=== PATIENT | male | born 1930 | race African-American/Black ===

== ENCOUNTER 2016-11-08 13:05 | Observation (INO) | payer MEDICARE, MEDICAID ==
[~2016-11-08] VITALS: Ht 180.3 cm; Wt 100.0 kg
[2016-11-08 05:15] VITALS: PULSE 69
[~2016-11-08 13:05] MED LIST: ATOR40TA49 PO; AZOR5TAB4 PO; BENI40TA30 PO; ECOT81TA2 PO; HYDR12.56 PO; LORTA5 PO; METF500 PO; NITR0.4S SL; OMEP40CA2 PO; SUCR1TAB PO
[2016-11-08 13:08] VITALS: BP 194/93; PULSE 100; RESP 24; TEMP 97.4; O2SAT 99
[2016-11-08] MEDS ORDERED: SODIUM CHLORIDE 0.9% FLUSH 5 ML FLUSH IVF PRN ×2 (13:15→16:15)
[2016-11-08] MEDS ORDERED: ASPIRIN 81 MG CHEW TAB CHEW ONE (13:15)
[2016-11-08 13:22] VITALS: BP_SYST 148; BP_SYST 194; BP_DIAS 70; BP_DIAS 93
[2016-11-08 13:37] LABS: AUTOMATED NEUTROPHIL # 4.2 TH/MM3 (1.8-7.7); BASOPHIL % 0.2 % (0.0-2.0); EOSINOPHIL # 0.1 TH/MM3 (0-0.4); EOSINOPHIL % 1.5 % (0.0-4.0); HEMATOCRIT 36.2 % (39.0-51.0); LYMPH % 26.8 % (9.0-44.0); LYMPHOCYTE # 1.8 TH/MM3 (1.0-4.8); MEAN CELL VOLUME 88.2 FL (80.0-100.0); MEAN CORPUSCULAR HEMOGLOBIN 29.2 PG (27.0-34.0); MEAN CORPUSCULAR HGB CONC 33.1 % (32.0-36.0); MONO % 8.4 % (0.0-8.0); NEUT % 63.1 % (16.0-70.0); PLATELET COUNT 99 TH/MM3 (150-450); RED BLOOD COUNT 4.11 MIL/MM3 (4.50-5.90); RED CELL DISTRIBUTION WIDTH 16.6 % (11.6-17.2); WHITE BLOOD COUNT 6.6 TH/MM3 (4.0-11.0)
[2016-11-08 13:40] LABS: HEMO FLAGS AUTO DIFF
[2016-11-08 13:49] LABS: APTT (PATIENT) 23.7 SEC (24.3-30.1); PROTHROMBIN TIME - PATIENT 11.6 SEC (9.8-11.6)
--- NOTE | 2016-11-08 13:51 | RADRPT ---
EXAM DATE/TIME: 11/08/2016 13:33 [facility] COMPARISON: CHEST SINGLE AP, June 17, 2016, 13:05. INDICATIONS : Chest Pain MEDICAL HISTORY : Cardiovascular disease. Cerebrovascular disease. Diabetes SURGICAL HISTORY : CABG. ENCOUNTER: Initial ACUITY: 1 day PAIN SCORE: 5/10 LOCATION: Bilateral chest FINDINGS: A single view of the chest demonstrates the lungs to be symmetrically aerated without evidence of mas s, infiltrate or effusion. The cardiomediastinal contours are unremarkable. There is evidence of pr evious cardiothoracic surgery. Osseous structures are intact. CONCLUSION: No acute disease. No significant change has occurred. Zachary Ramos MD on November 08, 2016 at 13:49 Board Certified Radiologist. This report was verified electronically.
[2016-11-08 13:54] LABS: ANION GAP 8 MEQ/L (5-15); BLOOD UREA NITROGEN 26 MG/DL (7-18); CHLORIDE 109 MEQ/L (98-107); GLOMERULAR FILTRATION RATE 31 ML/MIN (>89); POTASSIUM 4.3 MEQ/L (3.5-5.1); SODIUM (NA) 142 MEQ/L (136-145)
[2016-11-08 13:57] LABS: CREATINE KINASE 299 U/L (39-308)
[2016-11-08 14:09] LABS: CKMB 1.2 NG/ML (0.5-3.6)
[2016-11-08 14:10] LABS: ACANTHOCYTES OCC (NORMAL); PLATELET ESTIMATE SMEAR LOW (NORMAL); PLATELET MORPHOLOGY NORMAL (NORMAL); SCAN/DIFF AUTO DIFF CONFIRMED
--- NOTE | 2016-11-08 14:25 | PD ---
HPI Chief Complaint: Cardiac Complaint Time Seen by Provider: 13:10 Travel History International Travel<30 days: No Contact w/Intl Traveler<30days: No Traveled to known affect area: No History of Present Illness HPI 86-year-old male came to the emergency room with history of chest pain and neck pain that started this morning. Patient is an extremely poor historian and there is no family member with him to certify this history. From what it seems like patient has had this pain for a while and he says it has been on and off for a few months. However this time it started this morning. Vital signs are stable. Because of him being a poor historian and looked into his past medical history and seems like patient has history of significant coronary artery disease. He had CABG and stents put in in 2005. He has been in the emergency room and admitted multiple times for chest pain related complaint. He points is pain over to the anterior part of his chest bilaterally. Shows that it started radiating to his neck. He is unable to rate his pain or describe the quality. It was noticed that patient's right eyelid was drooping and upon asking he said he has had it for years. ON LICENSE OF [facility] Past Medical History Narrative Medical List of his past medical history as reviewed from the nursing note. Hx Anticoagulant Therapy: Yes Arthritis: Yes Asthma: No Blood Disorders: No Heart Rhythm Problems: No Cancer: No Cardiac Catheterization: Yes Cardiovascular Problems: Yes High Cholesterol: Yes Chest Pain: No Congestive Heart Failure: Yes COPD: No Cerebrovascular Accident: Yes Coronary Artery Disease: Yes Diabetes: Yes Patient Takes Glucophage: Yes (metformin this am) Diminished Hearing: No Endocrine: Yes Gastrointestinal Disorders: Yes (GERD) Genitourinary: Yes (UNKNOWN LEFT KIDNEY PROBLEM) Headaches: Yes Hypertension: Yes Immune Disorder: No Implanted Vascular Access Dvce: Yes (EYE) Musculoskeletal: No Neurologic: Yes Psychiatric: No Respiratory: No Sleep Apnea: No Thyroid Disease: No Past Surgical History Cardiac Surgery: Yes (CABG- 2005; CARDIAC CATH. WITH STENT- 2004) Coronary Artery Bypass Graft: Yes (3 VESSEL ) Coronary Stent: Yes Eye Surgery: Yes (LEFT CATARACT EXTRACTION WITH IOL) Neurologic Surgery: No Other Surgery: Yes (COLONOSCOPY) Social History Alcohol Use: No Tobacco Use: No Substance Use: No Allergies-Medications (Allergen,Severity, Reaction): Coded Allergies: No Known Allergies (Verified , 07/21/16) Comments No known drug allergies. Reported Meds & Prescriptions Reported Meds & Active Scripts Active Narrative Medication List of his home medications reviewed from the nursing note. Review of Systems Except as stated in HPI: all other systems reviewed are Neg Physical Exam Narrative GENERAL: Awake, alert, elderly, no obvious distress SKIN: Warm and dry. HEAD: Atraumatic. Normocephalic. EYES: Pupils equal and round. No scleral icterus. No injection or drainage. Right eyelid ptosis ENT: No nasal bleeding or discharge. Mucous membranes pink and moist. NECK: Trachea midline. No JVD. CARDIOVASCULAR: Regular rate and rhythm. No murmur appreciated. RESPIRATORY: No accessory muscle use. Clear to auscultation. Breath sounds equal bilaterally. GASTROINTESTINAL: Abdomen soft, non-tender, nondistended. Hepatic and splenic margins not palpable. MUSCULOSKELETAL: No obvious deformities. No clubbing. No cyanosis. No edema. NEUROLOGICAL: Awake and alert. No obvious cranial nerve deficits. Motor grossly within normal limits. Normal speech. PSYCHIATRIC: Appropriate mood and affect; insight and judgment normal. Data Data Last Documented VS Vital Signs Date Time Temp Pulse Resp B/P Pulse Ox O2 Delivery O2 Flow Rate FiO2 11/08/16 13:22 194/93 148/70 11/08/16 13:16 98 99 Room Air 11/08/16 13:08 97.4 100 Orders Electrocardiogram (11/08/16 13:15) Basic Metabolic Panel (Bmp) (11/08/16 13:15) Ckmb (Isoenzyme) Profile (11/08/16 13:15) Complete Blood Count With Diff (11/08/16 13:15) Magnesium (Mg) (11/08/16 13:15) Prothrombin Time / Inr (Pt) (11/08/16 13:15) Act Partial Throm Time (Ptt) (11/08/16 13:15) Troponin I (11/08/16 13:15) Chest, Single Ap (11/08/16 13:15) Ecg Monitoring (11/08/16 13:15) Bilateral Bp Monitoring (11/08/16 13:15) Iv Access Insert/Monitor (11/08/16 13:15) Oximetry (11/08/16 13:15) Oxygen Administration (11/08/16 13:15) Sodium Chloride 0.9% Flush (Ns Flush) (11/08/16 13:15) Aspirin Chew (Aspirin Chew) (11/08/16 13:15) CKMB (11/08/16 13:17) CKMB% (11/08/16 13:17) Ct Brain W/O Iv Contrast(Rout) (11/08/16 ) Admit Order (Ed Use Only) (11/08/16 15:31) Labs Laboratory Tests Test 11/08/16 13:17 White Blood Count 6.6 TH/MM3 Red Blood Count 4.11 MIL/MM3 Hemoglobin 12.0 GM/DL Hematocrit 36.2 % Mean Corpuscular Volume 88.2 FL Mean Corpuscular Hemoglobin 29.2 PG Mean Corpuscular Hemoglobin 33.1 % Concent Red Cell Distribution Width 16.6 % Platelet Count 99 TH/MM3 Mean Platelet Volume 9.6 FL Neutrophils (%) (Auto) 63.1 % Lymphocytes (%) (Auto) 26.8 % Monocytes (%) (Auto) 8.4 % Eosinophils (%) (Auto) 1.5 % Basophils (%) (Auto) 0.2 % Neutrophils # (Auto) 4.2 TH/MM3 Lymphocytes # (Auto) 1.8 TH/MM3 Monocytes # (Auto) 0.6 TH/MM3 Eosinophils # (Auto) 0.1 TH/MM3 Basophils # (Auto) 0.0 TH/MM3 CBC Comment AUTO DIFF Differential Comment AUTO DIFF CONFIRMED Platelet Estimate LOW Platelet Morphology Comment NORMAL Acanthocytes OCC Prothrombin Time 11.6 SEC Prothromb Time International 1.0 RATIO Ratio Activated Partial 23.7 SEC Thromboplast Time Sodium Level 142 MEQ/L Potassium Level 4.3 MEQ/L Chloride Level 109 MEQ/L Carbon Dioxide Level 25.0 MEQ/L Anion Gap 8 MEQ/L Blood Urea Nitrogen 26 MG/DL Creatinine 2.42 MG/DL Estimat Glomerular Filtration 31 ML/MIN Rate Random Glucose 144 MG/DL Calcium Level 8.7 MG/DL Magnesium Level 2.0 MG/DL Total Creatine Kinase 299 U/L Creatine Kinase MB 1.2 NG/ML Troponin I 0.02 NG/ML MDM Medical Decision Making Medical Screen Exam Complete: Yes Emergency Medical Condition: Yes Medical Record Reviewed: Yes Interpretation(s) Twelve-lead EKG was reviewed by me. Normal sinus rhythm, normal axis, PVC, nonspecific ST-T wave changes. Heart rate of 85 bpm. Differential Diagnosis ACS, non-STEMI, nonspecific chest pain, chronic chest Narrative Course 2:57 PM blood test results of back and within normal limit. Currently awaiting for a CAT scan of the patient's head. Patient has been given 2 baby aspirin's to chew on. 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 Patient has several risk factors for coronary artery disease. I would like to admit him to the chest pain center to be ruled out. Procedures EKG Prior to Arrival: No Diagnosis Primary Impression: Chest pain Qualified Code: R07.9 - Chest pain, unspecified type Admitting Information Admitting Physician Requests: Observation Teja Allen MD Nov 08, 2016 14:25 Teja Allen MD Nov 08, 2016 14:25
--- NOTE | 2016-11-08 15:29 | RADRPT ---
EXAM DATE/TIME: 11/08/2016 15:16 [facility] COMPARISON: No previous studies available for comparison. INDICATIONS : Severe dizziness today RADIATION DOSE: 45.41 CTDIvol (mGy) MEDICAL HISTORY : Cerebrovascular disease. Cardiovascular disease Hypertension.Diabetes SURGICAL HISTORY : Head injurey ENCOUNTER: Initial ACUITY: 1 day PAIN SCALE: 0/10 LOCATION: cranial TECHNIQUE: Multiple contiguous axial images were obtained of the head. Using automated exposure control and adj ustment of the mA and/or kV according to patient size, radiation dose was kept as low as reasonably a chievable to obtain optimal diagnostic quality images. FINDINGS: There is a remote small infarct in the left parietal lobe. No acute intracranial mass, hemorrhage or shift. No hydrocephalus. No abnormal extra-axial fluid collections. No acute bony abnormalities. CONCLUSION: 1. 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 No acute intracranial abnormalities. Lisandro Jacobo MD on November 08, 2016 at 15:26 Board Certified Radiologist. This report was verified electronically.
[2016-11-08 16:15] VITALS: BP 141/66; PULSE 72; RESP 16; O2SAT 97
[2016-11-08] MEDS ORDERED: NITROGLYCERIN 0.4 MG SL 25 TABS/BTL SL PRN (16:15)
[2016-11-08] MEDS ORDERED: ONDANSETRON HCL 4 MG/2 ML VIAL IV PRN (16:15)
[2016-11-08] MEDS ORDERED: ACETAMINOPHEN 500 MG CPLT PO PRN (16:15)
[2016-11-08 17:31] VITALS: BP 169/83; PULSE 77; RESP 19; TEMP 98; O2SAT 96
[2016-11-08] MEDS ORDERED: DEXTROSE 50% IN WATER 50 ML VIAL(D50) IV PUSH PRN (17:45)
[2016-11-08] MEDS ORDERED: GLUCAGON 1 MG/ML VIAL OTHER PRN (17:45)
--- NOTE | 2016-11-08 18:35 | HHI.HP ---
HPI Primary Care Physician Pravin Mcmanus III, MD Chief Complaint Chest pain History of Present Illness 86 year old male with CAD, DM, HTN, and hyperlipidemia presents with dizziness and left anterior chest pain when getting ready for episcopalian this morning. Chest discomfort described as "burning." Severity 07/06. No radiation. Duration 2 hours. No associated symptoms. Nonexertional. No precipitating or relieving factors. Movement, position, or taking deep breaths did not improve or make chest discomfort worse. Reports "chronic chest pain that comes and goes for years." Today episode lasted longer than usual, therefore he came to ER. Review of Systems General: No fatigue,weakness, fever, chills, recent illness, or change in appetite HEENT: Report sharp pain "around head" lasted 30 seconds, no BOX, no vision changes, no nasal congestion or drainage, no dysphasia. Right eyelid drooping 20 years, unchanged. CV: No chest pain as stated above. No current chest pain. No chest pressure, palpitations, intermittent leg pain RESP: No SOB, cough, or wheeze GI: No nausea or vomiting, bowel changes, diarrhea, constipation, pain, distention, melena, blood in the stool. No change in appetite, no unintentional weight gain or weight loss : No dysuria, urgency, frequency, hematuria EXT: No lower leg edema, no paraesthesias MS: No discomfort or change in ROM NEURO: Dizziness most of the morning getting ready for episcopalian. No change in memory, difficulty with balance, LOC, motor/sensory deficits. No cane or walker required PSYCH: No anxiety, depression, SKIN: No rashes, no concerning lesions Past Family Social History Allergies: Coded Allergies: No Known Allergies (Verified , 07/21/16) Past Medical History CKD, DM, HTN, CAD, Hyperlipidemia, GERD, BPH Past Surgical History CABG X3, 2006 [place], [place] Reported Medications Patient is unsure of current medications and doses. Will attempt to obtain from patients pharmacy. Active Ordered Medications Current Medications Medications (Trade) Dose Ordered Sig/Johanne Route Start Time Stop Time Status Last Admin (Tylenol) 500 mg Q4H PRN PO 11/08/16 16:15 (Zofran Inj) 4 mg Q6H PRN IV 11/08/16 16:15 (Nitrostat Sl) 0.4 mg Q5M PRN SL 11/08/16 16:15 (Aspirin) 325 mg DAILY PO 11/09/16 09:00 (D50w (Vial) Inj) 25 ml UNSCH PRN IV PUSH 11/08/16 17:45 (Glucagon Inj) 1 mg UNSCH PRN OTHER 11/08/16 17:45 Social History , however for 10 years. Lifelong nonsmoker, Denies any alcohol or illicit drug use. Physical Exam Vital Signs Vital Signs Date Time Temp Pulse Resp B/P Pulse Ox O2 Delivery O2 Flow Rate FiO2 11/08/16 17:31 98.0 77 19 169/83 96 11/08/16 16:15 72 16 141/66 97 Room Air 11/08/16 13:22 194/93 148/70 11/08/16 13:16 98 99 Room Air 11/08/16 13:08 97.4 100 24 194/93 99 Physical Exam GENERAL: Alert WN, WD, NAD, pleasant, male HEAD: NC, AT EYES: Sclera clear, conjunctiva without injection, pupils equal and round. Extraocular movements intact. Right eye lid drooping. ENT: Mucous membranes pink and moist, no nasal discharge or bleeding NECK: Supple, no masses, trachea midline CV: RRR, without murmur, rub, gallop, no JVD, S1-S2 no S3-S4. No carotid bruits RESP: Clear lungs throughout bilateral, no crackles, wheeze, rhonchi, symmetrical chest rise, nonlabored, able to speak in full sentences ABD: Soft, NT, ND, no masses, positive bowel tones EXT: Pulses +24, no dependent edema MS: Normal tone 4 extremities, nontender, no obvious deformities, full range of motion NEURO: CN II through CN XII grossly intact, motor strength 5/5 PSYCH: A+O 3, pleasant affect, appropriate speech, appropriate mood and affect , insight and judgment SKIN: Normal turgor, normal texture, no lesions, no rashes, brisk cap refill, even hair distribution Laboratory Laboratory Tests Test 11/08/16 11/08/16 13:17 16:25 White Blood Count 6.6 Red Blood Count 4.11 Hemoglobin 12.0 Hematocrit 36.2 Mean Corpuscular Volume 88.2 Mean Corpuscular Hemoglobin 29.2 Mean Corpuscular Hemoglobin 33.1 Concent Red Cell Distribution Width 16.6 Platelet Count 99 Mean Platelet Volume 9.6 Neutrophils (%) (Auto) 63.1 Lymphocytes (%) (Auto) 26.8 Monocytes (%) (Auto) 8.4 Eosinophils (%) (Auto) 1.5 Basophils (%) (Auto) 0.2 Neutrophils # (Auto) 4.2 Lymphocytes # (Auto) 1.8 Monocytes # (Auto) 0.6 Eosinophils # (Auto) 0.1 Basophils # (Auto) 0.0 CBC Comment AUTO DIFF Differential Comment AUTO DIFF CONFIRMED Platelet Estimate LOW Platelet Morphology Comment NORMAL Acanthocytes OCC Prothrombin Time 11.6 Prothromb Time International 1.0 Ratio Activated Partial 23.7 Thromboplast Time Sodium Level 142 Potassium Level 4.3 Chloride Level 109 Carbon Dioxide Level 25.0 Anion Gap 8 Blood Urea Nitrogen 26 Creatinine 2.42 Estimat Glomerular Filtration 31 Rate Random Glucose 144 Calcium Level 8.7 Magnesium Level 2.0 Total Creatine Kinase 299 83 Creatine Kinase MB 1.2 Troponin I 0.02 0.03 Result Diagram: 11/08/16 1317 11/08/16 1317 Imaging Last Impressions Chest X-Ray 11/08/16 1315 Signed Impressions: Service Date/Time: Tuesday, November 08, 2016 13:33 - CONCLUSION: No acute disease. No significant change has occurred. Zachary Ramos MD Head CT 11/08/16 0000 Signed Impressions: Service Date/Time: Tuesday, November 08, 2016 15:16 - CONCLUSION: 1. 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 No acute intracranial abnormalities. Lisandro Jacobo MD Course EKG Two EKGs NSR with PVCs, normal axis Assessment and Plan Assessment and Plan #1 Chest pain-Admitted to [facility]. Will be ruled out with 3 EKGs, cardiac enzymes, and monitored overnight. Will be evaluated by Dr. Kang Strong in the am. Further disposition to follow after evaluation from log washer. Patient agreeable to chemical stress test if required. Agreeable to plan of care. #2 Dizziness-Head CT unremarkable for any acute findings. Will continue to monitor patient overnight. #3 Diabetes-SSI coverage #4 CKD-stable. Follow with boat outfitting supervisor as previously instructed. #5 HTN- will monitor overnight. Stable at this time. Will reorder medications once obtained. Will make arrangements with nursing and/or certified pharmacy tech to obtain patient medication list from his pharmacy. Olinda Mercer Nov 08, 2016 18:35
[2016-11-08] MEDS ORDERED: cloNIDine HCL 0.1 MG TAB PO PRN (19:00)
[2016-11-08 20:00] VITALS: PULSE 76
[2016-11-08] MEDS ORDERED: ACETAMINOPHEN/HYDROcodone 325 MG/5 MG TAB PO PRN (21:00)
[2016-11-08] MEDS: INSULIN ASPART SUPPLEMENTAL SCALE SQ SCH (21:00)
[2016-11-08] MEDS ORDERED: ATORVASTATIN 40 MG TAB PO SCH (21:00)
[2016-11-08] MEDS ORDERED: ZOLPIDEM TARTRATE 5 MG TAB PO PRN (21:00)
[2016-11-08] MEDS: amLODIPine BESYLATE 5 MG TAB PO SCH (21:21)
[2016-11-08] MEDS: SODIUM CHLORIDE 0.9% FLUSH 5 ML FLUSH IVF SCH (21:21)
[2016-11-09 00:22] VITALS: PULSE 66
[2016-11-09 04:45] VITALS: BP 158/73; PULSE 89; RESP 18; O2SAT 97
[2016-11-09] MEDS: INSULIN ASPART SUPPLEMENTAL SCALE SQ SCH (06:23)
[2016-11-09 06:28] VITALS: PULSE 66
[2016-11-09 08:00] VITALS: BP 97/71; PULSE 70; RESP 18; TEMP 97.8; O2SAT 98
[2016-11-09] MEDS ORDERED: ASPIRIN 325 MG TAB PO SCH (09:00)
[2016-11-09] MEDS: amLODIPine BESYLATE 5 MG TAB PO SCH (09:00)
[2016-11-09] MEDS ORDERED: REGADENOSON INJ 0.4 MG/5 ML SYR ONE (09:05)
[2016-11-09] MEDS ORDERED: OMEP40CA2 PO (09:46)
[2016-11-09] MEDS ORDERED: TRAD5TAB PO (09:46)
[2016-11-09] MEDS ORDERED: [UNRECOGNIZED DRUG - CODE] PO (09:46)
[2016-11-09] MEDS ORDERED: TAMS0.4C4 PO (09:46)
[2016-11-09] MEDS ORDERED: REPA1TAB PO (09:46)
[2016-11-09] MEDS ORDERED: ULOR40TA PO (09:46)
[2016-11-09] MEDS ORDERED: CALC0.25 PO (09:47)
[2016-11-09] MEDS: SODIUM CHLORIDE 0.9% FLUSH 5 ML FLUSH IVF SCH (10:32)
--- NOTE | 2016-11-09 10:45 | RADRPT ---
EXAM DATE/TIME: 11/09/2016 08:38 [facility] COMPARISON: CT ABDOMEN & PELVIS W/O CONTRAST, July 21, 2016, 15:06. CT THORAX W/O CONTRAST, October 17, 2014, 14:04. MYOCARDIAL PERF PHARM SPECT, GATED W/EF, October 18, 2014, 9:11. MYOCARDIAL PERF SHOW DESIGN SUPERVISOR T, GATED W/EF, August 13, 2015, 10:48. INDICATIONS : Bilateral anterior chest pain. Angina. DOSE: 25.7 mCi Tc99m Myoview at stress. 10.9 mCi Tc99m Myoview at rest. 0.4 mg Lexiscan STRESS SYMPTOMS: None. EJECTION FRACTION: 49% MEDICAL HISTORY : Hypertension. Hypercholesterolemia. Congestive heart failure. Diabetes SURGICAL HISTORY : CABG ENCOUNTER: Initial ACUITY: 1 day PAIN SCALE: 2/10 LOCATION: Bilateral chest TECHNIQUE: The patient underwent pharmacologic stress with infusion of prescribed dose. Continuous ECG tracing was monitored during stress. Gated SPECT imaging was performed after stress and conventional SPECT i maging was performed at rest. The examination was performed on a SPECT/CT scanner, both attenuation and non-corrected datasets were reviewed. FINDINGS: DISTRIBUTION: The maximum perfused segment at stress is in the septal wall. PERFUSION STUDY: The examination demonstrates a fixed perfusion defect in the lateral wall. No definite reversible per fusion abnormality is identified. The ventricular cavity is mildly dilated. GATED STUDY: There is intact wall motion and thickening without hypokinetic or dyskinetic segments. CONCLUSION: 1. Fixed perfusion defect involving the lateral wall. No definite reversible abnormality is evident. Ventricular cavity appears mildly dilated.. RISK CATEGORY: Intermediate (1-3% Annual Mortality Rate) Tarun Triplett MD on November 09, 2016 at 10:29 Board Certified Radiologist. This report was verified electronically.
--- NOTE | 2016-11-09 10:48 | HHI.DCPOC ---
Discharge Care Plan Diagnosis: (1) Chest pain (2) CAD (coronary artery disease) (3) Hx of CABG (4) Hypertension (5) Hyperlipidemia (6) DM (diabetes mellitus) (7) Chronic kidney disease Goals to Promote Your Health * To prevent worsening of your condition and complications * To maintain your health at the optimal level Directions to Meet Your Goals Take your medications as prescribed Follow your dietary instruction Follow activity as directed Keep your appointments as scheduled Take your immunizations and boosters as scheduled If your symptoms worsen call your PCP, if no PCP go to Urgent Care Center or Emergency Room Smoking is Dangerous to Your Health. Avoid second hand smoke Call the 24-hour hour crisis hotline for domestic abuse at John López Nov 09, 2016 10:48
[2016-11-09 11:43] VITALS: BP 157/90; PULSE 61; RESP 20; TEMP 96.8; O2SAT 95
--- NOTE | 2016-11-09 15:42 | EKG ---
Date Performed: 11/08/2016 Time Performed: 13:13:49 PTAGE: 86 years EKG: Sinus rhythm WITH OCCASIONAL VENTRICULAR PREMATURE COMPLEXES POSSIBLE LEFT ATRIAL ENLARGEMENT MODERATE INTRAVENTR ICULAR CONDUCTION DELAY BORDERLINE ECG INTERPRETATION BASED ON A DEFAULT AGE OF 40 YEARS PREVIOUS TRACING : 06/18/2016 05.59 Since previous tracing, no significant change noted DOCTOR: Kang Strong Interpretating Date/Time 11/09/2016 15:41:38
--- NOTE | 2016-11-09 15:42 | EKG ---
Date Performed: 11/08/2016 Time Performed: 19:24:05 PTAGE: 86 years EKG: Sinus rhythm WITH FREQUENT VENTRICULAR PREMATURE COMPLEXES POSSIBLE LEFT ATRIAL ENLARGEMENT MODERATE INTRAVENTRIC ULAR CONDUCTION DELAY ABNORMAL RHYTHM ECG PREVIOUS TRACING : 11/08/2016 16.25 Since previous tracing, no significant change noted DOCTOR: Kang Strong Interpretating Date/Time 11/09/2016 15:41:08
--- NOTE | 2016-11-09 15:42 | EKG ---
Date Performed: 11/08/2016 Time Performed: 16:25:49 PTAGE: 86 years EKG: Sinus rhythm WITH OCCASIONAL VENTRICULAR PREMATURE COMPLEXES NONSPECIFIC T-WAVE ABNORMALITY BORDERLINE ECG Since PREVIOUS TRACING , no significant change noted DOCTOR: Kang Strong Interpretating Date/Time 11/09/2016 15:41:25
--- NOTE | 2016-11-09 15:46 | TR ---
Date Performed: 11/09/2016 Time Performed: 09:12:51 DOCTOR: Kang Strong DRUG LIST: CLINICAL HISTORY: REASON FOR TEST: Angina REASON FOR ENDING: OBSERVATION: CONCLUSION: Lexiscan stress test was performed under standard four minute protocol. Radionuclid e was injected one minute prior to ending the test. No electrocardiographic abormalities were present to suggest ischemia. Nuclear imaging and interpretation are pending. COMMENTS:
== END 2016-11-09 12:28 | disposition home or self-care (01) ==
LOC: NEPC 13:05 → NEDA 15:33 → NEPFCDU 17:05
DX: R07.89 Other chest pain (principal); I25.10 Atherosclerotic heart disease of native coronary artery without angina pectoris; I12.9 Hypertensive chronic kidney disease with stage 1 through stage 4 chronic kidney disease, or unspecified chronic kidney disease; N18.9 Chronic kidney disease, unspecified; E11.22 Type 2 diabetes mellitus with diabetic chronic kidney disease; E78.5 Hyperlipidemia, unspecified; I49.3 Ventricular premature depolarization; E78.00 Pure hypercholesterolemia, unspecified; K21.9 Gastro-esophageal reflux disease without esophagitis; N40.0 Benign prostatic hyperplasia without lower urinary tract symptoms; Z86.73 Personal history of transient ischemic attack (TIA), and cerebral infarction without residual deficits; Z95.1 Presence of aortocoronary bypass graft
CPT/HCPCS: 70450; 71010; 78452; 80048; 82550; 82552; 82948; 83735; 84484; 85025; 85610; 85730; 93005; 93017; 99285; A9502; G0378; J2785

== ENCOUNTER 2017-05-07 09:08 | Inpatient (IN) | payer MEDICARE, MEDICAID ==
[2017-05-07] VITALS (10 sets, daily range): BP systolic 140–233; BP diastolic 73–106; PULSE 68–82; RESP 14–20; TEMP 95.7–97.6; O2SAT 97–100
[~2017-05-07] VITALS: Ht 182.9 cm; Wt 88.7 kg
[~2017-05-07 09:08] MED LIST changes: -ATOR40TA49 PO; -AZOR5TAB4 PO; -BENI40TA30 PO; +CALC0.25 PO; -ECOT81TA2 PO; -HYDR12.56 PO; -LORTA5 PO; -METF500 PO; -NITR0.4S SL; +REPA1TAB PO; -SUCR1TAB PO; +TAMS0.4C4 PO; +TRAD5TAB PO; +ULOR40TA PO; +[UNRECOGNIZED DRUG - CODE] PO
--- NOTE | 2017-05-07 09:26 | PD ---
HPI Chief Complaint: Chest Pain Time Seen by Provider: 09:20 Travel History International Travel<30 days: No Contact w/Intl Traveler<30days: No Traveled to known affect area: No History of Present Illness HPI 87-year-old male patient presents to the ER today for right axillary pain starting last night on its own. He states is currently a 10 out 10. He states it worsens with movements and deep breaths. He denies any fevers, coughing, shortness of breath, or any other symptoms. He denies previous history. Modifying Factors: Worse with movement Associated Signs & Symptoms: Right axillary chest pains Risk Factors: None PFSH Past Medical History Hx Anticoagulant Therapy: Yes Arthritis: Yes Asthma: No Blood Disorders: No Heart Rhythm Problems: No Cancer: No Cardiac Catheterization: Yes Cardiovascular Problems: Yes High Cholesterol: Yes Chest Pain: No Congestive Heart Failure: Yes COPD: No Cerebrovascular Accident: Yes Coronary Artery Disease: Yes Diabetes: Yes Patient Takes Glucophage: Yes Diminished Hearing: No Endocrine: Yes Gastrointestinal Disorders: Yes (GERD) Genitourinary: Yes (UNKNOWN LEFT KIDNEY PROBLEM) Headaches: Yes Hypertension: Yes Immune Disorder: No Implanted Vascular Access Dvce: Yes (EYE) Musculoskeletal: No Neurologic: Yes Psychiatric: No Respiratory: Yes Sleep Apnea: No Thyroid Disease: No Past Surgical History Cardiac Surgery: Yes (CABG- 2005; CARDIAC CATH. WITH STENT- 2004) Coronary Artery Bypass Graft: Yes (3 VESSEL ) Coronary Stent: Yes Eye Surgery: Yes (LEFT CATARACT EXTRACTION WITH IOL) Neurologic Surgery: No Other Surgery: Yes (COLONOSCOPY) Social History Alcohol Use: No Tobacco Use: No Substance Use: No Allergies-Medications (Allergen,Severity, Reaction): Coded Allergies: No Known Allergies (Verified , 07/21/16) Reported Meds & Prescriptions Reported Meds & Active Scripts Active Reported Calcitriol 0.25 Mcg Cap 0.25 Mcg PO MOWEFR Take 1 capsule (0.25mcg) three times weekly on Wednesday,Wednesday and Wednesday Tradjenta (Linagliptin) 5 Mg Tab 5 Mg PO DAILY Uloric (Febuxostat) 40 Mg Tab 40 Mg PO DAILY Tamsulosin (Tamsulosin HCl) 0.4 Mg Cap 0.4 Mg PO HS Amlodipine-Olmesartan 5-40 Mg Tab 1 Tab PO DAILY Repaglinide 0.5 Mg Tab 0.5 Mg PO BIDAC Omeprazole 40 Mg Cap 40 Mg PO DAILY Review of Systems Except as stated in HPI: all other systems reviewed are Neg Physical Exam Narrative GENERAL: Well-developed elderly -German male patient currently in moderate distress. Awake and oriented 3. SKIN: Focused skin assessment warm/dry. HEAD: Atraumatic. Normocephalic. EYES: Pupils equal and round. No scleral icterus. No injection or drainage. ENT: No nasal bleeding or discharge. Mucous membranes pink and moist. NECK: Trachea midline. No JVD. CARDIOVASCULAR: Regular rate and rhythm. No murmur appreciated. Pulses are present and equal bilaterally. RESPIRATORY: No accessory muscle use. Clear to auscultation. Breath sounds equal bilaterally. GASTROINTESTINAL: Abdomen soft, non-tender, nondistended. Hepatic and splenic margins not palpable. BACK: No CVA tenderness. No rash. No point tenderness on palpation of the spine. MUSCULOSKELETAL: No obvious deformities. No clubbing. No cyanosis. No edema. NEUROLOGICAL: Awake and alert. No obvious cranial nerve deficits. Motor grossly within normal limits. Normal speech. PSYCHIATRIC: Appropriate mood and affect; insight and judgment normal. Data Data Last Documented VS Vital Signs Date Time Temp Pulse Resp B/P Pulse Ox O2 Delivery O2 Flow Rate FiO2 05/07/17 12:05 72 14 163/77 100 Nasal Cannula 2 05/07/17:17 97.6 Orders Electrocardiogram (05/07/17:20) Ckmb (Isoenzyme) Profile (05/07/17:20) Complete Blood Count With Diff (05/07/17:20) Comprehensive Metabolic Panel (05/07/17:20) D-Dimer (05/07/17:20) Magnesium (Mg) (05/07/17:20) Prothrombin Time / Inr (Pt) (05/07/17:20) Act Partial Throm Time (Ptt) (05/07/17:20) Troponin I (05/07/17:20) Lipase (05/07/17:20) Chest, Single Ap (05/07/17:20) Ecg Monitoring (05/07/17:20) Bilateral Bp Monitoring (05/07/17:20) Iv Access Insert/Monitor (05/07/17:20) Oximetry (05/07/17:20) Oxygen Administration (8/11/17 09:20) Morphine Inj (Morphine Inj) (05/07/17 09:30) Sodium Chloride 0.9% Flush (Ns Flush) (05/07/17 09:30) Ondansetron Inj (Zofran Inj) (05/07/17 09:30) CKMB (05/07/17 09:25) CKMB% (05/07/17 09:25) Ventilation & Perfusion Scan (05/07/17 10:28) Morphine Inj (Morphine Inj) (05/07/17 12:00) Enoxaparin Inj (Lovenox Inj) (05/07/17 14:00) Labs Laboratory Tests Test 05/07/17 09:25 White Blood Count 8.9 TH/MM3 Red Blood Count 4.11 MIL/MM3 Hemoglobin 12.3 GM/DL Hematocrit 37.4 % Mean Corpuscular Volume 91.0 FL Mean Corpuscular Hemoglobin 29.9 PG Mean Corpuscular Hemoglobin 32.9 % Concent Red Cell Distribution Width 16.2 % Platelet Count 135 TH/MM3 Mean Platelet Volume 9.2 FL Neutrophils (%) (Auto) 61.5 % Lymphocytes (%) (Auto) 26.1 % Monocytes (%) (Auto) 10.8 % Eosinophils (%) (Auto) 1.0 % Basophils (%) (Auto) 0.6 % Neutrophils # (Auto) 5.5 TH/MM3 Lymphocytes # (Auto) 2.3 TH/MM3 Monocytes # (Auto) 1.0 TH/MM3 Eosinophils # (Auto) 0.1 TH/MM3 Basophils # (Auto) 0.1 TH/MM3 CBC Comment DIFF FINAL Differential Comment Prothrombin Time 11.4 SEC Prothromb Time International 1.0 RATIO Ratio Activated Partial 22.6 SEC Thromboplast Time D-Dimer Quantitative (PE/DVT) 2.39 MG/L FEU Sodium Level 141 MEQ/L Potassium Level 4.5 MEQ/L Chloride Level 109 MEQ/L Carbon Dioxide Level 26.7 MEQ/L Anion Gap 5 MEQ/L Blood Urea Nitrogen 17 MG/DL Creatinine 2.07 MG/DL Estimat Glomerular Filtration 37 ML/MIN Rate Random Glucose 91 MG/DL Calcium Level 8.7 MG/DL Magnesium Level 2.2 MG/DL Total Bilirubin 0.5 MG/DL Aspartate Amino Transf 18 U/L (AST/SGOT) Alanine Aminotransferase 17 U/L (ALT/SGPT) Alkaline Phosphatase 74 U/L Total Creatine Kinase 159 U/L Creatine Kinase MB 0.8 NG/ML Troponin I LESS THAN 0.02 NG/ML Total Protein 7.4 GM/DL Albumin 3.4 GM/DL Lipase 289 U/L MDM Medical Decision Making Medical Screen Exam Complete: Yes Emergency Medical Condition: Yes Medical Record Reviewed: Yes Interpretation(s) Laboratory Tests Test 05/07/17 09:25 Red Blood Count 4.11 MIL/MM3 (4.50-5.90) Hemoglobin 12.3 GM/DL (13.0-17.0) Hematocrit 37.4 % (39.0-51.0) Platelet Count 135 TH/MM3 (150-450) Monocytes (%) (Auto) 10.8 % (0.0-8.0) Monocytes # (Auto) 1.0 TH/MM3 (0-0.9) Activated Partial 22.6 SEC Thromboplast Time (24.3-30.1) D-Dimer Quantitative (PE/DVT) 2.39 MG/L FEU (0.00-0.50) Chloride Level 109 MEQ/L (98-107) Creatinine 2.07 MG/DL (0.60-1.30) Estimat Glomerular Filtration 37 ML/MIN (>89) Rate Troponin I LESS THAN 0.02 NG/ML (0.02-0.05) Last 24 hours Impressions Lung Scan-VQ Nuclear Medicine 05/07/17 1028 Signed Impressions: Service Date/Time: Sunday, May 07, 2017 13:18 - CONCLUSION: High probability scan for pulmonary embolism Pravin Marcano MD Chest X-Ray 05/07/17 0920 Signed Impressions: Service Date/Time: Sunday, May 07, 2017 09:33 - CONCLUSION: No acute cardiopulmonary abnormality is identified. Pravin Jim MD Differential Diagnosis Right lateral chest painscostochondritis versus pneumonia versus atypical chest pain versus PE Narrative Course EKG did not show any signs of acute ST-T changes but says show frequent PVCs. Chest x-ray did not show signs of acute bony processes. VQ scan was done which shows high probability of PE. At this point, Lovenox was initiated in the ER. His creatinine is quite elevated as well and doses will need to be readjusted by pharmacy. At this point, my plan would be to admit the patient for further treatment. Case was discussed with Dr. Dominguez for admission. Diagnosis Primary Impression: Pulmonary embolism Admitting Information Admitting Physician Requests: it Ashli Urbina MD May 07, 2017 09:26
[2017-05-07] MEDS ORDERED: MORPHINE SULFATE 4 MG/ML INJ IV PUSH ONE ×2 (09:30→12:00)
[2017-05-07] MEDS ORDERED: SODIUM CHLORIDE 0.9% FLUSH 10 ML FLUSH IVF PRN (09:30)
[2017-05-07] MEDS ORDERED: ONDANSETRON HCL 4 MG/2 ML VIAL IV PUSH ONE (09:30)
[2017-05-07 09:47] LABS: AUTOMATED NEUTROPHIL # 5.5 TH/MM3 (1.8-7.7); BASOPHIL # 0.1 TH/MM3 (0-0.2); BASOPHIL % 0.6 % (0.0-2.0); EOSINOPHIL # 0.1 TH/MM3 (0-0.4); HEMATOCRIT 37.4 % (39.0-51.0); HEMO FLAGS DIFF FINAL; LYMPH % 26.1 % (9.0-44.0); LYMPHOCYTE # 2.3 TH/MM3 (1.0-4.8); MEAN CORPUSCULAR HEMOGLOBIN 29.9 PG (27.0-34.0); MEAN CORPUSCULAR HGB CONC 32.9 % (32.0-36.0); MONO % 10.8 % (0.0-8.0); NEUT % 61.5 % (16.0-70.0); PLATELET COUNT 135 TH/MM3 (150-450); RED BLOOD COUNT 4.11 MIL/MM3 (4.50-5.90); RED CELL DISTRIBUTION WIDTH 16.2 % (11.6-17.2); WHITE BLOOD COUNT 8.9 TH/MM3 (4.0-11.0)
--- NOTE | 2017-05-07 10:00 | RADRPT ---
EXAM DATE/TIME: 05/07/2017 09:33 [facility] COMPARISON: CHEST SINGLE AP, November 08, 2016, 13:33. INDICATIONS : Complains of chest pain. MEDICAL HISTORY : None. SURGICAL HISTORY : CABG. ENCOUNTER: Initial ACUITY: 1 day PAIN SCORE: 8/10 LOCATION: Abdomen FINDINGS: Portable AP view of the chest demonstrates a normal-sized cardiac silhouette. No effusion, consolidat ion, or pneumothorax is visualized. The bones and soft tissues demonstrate no acute abnormality. Thea ent is post median sternotomy. CONCLUSION: No acute cardiopulmonary abnormality is identified. Pravin Jim MD on May 07, 2017 at 9:58 Board Certified Radiologist. This report was verified electronically.
[2017-05-07 10:02] LABS: APTT (PATIENT) 22.6 SEC (24.3-30.1); PROTHROMBIN TIME - PATIENT 11.4 SEC (9.8-11.6)
[2017-05-07 10:14] LABS: ALT (GPT) 17 U/L (12-78); ANION GAP 5 MEQ/L (5-15); AST (GOT) 18 U/L (15-37); BICARBONATE 26.7 MEQ/L (21.0-32.0); BLOOD UREA NITROGEN 17 MG/DL (7-18); CHLORIDE 109 MEQ/L (98-107); GLOMERULAR FILTRATION RATE 37 ML/MIN (>89); MAGNESIUM 2.2 MG/DL (1.5-2.5); POTASSIUM 4.5 MEQ/L (3.5-5.1); SODIUM (NA) 141 MEQ/L (136-145)
[2017-05-07 10:18] LABS: ALKALINE PHOSPHATASE 74 U/L (45-117); CREATINE KINASE 159 U/L (39-308); TOTAL BILIRUBIN ADULT 0.5 MG/DL (0.2-1.0)
[2017-05-07 10:31] LABS: CKMB 0.8 NG/ML (0.5-3.6)
--- NOTE | 2017-05-07 13:58 | RADRPT ---
EXAM DATE/TIME: 05/07/2017 13:18 [facility] COMPARISON: CHEST SINGLE AP, May 07, 2017, 9:33. INDICATIONS : Shortness of breath. DOSE: 8.1 mCi Tc99m MAA IV 0.9 mCi Tc99m DTPA aerosol MEDICAL HISTORY : Congestive hearrt failure. Hypertension. SURGICAL HISTORY : CABG Coronary artery stent. ENCOUNTER: Initial ACUITY: 1 day PAIN SCALE: 10/10 LOCATION: chest TECHNIQUE: Following five minutes of tidal breathing of DTPA aerosol, planar images of the lungs were performed in eight projections. The patient was then injected with MAA, and eight-view perfusion scan was perf ormed. FINDINGS: There are multiple bilateral ventilation/perfusion mismatches. Chest radiograph is focally unremarkable. CONCLUSION: High probability scan for pulmonary embolism Pravin Marcano MD on May 07, 2017 at 13:52 Board Certified Radiologist. This report was verified electronically.
[2017-05-07] MEDS ORDERED: ENOXAPARIN SODIUM 80 MG/0.8 ML SYRINGE SQ ONE (14:00)
[2017-05-07] MEDS ORDERED: LACTULOSE SYRUP 20 GM/30 ML CUP PO PRN (14:30)
[2017-05-07] MEDS ORDERED: BISACODYL 10 MG SUPP RECTAL PRN (14:30)
[2017-05-07] MEDS ORDERED: SENNOSIDES 8.6 MG TAB PO PRN (14:30)
[2017-05-07] MEDS ORDERED: ACETAMINOPHEN 325 MG TAB PO PRN (14:30)
[2017-05-07] MEDS ORDERED: NALOXONE HCL 0.4 MG/ML AMP IV PRN (14:30)
[2017-05-07] MEDS ORDERED: SODIUM CHLORIDE 0.9% FLUSH 10 ML FLUSH IV FLUSH PRN (14:30)
[2017-05-07] MEDS ORDERED: MAGNESIUM HYDROXIDE SUSP 30 ML CUP PO PRN (14:30)
--- NOTE | 2017-05-07 16:38 | MH ---
cc: SAGRARIO MOYA MD DATE OF ADMISSION: 05/07/2017 CHIEF COMPLAINT: Chest pain and shortness of breath right axilla. TRAVEL IN THE LAST THIRTY DAYS: None. HISTORY OF PRESENT ILLNESS: This is a pleasant 87-year-old black male who had been in his usual state of health up until yesterday evening. He states that he was hit acutely by a pain that was up under his right axilla in the back shoulder area. He states the pain was sharp and stabbing and constant. He rated it as a 10/10 and he states that he was having trouble taking a deep breath. The pain was so intense but denies any nausea, vomiting, headaches, diarrhea or constipation. He states that he did have a sensation in his chest but the pain was mostly radiating around to the right axilla area. The patient has had no fever, no cough. He has noted in the recent months some dizziness and had started going to physical therapy this past week. PAST MEDICAL HISTORY: His medical history includes: 1. Arthritis. 2. Hyperlipidemia. 3. Cardiovascular disease. 4. Congestive heart failure. 5. Coronary artery disease with stents. 6. CVA. 7. Diabetes type 2. 8. Left kidney disease. 9. Headaches. 10. Hypertension. 11. Some type of eye disorders. 12. Respiratory disease. 13. Gastroesophageal reflux disease (GERD). PAST SURGICAL HISTORY: 1. CABG in 2005. 2. Cardiac stents in 2004. 3. Left cataract extraction with intraocular lens. 4. Colonoscopy. ALLERGIES: NO KNOWN ALLERGIES. MEDICATIONS REPORTED: 1. Calcium. 2. Tradjenta. 3. Uloric. 4. Tamsulosin. 5. Amlodipine. 6. Omeprazole. SOCIAL HISTORY: The patient is currently but does not live with his . They are still on good terms. They do have children together. He lives alone. He denies any tobacco, alcohol or illicit drug use. REVIEW OF SYSTEMS: A twelve-point review of systems was obtained and positives noted or what is mentioned in the history of present illness as symptoms, right axillary pain, a funny feeling sensation in his chest, the pain is worse with movement and rated at 10/10, mild shortness of breath, history of some recent dizziness and debility, otherwise systems negative or unremarkable. PHYSICAL EXAMINATION: VITAL SIGNS: Temperature was 97.6, pulse 82, respirations 16, blood pressure initially on admission was 233/106 and now 177/95 and 175/84 and has been as low as 163/77, 02 saturation 97% on two liters nasal cannula. GENERAL: Well-developed elderly black male tall in stature and frame, mildly obese abdomen resting in the bed. He is alert, oriented and a fairly good historian. His daughter is with him at his side. SKIN: He has pink mucous membranes. Warm and dry. No obvious wounds. HEAD, EYES, EARS, NOSE, THROAT: Normocephalic and atraumatic. Pupils equal, round and reactive to light and accommodation. No scleral icterus. The patient wears glasses. The mucous membranes are moist and pink. NECK: The neck is supple. CARDIOVASCULAR: S1 and S2. Rhythm is regular. Heart sounds are distant. No obvious murmurs, rubs or gallops. The patient has 1+ edema noted in his lower extremities. They are warm to touch. Pulses are palpable. RESPIRATORY: Lungs are essentially clear on the left side with no wheezes or rhonchi. He does have some mild diminished sounds in his right mid to lower lobe. GASTROINTESTINAL: The abdomen is round, taught, soft, nontender. Bowel sounds are active. MUSCULOSKELETAL: Edema noted in the lower extremities 1+. No obvious deformities. Moves his extremities with purpose. NEUROLOGIC: His hand color drum worker are equal. He is alert and a fairly good historian and answers questions appropriately. Speech is normal and understandable. PSYCHIATRIC: Appropriate mood and affect. LABORATORY DATA: White blood cell count 8.9, RBCs 4.11, hemoglobin 12.3, hematocrit 37.4, platelet count 135,000, monocyte count 10.8. All other differential is normal. PT and INR are 1. APTT is 22.6. PT 11.4. D dimer 2.39. Chemistry: Sodium 141, potassium 4.5, chloride 109, BUN 17, creatinine 2.07, GFR 37. Troponin is less than 0.02. IMAGING STUDIES: Chest x-ray shows no acute cardiopulmonary disease identified. VQ SCAN shows high probability of pulmonary embolism. ASSESSMENT AND PLAN: 1. The patient will be admitted. 2. In the emergency room, he had ECG monitoring, initial labs, x-rays, IVs, pain management given. 3. The patient's initial diagnosis was pulmonary emboli. 4. We have consulted hematology for their expert opinion. 5. The patient has been placed on Lovenox 60 milligrams subcutaneous every 12 hours. 6. Home medications have been identified and continued as warranted. 7. Will monitor his bowel regimen. 8. Keep him on IV fluids. 9. Cardiac monitoring. 10. 1800 calorie ADA heart-healthy diet. 11. He will have Accu-Cheks a.c. and at bedtime with sliding scale. 12. He is admitted inpatient status. 13. Vital signs are q. 4. 14. Oxygen two liters nasal cannula as needed. To my knowledge, the patient is a FULL CODE, FULL AGGRESSIVE CARE, which are his wishes. Even though he and his do not live together, he is comfortable with her being his next of kin and decision-maker and he states that his family is close and will have no problems making decisions for each other. We will continue to follow. Dictated by POPPY Hung. MD ANURAG Vaca/HEMALATHA /3:55 PM /4:17 PM seen, examined by myself, Dr Moya, today Discussed with patient Admitted with right-sided pleuritic/reproducible chest pain VQ scan showing possible evidence of pulmonary embolism Lovenox ordered Hematology consultation requested Discussed with mid level provider The exam, history, and the medical decision-making described in the above note were completed with the assistance of the mid-level provider. I reviewed the findings presented. I attest that I had a [id number] encounter with the patient on the same day, and personally performed and documented my assessment and findings in the medical record. EMIL
[2017-05-07] MEDS: SODIUM CHLOR 0.9% 1000 ML INJ 1,000 ML IV SCH (17:24)
[2017-05-07] MEDS: CALCITRIOL 0.25 MCG CAP PO SCH (17:32)
[2017-05-07] MEDS ORDERED: Custom Consult Pharmacy 1 EA OTHER SCH (17:45)
[2017-05-07] MEDS ORDERED: DEXTROSE 50% IN WATER 50 ML VIAL(D50) IV PUSH PRN (18:00)
[2017-05-07] MEDS ORDERED: GLUCAGON 1 MG/ML VIAL OTHER PRN (18:00)
[2017-05-07] MEDS: SODIUM CHLORIDE 0.9% FLUSH 10 ML FLUSH IV FLUSH SCH (20:01)
[2017-05-07] MEDS: TAMSULOSIN HCL 0.4 MG CAP PO SCH (20:01)
[2017-05-07] MEDS: ACETAMINOPHEN/HYDROcodone 325 MG/5 MG TAB PO PRN (20:01)
[2017-05-07] MEDS: DOCUSATE SODIUM 50 MG/SENNA 8.6 MG TAB PO SCH (20:01)
[2017-05-07] MEDS: INSULIN ASPART SUPPLEMENTAL SCALE SQ SCH (20:07)
[2017-05-07] MEDS ORDERED: DO NOT ADM ANY ANTICOAGULANT DRUGS OTHER PRN (20:30)
--- NOTE | 2017-05-07 20:30 | RADRPT ---
EXAM DATE/TIME: 05/07/2017 19:11 [facility] COMPARISON: No previous studies available for comparison. INDICATIONS : Bilateral leg swelling. MEDICAL HISTORY : Hypercholesterolemia. Hypertension. Gastroesophageal reflux disease. Cerebrovascular accident. Heada luke. Congestive heart failure. Coronary artery disease. Arthritis. Diabetes. SURGICAL HISTORY : Coronary artery bypass graft. Cardiac catheterization. Coronary stent. Colonoscopy. ENCOUNTER: Initial ACUITY: 1 day PAIN SCORE: 1/10 LOCATION: Bilateral legs. TECHNIQUE: Venous ultrasound of the left and right leg was performed from the inguinal ligament to the proximal calf. Real-time, color Doppler and spectral tracing, compression and augmentation techniques were us ed. FINDINGS: Examination is positive for deep venous thrombosis nonocclusive in the right popliteal vein and occlu sive in the right posterior tibial vein. Left lower extremity negative for DVT. CONCLUSION: 1. Positive for deep venous thrombosis right lower extremity as above. Lisandro Jacobo MD on May 07, 2017 at 20:28 Board Certified Radiologist. This report was verified electronically.
[2017-05-07] MEDS ORDERED: WARFARIN SOD 2.5 MG TAB PO ONE (21:00)
--- NOTE | 2017-05-07 21:56 | MB ---
cc: SAGRARIO MOYA MD, RUBY ANNE E. M.D. DATE OF CONSULTATION: 05/07/2017 DATE OF : 1930 DATE OF SERVICE 05/07/[address] Moya CHIEF COMPLAINT [address] Moya requested a consultation for Mr. Schmitt regarding newly diagnosed pulmonary embolism. HISTORY OF PRESENT ILLNESS: Mr. Schmitt is an 87-year-old man with multiple medical problems. He has a history of coronary artery disease, diabetes, hypertension, hyperlipidemia. He denies any precipitating event. He states that he was active at home and is able to get around in his home uneventfully. He has not had any recent trauma or injury. He presents with axillary pain radiating up to his scapula. He rates it as 10 out of 10 and worsens with movement and deep breath. He had no fevers, chills, night sweats, cough. He has chronic renal insufficiency. For this reason a VQ scan was performed. The VQ scan showed multiple bilateral ventilation perfusion mismatches. Chest radiograph is focally unremarkable. This was a high probability scan for pulmonary embolism. He was started on low-molecular weight heparin, Lovenox 60 mg subcu once in the ED. He is subsequently admitted. Ultrasound of the lower extremity is being performed. REVIEW OF SYSTEMS: Essentially negative. He denies any recent travel. He has no headache, no nausea, no vomiting, no vision changes. His main complaint is the shoulder and scapula right axillary pain in addition to being hungry. He denies any change in bowel habits. The rest of his review of systems is negative. PAST MEDICAL HISTORY: 1. Arthritis 2. Hyperlipidemia 3. Coronary artery disease. 4. Cerebrovascular event. 5. Diabetes. 6. Hypertension. 7. Chronic renal insufficiency. 8. Gastroesophageal reflux. PAST SURGICAL HISTORY: 1. Coronary artery bypass graft 2. Cardiac stent. 3. Left cataract surgery. 4. Colonoscopy. FAMILY HISTORY: Father of motor vehicle accident. Mother had diabetes and amputation. She lived to be in her 70s. SOCIAL HISTORY: He is , for 10 years. He is a nonsmoker. Denies any alcohol or illicit drug use. ALLERGIES: NO KNOWN DRUG ALLERGIES. CURRENT MEDICATIONS: 1. Enoxaparin 80 milligrams once daily. 2. Protonix 3. Norvasc 4. Cozaar 5. Flomax. 6. Rocaltrol. 7. Lactulose p.r.n. PHYSICAL EXAMINATION: VITAL SIGNS: Temperature 95.7, heart rate 73, respiratory rate 20, blood pressure 140/73, saturation 100%. GENERAL: Mr. Schmitt is a well-developed elderly man in no acute distress. He had some mild facial weakness on the right. HEENT: Pupils are round and reactive. Oropharynx is clear. NECK: Supple. LUNGS: Clear anteriorly. CARDIOVASCULAR: Reveals a normal rate and rhythm. ABDOMEN: Mildly distended. LOWER EXTREMITIES: No edema. He moves all four extremities. LABORATORY DATA: Significant for normocytic anemia, hemoglobin of 12.3, platelet count 135. BUN 17, creatinine 2.07. Estimated glomerular filtration rate of 37. Troponin-I is negative. PT/PTT are normal. D-Dimer is elevated. ASSESSMENT AND PLAN: Mr. Schmitt is an 87 year-old man with multiple medical problems. He seems to have no precipitating event but developed a right axillary scapular pain. He has evidence of bilateral pulmonary emboli. We discussed the diagnosis of pulmonary embolism. He is undergoing ultrasound of his lower extremity to rule out source of deep venous thrombosis. He denies being sedentary or immobile as a risk factors, though it seems he is less active than he used to be. He needs to start on an anticoagulant therapy. Will start him on low-molecular weight heparin, titrated by pharmacy. We discussed options for anticoagulation. In light of his age and renal insufficiency, the new oral anticoagulants are not appropriate. We discussed the risks and benefits of Coumadin. The information on Coumadin will be provided. We discussed titrating him to a therapeutic INR. His questions were answered to his satisfaction. Malia Combs MD RAD/KOKO /7:39 PM /9:39 PM
[2017-05-08] VITALS: BP 127/62; PULSE 60; RESP 17; TEMP 97.3; O2SAT 98
[2017-05-08] MEDS: ACETAMINOPHEN/HYDROcodone 325 MG/5 MG TAB PO PRN ×4 (03:58→20:04)
[2017-05-08 04:00] VITALS: BP 154/76; PULSE 67; RESP 16; TEMP 96.9; O2SAT 99
[2017-05-08] MEDS: INSULIN ASPART SUPPLEMENTAL SCALE SQ SCH ×4 (05:56→20:15)
[2017-05-08 07:39] LABS: INTERNATIONAL NORMALIZED RATIO 1.1 RATIO; PROTHROMBIN TIME - PATIENT 11.9 SEC (9.8-11.6)
[2017-05-08 07:49] LABS: AUTOMATED NEUTROPHIL # 3.7 TH/MM3 (1.8-7.7); BASOPHIL % 0.3 % (0.0-2.0); EOSINOPHIL # 0.1 TH/MM3 (0-0.4); EOSINOPHIL % 1.3 % (0.0-4.0); HEMO FLAGS DIFF FINAL; LYMPH % 27.7 % (9.0-44.0); LYMPHOCYTE # 1.7 TH/MM3 (1.0-4.8); MEAN CELL VOLUME 89.9 FL (80.0-100.0); MEAN CORPUSCULAR HEMOGLOBIN 30.4 PG (27.0-34.0); MEAN CORPUSCULAR HGB CONC 33.9 % (32.0-36.0); MONO % 12.2 % (0.0-8.0); NEUT % 58.5 % (16.0-70.0); PLATELET COUNT 109 TH/MM3 (150-450); RED BLOOD COUNT 3.78 MIL/MM3 (4.50-5.90); RED CELL DISTRIBUTION WIDTH 15.3 % (11.6-17.2); WHITE BLOOD COUNT 6.3 TH/MM3 (4.0-11.0)
[2017-05-08 08:00] VITALS: BP 134/73; PULSE 56; PULSE 66; RESP 17; TEMP 96.6; O2SAT 100
[2017-05-08 08:01] LABS: BICARBONATE 27.7 MEQ/L (21.0-32.0); POTASSIUM 4.1 MEQ/L (3.5-5.1)
[2017-05-08] MEDS: amLODIPine BESYLATE 5 MG TAB PO SCH (08:54)
[2017-05-08] MEDS: PANTOPRAZOLE SOD 40 MG DELAYED RELEASE TAB PO SCH (08:55)
[2017-05-08] MEDS: LOSARTAN 50 MG TAB PO SCH (08:55)
[2017-05-08] MEDS: SODIUM CHLORIDE 0.9% FLUSH 10 ML FLUSH IV FLUSH SCH ×2 (08:55→20:19)
[2017-05-08] MEDS: DOCUSATE SODIUM 50 MG/SENNA 8.6 MG TAB PO SCH ×2 (08:55→20:04)
[2017-05-08] MEDS ORDERED: ULORIC 40 MG PO SCH (09:00)
[2017-05-08] MEDS ORDERED: NON-FORMULARY DRUG (Amlodipine-Olmesartan 1 TAB) PO SCH (09:00)
--- NOTE | 2017-05-08 10:13 | HHI.PR ---
Subjective Remarks Resting in the bed Waiting on breakfast Alert oriented feeling somewhat better No acute shortness of breath Also positive for right leg DVT (Edith Ambriz) Objective Objective Results - Vital Signs Date Time Temp Pulse Resp B/P Pulse Ox O2 Delivery O2 Flow Rate FiO2 05/08/17 04:00 96.9 67 16 154/76 99 05/08/17 00:00 97.3 60 17 127/62 98 05/07/17 22:08 69 05/07/17 19:49 97.2 68 16 146/74 99 05/07/17 18:10 95.7 73 20 140/73 100 05/07/17 15:56 74 16 165/89 97 Nasal Cannula 2 05/07/17 15:20 71 16 177/95 97 Room Air 2 05/07/17 14:32 71 17 175/84 97 Room Air 05/07/17 12:05 72 14 163/77 100 Nasal Cannula 2 I/O 05/07/17 05/07/17 05/07/17 05/08/17 05/08/17 05/08/17 06:59 14:59 22:59 06:59 14:59 22:59 Intake Total 360 ml 240 ml Output Total 300 ml 500 ml Balance 60 ml -260 ml Intake Oral 360 ml 240 ml Output Urine Total 300 ml 500 ml (Edith Ambriz) Result Diagram: 05/08/17 0632 05/08/17 0632 ROS General: Weakness (generalized but improving), Other (10 point ROS done positives noted) Pulmonary: SOB (mild pleuritic pain on admission now controlled) (Edith Ambriz) Physical Exam Physical Exam PHYSICAL EXAMINATION GENERAL: This is a well-developed elderly male who appears to be in no acute distress. He is alert and awake, HEAD: Normocephalic without any lesion or mass noted. Facial features appear symmetric. OROPHARYNGEAL: Oropharynx without erythema or edema. NECK: Supple. No nuchal rigidity or lymphadenopathy. Trachea midline without deviation. CARDIAC: Regular rhythm, regular rate, S1 and S2 are heard. LUNGS: Diminished to auscultation bilaterally. No use of accessory muscles on inspiration or expiration. ABDOMEN: Soft, nontender, no organomegaly or masses. Bowel sounds are heard in all four quadrants. No rebound. No guarding. EXTREMITIES: Minimal mild lower extremity edema. Warm to touch NEUROLOGICAL: Patient mood and affect appropriate. No focal deficit SKIN:Warm and moist (Edith Ambriz) A/P Assessment and Plan Vital signs reviewed, BP noted to be upper range of normal we'll continue to evaluate, afebrile Labs reviewed, anemia stable at 11.5 no active bleeding noted, acute kidney injury which possibly could be some chronic renal disease we'll continue to monitor Pulmonary embolus, currently maintained on full dose Lovenox IV hydration initially but patient is taking by mouth fluids well, we will continue to monitor Appreciate hematology input, ultrasound of lower extremities to rule out source of PE We'll discuss the risk and benefits of Coumadin, therapeutic INR In view of his age the new anticoagulants would not be appropriate Right leg DVT, was noted on ultrasound of lower extremities Acute kidney injury versus chronic kidney disease, we'll continue to follow labs and medical management, hydration needed, Encouraged by mouth fluids, patient did receive fluids in the emergency room on initial admission Anemia, seems to be stable at 11.5 could be related to some chronic kidney disease or any other chronic disease, We'll monitor his labs Hypertension, borderline, could be some stress related, reconcile his home meds and monitor his medical management needs Patient can be out of bed to chair but requested that he call for assistance, Discussed with Dr. Ceballos, seen on his behalf discussed with patient Discussed with nurse (Edith Ambriz) Assessment and Plan seen, examined by myself, Dr Ceballos, today Discussed with patient He also has lower extremity DVT Hematology consultation noted and appreciated Discussed with mid level provider The exam, history, and the medical decision-making described in the above note were completed with the assistance of the mid-level provider. I reviewed the findings presented. I attest that I had a [id number] encounter with the patient on the same day, and personally performed and documented my assessment and findings in the medical record. (Kelly Ceballos MD) Edith Ambriz May 08, 2017 10:13 Kelly Ceballos MD May 08, 2017 11:07
[2017-05-08] MEDS: SODIUM CHLOR 0.9% 1000 ML INJ 1,000 ML IV SCH (11:20)
[2017-05-08 12:00] VITALS: PULSE 84
--- NOTE | 2017-05-08 13:00 | PD.ONC.PN ---
Subjective Subjective Remarks Afebrile overnight. Pt resting in bed asleep in no distress. Awakens to verbal stimuli. Denies acute complaints. Objective Data Date Time Temp Pulse Resp B/P Pulse Ox O2 Delivery O2 Flow Rate FiO2 05/08/17 08:00 66 05/08/17 04:00 96.9 67 16 154/76 99 05/08/17 00:00 97.3 60 17 127/62 98 05/07/17 22:08 69 05/07/17 19:49 97.2 68 16 146/74 99 05/07/17 18:10 95.7 73 20 140/73 100 05/07/17 15:56 74 16 165/89 97 Nasal Cannula 2 05/07/17 15:20 71 16 177/95 97 Room Air 2 05/07/17 14:32 71 17 175/84 97 Room Air Result Diagram: 05/08/17 0632 05/08/17 0632 Laboratory Results Laboratory Tests Test 05/08/17 06:32 White Blood Count 6.3 TH/MM3 Red Blood Count 3.78 MIL/MM3 Hemoglobin 11.5 GM/DL Hematocrit 34.0 % Mean Corpuscular Volume 89.9 FL Mean Corpuscular Hemoglobin 30.4 PG Mean Corpuscular Hemoglobin 33.9 % Concent Red Cell Distribution Width 15.3 % Platelet Count 109 TH/MM3 Mean Platelet Volume 10.1 FL Neutrophils (%) (Auto) 58.5 % Lymphocytes (%) (Auto) 27.7 % Monocytes (%) (Auto) 12.2 % Eosinophils (%) (Auto) 1.3 % Basophils (%) (Auto) 0.3 % Neutrophils # (Auto) 3.7 TH/MM3 Lymphocytes # (Auto) 1.7 TH/MM3 Monocytes # (Auto) 0.8 TH/MM3 Eosinophils # (Auto) 0.1 TH/MM3 Basophils # (Auto) 0.0 TH/MM3 CBC Comment DIFF FINAL Differential Comment Prothrombin Time 11.9 SEC Prothromb Time International 1.1 RATIO Ratio Sodium Level 140 MEQ/L Potassium Level 4.1 MEQ/L Chloride Level 106 MEQ/L Carbon Dioxide Level 27.7 MEQ/L Anion Gap 6 MEQ/L Blood Urea Nitrogen 17 MG/DL Creatinine 1.69 MG/DL Estimat Glomerular Filtration 47 ML/MIN Rate Random Glucose 91 MG/DL Calcium Level 8.1 MG/DL Administered Medications Medications (Trade) Dose Ordered Sig/Johanne Route PRN Reason Start Time Stop Time Status Last Admin Dose Admin Calcitriol (Rocaltrol) 0.25 mcg MOWEFR PO 05/07/17 16:00 05/07/17 17:32 Tamsulosin HCl (Flomax) 0.4 mg HS PO 05/07/17 21:00 05/07/17 20:01 Pantoprazole Sodium 40 mg 40 mg DAILY PO 05/08/17 09:00 05/08/17 08:55 Sodium Chloride (NS 1000 ml Inj) 1,000 ml @ 50 mls/hr Q20H IV 05/07/17 15:00 05/08/17 11:20 Sodium Chloride (NS Flush) 2 ml BID IV FLUSH 05/07/17 21:00 05/08/17 08:55 Senna/Docusate Sodium (Monica-Colace) 1 tab BID PO 05/07/17 21:00 05/08/17 08:55 Amlodipine Besylate (Norvasc) 5 mg DAILY PO 05/08/17 09:00 05/08/17 08:54 Losartan Potassium (Cozaar) 100 mg DAILY PO 05/08/17 09:00 05/08/17 08:55 Acetaminophen/ Hydrocodone Bitart ([place] 5-325 Mg) 1 tab Q4H PRN PO pain 4-10 05/07/17 18:15 05/08/17 08:57 Objective Remarks GENERAL: Elderly male, who appears younger than stated age resting in bed in no acute distress SKIN: Warm and dry. No oozing from lines HEAD: Normocephalic. EYES: No injection or drainage. NECK: Supple, trachea midline. CARDIOVASCULAR: + S1/S2. RESPIRATORY: Clear anteriorly. Breathing unlabored. GASTROINTESTINAL: Abdomen soft, non-tender, nondistended. EXTREMITIES: No cyanosis. NEUROLOGICAL: No obvious focal deficit. Awake, alert, and oriented x3. Assessment/Plan Problem List: (1) Pulmonary embolism Status: Acute Plan: -- VQ scan on 05/07/17 shows high probability for pulmonary embolism -- Right lower extremity positive for DVT -- In light of his age and renal insufficiency, the new factor X anticoagulants are not appropriate -- Interestingly, he was admitted with only scapular pain and denies shortness of breath Assessment 87-year-old male with high probability of pulmonary embolism on VQ scan. Hematology consulted for anticoagulation recommendations Plan 1. Continue Lovenox to Coumadin Bridge 2. Monitor daily INR 3. Monitor for bleeding Attending Statement The exam, history, and the medical decision-making described in the above note were completed with the assistance of the mid-level provider. I reviewed and agree with the findings presented. I attest that I had a [id number] encounter with the patient on the same day, and personally performed and documented my assessment and findings in the medical record. Pt seen and examined. RLE DVT and PE by high probability VQ scan. Tolerating LMWH so far. Discussed with pharmacy round to nearest syringe. Started Coumadin. Carrie Carrera May 08, 2017 13:00 Malia Combs MD May 08, 2017 14:36
[2017-05-08] MEDS ORDERED: ENOXAPARIN SODIUM 80 MG/0.8 ML SYRINGE SQ SCH (14:00)
[2017-05-08] MEDS ORDERED: ENOXAPARIN SODIUM 60 MG/0.6 ML SYRINGE SQ SCH (14:00)
[2017-05-08] MEDS: WARFARIN SOD 5 MG TAB PO SCH (15:25)
[2017-05-08 16:00] VITALS: BP 146/78; PULSE 70; PULSE 74; RESP 17; TEMP 97.3; O2SAT 100
--- NOTE | 2017-05-08 17:16 | EKG ---
Date Performed: 05/07/2017 Time Performed: 09:21:34 PTAGE: 87 years EKG: Sinus rhythm WITH FREQUENT VENTRICULAR PREMATURE COMPLEXES MODERATE INTRAVENTRICULAR CONDUCTION DELAY ABNORMAL [facility] ECG Compared to prior tracing no significant change PREVIOUS TRACING : 11/08/2016 19.24 DOCTOR: Yakov Sepulveda Interpretating Date/Time 05/08/2017 17:14:55
[2017-05-08 20:00] VITALS: BP 185/75; PULSE 80; RESP 18; TEMP 97.2; O2SAT 98
[2017-05-08] MEDS: TAMSULOSIN HCL 0.4 MG CAP PO SCH (20:04)
[2017-05-08] MEDS: ENOXAPARIN SODIUM 60 MG/0.6 ML SYRINGE SQ SCH (20:05)
[2017-05-08] MEDS ORDERED: ACETAMINOPHEN/HYDROcodone 325 MG/5 MG TAB PO PRN (21:45)
[2017-05-08] MEDS: ACETAMINOPHEN/HYDROcodone 325 MG/10 MG TAB PO PRN (23:40)
[2017-05-09] VITALS: BP 136/65; PULSE 74; RESP 18; TEMP 97.5; O2SAT 100
[2017-05-09 04:00] VITALS: BP 121/69; PULSE 79; RESP 18; TEMP 98.1; O2SAT 96
[2017-05-09] MEDS: ACETAMINOPHEN/HYDROcodone 325 MG/10 MG TAB PO PRN ×3 (06:03→15:41)
[2017-05-09] MEDS: INSULIN ASPART SUPPLEMENTAL SCALE SQ SCH ×4 (06:05→21:00)
[2017-05-09 06:35] LABS: AUTOMATED NEUTROPHIL # 5.3 TH/MM3 (1.8-7.7); BASOPHIL % 0.3 % (0.0-2.0); EOSINOPHIL % 0.5 % (0.0-4.0); HEMO FLAGS DIFF FINAL; LYMPH % 21.9 % (9.0-44.0); LYMPHOCYTE # 1.8 TH/MM3 (1.0-4.8); MEAN CELL VOLUME 90.8 FL (80.0-100.0); MEAN CORPUSCULAR HEMOGLOBIN 30.4 PG (27.0-34.0); MEAN CORPUSCULAR HGB CONC 33.5 % (32.0-36.0); MONO % 13.1 % (0.0-8.0); NEUT % 64.2 % (16.0-70.0); PLATELET COUNT 116 TH/MM3 (150-450); RED BLOOD COUNT 3.85 MIL/MM3 (4.50-5.90); RED CELL DISTRIBUTION WIDTH 15.5 % (11.6-17.2); WHITE BLOOD COUNT 8.2 TH/MM3 (4.0-11.0)
[2017-05-09 06:41] LABS: INTERNATIONAL NORMALIZED RATIO 1.1 RATIO; PROTHROMBIN TIME - PATIENT 12.7 SEC (9.8-11.6)
[2017-05-09] MEDS: SODIUM CHLOR 0.9% 1000 ML INJ 1,000 ML IV SCH ×2 (07:00→23:16)
[2017-05-09 08:00] VITALS: BP 140/85; PULSE 68; RESP 17; TEMP 96.4; O2SAT 100
[2017-05-09] MEDS: LOSARTAN 50 MG TAB PO SCH (08:38)
[2017-05-09] MEDS: ENOXAPARIN SODIUM 60 MG/0.6 ML SYRINGE SQ SCH ×2 (08:38→20:34)
[2017-05-09] MEDS: SODIUM CHLORIDE 0.9% FLUSH 10 ML FLUSH IV FLUSH SCH ×2 (08:39→20:38)
[2017-05-09] MEDS: DOCUSATE SODIUM 50 MG/SENNA 8.6 MG TAB PO SCH ×2 (08:39→20:33)
[2017-05-09] MEDS: PANTOPRAZOLE SOD 40 MG DELAYED RELEASE TAB PO SCH (08:39)
[2017-05-09] MEDS: amLODIPine BESYLATE 5 MG TAB PO SCH (08:39)
--- NOTE | 2017-05-09 11:25 | PD.ONC.PN ---
Subjective Subjective Remarks Afebrile overnight Patient sitting up in chair at bedside in no distress No obvious bleeding Objective Data Date Time Temp Pulse Resp B/P Pulse Ox O2 Delivery O2 Flow Rate FiO2 05/09/17 08:00 96.4 68 17 140/85 100 05/09/17 04:00 98.1 79 18 121/69 96 05/09/17 00:00 97.5 74 18 136/65 100 05/08/17 20:00 97.2 80 18 185/75 98 05/08/17 16:00 74 05/08/17 16:00 97.3 70 17 146/78 100 05/08/17 12:00 84 Result Diagram: 05/09/17 0549 05/08/17 0632 Laboratory Results Laboratory Tests Test 05/09/17 05:49 White Blood Count 8.2 TH/MM3 Red Blood Count 3.85 MIL/MM3 Hemoglobin 11.7 GM/DL Hematocrit 35.0 % Mean Corpuscular Volume 90.8 FL Mean Corpuscular Hemoglobin 30.4 PG Mean Corpuscular Hemoglobin 33.5 % Concent Red Cell Distribution Width 15.5 % Platelet Count 116 TH/MM3 Mean Platelet Volume 10.0 FL Neutrophils (%) (Auto) 64.2 % Lymphocytes (%) (Auto) 21.9 % Monocytes (%) (Auto) 13.1 % Eosinophils (%) (Auto) 0.5 % Basophils (%) (Auto) 0.3 % Neutrophils # (Auto) 5.3 TH/MM3 Lymphocytes # (Auto) 1.8 TH/MM3 Monocytes # (Auto) 1.1 TH/MM3 Eosinophils # (Auto) 0.0 TH/MM3 Basophils # (Auto) 0.0 TH/MM3 CBC Comment DIFF FINAL Differential Comment Prothrombin Time 12.7 SEC Prothromb Time International 1.1 RATIO Ratio Administered Medications Medications (Trade) Dose Ordered Sig/Johanne Route PRN Reason Start Time Stop Time Status Last Admin Dose Admin Calcitriol (Rocaltrol) 0.25 mcg MOWEFR PO 05/07/17 16:00 05/07/17 17:32 Tamsulosin HCl (Flomax) 0.4 mg HS PO 05/07/17 21:00 05/08/17 20:04 Pantoprazole Sodium 40 mg 40 mg DAILY PO 05/08/17 09:00 05/09/17 08:39 Sodium Chloride (NS 1000 ml Inj) 1,000 ml @ 50 mls/hr Q20H IV 05/07/17 15:00 05/08/17 11:20 Sodium Chloride (NS Flush) 2 ml BID IV FLUSH 05/07/17 21:00 05/09/17 08:39 Senna/Docusate Sodium (Monica-Colace) 1 tab BID PO 05/07/17 21:00 05/09/17 08:39 Amlodipine Besylate (Norvasc) 5 mg DAILY PO 05/08/17 09:00 05/09/17 08:39 Losartan Potassium (Cozaar) 100 mg DAILY PO 05/08/17 09:00 05/09/17 08:38 Warfarin Sodium (Coumadin) 5 mg DAILY@1600 PO 05/08/17 16:00 05/08/17 15:25 Enoxaparin Sodium (Lovenox Inj) 60 mg Q12HR SQ 05/08/17 21:00 05/09/17 08:38 Acetaminophen/ Hydrocodone Bitart ([place] 10-325 Mg) 1 tab Q4H PRN PO PAIN SCALE 6 TO 10 05/08/17 21:45 05/09/17 08:40 Objective Remarks GENERAL: Elderly male, sitting up in chair at bedside in no distress SKIN: Warm and dry. No oozing from lines HEAD: Normocephalic. EYES: No injection or drainage. NECK: Supple, trachea midline. CARDIOVASCULAR: + S1/S2. RESPIRATORY: Clear anteriorly. Breathing unlabored. GASTROINTESTINAL: Abdomen soft, non-tender, nondistended. EXTREMITIES: No cyanosis. NEUROLOGICAL: No obvious focal deficit. Awake, alert, and oriented x3. Assessment/Plan Problem List: (1) Pulmonary embolism Status: Acute Plan: -- VQ scan on 05/07/17 shows high probability for pulmonary embolism -- Right lower extremity positive for DVT -- In light of his age and renal insufficiency, the new factor X anticoagulants are not appropriate -- Interestingly, he was admitted with only scapular pain and denies shortness of breath Assessment 87-year-old male with high probability of pulmonary embolism on VQ scan. Hematology consulted for anticoagulation recommendations Plan 1. Daily INR 2. Continue Lovenox to Coumadin Bridge 3. Monitor for bleeding Attending Statement The exam, history, and the medical decision-making described in the above note were completed with the assistance of the mid-level provider. I reviewed and agree with the findings presented. I attest that I had a [id number] encounter with the patient on the same day, and personally performed and documented my assessment and findings in the medical record. Pt seen and examined. Family member at bedside, is also Coumadin, very comfortable with pt being on Coumadin. Discussed w/ pt and family plan to DC home. Plan to teach self injection, pt wants to be able to give own injection, daughter could also give injection. Pt has Dr. Kiser a PCP, discussed coordinating pt/inr check w/ Dr. Mcmanus. Discussed goal Pt/Inr 2-3, continue anticoagulation for atleast 6 months for extensive DVT and PE. Consult PT to evaluate pt, deconditioned. Carrie Carrera May 09, 2017 11:25 Malia Combs MD May 09, 2017 12:05
--- NOTE | 2017-05-09 14:45 | HHI.PR ---
Subjective Remarks Dozing but responds to verbal stimuli No acute pain or shortness of breath Family member in room Denies any lower extremity pain Objective Objective Results - Vital Signs Date Time Temp Pulse Resp B/P Pulse Ox O2 Delivery O2 Flow Rate FiO2 05/09/17 08:00 96.4 68 17 140/85 100 05/09/17 04:00 98.1 79 18 121/69 96 05/09/17 00:00 97.5 74 18 136/65 100 05/08/17 20:00 97.2 80 18 185/75 98 05/08/17 16:00 74 05/08/17 16:00 97.3 70 17 146/78 100 I/O 05/08/17 05/08/17 05/08/17 05/09/17 05/09/17 05/09/17 07:00 15:00 23:00 07:00 15:00 23:00 Intake Total 240 ml 480 ml 120 ml Output Total 500 ml Balance -260 ml 480 ml 120 ml Intake Oral 240 ml 480 ml 120 ml Output Urine Total 500 ml # Voids 5 1 1 # Bowel Movements 0 Result Diagram: 05/09/17 0549 05/08/17 0632 ROS General: Weakness, Other (generalized 10 point ROS done positives noted) Pulmonary: SOB (none), Other (pulmonary emboli) Neuro/MS: Other (no pain but right DVT noted on ultrasound) Physical Exam Physical Exam PHYSICAL EXAMINATION GENERAL: This is an elderly male who appears to be in no acute distress. He is dozing comfortably HEAD: Normocephalic Facial features appear symmetric. OROPHARYNGEAL: Oropharynx without erythema or edema. NECK: Supple. No nuchal rigidity or lymphadenopathy. Trachea midline without deviation. CARDIAC: Regular rhythm, regular rate, S1 and S2 are heard. LUNGS: Mild diminished at bases to auscultation bilaterally. No wheeze or rhonchi ABDOMEN: Soft, nontender, no organomegaly or masses. Bowel sounds EXTREMITIES: No lower extremity edema. NEUROLOGICAL: Patient mood and affect appropriate. Speech is clear SKIN:Warm and moist A/P Assessment and Plan Vital signs reviewed, normal trends afebrile Labs reviewed, anemia stable at 11.7, no active bleeding noted, acute kidney injury which possibly could be some chronic renal disease we'll continue to monitor, INR 1.1 patient is Lovenox to Coumadin bridge Bowel regimen, patient states BM yesterday Physical therapy to evaluate and treat Pulmonary embolus, Lovenox to Coumadin bridge initiated, patient will be talked to give himself Lovenox injections for home until this event and level is therapeutic, here and understands process, they are that she is of support system to him. Plan for at least 6 months of Coumadin Appreciate hematology input, ultrasound, right leg DVT Acute kidney injury versus chronic kidney disease, we'll continue to follow labs and medical management, hydration needed, patient is taking by mouth fluids well Anemia, stable, no acute blood loss noted continue to monitor labs We'll monitor his labs Hypertension, stable home meds resumed Patient can be out of bed to chair but requested that he call for assistance, physical therapy ordered Discussed with Dr. Ceballos, seen on his behalf discussed with patient and his family member Discussed with Edith Spivey May 09, 2017 14:45
[2017-05-09] MEDS: WARFARIN SOD 5 MG TAB PO SCH (15:44)
[2017-05-09 16:00] VITALS: BP 117/69; PULSE 68; RESP 17; TEMP 96.7; O2SAT 100
[2017-05-09 16:06] VITALS: PULSE 70
[2017-05-09 20:00] VITALS: BP 142/77; PULSE 54; RESP 18; TEMP 96.2; O2SAT 96
[2017-05-09] MEDS: TAMSULOSIN HCL 0.4 MG CAP PO SCH (20:33)
[2017-05-10] VITALS: BP 141/76; PULSE 64; RESP 18; TEMP 97.8; O2SAT 99
[2017-05-10] MEDS: ACETAMINOPHEN/HYDROcodone 325 MG/10 MG TAB PO PRN ×4 (00:51→16:35)
[2017-05-10 04:00] VITALS: BP 176/83; PULSE 58; RESP 20; TEMP 97.1; O2SAT 97
[2017-05-10] MEDS: INSULIN ASPART SUPPLEMENTAL SCALE SQ SCH ×3 (07:00→16:00)
[2017-05-10 08:00] VITALS: BP 129/67; PULSE 63; RESP 20; TEMP 97; O2SAT 97
[2017-05-10] MEDS: PANTOPRAZOLE SOD 40 MG DELAYED RELEASE TAB PO SCH (08:00)
[2017-05-10] MEDS: LOSARTAN 50 MG TAB PO SCH (08:00)
[2017-05-10] MEDS: amLODIPine BESYLATE 5 MG TAB PO SCH (08:00)
[2017-05-10] MEDS: DOCUSATE SODIUM 50 MG/SENNA 8.6 MG TAB PO SCH (08:00)
[2017-05-10] MEDS: ENOXAPARIN SODIUM 60 MG/0.6 ML SYRINGE SQ SCH (08:00)
[2017-05-10] MEDS: SODIUM CHLORIDE 0.9% FLUSH 10 ML FLUSH IV FLUSH SCH (08:03)
[2017-05-10 08:48] LABS: BASOPHIL % 0.3 % (0.0-2.0); EOSINOPHIL # 0.1 TH/MM3 (0-0.4); EOSINOPHIL % 1.4 % (0.0-4.0); HEMATOCRIT 35.4 % (39.0-51.0); HEMO FLAGS DIFF FINAL; LYMPH % 27.9 % (9.0-44.0); LYMPHOCYTE # 1.9 TH/MM3 (1.0-4.8); MEAN CORPUSCULAR HGB CONC 33.4 % (32.0-36.0); MONO % 11.4 % (0.0-8.0); PLATELET COUNT 101 TH/MM3 (150-450); RED BLOOD COUNT 3.94 MIL/MM3 (4.50-5.90); RED CELL DISTRIBUTION WIDTH 15.6 % (11.6-17.2); WHITE BLOOD COUNT 6.8 TH/MM3 (4.0-11.0)
[2017-05-10 08:52] LABS: INTERNATIONAL NORMALIZED RATIO 1.2 RATIO; PROTHROMBIN TIME - PATIENT 12.8 SEC (9.8-11.6)
--- NOTE | 2017-05-10 09:23 | PD.ONC.PN ---
Subjective Subjective Remarks Afebrile overnight. Patient resting in bed in nad. Hoping to go home soon. Reports with pride that he gave himself his Lovenox injection this morning. Objective Data Date Time Temp Pulse Resp B/P Pulse Ox O2 Delivery O2 Flow Rate FiO2 05/10/17 04:00 97.1 58 20 176/83 97 05/10/17 00:00 97.8 64 18 141/76 99 05/09/17 20:00 96.2 54 18 142/77 96 05/09/17 16:06 70 05/09/17 16:00 96.7 68 17 117/69 100 Result Diagram: 05/10/17 0743 05/08/17 0632 Laboratory Results Laboratory Tests Test 05/10/17 07:43 White Blood Count 6.8 TH/MM3 Red Blood Count 3.94 MIL/MM3 Hemoglobin 11.8 GM/DL Hematocrit 35.4 % Mean Corpuscular Volume 90.0 FL Mean Corpuscular Hemoglobin 30.0 PG Mean Corpuscular Hemoglobin 33.4 % Concent Red Cell Distribution Width 15.6 % Platelet Count 101 TH/MM3 Mean Platelet Volume 10.5 FL Neutrophils (%) (Auto) 59.0 % Lymphocytes (%) (Auto) 27.9 % Monocytes (%) (Auto) 11.4 % Eosinophils (%) (Auto) 1.4 % Basophils (%) (Auto) 0.3 % Neutrophils # (Auto) 4.0 TH/MM3 Lymphocytes # (Auto) 1.9 TH/MM3 Monocytes # (Auto) 0.8 TH/MM3 Eosinophils # (Auto) 0.1 TH/MM3 Basophils # (Auto) 0.0 TH/MM3 CBC Comment DIFF FINAL Differential Comment Prothrombin Time 12.8 SEC Prothromb Time International 1.2 RATIO Ratio Administered Medications Medications (Trade) Dose Ordered Sig/Johanne Route PRN Reason Start Time Stop Time Status Last Admin Dose Admin Calcitriol (Rocaltrol) 0.25 mcg MOWEFR PO 05/07/17 16:00 05/07/17 17:32 Tamsulosin HCl (Flomax) 0.4 mg HS PO 05/07/17 21:00 05/09/17 20:33 Pantoprazole Sodium 40 mg 40 mg DAILY PO 05/08/17 09:00 05/10/17 08:00 Sodium Chloride (NS 1000 ml Inj) 1,000 ml @ 50 mls/hr Q20H IV 05/07/17 15:00 05/08/17 11:20 Sodium Chloride (NS Flush) 2 ml BID IV FLUSH 05/07/17 21:00 05/10/17 08:03 Senna/Docusate Sodium (Monica-Colace) 1 tab BID PO 05/07/17 21:00 05/10/17 08:00 Sennosides (Senokot) 17.2 mg Q12H PRN PO MODERATE - SEVERE CONSTIPATION 05/07/17 14:30 05/09/17 20:33 Amlodipine Besylate (Norvasc) 5 mg DAILY PO 05/08/17 09:00 05/10/17 08:00 Losartan Potassium (Cozaar) 100 mg DAILY PO 05/08/17 09:00 05/10/17 08:00 Warfarin Sodium (Coumadin) 5 mg DAILY@1600 PO 05/08/17 16:00 05/09/17 15:44 Enoxaparin Sodium (Lovenox Inj) 60 mg Q12HR SQ 05/08/17 21:00 05/10/17 08:00 Acetaminophen/ Hydrocodone Bitart ([place] 10-325 Mg) 1 tab Q4H PRN PO PAIN SCALE 6 TO 10 05/08/17 21:45 05/10/17 05:26 Objective Remarks GENERAL: Pleasant male upright in bed in nad. SKIN: Warm and dry. HEAD: Normocephalic. EYES: No injection or drainage. NECK: Supple, trachea midline. CARDIOVASCULAR: Regular rate and rhythm RESPIRATORY: Breath sounds equal bilaterally. No accessory muscle use. GASTROINTESTINAL: Abdomen soft, non-tender, nondistended. EXTREMITIES: No cyanosis NEUROLOGICAL: No obvious focal deficit. Awake, alert, and oriented x3. Assessment/Plan Problem List: (1) Pulmonary embolism Status: Acute Plan: -- VQ scan on 05/07/17 shows high probability for pulmonary embolism -- Right lower extremity positive for DVT -- In light of his age and renal insufficiency, the new factor X anticoagulants are not appropriate -- Interestingly, he was admitted with only scapular pain and denies shortness of breath Assessment 87-year-old male with high probability of pulmonary embolism on VQ scan. Hematology consulted for anticoagulation recommendations Plan 1. Continue Lovenox --> Coumadin Bridge 2. ok to d/c on Lovenox+ coumadin. patient will follow up with Dr. Mcmanus once discharged Kylie Juarez May 10, 2017 09:23
--- NOTE | 2017-05-10 11:59 | HHI.PR ---
Subjective Remarks Resting in the bed Physical therapy today to eval No acute pain or shortness of breat Denies any lower extremity pain or shortness of breath (Edith Ambriz) Objective Objective Results - Vital Signs Date Time Temp Pulse Resp B/P Pulse Ox O2 Delivery O2 Flow Rate FiO2 05/10/17 08:00 97.0 63 20 129/67 97 05/10/17 04:00 97.1 58 20 176/83 97 05/10/17 00:00 97.8 64 18 141/76 99 05/09/17 20:00 96.2 54 18 142/77 96 05/09/17 16:06 70 05/09/17 16:00 96.7 68 17 117/69 100 I/O 05/09/17 05/09/17 05/09/17 05/10/17 05/10/17 05/10/17 07:00 15:00 23:00 07:00 15:00 23:00 Intake Total 480 ml Output Total 350 ml 400 ml Balance 480 ml -350 ml -400 ml Intake Oral 480 ml Output Urine Total 350 ml 400 ml # Voids 1 3 # Bowel Movements 0 (Edith Ambriz) Result Diagram: 05/10/17 0743 05/08/17 0632 ROS General: Weakness, Other (10 point ROS done positives noted) Cardiac: Other (DVT and pulmonary emboli) (Edith Ambriz) Physical Exam Physical Exam PHYSICAL EXAMINATION GENERAL: This is a well-developed, elderly male who appears to be in no acute distress. He is alert and awake, answers questions appropriately HEAD: Normocephalic without any lesion or mass noted. Facial features appear symmetric. OROPHARYNGEAL: Oropharynx without erythema or edema. NECK: Supple. No nuchal rigidity or lymphadenopathy. Trachea midline without deviation. CARDIAC: Regular rhythm, regular rate, S1 and S2 are heard. LUNGS: Mild diminished to auscultation bilaterally. No use of accessory muscles on inspiration or expiration. ABDOMEN: Soft, nontender, no organomegaly or masses. Bowel sounds are heard in all four quadrants. No rebound. No guarding. EXTREMITIES: No LE edema. NEUROLOGICAL: Patient mood and affect appropriate. SKIN:Warm and moist (Edith Ambriz) A/P Assessment and Plan Vital signs reviewed, afebrile a.m. BP 176/83 which is on the higher range for him, Labs reviewed, anemia stable at 11.8, no active bleeding noted, acute kidney injury which possibly could be some chronic renal disease we'll continue to monitor, INR 1.1 patient is Lovenox to Coumadin bridge Bowel regimen, normal trends Physical therapy eval done, recommends home with home health and walker with wheels, Pulmonary embolus, Lovenox to Coumadin bridge initiated, patient was talked to give himself Lovenox injections for home until this event and level is therapeutic, understands process, . Did his own injection this morning. Plan for at least 6 months of Coumadin Appreciate hematology input, ultrasound, right leg DVT Acute kidney injury versus chronic kidney disease, we'll continue to follow labs and medical management, hydration needed, patient is taking by mouth fluids well Anemia, stable, no acute blood loss noted continue to monitor labs We'll monitor his labs Hypertension, stable home meds resumed Patient can be out of bed to chair but requested that he call for assistance, physical therapy ordered Discharge planning dependent on Coumadin therapy. Patient has been taught to give himself Lovenox injections, and performed today Case management consult done for home health which will be new for this patient and a wheeled walker Discussed with Dr. Ceballos, seen on his behalf discussed with patient Discussed with nurse (Edith Ambriz) Assessment and Plan seen, examined by myself, Dr Ceballos, today Discussed with patient Discharge home today Lovenox to continue until INR above 2 Coumadin to be adjusted to achieve INR between 2 and 3 Follow-up with primary care physician Discussed with mid level provider The exam, history, and the medical decision-making described in the above note were completed with the assistance of the mid-level provider. I reviewed the findings presented. I attest that I had a [id number] encounter with the patient on the same day, and personally performed and documented my assessment and findings in the medical record. 45 minutes (Kelly Ceballos MD) Edith Ambriz May 10, 2017 11:59 Kelly Ceballos MD May 10, 2017 20:50
[2017-05-10 12:00] VITALS: BP 164/79; PULSE 70; RESP 20; TEMP 96.3; O2SAT 97
[2017-05-10] MEDS ORDERED: cloNIDine HCL 0.1 MG TAB PO PRN (12:00)
--- NOTE | 2017-05-10 12:06 | HHI.FF ---
Face to Face Verification Diagnosis: (1) Chronic kidney disease (2) DM (diabetes mellitus) (3) Hypertension (4) CAD (coronary artery disease) (5) Back pain (6) Nutrition, metabolism, and development symptoms (7) Pulmonary emboli (8) DVT (deep venous thrombosis) Physical Therapy Order: Evaluate and Treat, Improve ambulation, Strength and gait training Home Health Nursing Order: Medical education Signs/symptoms of disease process Nursing assessment with vital signs Instructions: Lovenox teaching PT/INR to be done until INR > 2., approximate 1-2 weeks. needs rolling walker. I have seen patient [place] Schmitt on 05/10/17. My clinical findings support the need for the requested home health care services because: Deconditioned w/ increased weakness Limited ability to care for self (lives alone) I certify that my clinical findings support that this patient is homebound because: Unsteady gait/balance Edith Ambriz May 10, 2017 12:06
[2017-05-10] MEDS ORDERED: [UNRECOGNIZED DRUG - SUPPLY] (14:20)
[2017-05-10] MEDS: WARFARIN SOD 5 MG TAB PO SCH (16:35)
[2017-05-10] MEDS: CALCITRIOL 0.25 MCG CAP PO SCH (16:35)
[2017-05-10] MEDS ORDERED: ENOX60P SQ (17:04)
[2017-05-10] MEDS ORDERED: COUM5TAB PO (17:04)
--- NOTE | 2017-06-14 16:49 | HHI.DS ---
Discharge Summary Admission Date May 07, 2017 at 14:46 Discharge Date: May 10, 2017 Admitting Diagnosis PE Procedures Ultrasound leg Brief History This was a pleasant 87-year-old black male who had been in his usual state of health up until yesterday evening. He stated that he was hit acutely by a pain that was up under his right axilla in the back shoulder area. He stated the pain was sharp and stabbing and constant. He rated it as a 10/10 and he stated that he was having trouble taking a deep breath. The pain was so intense but denied any nausea, vomiting, headaches, diarrhea or constipation. He stated that he did have a sensation in his chest but the pain was mostly radiating around to the right axilla area. The patient had no fever, no cough. He has noted in the recent months some dizziness and had started going to physical therapy this past week. Imaging Last Impressions Lung Scan-VQ Nuclear Medicine 05/07/17 1028 Signed Impressions: Service Date/Time: Sunday, May 07, 2017 13:18 - CONCLUSION: High probability scan for pulmonary embolism Pravin Marcano MD Chest X-Ray 05/07/17 0920 Signed Impressions: Service Date/Time: Sunday, May 07, 2017 09:33 - CONCLUSION: No acute cardiopulmonary abnormality is identified. Pravin Jim MD Lower Extremity Ultrasound 05/07/17 0000 Signed Impressions: Service Date/Time: Sunday, May 07, 2017 19:11 - CONCLUSION: 1. Positive for deep venous thrombosis right lower extremity as above. Lisandro Jacobo MD PE at Discharge GENERAL: well-developed, elderly male who appeared to be in no acute distress. alert and awake, answers questions appropriately HEAD: Normocephalic without any lesion or mass noted. Facial features appear symmetric. OROPHARYNGEAL: Oropharynx without erythema or edema. NECK: Supple. No nuchal rigidity or lymphadenopathy. Trachea midline without deviation. CARDIAC: Regular rhythm, regular rate, S1 and S2 are heard. LUNGS: Mild diminished to auscultation bilaterally. No use of accessory muscles on inspiration or expiration. ABDOMEN: Soft, nontender, no organomegaly or masses. Bowel sounds are heard in all four quadrants. No rebound. No guarding. EXTREMITIES: No LE edema. NEUROLOGICAL: Patient mood and affect appropriate. SKIN:Warm and moist Hospital Course These are the diagnoses that were used to treat this patient during this hospital stay Consulting physicians include hematology, hospitalist managed discharge and admission. Vital signs reviewed and monitored every 4 hours throughout this hospital stay, afebrile, BP monitored for any elevated trends Labs reviewed, anemia stable at 11.8, no active bleeding noted, acute kidney injury which possibly could be some chronic renal disease we'll continue to monitor, INR 1.1 patient is Lovenox to Coumadin bridge Bowel regimen, normal trends throughout hospital stay Physical therapy eval done, recommends home with home health and walker with wheels, Pulmonary embolus, recommendation for Lovenox to Coumadin bridge initiated, patient was talked to give himself Lovenox injections for home until this event and level is therapeutic, understands process, . Did his own injection this morning. Plan for at least 6 months of Coumadin Appreciate hematology input, ultrasound, right leg DVT Acute kidney injury versus chronic kidney disease, we'll continue to follow labs and medical management, hydration needed, patient is taking by mouth fluids well Anemia, stable, no acute blood loss noted continue to monitor labs We'll monitor his labs Hypertension, stable home meds resumed Once stabilized , Patient can be out of bed to chair but requested that he call for assistance, physical therapy eval for mobility and strengthening and recommendations for discharge planning Discharge planning dependent on Coumadin therapy. Patient has been taught to give himself Lovenox injections, and performed today Case management consult done for home health which will be new for this patient and a wheeled walker On day of discharge patient was seen, examined by myself, Dr Ceballos, and thought to be medically stable. Discussed with patient Discharge home today Lovenox to continue until INR above 2 Coumadin to be adjusted to achieve INR between 2 and 3 Follow-up with primary care physician Discussed with mid level provider The exam, history, and the medical decision-making described in the above note were completed with the assistance of the mid-level provider. I reviewed the findings presented. I attest that I had a [id number] encounter with the patient on the same day, and personally performed and documented my assessment and findings in the medical record. Pt Condition on Discharge: Stable Discharge Disposition: Disch w/ Home Health Serv Discharge Instructions DIET: Follow Instructions for: Diabetic Diet Activities you can perform: Weight Bearing as Romy Follow up Referrals: PCP Follow-up New Medications: [new rolling walker] () .XX CONTINUOUS PRN for DIZZINESS, #1 0 Refills Enoxaparin Inj (Lovenox Inj) 60 Mg/0.6 Ml Syr 60 MG SQ Q12HR for Blood Clot Prevention, #10 INJECTION Discontinue once INR above 2 INR Wednesday and Wednesday Warfarin (Coumadin) 5 Mg Tab 5 MG PO DAILY@1600 for Blood Clot Prevention, #30 TAB Check INR Wednesday, Wednesday , Wednesday 2 weeks target INR between 2 and 3 Follow instructions from primary physician Continued Medications: Amlodipine-Olmesartan (Amlodipine-Olmesartan) 5-40 Mg Tab 1 TAB PO DAILY for Blood Pressure Management, #30 TAB 0 Refills Calcitriol (Calcitriol) 0.25 Mcg Cap 0.25 MCG PO WE for Calcium Supplement, #30 CAP 0 Refills Take 1 capsule (0.25mcg) three times weekly on Wednesday,Wednesday and Wednesday Febuxostat (Uloric) 40 Mg Tab 40 MG PO DAILY Linagliptin (Tradjenta) 5 Mg Tab 5 MG PO DAILY for Blood Sugar Management, #30 TAB 0 Refills Omeprazole (Omeprazole) 40 Mg Cap 40 MG PO DAILY, #30 CAP 0 Refills Repaglinide (Repaglinide) 0.5 Mg Tab 0.5 MG PO BIDAC for Blood Sugar Management, #60 TAB 0 Refills Tamsulosin (Tamsulosin) 0.4 Mg Cap 0.4 MG PO HS for Manage Prostate Problems, #30 CAP 0 Refills Edith Ambriz Jun 14, 2017 16:49
== END 2017-05-10 17:55 | disposition home health service (06) | DRG 176 ==
LOC: NEPC 09:08 → NEDA 14:46 → N06A 17:00
PROVIDERS: ADMIT Specialist; ATTEND Specialist
DX: I26.99 Other pulmonary embolism without acute cor pulmonale (principal); N17.9 Acute kidney failure, unspecified; I82.431 Acute embolism and thrombosis of right popliteal vein; I50.9 Heart failure, unspecified; E11.9 Type 2 diabetes mellitus without complications; I12.9 Hypertensive chronic kidney disease with stage 1 through stage 4 chronic kidney disease, or unspecified chronic kidney disease; D64.9 Anemia, unspecified; I82.441 Acute embolism and thrombosis of right tibial vein; N18.9 Chronic kidney disease, unspecified; Z95.1 Presence of aortocoronary bypass graft; I25.10 Atherosclerotic heart disease of native coronary artery without angina pectoris; K21.9 Gastro-esophageal reflux disease without esophagitis; M19.90 Unspecified osteoarthritis, unspecified site; E78.5 Hyperlipidemia, unspecified; Z86.73 Personal history of transient ischemic attack (TIA), and cerebral infarction without residual deficits
CPT/HCPCS: 71010; 78582; 80048; 80053; 82550; 82552; 82948; 83690; 83735; 84484; 85025; 85379; 85610; 85730; 93005; 93970; 96372; 96374; 96375; 96376; A9540; A9567; J1650; J2270; J2405; J7030

== ENCOUNTER 2017-08-28 22:27 | Inpatient (IN) | payer MEDICARE, MEDICAID ==
[~2017-08-28] VITALS: Ht 175.3 cm; Wt 89.0 kg
[~2017-08-28 22:27] MED LIST changes: +COUM5TAB PO; +ENOX60P SQ; +[UNRECOGNIZED DRUG - SUPPLY]
[2017-08-28 22:48] VITALS: BP 136/66; PULSE 83; RESP 14; TEMP 98.4; O2SAT 100
[2017-08-28 22:52] VITALS: BP 136/66; PULSE 84; RESP 14; TEMP 98.4; O2SAT 98
[2017-08-28] MEDS ORDERED: SODIUM CHLORIDE 0.9% FLUSH 10 ML FLUSH IVF PRN (23:00)
[2017-08-28] MEDS ORDERED: NITROGLYCERIN 2% OINT 1 GM PACKET TOP ONE (23:00)
[2017-08-28 23:34] LABS: AUTOMATED NEUTROPHIL # 2.1 TH/MM3 (1.8-7.7); BASOPHIL % 0.4 % (0.0-2.0); EOSINOPHIL # 0.1 TH/MM3 (0-0.4); EOSINOPHIL % 3.5 % (0.0-4.0); HEMATOCRIT 21.3 % (39.0-51.0); HEMO FLAGS DIFF FINAL; LYMPH % 34.8 % (9.0-44.0); LYMPHOCYTE # 1.5 TH/MM3 (1.0-4.8); MEAN CORPUSCULAR HEMOGLOBIN 31.1 PG (27.0-34.0); MEAN CORPUSCULAR HGB CONC 33.5 % (32.0-36.0); MONO % 11.6 % (0.0-8.0); NEUT % 49.7 % (16.0-70.0); PLATELET COUNT 121 TH/MM3 (150-450); RED BLOOD COUNT 2.29 MIL/MM3 (4.50-5.90); RED CELL DISTRIBUTION WIDTH 16.4 % (11.6-17.2); WHITE BLOOD COUNT 4.2 TH/MM3 (4.0-11.0)
--- NOTE | 2017-08-28 23:37 | RADRPT ---
EXAM DATE/TIME: 08/28/2017 23:24 [facility] COMPARISON: CHEST SINGLE AP, May 07, 2017, 9:33. INDICATIONS : Substernal Chest pain MEDICAL HISTORY : Hypertension. Diabetes mellitus type II. Hypercholesterolemia. CAD, CVA, GERD SURGICAL HISTORY : CABG. Cardiac cath ENCOUNTER: Initial ACUITY: 1 day PAIN SCORE: 7/10 LOCATION: Bilateral chest FINDINGS: Portable AP view of the chest demonstrates a normal-sized cardiac silhouette. Patient is post median sternotomy. No effusion, consolidation, or pneumothorax is visualized. The bones and soft tissues dem onstrate no acute abnormality. EKG leads overlie the patient. CONCLUSION: No acute cardiopulmonary abnormality is identified. Pravin Jim MD on August 28, 2017 at 23:35 Board Certified Radiologist. This report was verified electronically.
[2017-08-28 23:55] LABS: APTT (PATIENT) 31.9 SEC (24.3-30.1); PROTHROMBIN TIME - PATIENT 20.2 SEC (9.8-11.6)
[2017-08-29] VITALS (20 sets, daily range): BP systolic 120–173; BP diastolic 58–86; PULSE 53–86; RESP 12–21; TEMP 97.2–98.5; O2SAT 98–100
[2017-08-29 00:05] LABS: ANION GAP 5 MEQ/L (5-15); BICARBONATE 25.8 MEQ/L (21.0-32.0); BLOOD UREA NITROGEN 21 MG/DL (7-18); CHLORIDE 114 MEQ/L (98-107); GLOMERULAR FILTRATION RATE 46 ML/MIN (>89); SODIUM (NA) 145 MEQ/L (136-145)
--- NOTE | 2017-08-29 00:20 | PD ---
HPI Chief Complaint: Chest Pain Time Seen by Provider: 22:59 Travel History International Travel<30 days: No Contact w/Intl Traveler<30days: No Traveled to known affect area: No History of Present Illness HPI 87-year-old male presents to the emergency department by EMS transport for evaluation of chest pain. Patient started with chest pain around 9 PM. Patient describes chest pain is burning in nature. Patient states he took one nitroglycerin at home and then EMS administered additional 2 nitroglycerin sublingually. Patient's pain has improved but is still present at 7/10 in intensity. Patient denies any associated shortness of breath sweats nausea vomiting referred neck jaw or abdominal pain. Patient does have history of CAD with multiple stents in the past as well as [place] and more recently in May 2017 was diagnosed with coronary embolism. Patient takes Coumadin. Family member reports she has had dark stools recently. Patient does not report any lightheadedness near-syncope or syncope. Patient presently does not have a roustabout head. Patient's primary care provider is Dr. Pravin Mcmanus. Patient reports being compliant with his medications. [facility]LY [facility] Past Medical History Narrative Medical Coumadin therapy CAD hypertension dyslipidemia CHF CVA diabetes [place]; CABG cardiac catheterization multiple stents; no tobacco use and: Nursing notes reviewed Hx Anticoagulant Therapy: Yes Arthritis: Yes Asthma: No Blood Disorders: No Heart Rhythm Problems: No Cancer: No Cardiac Catheterization: Yes Cardiovascular Problems: Yes ([place], HTN) High Cholesterol: Yes Chest Pain: No Congestive Heart Failure: Yes COPD: No Cerebrovascular Accident: Yes Coronary Artery Disease: Yes Diabetes: Yes Patient Takes Glucophage: No Diminished Hearing: No Endocrine: Yes Gastrointestinal Disorders: Yes (GERD) Genitourinary: Yes (UNKNOWN LEFT KIDNEY PROBLEM) Headaches: Yes Hypertension: Yes Immune Disorder: No Implanted Vascular Access Dvce: Yes (EYE) Musculoskeletal: No Neurologic: Yes Psychiatric: No Reproductive: No Respiratory: Yes Sleep Apnea: No Thyroid Disease: No Past Surgical History Cardiac Surgery: Yes (CABG- 2005; CARDIAC CATH. WITH STENT- 2004) Coronary Artery Bypass Graft: Yes (3 VESSEL ) Coronary Stent: Yes Eye Surgery: Yes (LEFT CATARACT EXTRACTION WITH IOL) Neurologic Surgery: No Other Surgery: Yes (COLONOSCOPY) Social History Alcohol Use: No Tobacco Use: No Substance Use: No Allergies-Medications (Allergen,Severity, Reaction): Coded Allergies: No Known Allergies (Verified Adverse Reaction, Unknown, 08/28/17) Reported Meds & Prescriptions Reported Meds & Active Scripts Active Coumadin (Warfarin) 5 Mg Tab 5 Mg PO DAILY@1600 Check INR Wednesday, Wednesday , Wednesday 2 weeks target INR between 2 and 3 Follow instructions from primary physician [jimena bentley] .XX CONTINUOUS PRN Reported Calcitriol 0.25 Mcg Cap 0.25 Mcg PO MOWEFR Take 1 capsule (0.25mcg) three times weekly on Wednesday,Wednesday and Wednesday Tradjenta (Linagliptin) 5 Mg Tab 5 Mg PO DAILY Uloric (Febuxostat) 40 Mg Tab 40 Mg PO DAILY Tamsulosin (Tamsulosin HCl) 0.4 Mg Cap 0.4 Mg PO HS Amlodipine-Olmesartan 5-40 Mg Tab 1 Tab PO DAILY Repaglinide 0.5 Mg Tab 0.5 Mg PO BIDAC Omeprazole 40 Mg Cap 40 Mg PO DAILY Review of Systems Except as stated in HPI: all other systems reviewed are Neg General / Constitutional: No: Fever, Chills HENT: No: Congestion Cardiovascular: Positive: Chest Pain or Discomfort, No: Diaphoresis (burning in nature) Respiratory: No: Shortness of Breath Gastrointestinal: Positive: Other, No: Nausea, Vomiting, Abdominal Pain Genitourinary: No: Flank Pain Musculoskeletal: No: Myalgias (dark stools), Arthralgias Skin: No Rash Neurologic: No: Weakness Psychiatric: No: Anxiety Hematologic/Lymphatic: No: Lymph Node Enlargement Physical Exam Narrative GENERAL: Well-developed well-nourished male in no acute distress no respiratory distress SKIN: Warm and dry. HEAD: Normocephalic. EYES: No scleral icterus. No injection or drainage. NECK: Supple, trachea midline. No JVD or lymphadenopathy. CARDIOVASCULAR: Regular rate and rhythm without murmurs, gallops, or rubs. Occasional skipped beat. RESPIRATORY: Breath sounds equal bilaterally. No accessory muscle use. GASTROINTESTINAL: Abdomen soft, non-tender, nondistended. Rectal exam: MUSCULOSKELETAL: No cyanosis, or edema. BACK: Nontender without obvious deformity. No CVA tenderness. Data Data Last Documented VS Vital Signs Date Time Temp Pulse Resp B/P (MAP) Pulse Ox O2 Delivery O2 Flow Rate FiO2 08/29/17 00:14 80 12 132/62 (85) 99 Room Air 08/28/17 22:52 98.4 Orders Orders Electrocardiogram (08/28/17 22:59) Basic Metabolic Panel (Bmp) (08/28/17 22:59) Ckmb (Isoenzyme) Profile (08/28/17 22:59) Complete Blood Count With Diff (08/28/17 22:59) Magnesium (Mg) (08/28/17 22:59) Prothrombin Time / Inr (Pt) (08/28/17 22:59) Act Partial Throm Time (Ptt) (08/28/17 22:59) Troponin I (08/28/17 22:59) Chest, Single Ap (08/28/17 22:59) Ecg Monitoring (08/28/17 22:59) Bilateral Bp Monitoring (08/28/17 22:59) Iv Access Insert/Monitor (08/28/17 22:59) Oximetry (08/28/17 22:59) Oxygen Administration (08/28/17 22:59) Nitroglycerin 2% Oint (Nitroglycerin 2% (08/28/17 23:00) Sodium Chloride 0.9% Flush (Ns Flush) (08/28/17 23:00) Protein Corrected Calcium(Pcc) (08/28/17 23:15) CKMB (08/28/17 23:15) CKMB% (08/28/17 23:15) Labs Laboratory Tests Test 08/28/17 23:15 White Blood Count 4.2 TH/MM3 Red Blood Count 2.29 MIL/MM3 Hemoglobin 7.1 GM/DL Hematocrit 21.3 % Mean Corpuscular Volume 93.0 FL Mean Corpuscular Hemoglobin 31.1 PG Mean Corpuscular Hemoglobin Concent 33.5 % Red Cell Distribution Width 16.4 % Platelet Count 121 TH/MM3 Mean Platelet Volume 9.6 FL Neutrophils (%) (Auto) 49.7 % Lymphocytes (%) (Auto) 34.8 % Monocytes (%) (Auto) 11.6 % Eosinophils (%) (Auto) 3.5 % Basophils (%) (Auto) 0.4 % Neutrophils # (Auto) 2.1 TH/MM3 Lymphocytes # (Auto) 1.5 TH/MM3 Monocytes # (Auto) 0.5 TH/MM3 Eosinophils # (Auto) 0.1 TH/MM3 Basophils # (Auto) 0.0 TH/MM3 CBC Comment DIFF FINAL Differential Comment Prothrombin Time 20.2 SEC Prothromb Time International Ratio 2.0 RATIO Activated Partial Thromboplast Time 31.9 SEC Blood Urea Nitrogen 21 MG/DL Creatinine 1.71 MG/DL Random Glucose 111 MG/DL Total Protein 5.5 GM/DL Calcium Level 6.8 MG/DL Magnesium Level 2.0 MG/DL Sodium Level 145 MEQ/L Potassium Level 4.0 MEQ/L Chloride Level 114 MEQ/L Carbon Dioxide Level 25.8 MEQ/L Anion Gap 5 MEQ/L Estimat Glomerular Filtration Rate 46 ML/MIN Protein Corrected Calcium 7.6 MG/DL Total Creatine Kinase 131 U/L Troponin I LESS THAN 0.02 NG/ML [facility] Medical Decision Making Medical Screen Exam Complete: Yes Emergency Medical Condition: Yes Medical Record Reviewed: Yes Interpretation(s) EKG normal sinus rhythm rate 70 7K occasional PVCs and PACs with no acute ST elevation or injury pattern change noted Differential Diagnosis Chest pain, ACS, myocardial infarction, PE, coagulopathy, anemia, GI bleed Narrative Course Patient is on telemetry monitor and continuous pulse oximetry and EKG performed normal sinus rhythm normal axis no acute ST elevation or injury pattern occasional PVC Patient given nitroglycerin paste to the chest wall; specimens collected and sent for resulting Chest x-ray no acute process; troponin I less than 0.02; INR is therapeutic at 2.0; renal insufficiency Diagnosis Primary Impression: Chest pain Qualified Codes: R07.2 - Precordial pain Additional Impressions: Anemia Qualified Codes: D50.8 - Other iron deficiency anemias Renal insufficiency Upper GI bleed Bleeding on Coumadin Willa Carpio MD Aug 29, 2017 00:20
[2017-08-29 00:22] LABS: CALCIUM-PROTEIN CORRECTED 7.6 MG/DL (8.5-10.1); CREATINE KINASE 131 U/L (39-308)
[2017-08-29] MEDS ORDERED: PANTOPRAZOLE INJ 80 MG in SODIUM CHLORIDE 0.9% INJ 35 ML IV ONE (00:28)
[2017-08-29] MEDS ORDERED: SODIUM CHLOR 0.9% 250 ML INJ 250 ML IV ONE (00:30)
[2017-08-29] MEDS ORDERED: ACETAMINOPHEN 325 MG TAB PO PRN (00:45)
[2017-08-29] MEDS ORDERED: LACTULOSE SYRUP 20 GM/30 ML CUP PO PRN (00:45)
[2017-08-29] MEDS ORDERED: GLUCAGON 1 MG/ML VIAL OTHER PRN (00:45)
[2017-08-29] MEDS ORDERED: BISACODYL 10 MG SUPP RECTAL PRN (00:45)
[2017-08-29] MEDS ORDERED: ACETAMINOPHEN/HYDROcodone 325 MG/5 MG TAB PO PRN (00:45)
[2017-08-29] MEDS ORDERED: SODIUM CHLORIDE 0.9% FLUSH 10 ML FLUSH IV FLUSH PRN (00:45)
[2017-08-29] MEDS ORDERED: CALCIUM GLUCONATE 10% 1 GM/10 ML VIAL IV PUSH ONE (00:45)
[2017-08-29] MEDS ORDERED: ONDANSETRON HCL 4 MG/2 ML VIAL IVP PRN (00:45)
[2017-08-29] MEDS ORDERED: SENNOSIDES 8.6 MG TAB PO PRN (00:45)
[2017-08-29] MEDS ORDERED: MAGNESIUM HYDROXIDE SUSP 30 ML CUP PO PRN (00:45)
[2017-08-29] MEDS ORDERED: FUROSEMIDE 20 MG/2 ML VIAL IV PUSH PRN (00:45)
[2017-08-29] MEDS ORDERED: DEXTROSE 50% IN WATER 50 ML VIAL(D50) IV PUSH PRN (00:45)
[2017-08-29] MEDS ORDERED: MORPHINE SULFATE 4 MG/ML INJ IV PUSH PRN (00:45)
[2017-08-29] MEDS ORDERED: CALCIUM GLUCONATE INJ 1 GM in SODIUM CHLORIDE 0.9% INJ 100 ML IV ONE (01:00)
[2017-08-29] MEDS ORDERED: NITROGLYCERIN 2% OINT 1 GM PACKET TOPICAL PRN (02:15)
--- NOTE | 2017-08-29 02:23 | HHI.HP ---
HPI Service [facility] Primary Care Physician Pravin Mcmanus III, MD Admission Diagnosis chest pain; upper gi bleed; coumadin therapy Diagnoses: (1) Chest pain Diagnosis: Principal (2) GI bleed Diagnosis: Principal (3) PE (pulmonary thromboembolism) Diagnosis: Principal (4) Renal insufficiency Diagnosis: Principal (5) Hypocalcemia Diagnosis: Principal (6) DM (diabetes mellitus) Diagnosis: Principal Travel History International Travel<30 Days: No Contact w/Intl Traveler <30 Da: No Traveled to Known Affected Are: No History of Present Illness This is an 87-year-old male with a PMH of HTN, Hyperlipidemia, CAD, CHF (Echo w/ EF 55-60%), DM and h/o PE/DVT on Coumadin who presented to the ER w/ c/ o chest pain starting earlier tonight. S/p NTG by EMS w/ some relief. Reports associated SOB and intermittent nausea. On arrival, BP 136/66, HR 84, O2 sat 96 % on RA, Afebrile. Hemoglobin 7.1, previously 11.8 on 05/10/17. Platelets 121, previously 101 on 05/10/17. Creatinine 1.71, previously 1.69 on 05/08/17. Troponin negative. INR 2.0. CXR with no acute findings. Pt/family reports dark stool, +Hemoccult on exam. 1u pRBC pending transfusion. Review of Systems Except as stated in HPI: all other systems reviewed are Neg ROS: 14 point review of systems otherwise negative. Past Family Social History Past Medical History PMH: HTN, Hyperlipidemia, CAD, CHF (Echo 06/18/16 w/ EF 55-60%), DM and h/o PE/ DVT on Coumadin Past Surgical History PAST SURGICAL HISTORY: CABG, Left Cataract Surgery Allergies: Coded Allergies: No Known Allergies (Verified Allergy, Unknown, 08/29/17) Family History PAST FAMILY HISTORY: Reviewed. No h/o DM or CAD Social History PAST SOCIAL HISTORY: Negative for alcohol, tobacco or drugs. Physical Exam Vital Signs Vital Signs Date Time Temp Pulse Resp B/P (MAP) Pulse Ox O2 Delivery O2 Flow Rate FiO2 08/29/17 01:29 78 12 128/58 (81) 99 Room Air 08/29/17 00:14 80 12 132/62 (85) 99 Room Air 08/28/17 22:52 98.4 84 14 136/66 (89) 98 Room Air 08/28/17 22:52 14 96 Room Air 08/28/17 22:48 98.4 83 14 136/66 (89) 100 Physical Exam PE: GENERAL: Elderly male in no acute distress. HEENT: PERRLA, EOMI. No scleral icterus or conjunctival pallor. No lid lag or facial droop. CARDIOVASCULAR: Regular rate and rhythm. No obvious murmurs to auscultation. No chest tenderness to palpation. RESPIRATORY: No obvious rhonchi or wheezing. Clear to auscultation. Breath sounds equal bilaterally. GASTROINTESTINAL: Abdomen soft, non-tender, nondistended. BS normal. MUSCULOSKELETAL: Extremities without clubbing, cyanosis, or edema. No obvious deformities. NEUROLOGICAL: Awake, alert and oriented x4. No focal neurologic deficits. Moving both upper and lower extremities spontaneously. Laboratory Laboratory Tests Test 08/28/17 23:15 White Blood Count 4.2 Red Blood Count 2.29 Hemoglobin 7.1 Hematocrit 21.3 Mean Corpuscular Volume 93.0 Mean Corpuscular Hemoglobin 31.1 Mean Corpuscular Hemoglobin Concent 33.5 Red Cell Distribution Width 16.4 Platelet Count 121 Mean Platelet Volume 9.6 Neutrophils (%) (Auto) 49.7 Lymphocytes (%) (Auto) 34.8 Monocytes (%) (Auto) 11.6 Eosinophils (%) (Auto) 3.5 Basophils (%) (Auto) 0.4 Neutrophils # (Auto) 2.1 Lymphocytes # (Auto) 1.5 Monocytes # (Auto) 0.5 Eosinophils # (Auto) 0.1 Basophils # (Auto) 0.0 CBC Comment DIFF FINAL Differential Comment Prothrombin Time 20.2 Prothromb Time International Ratio 2.0 Activated Partial Thromboplast Time 31.9 Blood Urea Nitrogen 21 Creatinine 1.71 Random Glucose 111 Total Protein 5.5 Calcium Level 6.8 Magnesium Level 2.0 Sodium Level 145 Potassium Level 4.0 Chloride Level 114 Carbon Dioxide Level 25.8 Anion Gap 5 Estimat Glomerular Filtration Rate 46 Protein Corrected Calcium 7.6 Total Creatine Kinase 131 Creatine Kinase MB 1.0 Troponin I LESS THAN 0.02 Result Diagram: 08/28/17231408/28/172314 Caprini VTE Risk Assessment Caprindeangelo VTE Risk Assessment: Mod/High Risk (score >= 2) VTE Pharm Contraindication: Active bleeding Alexander Risk Assessment Model Point Value = 1 Point Value = 2 Point Value = 3 Point Value = 5 Age 41-60 Minor surgery BMI > 25 kg/m2 Swollen legs Varicose veins or History of unexplained or recurrent spontaneous Oral contraceptives or hormone replacement Sepsis (< 1 month) Serious lung disease, including pneumonia (< 1 month) Abnormal pulmonary function Acute myocardial infarction Congestive heart failure (< 1 month) History of inflammatory bowel disease Medical patient at bed rest Age 61-74 Arthroscopic surgery Major open surgery (> 45 min) Laparoscopic surgery (> 45 min) Malignancy Confined to bed (> 72 hours) Immobilizing plaster cast Central venous access Age >= 75 History of VTE Family history of VTE Factor V Leiden Prothrombin [id number] Lupus anticoagulant Anticardiolipin antibodies Elevated serum homocysteine Heparin-induced thrombocytopenia Other congenital or acquired thrombophilia Stroke (< 1 month) Elective arthroplasty Hip, pelvis, or leg fracture Acute spinal cord injury (< 1 month) Prophylaxis Regimen Total Risk Factor Score Risk Level Prophylaxis Regimen 0-1 Low Early ambulation 2 Moderate Order ONE of the following: *Sequential Compression Device (SCD) *Heparin 5000 units SQ BID 3-4 Higher Order ONE of the following medications: *Heparin 5000 units SQ TID *Enoxaparin/Lovenox 40 mg SQ daily (WT < 150 kg, CrCl > 30 mL/min) *Enoxaparin/Lovenox 30 mg SQ daily (WT < 150 kg, CrCl > 10-29 mL/min) *Enoxaparin/Lovenox 30 mg SQ BID (WT < 150 kg, CrCl > 30 mL/min) AND/OR *Sequential Compression Device (SCD) 5 or more Highest Order ONE of the following medications: *Heparin 5000 units SQ TID (Preferred with Epidurals) *Enoxaparin/Lovenox 40 mg SQ daily (WT < 150 kg, CrCl > 30 mL/min) *Enoxaparin/Lovenox 30 mg SQ daily (WT < 150 kg, CrCl > 10-29 mL/min) *Enoxaparin/Lovenox 30 mg SQ BID (WT < 150 kg, CrCl > 30 mL/min) AND *Sequential Compression Device (SCD) Assessment and Plan Problem List: (1) Chest pain ICD Code: R07.9 - Chest pain Status: Acute (2) GI bleed ICD Code: K92.2 - Gastrointestinal hemorrhage, unspecified (3) Renal insufficiency ICD Code: N28.9 - Disorder of kidney and ureter, unspecified (4) PE (pulmonary thromboembolism) ICD Code: I26.99 - Other pulmonary embolism without acute cor pulmonale (5) Hypocalcemia ICD Code: E83.51 - Hypocalcemia (6) DM (diabetes mellitus) ICD Code: E11.9 - Type 2 diabetes mellitus without complications Status: Acute Assessment and Plan A/P: 1. Chest Pain: acute onset of chest pain, s/p NTG w/ some relief, h/o CAD, r/ o ACS. Check serial cardiac enzymes, NTG/Morphine prn. Hold ASA in light of GI Bleed. Resume home Metoprolol. 2. GI Bleed: Hgb 7.1, previously 11.8 on 05/10/17, Hemoccult +, on Coumadin for h/o DVT/PE. Will hold Coumadin for now. 1u pRBC pending transfusion, check Hgb/Hct post transfusion. Consult GI for further eval. 3. Renal Insufficiency: Acute on Chronic. Creatinine 1.71, previously 1.69 on 05/08/17. Will monitor, repeat labs in am. 4. PE: h/o PE and RLE DVT 04/2017, on Coumadin. INR therapeutic, hold Coumadin for now in light of GI Bleed, recheck INR in am. 5. Hypocalcemia: Ca 6.8, give Ca 1gm, recheck in am. 6. DM: Sliding scale w/ Accu-Cheks. 7. DVT Prophylaxis: Pharmacologic contraindication in light of GI bleed 8. Social work for d/c planning as needed. 9. Case discussed w/ ER physician at length. Physician Certification 2 Midnight Certification Type: Admission for Inpatient Services Order for Inpatient Services The services are ordered in accordance with Medicare regulations or non- Medicare payer requirements, as applicable. In the case of services not specified as inpatient-only, they are appropriately provided as inpatient services in accordance with the 2-midnight benchmark. Estimated LOS (days): 2 days is the estimated time the patient will need to remain in the hospital, assuming treatment plan goals are met and no additional complications. Post-Hospital Plan: Not yet determined Cathi Hardy MD Aug 29, 2017 02:23
[2017-08-29] MEDS: PANTOPRAZOLE INJ 80 MG in SODIUM CHLORIDE 0.9% INJ 100 ML IV SCH ×3 (02:26→20:37)
--- NOTE | 2017-08-29 07:57 | PD.CONS ---
HPI History of Present Illness This is a 87 year old who presented to the emergency room last night complaining of chest pain. Pt does have extensive cardiac history. GI was consulted due to pts report of having black stools for the past week. Pt states approx 2 stools a day. He is also complaining of dizziness and weakness worse when changing positions. Denies nausea, vomiting, abdominal pain, unintentional weight loss, BRB in stool, changes in appetite. He has been noticing increasing epigastric burning, intermittent, relieves on its own. Denies ever having colonoscopy. He states he might have had an EGD but he is unsure of when or where the procedure was done. He is on Coumadin for history of DVT, which has been placed on hold since arrival to hospital. He does report having some medication adjusted at his last PCP visit on Aug 17 but is unsure which medication. On admission pts H/H 7.1.3, two units of PRBC have been ordered he has received one unit of PRBC, follow up H&H is pending. . (Mary Ann Menjivar) PFSH Past Medical History HTN Hyperlipidemia CAD CHF (Echo 06/18/16 w/ EF 55-60%) DM h/o DVT on Coumadin Past Surgical History CABG Left Cataract Surgery (Mary Ann Menjivar) Coded Allergies: No Known Allergies (Verified Allergy, Unknown, 08/29/17) Family History Mother -DM Father- reports healthy- from a car accident Social History Denies alcohol consumption, nicotine use, and recreational drugs (Mary Ann Menjivar) Review of Systems Constitutional: COMPLAINS OF: Fatigue, Dizziness, DENIES: Weight gain, Weight loss, Change in appetite Cardiovascular: COMPLAINS OF: Chest pain Gastrointestinal: COMPLAINS OF: Black stools, Heartburn, DENIES: Abdominal pain , Bloody stools, Constipation, Diarrhea, Nausea, Vomiting, Difficulty Swallowing , Swelling of Abdomen (Mary Ann Menjivar) GI Exam Vitals I&O Vital Signs Date Time Temp Pulse Resp B/P (MAP) Pulse Ox O2 Delivery O2 Flow Rate FiO2 08/29/17 06:06 97.5 64 14 129/79 99 08/29/17 04:15 97.6 65 14 135/65 98 08/29/17 04:04 67 08/29/17 04:00 97.9 59 14 120/62 (81) 100 08/29/17 04:00 Room Air 08/29/17 03:55 97.4 59 14 120/62 100 08/29/17 02:38 71 08/29/17 02:17 08/29/17 02:08 Room Air 08/29/17 02:00 97.2 86 18 140/63 (88) 99 08/29/17 01:29 78 12 128/58 (81) 99 Room Air 08/29/17 00:14 80 12 132/62 (85) 99 Room Air 08/28/17 22:52 98.4 84 14 136/66 (89) 98 Room Air 08/28/17 22:52 14 96 Room Air 08/28/17 22:48 98.4 83 14 136/66 (89) 100 I/O 08/28/17 08/28/17 08/28/17 08/29/17 08/29/17 08/29/17 07:00 15:00 23:00 07:00 15:00 23:00 Intake Total 587 ml Balance 587 ml Intake Oral 0 ml IV Total 167 ml Packed Cells 340 ml Blood Product IV Normal Saline Flush 80 ml # Voids 0 # Bowel Movements 0 Imaging Last Impressions Chest X-Ray 08/28/17 [id number] Signed Impressions: Service Date/Time: Monday, August 28, 2017 23:24 - CONCLUSION: No acute cardiopulmonary abnormality is identified. Pravin Jim MD Laboratory Test 08/28/17 23:15 White Blood Count 4.2 TH/MM3 Red Blood Count 2.29 MIL/MM3 Hemoglobin 7.1 GM/DL Hematocrit 21.3 % Mean Corpuscular Volume 93.0 FL Mean Corpuscular Hemoglobin 31.1 PG Mean Corpuscular Hemoglobin Concent 33.5 % Red Cell Distribution Width 16.4 % Platelet Count 121 TH/MM3 Mean Platelet Volume 9.6 FL Neutrophils (%) (Auto) 49.7 % Lymphocytes (%) (Auto) 34.8 % Monocytes (%) (Auto) 11.6 % Eosinophils (%) (Auto) 3.5 % Basophils (%) (Auto) 0.4 % Neutrophils # (Auto) 2.1 TH/MM3 Lymphocytes # (Auto) 1.5 TH/MM3 Monocytes # (Auto) 0.5 TH/MM3 Eosinophils # (Auto) 0.1 TH/MM3 Basophils # (Auto) 0.0 TH/MM3 CBC Comment DIFF FINAL Differential Comment Prothrombin Time 20.2 SEC Prothromb Time International Ratio 2.0 RATIO Activated Partial Thromboplast Time 31.9 SEC Blood Urea Nitrogen 21 MG/DL Creatinine 1.71 MG/DL Random Glucose 111 MG/DL Total Protein 5.5 GM/DL Calcium Level 6.8 MG/DL Magnesium Level 2.0 MG/DL Sodium Level 145 MEQ/L Potassium Level 4.0 MEQ/L Chloride Level 114 MEQ/L Carbon Dioxide Level 25.8 MEQ/L Anion Gap 5 MEQ/L Estimat Glomerular Filtration Rate 46 ML/MIN Protein Corrected Calcium 7.6 MG/DL Total Creatine Kinase 131 U/L Creatine Kinase MB 1.0 NG/ML Troponin I LESS THAN 0.02 NG/ML Physical Examination HEENT: Normocephalic; atraumatic; no jaundice CHEST: CTA. CARDIAC: RRR ABDOMEN: Soft, mildly distended, nontender; no hepatosplenomegaly; bowel sounds are present in all four quadrants. EXTREMITIES: No clubbing, cyanosis, or edema. SKIN: Normal; no rash; no jaundice. RESPIRATORY THERAPY TECHNICIAN: No focal deficits; alert and oriented times three. (Mary Ann Menjivar) Assessment and Plan Plan Assessment: Upper GI bleed- black, tarry stools for the past week. Approx 2 BMs a day. Pt is on Coumadin for h/o DVT- medication on hold since arriving at the hospital. H/H 7.1/21.3. 2 units of PRBC have been ordered, pt has received one unit, posttransfusion labs pending. Denies ever having colonoscopy and he is unsure if he has had an EGD. Will plan for EGD tomorrow unless active bleeding that requires emergent EGD today. Protonix GTT. Chest pain- workup per attending Plan: - EGD tomorrow - Obtain consents - NPO except medication - Serial H&H - Monitor labs - Transfuse as needed - Continue to hold Coumadin - Notify of GI of any active bleeding - Protonix GTT - Further recommendations to follow based on results of above This pt has been seen and examined by myself and Dr. Mtz and this note has been written on her behalf (Mary Ann Menjivar) Physician Comments seen, examined egd in am if negative colonoscopy cardiac work-up in progress (Maddie Mtz MD) Mary Ann Menjivar Aug 29, 2017 07:57 Maddie Mtz MD Aug 29, 2017 17:14
[2017-08-29] MEDS: INSULIN ASPART SUPPLEMENTAL SCALE SQ SCH ×4 (08:00→20:35)
[2017-08-29] MEDS: DOCUSATE SODIUM 50 MG/SENNA 8.6 MG TAB PO SCH ×2 (08:17→20:36)
[2017-08-29] MEDS: SODIUM CHLORIDE 0.9% FLUSH 10 ML FLUSH IV FLUSH SCH ×2 (08:17→20:37)
[2017-08-29 11:22] LABS: HEMATOCRIT 25.9 % (39.0-51.0); REVIEW FLAG FINAL
[2017-08-29] MEDS: cloNIDine HCL 0.1 MG TAB PO PRN (12:17)
--- NOTE | 2017-08-29 17:15 | HHI.PR ---
Addendum to Inpatient Note Addendum Reason: Additional Documentation Additional Information The patient denies any further melanotic stools today. Denies any nausea vomiting. Patient is awake alert oriented 3, nonacute distress. Lungs are clear to auscultation bilaterally. Muscles are present abdomen is soft, nontender, nondistended. There is no edema in lower extremities. Patient denies any further tarry stools. The patient status post fusion of 2 units of blood for blood cells with appropriate hemoglobin response. Appreciate GI consultation recommendations. Patient for EGD tomorrow. Will start on clear liquids. Continue to monitor H&H and transfuse as needed for hemoglobin less than 8 if the patient's actively bleeding to goal more than 9, otherwise transfuse if hemoglobin less than 7 or symptomatic anemia. His notify GI if there is any active bleeding. Continue Protonix drip. Kevin Lopez MD Aug 29, 2017 17:15
[2017-08-29] MEDS: TAMSULOSIN HCL 0.4 MG CAP PO SCH (20:36)
[2017-08-29 21:30] LABS: INDIRECT BILIRUBIN 0.6 MG/DL (0.0-0.8); TOTAL BILIRUBIN ADULT 0.8 MG/DL (0.2-1.0)
[2017-08-29] MEDS ORDERED: METOPROLOL TARTRATE 25 MG TAB PO PRN (22:00)
[2017-08-29] MEDS ORDERED: CHLORHEXIDINE GLUCONATE 2 % 1 PACK (2 CLOTHS) TOPICAL PRN (22:00)
[2017-08-29] MEDS ORDERED: SODIUM CHLORID 0.9% 500 ML IV PRN (22:00)
[2017-08-29] MEDS ORDERED: LACTATED RINGER'S 1000 ML IV PRN (22:00)
[2017-08-29] MEDS ORDERED: POVIDONE IODINE 5% (ANTISEPSIS KIT) 4 APPLICATIONS EACH NARE PRN (22:00)
--- NOTE | 2017-08-29 22:13 | EKG ---
Date Performed: 08/29/2017 Time Performed: 07:10:40 PTAGE: 87 years EKG: Sinus rhythm Lateral T wave changes are nonspecific Borderline ECG NO PREVIOUS TRACING Compared to prior tracing no significant change DOCTOR: Yusef Hercules Interpretating Date/Time 08/29/2017 22:11:37
--- NOTE | 2017-08-29 22:24 | EKG ---
Date Performed: 08/28/2017 Time Performed: 22:46:07 PTAGE: 87 years EKG: Sinus rhythm WITH OCCASIONAL VENTRICULAR PREMATURE COMPLEXES WITH OCCASIONAL SUPRAVENTRICULAR PREMATURE COMPLEXES NONSPECIFIC T-WAVE ABNORMALITY BORDERLINE ECG PREVIOUS TRACING : 05/07/2017 09.21 Compared to prior tracing no significant change DOCTOR: Yusef Hercules Interpretating Date/Time 08/29/2017 22:22:38
[2017-08-29 23:41] LABS: HEMATOCRIT 29.4 % (39.0-51.0); REVIEW FLAG FINAL
[2017-08-30] VITALS (7 sets, daily range): BP systolic 120–166; BP diastolic 68–82; PULSE 48–75; RESP 18–20; TEMP 97.1–98.4; O2SAT 96–100
[2017-08-30 07:20] LABS: AUTOMATED NEUTROPHIL # 3.2 TH/MM3 (1.8-7.7); BASOPHIL % 0.4 % (0.0-2.0); EOSINOPHIL # 0.3 TH/MM3 (0-0.4); EOSINOPHIL % 4.5 % (0.0-4.0); HEMATOCRIT 30.7 % (39.0-51.0); HEMO FLAGS DIFF FINAL; LYMPH % 29.2 % (9.0-44.0); LYMPHOCYTE # 1.6 TH/MM3 (1.0-4.8); MEAN CELL VOLUME 90.2 FL (80.0-100.0); MEAN CORPUSCULAR HEMOGLOBIN 30.8 PG (27.0-34.0); MEAN CORPUSCULAR HGB CONC 34.1 % (32.0-36.0); MONO % 9.5 % (0.0-8.0); NEUT % 56.4 % (16.0-70.0); PLATELET COUNT 133 TH/MM3 (150-450); RED CELL DISTRIBUTION WIDTH 15.7 % (11.6-17.2); WHITE BLOOD COUNT 5.6 TH/MM3 (4.0-11.0)
[2017-08-30 07:27] LABS: INTERNATIONAL NORMALIZED RATIO 1.5 RATIO; PROTHROMBIN TIME - PATIENT 14.9 SEC (9.8-11.6)
[2017-08-30 07:54] LABS: ALKALINE PHOSPHATASE 61 U/L (45-117); ALT (GPT) 17 U/L (12-78); ANION GAP 5 MEQ/L (5-15); AST (GOT) 17 U/L (15-37); BICARBONATE 25.9 MEQ/L (21.0-32.0); BLOOD UREA NITROGEN 20 MG/DL (7-18); CHLORIDE 109 MEQ/L (98-107); GLOMERULAR FILTRATION RATE 43 ML/MIN (>89); MAGNESIUM 1.8 MG/DL (1.5-2.5); POTASSIUM 3.8 MEQ/L (3.5-5.1); SODIUM (NA) 140 MEQ/L (136-145); TOTAL BILIRUBIN ADULT 1.2 MG/DL (0.2-1.0)
[2017-08-30] MEDS: INSULIN ASPART SUPPLEMENTAL SCALE SQ SCH ×4 (08:00→21:00)
[2017-08-30] MEDS: cloNIDine HCL 0.1 MG TAB PO PRN (08:14)
[2017-08-30] MEDS: SODIUM CHLORIDE 0.9% FLUSH 10 ML FLUSH IV FLUSH SCH ×2 (08:15→21:01)
[2017-08-30] MEDS: DOCUSATE SODIUM 50 MG/SENNA 8.6 MG TAB PO SCH ×2 (08:16→21:00)
[2017-08-30] MEDS: PANTOPRAZOLE INJ 80 MG in SODIUM CHLORIDE 0.9% INJ 100 ML IV SCH ×2 (08:16→16:14)
[2017-08-30] MEDS ORDERED: FEBUXOSTAT 40 MG PO SCH (09:00)
[2017-08-30] MEDS ORDERED: AMLODIPINE OLMESARTAN PO SCH (09:00)
[2017-08-30] MEDS ORDERED: cloNIDine HCL 0.1 MG TAB PO PRN (09:30)
[2017-08-30] MEDS ORDERED: CALCITRIOL 0.25 MCG CAP PO SCH (12:15)
--- NOTE | 2017-08-30 13:14 | GIPROC ---
[facility] [address] [facility]. [facility], [address] EGD PROCEDURE REPORT EXAM DATE: 08/30/2017 PATIENT NAME: Kevin Schmitt MR #: [id number] BIRTHDATE: 1930 ATTENDING: Gonzalo Marley MD ORDER #: [id number] AIR TRAFFIC CONTROL EQUIPMENT REPAIRER: Yasmin Solis and Vernell Terry STATUS: inpatient INDICATIONS: The patient is a 87 yr old male here for an EGD due to acute post hemorrhagic anemia PROCEDURE PERFORMED: EGD w/ biopsy MEDICATIONS: None and Per Anesthesia. TOPICAL ANESTHETIC: CONSENT: The patient understands the risks and benefits of the procedure and understands that these risks include, but are not limited to: sedation, allergic reaction, infection, perforation and/or bleeding. Alternative means of evaluation and treatment include, among others: physical exam, x-rays, and/or surgical intervention. The patient elects to proceed with this endoscopic procedure. medical equipment was checked for proper function. Hand hygiene and appropriate measures for infection prevention was taken. After the risks, benefits and alternatives of the procedure were thoroughly explained, Informed consent was verified, confirmed and timeout was successfully executed by the treatment team. The patient was anesthetized with topical anesthesia and the Pentax [id number] endoscope was introduced through the mouth and advanced to the second portion of the duodenum. Retroflexed views revealed no abnormalities The gastroscope was then slowly withdrawn and removed. ESOPHAGUS: The mucosa of the esophagus appeared normal. STOMACH: There was erythematous moderate gastritis in the gastric antrum. A biopsy was performed using cold forceps. Sample sent for histology. DUODENUM: The duodenal mucosa appeared normal in the 2nd part of the duodenum. Moderate duodenal inflammation was found in the duodenal bulb. ADVERSE EVENTS: There were no complications. IMPRESSIONS: 1. The esophagus appeared normal 2. There was erythematous gastritis in the gastric antrum; biopsy was performed 3. Normal duodenal mucosa in the 2nd part of the duodenum 4. Duodenal inflammation was found in the duodenal bulb 5. Retroflexed views revealed no abnormalities RECOMMENDATIONS: 1. Await biopsy results. Biopsy results will not be ready for 7-10 days. If you don't hear from us in two weeks, call our office for biopsy results. 2. Anti-reflux regimen 3. Continue PPI 4. Avoid NSAIDS 5. Colonoscopy PATIENT CONDITION: stable DISPOSITION: Inpatient REPEAT EXAM: Return 1 year EGD pending biopsy results Gonzalo Marley MD eSigned: Gonzalo Marley MD 08/30/2017 1:14 PM cc: PATIENT NAME: Kevin Schmitt MR#: [id number]
[2017-08-30] MEDS ORDERED: PEG (High)/E-LYTE SOLN 4000 ML BTL PO ONE ×2 (13:30→16:00)
--- NOTE | 2017-08-30 15:46 | HHI.PR ---
Subjective Remarks sp EGD Denies nausea, vomiting, abdominal pain. Denies chest pain or shortness of breath. Stable vital signs Denies any further melena. Objective Vitals Vital Signs Date Time Temp Pulse Resp B/P (MAP) Pulse Ox O2 Delivery O2 Flow Rate FiO2 08/30/17 13:23 98.2 56 18 142/71 (94) 97 08/30/17 12:07 98.4 75 20 120/68 (85) 96 08/30/17 08:07 97.8 64 19 162/80 (107) 100 08/30/17 08:00 52 08/30/17 04:00 97.9 63 20 141/75 (97) 99 08/30/17 04:00 Room Air 08/30/17 00:00 98.2 61 20 152/82 (105) 98 08/30/17 00:00 Room Air 08/29/17 23:56 58 08/29/17 20:00 Room Air 08/29/17 20:00 98.5 71 21 157/86 (109) 98 08/29/17 19:58 57 08/29/17 16:00 59 08/29/17 16:00 98.3 59 18 147/69 (95) 99 I/O 08/29/17 08/29/17 08/29/17 08/30/17 08/30/17 08/30/17 07:00 15:00 23:00 07:00 15:00 23:00 Intake Total 637 ml 405 ml 340 ml 240 ml 275 ml Output Total 2000 ml 1200 ml Balance 637 ml 405 ml -1660 ml -960 ml 275 ml Intake Oral 0 ml 240 ml 240 ml IV Total 217 ml 100 ml 25 ml Packed Cells 340 ml 400 ml Blood Product IV Normal Saline Flush 80 ml 5 ml Other 250 ml Output Urine Total 2000 ml 1200 ml # Voids 0 4 # Bowel Movements 0 0 0 Result Diagram: 08/30/1752908/30/17529 Imaging Last Impressions Chest X-Ray 08/28/17 [id number] Signed Impressions: Service Date/Time: Monday, August 28, 2017 23:24 - CONCLUSION: No acute cardiopulmonary abnormality is identified. Pravin Jim MD Objective Remarks AAOx3 NAD PERRLA Clear lungs BL Abdomen soft, nt, nd no edema in lower extremities. Medications and IVs Current Medications Medications (Trade) Dose Ordered Sig/Johanne Route Start Time Stop Time Status Last Admin Pantoprazole Sodium 80 mg/ Sodium Chloride 100 ml @ 10 mls/hr Q10H IV 08/29/17 00:28 08/30/17 08:16 (NS Flush) 2 ml UNSCH PRN IV FLUSH 08/29/17 00:45 (NS Flush) 2 ml BID IV FLUSH 08/29/17 09:00 08/30/17 08:15 (Zofran Inj) 4 mg Q6H PRN IVP 08/29/17 00:45 (Tylenol) 650 mg Q6H PRN PO 08/29/17 00:45 ([place] 5-325 Mg) 1 tab Q4H PRN PO 08/29/17 00:45 08/29/17 02:32 (Morphine Inj) 2 mg Q3H PRN IV PUSH 08/29/17 00:45 (Monica-Colace) 1 tab BID PO 08/29/17 09:00 08/29/17 20:36 (Milk Of Magnesia Liq) 30 ml Q12H PRN PO 08/29/17 00:45 (Senokot) 17.2 mg Q12H PRN PO 08/29/17 00:45 (Dulcolax Supp) 10 mg DAILY PRN RECTAL 08/29/17 00:45 (Lactulose Liq) 30 ml DAILY PRN PO 08/29/17 00:45 (D50w (Vial) Inj) 50 ml UNSCH PRN IV PUSH 08/29/17 00:45 (Glucagon Inj) 1 mg UNSCH PRN OTHER 08/29/17 00:45 (NovoLOG SUPPLEMENTAL SCALE) 1 ACHS SLIDING SCALE SQ 08/29/17 08:00 (Flomax) 0.4 mg HS PO 08/29/17 21:00 08/29/17 20:36 (Nitroglycerin 2% Oint) 0.5 inch Q6HR PRN TOPICAL 08/29/17 02:15 08/29/17 10:50 (Rocaltrol) 0.25 mcg MOWEFR PO 08/30/17 12:15 08/30/17 14:57 Patient Own Medication PT OWN MED: (Amlodipine-Olmesarta... DAILY PO 08/30/17 09:00 Future Hold Patient Own Medication PT OWN MED: (Febuxos... DAILY PO 08/30/17 09:00 Future Hold Lactated Ringer's 1,000 ml @ 30 mls/hr Q24H PRN IV 08/29/17 22:00 09/01/17 21:59 Sodium Chloride 500 ml @ 30 mls/hr [id number] PRN IV 08/29/17 22:00 09/01/17 21:59 (Betadine 5% Antisepsis Kit) 1 applic CAPTURE MANAGER PRN EACH NARE 08/29/17 22:00 09/01/17 21:59 (Chlorhexidine 2% Cloth) 3 pack CAPTURE MANAGER PRN TOPICAL 08/29/17 22:00 09/01/17 21:59 (Catapres) 0.1 mg Q6H PRN PO 08/30/17 09:30 (Colyte Liq) 4,000 ml ONCE ONCE PO 08/30/17 16:00 08/30/17 16:01 A/P Problem List: (1) Chest pain ICD Code: R07.9 - Chest pain Status: Acute (2) GI bleed ICD Code: K92.2 - Gastrointestinal hemorrhage, unspecified (3) Renal insufficiency ICD Code: N28.9 - Disorder of kidney and ureter, unspecified (4) PE (pulmonary thromboembolism) ICD Code: I26.99 - Other pulmonary embolism without acute cor pulmonale (5) Hypocalcemia ICD Code: E83.51 - Hypocalcemia (6) DM (diabetes mellitus) ICD Code: E11.9 - Type 2 diabetes mellitus without complications Status: Acute Assessment and Plan 1. Chest Pain: acute onset of chest pain, s/p NTG w/ some relief, h/o CAD, r/ o ACS. Check serial cardiac enzymes, NTG/Morphine prn. Hold ASA in light of GI Bleed. Resume home Metoprolol. / has resolved. Troponin initially negative at 0.02, went up to 0.06 and then trended down to 0.04. Transient elevation in troponin likely secondary to demand ischemia. Patient is currently chest pain-free. Consult cardiology for further recommendations. 2. GI Bleed: Hgb 7.1, previously 11.8 on 05/10/17, Hemoccult +, on Coumadin for h/o DVT/PE. Will hold Coumadin for now. 1u pRBC pending transfusion, check Hgb/Hct post transfusion. Consult GI for further eval. 08/30 appreciate GI consultation recommendations. Status post EGD with findings of erythematous gastritis in the gastric antrum. Biopsy performed. Normal duodenum Q in the second part of the duodenum. The duodenal inflammation was found in the duodenal bulb. Await biopsy results. The patient is scheduled for colonoscopy in a.m. We'll place on clear liquid diet. 3. Renal Insufficiency: Acute on Chronic. Creatinine 1.71, previously 1.69 on 05/08/17. Will monitor, repeat labs in am. 08/30 reactants slightly worsened at 1.81. I will increase the rate of lactated Ringer rangers and monitor BMP. 4. PE: h/o PE and RLE DVT 04/2017, on Coumadin. INR therapeutic, hold Coumadin for now in light of GI Bleed, recheck INR in am. 08/30 INR down to 1.5. Continue to hold Coumadin. Will resume once cleared by GI to do so. 5. Hypocalcemia: Ca 6.8, give Ca 1gm, recheck in am. 08/30 calcium level now within normal range. Continue to monitor calcium levels. 6. DM: Sliding scale w/ Accu-Cheks. 08/30 at sugar stable. Continue to monitor Accu-Cheks and continue to cover blood sugars with SSI. 7. DVT Prophylaxis: Pharmacologic contraindication in light of GI bleed Discharge Planning Pending colonoscopy and GI clearance. Pending cardiology consultation. Kevin Lopez MD Aug 30, 2017 15:46
[2017-08-30] MEDS ORDERED: SODIUM CHLOR 0.9% 1000 ML INJ 1,000 ML IV SCH (16:30)
[2017-08-30] MEDS ORDERED: DEXT 5%-NACL 0.9% 1000 ML INJ 1,000 ML IV SCH (20:00)
[2017-08-30] MEDS: TAMSULOSIN HCL 0.4 MG CAP PO SCH (21:00)
[2017-08-31] VITALS (7 sets, daily range): BP systolic 128–140; BP diastolic 54–71; PULSE 48–64; RESP 16–18; TEMP 97.6–97.8; O2SAT 97–99
[2017-08-31] MEDS: PANTOPRAZOLE INJ 80 MG in SODIUM CHLORIDE 0.9% INJ 100 ML IV SCH (03:26)
[2017-08-31] MEDS: INSULIN ASPART SUPPLEMENTAL SCALE SQ SCH ×3 (08:00→16:31)
[2017-08-31] MEDS: SODIUM CHLORIDE 0.9% FLUSH 10 ML FLUSH IV FLUSH SCH (08:15)
[2017-08-31] MEDS: DOCUSATE SODIUM 50 MG/SENNA 8.6 MG TAB PO SCH (09:00)
--- NOTE | 2017-08-31 09:44 | GIPROC ---
[facility] [address] [facility]. [facility], [address] COLONOSCOPY PROCEDURE REPORT EXAM DATE: 08/31/2017 PATIENT NAME: Kevin Schmitt MR #: [id number] BIRTHDATE: 1930 ENDOSCOPIST: Gonzalo Marley MD ORDER #: [id number] PENCIL MAKER: Yasmin Solis and Vernell Terry STATUS: inpatient INDICATIONS: The patient is a 87 yr old male here for a colonoscopy due to iron deficiency anemia PROCEDURE PERFORMED: Colonoscopy, diagnostic MEDICATIONS: None and Per Anesthesia. PREP QUALITY: The [place] Bowel Prep Score was Right colon 2, Mid colon 3, and Left colon 3. Total = 8. PREP TYPE:GoLytely ESTIMATED BLOOD LOSS: None CONSENT: The patient understands the risks and benefits of the procedure and understands that these risks include, but are not limited to: sedation, allergic reaction, infection, perforation and/or bleeding. Alternative means of evaluation and treatment include, among others: physical exam, x-rays, and/or surgical intervention. The patient elects to proceed with this endoscopic procedure. medical equipment was checked for proper function. Hand hygiene and appropriate measures for infection prevention was taken. After the risks, benefits and alternatives of the procedure were thoroughly explained, Informed consent was verified, confirmed and timeout was successfully executed by the treatment team. A digital exam revealed external hemorrhoids The Pentax [id number] endoscope was introduced through the anus and advanced to the cecum, which was identified by both the appendix and ileocecal valve. The instrument was then slowly withdrawn as the colon was fully examined. COLON FINDINGS: Moderate diverticulosis was noted in the sigmoid colon. No bleeding was noted from the diverticulosis. Retroflexed views revealed internal hemorrhoids, Retroflexed views revealed medium internal hemorrhoids, and Retroflexed views revealed internal hemorrhoids The scope was then completely withdrawn from the patient and the procedure terminated. PROCEDURE WITHDRAWAL TIME:7minutes ADVERSE EVENTS: There were no complications. IMPRESSIONS: 1. Moderate diverticulosis was noted in the sigmoid colon 2. Retroflexed views revealed internal hemorrhoids 3. Retroflexed views revealed medium internal hemorrhoids 4. Retroflexed views revealed internal hemorrhoids 5. Revealed external hemorrhoids RECOMMENDATIONS: 1. Benefiber 2 tsp daily 2. Continue surveillance 3. Yearly hemoccult 4. High fiber diet 5. No seeds, nuts and popcorn in diet RECALL: Return 5 years Colonoscopy Gonzalo Marley MD eSigned: Gonzalo Marley MD 08/31/2017 9:43 AM cc: PATIENT NAME: Kevin Schmitt MR#: [id number]
[2017-08-31] MEDS ORDERED: DO NOT ADM ANY ANTICOAGULANT DRUGS PRN (11:30)
[2017-08-31] MEDS ORDERED: PANTOPRAZOLE SOD 40 MG DELAYED RELEASE TAB PO SCH (12:00)
[2017-08-31] MEDS ORDERED: WHEA1POW9 PO (14:41)
[2017-08-31] MEDS ORDERED: PANT40TA3 PO (14:41)
--- NOTE | 2017-08-31 14:45 | HHI.DCPOC ---
Discharge Care Plan Diagnosis: (1) Hx of CABG (2) GI bleed (3) Hypertension (4) CAD (coronary artery disease) (5) Hypertension (6) Hyperlipidemia (7) DM (diabetes mellitus) Goals to Promote Your Health * To prevent worsening of your condition and complications * To maintain your health at the optimal level Directions to Meet Your Goals Take your medications as prescribed Follow your dietary instruction Follow activity as directed Keep your appointments as scheduled Take your immunizations and boosters as scheduled If your symptoms worsen call your PCP, if no PCP go to Urgent Care Center or Emergency Room Smoking is Dangerous to Your Health. Avoid second hand smoke Call the 24-hour hour crisis hotline for domestic abuse at Kevin Lopez MD Aug 31, 2017 14:45
[2017-08-31] MEDS ORDERED: ENOX100P SQ (15:07)
[2017-08-31] MEDS ORDERED: COUM5TAB PO (15:08)
[2017-08-31] MEDS ORDERED: ENOXAPARIN SODIUM 100 MG/ML SYRINGE SQ ONE (15:30)
[2017-08-31] MEDS ORDERED: WARFARIN SOD 5 MG TAB PO ONE (15:30)
--- NOTE | 2017-08-31 15:32 | HHI.FF ---
Face to Face Verification Diagnosis: (1) Chronic kidney disease (2) DM (diabetes mellitus) (3) Hyperlipidemia (4) Hypertension (5) CAD (coronary artery disease) (6) CAD (coronary artery disease) (7) Hypertension (8) Gastritis and duodenitis (9) Bleeding on Coumadin (10) GI bleed Home Health Nursing Order: Medical education Instructions: please supervise patient that should be getting lovenox injections. I have seen patient Kevin Schmitt on 08/31/17. My clinical findings support the need for the requested home health care services because: Limited ability to care for self Injectable med education/admin I certify that my clinical findings support that this patient is homebound because: Need for psychosocial assistance Kevin Lopez MD Aug 31, 2017 15:32
[2017-08-31 17:43] LABS: BICARBONATE 24.7 MEQ/L (21.0-32.0)
--- NOTE | 2017-08-31 18:00 | HHI.PR ---
Objective Vitals Vital Signs Date Time Temp Pulse Resp B/P (MAP) Pulse Ox O2 Delivery O2 Flow Rate FiO2 08/31/17 17:39 99 21 08/31/17 12:00 97.6 52 18 128/54 (78) 99 08/31/17 09:50 96.8 54 18 130/72 (91) 97 08/31/17 08:00 97.8 50 18 131/64 (86) 99 08/31/17 07:58 48 08/31/17 07:01 Room Air 08/31/17 04:00 49 08/31/17 04:00 97.7 58 16 137/65 (89) 98 08/31/17 00:00 58 08/31/17 00:00 97.8 56 16 140/71 (94) 97 08/30/17 20:00 Room Air 08/30/17 20:00 97.6 58 18 166/72 (103) 99 08/30/17 20:00 48 I/O 08/30/17 08/30/17 08/30/17 08/31/17 08/31/17 08/31/17 07:00 15:00 23:00 07:00 15:00 23:00 Intake Total 240 ml 275 ml 252 ml 100 ml 1340 ml Output Total 1200 ml 400 ml 100 ml Balance -960 ml 275 ml -148 ml 100 ml 1240 ml Intake Oral 240 ml IV Total 25 ml 252 ml 100 ml 1040 ml Other 250 ml 300 ml Output Urine Total 1200 ml 400 ml 100 ml # Bowel Movements 0 0 Result Diagram: 08/30/17 0530 08/31/17 1615 Objective Remarks AAOx3 NAD PERRLA Clear lungs BL Abdomen soft, nt, nd no edema in lower extremities. A/P Problem List: (1) Chest pain ICD Code: R07.9 - Chest pain Status: Acute (2) GI bleed ICD Code: K92.2 - Gastrointestinal hemorrhage, unspecified (3) Renal insufficiency ICD Code: N28.9 - Disorder of kidney and ureter, unspecified (4) PE (pulmonary thromboembolism) ICD Code: I26.99 - Other pulmonary embolism without acute cor pulmonale (5) Hypocalcemia ICD Code: E83.51 - Hypocalcemia (6) DM (diabetes mellitus) ICD Code: E11.9 - Type 2 diabetes mellitus without complications Status: Acute Assessment and Plan 1. Chest Pain: acute onset of chest pain, s/p NTG w/ some relief, h/o CAD, r/ o ACS. Check serial cardiac enzymes, NTG/Morphine prn. Hold ASA in light of GI Bleed. Resume home Metoprolol. 08/30 has resolved. Troponin initially negative at 0.02, went up to 0.06 and then trended down to 0.04. Transient elevation in troponin likely secondary to demand ischemia. Patient is currently chest pain-free. Consult cardiology for further recommendations. 2. GI Bleed: Hgb 7.1, previously 11.8 on 05/10/17, Hemoccult +, on Coumadin for h/o DVT/PE. Will hold Coumadin for now. 1u pRBC pending transfusion, check Hgb/Hct post transfusion. Consult GI for further eval. 08/30 appreciate GI consultation recommendations. Status post EGD with findings of erythematous gastritis in the gastric antrum. Biopsy performed. Normal duodenum Q in the second part of the duodenum. The duodenal inflammation was found in the duodenal bulb. Await biopsy results. The patient is scheduled for colonoscopy in a.m. We'll place on clear liquid diet. 3. Renal Insufficiency: Acute on Chronic. Creatinine 1.71, previously 1.69 on 05/08/17. Will monitor, repeat labs in am. 08/30 reactants slightly worsened at 1.81. I will increase the rate of lactated Ringer rangers and monitor BMP. 4. PE: h/o PE and RLE DVT 04/2017, on Coumadin. INR therapeutic, hold Coumadin for now in light of GI Bleed, recheck INR in am. 08/30 INR down to 1.5. Continue to hold Coumadin. Will resume once cleared by GI to do so. 5. Hypocalcemia: Ca 6.8, give Ca 1gm, recheck in am. 08/30 calcium level now within normal range. Continue to monitor calcium levels. 6. DM: Sliding scale w/ Accu-Cheks. 08/30 at sugar stable. Continue to monitor Accu-Cheks and continue to cover blood sugars with SSI. 7. DVT Prophylaxis: Pharmacologic contraindication in light of GI bleed Discharge Planning Pending colonoscopy and GI clearance. Pending cardiology consultation. Problem Qualifiers (1) GI bleed: Qualified Codes: K57.91 - Diverticulosis of intestine, part unspecified, without perforation or abscess with bleeding Kevin Lopez MD Aug 31, 2017 18:00
--- NOTE | 2017-09-01 18:23 | HHI.DS ---
Discharge Summary Admission Date Aug 29, 2017 at 01:03 Discharge Date: Aug 31, 2017 Admitting Diagnosis chest pain; upper gi bleed; coumadin therapy (1) Chest pain ICD Code: R07.9 - Chest pain Status: Acute (2) GI bleed ICD Code: K92.2 - Gastrointestinal hemorrhage, unspecified (3) Renal insufficiency ICD Code: N28.9 - Disorder of kidney and ureter, unspecified (4) PE (pulmonary thromboembolism) ICD Code: I26.99 - Other pulmonary embolism without acute cor pulmonale (5) Hypocalcemia ICD Code: E83.51 - Hypocalcemia (6) DM (diabetes mellitus) ICD Code: E11.9 - Type 2 diabetes mellitus without complications Status: Acute Brief History - From Admission This is an 87-year-old male with a PMH of HTN, Hyperlipidemia, CAD, CHF (Echo w/ EF 55-60%), DM and h/o PE/DVT on Coumadin who presented to the ER w/ c/ o chest pain starting earlier tonight. S/p NTG by EMS w/ some relief. Reports associated SOB and intermittent nausea. On arrival, BP 136/66, HR 84, O2 sat 96 % on RA, Afebrile. Hemoglobin 7.1, previously 11.8 on 05/10/17. Platelets 121, previously 101 on 05/10/17. Creatinine 1.71, previously 1.69 on 05/08/17. Troponin negative. INR 2.0. CXR with no acute findings. Pt/family reports dark stool, +Hemoccult on exam. 1u pRBC pending transfusion. CBC/BMP: 08/30/17 0530 08/31/17 1615 Significant Findings Laboratory Tests Test 08/29/17 23:19 08/30/17 05:30 08/31/17 16:15 Hemoglobin 10.1 GM/DL (13.0-17.0) 10.5 GM/DL (13.0-17.0) Hematocrit 29.4 % (39.0-51.0) 30.7 % (39.0-51.0) Red Blood Count 3.40 MIL/MM3 (4.50-5.90) Platelet Count 133 TH/MM3 (150-450) Monocytes (%) (Auto) 9.5 % (0.0-8.0) Eosinophils (%) (Auto) 4.5 % (0.0-4.0) Prothrombin Time 14.9 SEC (9.8-11.6) Blood Urea Nitrogen 20 MG/DL (7-18) Creatinine 1.81 MG/DL (0.60-1.30) 1.83 MG/DL (0.60-1.30) Random Glucose 71 MG/DL (74-106) Total Protein 5.9 GM/DL (6.4-8.2) Albumin 2.9 GM/DL (3.4-5.0) Calcium Level 7.8 MG/DL (8.5-10.1) 8.0 MG/DL (8.5-10.1) Total Bilirubin 1.2 MG/DL (0.2-1.0) Chloride Level 109 MEQ/L (98-107) 110 MEQ/L (98-107) Estimat Glomerular Filtration Rate 43 ML/MIN (>89) 43 ML/MIN (>89) Imaging Last Impressions Chest X-Ray 08/28/17 2711 Signed Impressions: Service Date/Time: Monday, August 28, 2017 23:24 - CONCLUSION: No acute cardiopulmonary abnormality is identified. Pravin Jim MD PE at Discharge AAOx3 NAD PERRLA Clear lungs BL Abdomen soft, nt, nd no edema in lower extremities. Pt Condition on Discharge: Stable Discharge Disposition: Discharge Home Discharge Time: <= 30 minutes Discharge Instructions DIET: Follow Instructions for: Diabetic Diet Activities you can perform: Regular-No Restrictions Kevin Lopez MD Sep 01, 2017 18:23
== END 2017-08-31 18:38 | disposition home or self-care (01) | DRG 313 ==
LOC: NEPC 22:27 → NEDA 08-29 01:03 → N04B 08-29 02:00
PROVIDERS: ADMIT Hospitalist; ATTEND Hospitalist
PROC: 30233N1 Transfusion of Nonautologous Red Blood Cells into Peripheral Vein, Percutaneous Approach (ICD-10-PCS; principal; 2017-08-29)
PROC: 0DB68ZX Excision of Stomach, Via Natural or Artificial Opening Endoscopic, Diagnostic (ICD-10-PCS; 2017-08-30)
PROC: 0DJD8ZZ Inspection of Lower Intestinal Tract, Via Natural or Artificial Opening Endoscopic (ICD-10-PCS; 2017-08-30)
DX: R07.9 Chest pain, unspecified (principal); I24.8 Other forms of acute ischemic heart disease; E11.22 Type 2 diabetes mellitus with diabetic chronic kidney disease; I13.0 Hypertensive heart and chronic kidney disease with heart failure and stage 1 through stage 4 chronic kidney disease, or unspecified chronic kidney disease; I50.9 Heart failure, unspecified; K92.2 Gastrointestinal hemorrhage, unspecified; E83.51 Hypocalcemia; I25.2 Old myocardial infarction; I25.10 Atherosclerotic heart disease of native coronary artery without angina pectoris; D50.8 Other iron deficiency anemias; N18.9 Chronic kidney disease, unspecified; Z95.1 Presence of aortocoronary bypass graft; Z95.5 Presence of coronary angioplasty implant and graft; K21.9 Gastro-esophageal reflux disease without esophagitis; E78.5 Hyperlipidemia, unspecified; Z86.73 Personal history of transient ischemic attack (TIA), and cerebral infarction without residual deficits; Z79.01 Long term (current) use of anticoagulants; M19.90 Unspecified osteoarthritis, unspecified site; R53.1 Weakness; R42 Dizziness and giddiness; Z83.3 Family history of diabetes mellitus; Z86.718 Personal history of other venous thrombosis and embolism; Z98.42 Cataract extraction status, left eye; Z86.711 Personal history of pulmonary embolism; K29.70 Gastritis, unspecified, without bleeding; K64.4 Residual hemorrhoidal skin tags; K64.8 Other hemorrhoids
CPT/HCPCS: 36430; 71010; 80048; 80053; 80076; 82550; 82552; 82948; 83690; 83735; 84100; 84155; 84484; 85014; 85018; 85025; 85610; 85730; 86850; 86900; 86901; 86920; 88305; 88312; 93005; 96374; C9113; J0610; J1610; J1650; J1940; J7030; J7042; J7050; P9016

== ENCOUNTER 2017-10-25 01:52 | Emergency (ER) | payer MEDICARE, MEDICAID ==
[~2017-10-25] VITALS: Ht 175.3 cm; Wt 93.0 kg
[~2017-10-25 01:52] MED LIST changes: +ENOX100P SQ; -ENOX60P SQ; -OMEP40CA2 PO; +PANT40TA3 PO; +WHEA1POW9 PO
[2017-10-25 01:56] VITALS: BP 186/85; PULSE 79; RESP 18; TEMP 98.1; O2SAT 100
--- NOTE | 2017-10-25 02:29 | PD ---
HPI Chief Complaint: Respiratory Symptoms Time Seen by Provider: 02:02 Travel History International Travel<30 days: No Contact w/Intl Traveler<30days: No Traveled to known affect area: No History of Present Illness HPI The patient is an 87 year old male who presents to the [facility] emergency department with a history of shortness of breath and cough that began at 1 AM while he was mopping the floor with ammonia and water. The patient reports that it was sudden in onset. He denies having any chest pain, chest pressure, shortness of breath, cough or congestion prior to the onset of these symptoms. He reports that since the exposure he has had a cough that seems to induce shortness of breath. He reports that he also had a brief episode of chest pain. The patient reports that he does have a history of coronary artery disease and congestive heart failure. The patient was brought in by ambulance services. No treatment was provided prior to arrival. He denies having any chest pain currently. He denies having any productivity to his cough. On Review of systems otherwise, he denies having any recent fevers,neck pain, abdominal pain, vomiting, diarrhea, urinary symptoms, or neurologic symptoms. 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 Hx Anticoagulant Therapy: Yes Arthritis: Yes Asthma: No Blood Disorders: No Anxiety: No Depression: No Heart Rhythm Problems: No Cancer: No Cardiac Catheterization: Yes Cardiovascular Problems: Yes (MS, HTN) High Cholesterol: Yes Chemotherapy: No Chest Pain: No Congestive Heart Failure: Yes COPD: No Cerebrovascular Accident: Yes Coronary Artery Disease: Yes Diabetes: Yes Patient Takes Glucophage: No Diminished Hearing: No Endocrine: Yes Gastrointestinal Disorders: Yes (GERD, ADMITTED WITH SUSPECTED GI BLEED 08/29/17 ) GERD: Yes Genitourinary: Yes (UNKNOWN LEFT KIDNEY PROBLEM) Headaches: Yes Hypertension: Yes Immune Disorder: No Implanted Vascular Access Dvce: Yes (EYE) Musculoskeletal: Yes Neurologic: Yes Psychiatric: No Reproductive: No Respiratory: No Immunizations Current: Yes Migraines: No Radiation Therapy: No Seizures: No Sleep Apnea: No Thyroid Disease: No Past Surgical History Narrative Surgical The patient's past surgical history is significant for coronary artery bypass grafting, left cataract surgery, history of cardiac catheterization with stent placement. Abdominal Surgery: No AICD: No Arteriovenous Shunt: No Body Medical Devices: coronary artery stents Cardiac Surgery: Yes (CABG- 2005; CARDIAC CATH. WITH STENT- 2004) Coronary Artery Bypass Graft: Yes (3 VESSEL ) Coronary Stent: Yes Ear Surgery: No Endocrine Surgery: No Eye Surgery: Yes (LEFT CATARACT EXTRACTION WITH IOL) Genitourinary Surgery: No Gynecologic Surgery: No Joint Replacement: No Neurologic Surgery: No Oral Surgery: No Pacemaker: No Thoracic Surgery: No Other Surgery: Yes (COLONOSCOPY) Social History Alcohol Use: No Tobacco Use: No Substance Use: No Allergies-Medications (Allergen,Severity, Reaction): Coded Allergies: No Known Allergies (Verified Allergy, Unknown, 08/29/17) Reported Meds & Prescriptions Reported Meds & Active Scripts Active Coumadin (Warfarin) 5 Mg Tab 5 Mg PO DAILY@1600 Check INR Wednesday, Wednesday , Wednesday 2 weeks target INR between 2 and 3 Follow instructions from primary physician Lovenox Inj (Enoxaparin Sodium) 100 Mg/Ml Syr 90 Mg SQ BID Benefiber (Wheat Dextrin) 3 Gram/3.8 Gram Powder 3 Gm PO DAILY 30 Days Pantoprazole (Pantoprazole Sodium) 40 Mg Tab 40 Mg PO DAILY [jimena bacon walker] .XX CONTINUOUS PRN Reported Calcitriol 0.25 Mcg Cap 0.25 Mcg PO MOWEFR Take 1 capsule (0.25mcg) three times weekly on Wednesday,Wednesday and Wednesday Tradjenta (Linagliptin) 5 Mg Tab 5 Mg PO DAILY Uloric (Febuxostat) 40 Mg Tab 40 Mg PO DAILY Tamsulosin (Tamsulosin HCl) 0.4 Mg Cap 0.4 Mg PO HS Amlodipine-Olmesartan 5-40 Mg Tab 1 Tab PO DAILY Repaglinide 0.5 Mg Tab 0.5 Mg PO BIDAC Review of Systems Except as stated in HPI: all other systems reviewed are Neg General / Constitutional: No: Fever Eyes: No: Visual changes HENT: No: Headaches Cardiovascular: Positive: Chest Pain or Discomfort, No: Dyspnea on exertion Respiratory: Positive: Cough, Shortness of Breath Gastrointestinal: No: Abdominal Pain Genitourinary: No: Dysuria Musculoskeletal: No: Pain Skin: No Rash Neurologic: No: Weakness, Focal Abnormalities, Change in Mentation, Slurred Speech, Sensory Disturbance Psychiatric: No: Depression Endocrine: No: Polydipsia Hematologic/Lymphatic: No: Easy Bruising Physical Exam Narrative General: The patient is a well-developed well-nourished male in no acute distress. Head and Neck exam: Head is normocephalic atraumatic. Eyes: EOMI, pupils are equal round and reactive to light. Nose: Midline septum with pink mucous membranes Mouth: Dentition unremarkable. Moist mucus membranes. Posterior oropharynx is not erythematous. No tonsillar hypertrophy. Uvula midline. Airway patent. Neck: No palpable lymphadenopathy. No nuchal rigidity. No thyromegaly. Cardiovascular: Regular rate and rhythm without murmurs, gallops, or rubs. Lungs: Clear to auscultation bilaterally. No wheezes, rhonchi, or rales. The patient has an occasional dry cough on examination. Abdomen: Soft, without tenderness to palpation in all 4 quadrants of the abdomen. No guarding, rebound, or rigidity. Normal bowel sounds are audible. No tenderness on palpation of McBurney's point. Extremities: No clubbing or cyanosis. The patient has trace pedal edema bilateral lower extremities that he reports is no worse than usual. 2+ pulses in all 4 extremities. No calf tenderness on palpation. Back: No costovertebral angle tenderness to palpation. Neurologic Exam: Grossly nonfocal. Skin Exam: No rash noted. Intact skin that is warm and dry. Data Data Last Documented VS Vital Signs Date Time Temp Pulse Resp B/P (MAP) Pulse Ox O2 Delivery O2 Flow Rate FiO2 10/25/17 01:56 98.1 79 18 186/85 (118) 100 Orders Orders Complete Blood Count With Diff (10/25/17 02:29) Basic Metabolic Panel (Bmp) (10/25/17 02:29) B-Type Natriuretic Peptide (10/25/17 02:29) Act Partial Throm Time (Ptt) (10/25/17 02:29) Prothrombin Time / Inr (Pt) (10/25/17 02:29) Ckmb (Isoenzyme) Profile (10/25/17 02:29) Troponin I (10/25/17 02:29) Iv Access Insert/Monitor (10/25/17 02:29) Electrocardiogram (10/25/17 02:29) Ecg Monitoring (10/25/17 02:29) Oximetry (10/25/17 02:29) Oxygen Administration (10/25/17 02:29) Chest, Single Ap (10/25/17 02:29) Sodium Chloride 0.9% Flush (Ns Flush) (10/25/17 02:30) Albuterol-Ipratropium Neb (Duoneb Neb) (10/25/17 02:30) Methylprednisolone So Succ Inj (Solumedr (10/25/17 03:00) CKMB (10/25/17 02:58) CKMB% (10/25/17 02:58) Labs Laboratory Tests Test 10/25/17 02:58 White Blood Count 8.6 TH/MM3 Red Blood Count 3.71 MIL/MM3 Hemoglobin 11.3 GM/DL Hematocrit 34.0 % Mean Corpuscular Volume 91.6 FL Mean Corpuscular Hemoglobin 30.4 PG Mean Corpuscular Hemoglobin Concent 33.2 % Red Cell Distribution Width 15.6 % Platelet Count 158 TH/MM3 Mean Platelet Volume 10.4 FL Neutrophils (%) (Auto) 53.2 % Lymphocytes (%) (Auto) 34.2 % Monocytes (%) (Auto) 9.4 % Eosinophils (%) (Auto) 2.8 % Basophils (%) (Auto) 0.4 % Neutrophils # (Auto) 4.6 TH/MM3 Lymphocytes # (Auto) 2.9 TH/MM3 Monocytes # (Auto) 0.8 TH/MM3 Eosinophils # (Auto) 0.2 TH/MM3 Basophils # (Auto) 0.0 TH/MM3 CBC Comment DIFF FINAL Differential Comment Prothrombin Time 13.5 SEC Prothromb Time International Ratio 1.3 RATIO Activated Partial Thromboplast Time 29.4 SEC Blood Urea Nitrogen 20 MG/DL Creatinine 2.23 MG/DL Random Glucose 126 MG/DL Calcium Level 8.2 MG/DL Sodium Level 143 MEQ/L Potassium Level 4.2 MEQ/L Chloride Level 112 MEQ/L Carbon Dioxide Level 23.7 MEQ/L Anion Gap 7 MEQ/L Estimat Glomerular Filtration Rate 34 ML/MIN Total Creatine Kinase 152 U/L Creatine Kinase MB 1.0 NG/ML Troponin I LESS THAN 0.02 NG/ML B-Type Natriuretic Peptide 75 PG/ML MDM Medical Decision Making Medical Screen Exam Complete: Yes Emergency Medical Condition: Yes Medical Record Reviewed: Yes Interpretation(s) Last Impressions Chest X-Ray 10/25/17 0229 Signed Impressions: Service Date/Time: Wednesday, October 25, 2017 02:46 - CONCLUSION: 1. Minimal basilar atelectasis. No effusion. No pneumothorax. Postop CABG. Lisandro Jacobo MD Differential Diagnosis Chemical pneumonitis, versus CHF exacerbation, versus acute coronary syndrome Narrative Course During the course of the patients emergency department visit, the patients history, examination, and differential diagnosis were reviewed with the patient. The patient was placed on a bulk plant manager with oximetry and frequent blood pressure monitoring. The patient had IV access obtained and blood work sent for analysis. The patient had an EKG done on arrival. The patient's EKG shows a sinus rhythm with occasional ventricular premature complexes and supraventricular premature complexes, QRS duration is 113 ms, QTC 412 ms, no acute ST segment elevation, T waves are noted in lead 3. The patient was initially provided a DuoNeb times one. Solu-Medrol 125 mg IV. The patients laboratory studies were reviewed and remarkable for a white count of 8.6, hemoglobin 11.3, platelets 158 with 9.4 monocytes, BNP is remarkable for chloride of 112, BUN 20, creatinine 2.23 which is comparable to previously with the patient's history of renal insufficiency, glucose 126, CPK 152, troponin I less than 0.02, BNP 75. INR 1.3 Radiology studies were reviewed and remarkable for a chest x-ray that showed minimal basilar atelectasis, no effusion, no pneumothorax, postop CABG. The patient was reexamined and reportedly was feeling improved. The patient reports that the initial nebulizer treatment did seem to help. The patient was given a second nebulizer treatment. The patient will be discharged home. The patient is encouraged to follow up with his primary care physician for reexamination in the next 2 days. The patient is instructed to do activity as tolerated over the next 2 days. The patient is instructed to use caution when cleaning with chemicals. The patient will be discharged home with a pro-air inhaler. The patient is resting comfortably and feels better, is alert and in no distress. The patients results and examination findings were discussed with the patient. The repeat examination is unremarkable and benign. The history, exam, diagnostic testing, and current condition do not suggest any significant pathology to warrant further testing, continued ED treatment, admission, or surgical evaluation at this point. The vital signs have been stable. The patient does not have uncontrollable pain, intractable vomiting, or other significant symptoms. The patient's condition is stable and appropriate for discharge. The patient will pursue further outpatient evaluation with a primary care physician or other designated or consulting physician as indicated in the discharge instructions. The patient expressed understanding and was agreeable with this plan. Diagnosis Primary Impression: Reactive airway disease Qualified Codes: J45.20 - Mild intermittent asthma, uncomplicated Referrals: Primary Care Physician 2 days Patient Instructions: General Instructions, Reactive Airways Disease (ED) Med/Other Pt SpecificInfo: Prescription(s) given Scripts Albuterol Powder Inh (Proair Respiclick Inh) 90 Mcg/Act Aerp 2 PUFF INH Q4-6H Y for SHORTNESS OF BREATH, #1 INHALER 0 Refills Prov: Jacqueline Shah MD 10/25/17 Disposition: 01 DISCHARGE HOME Condition: Stable Jacqueline Shah MD Oct 25, 2017 02:29
[2017-10-25] MEDS ORDERED: SODIUM CHLORIDE 0.9% FLUSH 10 ML FLUSH IVF PRN (02:30)
[2017-10-25] MEDS ORDERED: RESP: ALBUTEROL 2.5 MG/IPRATROPIUM 0.5 MG NEB (SCH) INH ONE (02:30)
--- NOTE | 2017-10-25 02:59 | RADRPT ---
EXAM DATE/TIME: 10/25/2017 02:46 [facility] COMPARISON: No previous studies available for comparison. INDICATIONS : Pt inhaled ammonia while cleaning and is short of breath MEDICAL HISTORY : Diabetes mellitus type II. Hypertension Hypercholesterolemia. CAD, CVA, GERD SURGICAL HISTORY : CABG. Cardiac Stent ENCOUNTER: Initial ACUITY: 1 day PAIN SCORE: 7/10 LOCATION: Bilateral chest FINDINGS: A single view of the chest demonstrates the lungs to be symmetrically aerated without evidence of mas s, infiltrate or effusion. Minimal basilar atelectasis. The cardiomediastinal contours are unremarka ble. Postoperative median sternotomy Osseous structures are intact. CONCLUSION: 1. Minimal basilar atelectasis. No effusion. No pneumothorax. Postop CABG. Lisandro Jacobo MD on October 25, 2017 at 2:56 Board Certified Radiologist. This report was verified electronically.
[2017-10-25] MEDS ORDERED: methylPREDNISolone SOD SUCC 125 MG/2 ML VIAL IV PUSH ONE (03:00)
[2017-10-25 03:36] LABS: BICARBONATE 23.7 MEQ/L (21.0-32.0); BLOOD UREA NITROGEN 20 MG/DL (7-18); CALCIUM 8.2 MG/DL (8.5-10.1); CHLORIDE 112 MEQ/L (98-107); CREATININE 2.23 MG/DL (0.60-1.30); GLOMERULAR FILTRATION RATE 34 ML/MIN (>89); GLUCOSE,RANDOM 126 MG/DL (74-106); SODIUM (NA) 143 MEQ/L (136-145)
[2017-10-25 03:39] LABS: AUTOMATED NEUTROPHIL # 4.6 TH/MM3 (1.8-7.7); BASOPHIL % 0.4 % (0.0-2.0); EOSINOPHIL # 0.2 TH/MM3 (0-0.4); EOSINOPHIL % 2.8 % (0.0-4.0); HEMOGLOBIN 11.3 GM/DL (13.0-17.0); LYMPH % 34.2 % (9.0-44.0); LYMPHOCYTE # 2.9 TH/MM3 (1.0-4.8); MEAN CELL VOLUME 91.6 FL (80.0-100.0); MEAN CORPUSCULAR HEMOGLOBIN 30.4 PG (27.0-34.0); MEAN CORPUSCULAR HGB CONC 33.2 % (32.0-36.0); MEAN PLATELET VOLUME 10.4 FL (7.0-11.0); MONO % 9.4 % (0.0-8.0); MONOCYTE # 0.8 TH/MM3 (0-0.9); NEUT % 53.2 % (16.0-70.0); PLATELET COUNT 158 TH/MM3 (150-450); RED BLOOD COUNT 3.71 MIL/MM3 (4.50-5.90); RED CELL DISTRIBUTION WIDTH 15.6 % (11.6-17.2); WHITE BLOOD COUNT 8.6 TH/MM3 (4.0-11.0)
[2017-10-25 03:40] LABS: TROPONIN I LESS THAN 0.02 NG/ML (0.02-0.05)
[2017-10-25 04:03] LABS: INTERNATIONAL NORMALIZED RATIO 1.3 RATIO; PROTHROMBIN TIME - PATIENT 13.5 SEC (9.8-11.6)
[2017-10-25] MEDS ORDERED: ALBU1AER5 INH (04:22)
[2017-10-25] MEDS ORDERED: RESP: ALBUTEROL 2.5 MG/IPRATROPIUM 0.5 MG NEB (SCH) NEB ONE (04:30)
[2017-10-25 04:56] VITALS: BP 178/87
--- NOTE | 2017-10-25 18:19 | EKG ---
Date Performed: 10/25/2017 Time Performed: 02:02:16 PTAGE: 87 years EKG: Sinus rhythm WITH OCCASIONAL VENTRICULAR PREMATURE COMPLEXES WITH OCCASIONAL SUPRAVENTRICULAR PREMATURE COMPLEXES POSSIBLE LEFT ATRIAL ENLARGEMENT Consider PROBABLE INFERIOR MYOCARDIAL INFARCTION-age Undeterminate. ABNORMAL ECG PREVIOUS TRACING : 08/29/2017 07.10 DOCTOR: Anupam Ang Interpretating Date/Time 10/25/2017 18:18:08
== END 2017-10-25 05:10 | disposition home or self-care (01) ==
LOC: NEPC 01:52
DX: J45.20 Mild intermittent asthma, uncomplicated (principal); R94.31 Abnormal electrocardiogram [ECG] [EKG]; I10 Essential (primary) hypertension; E78.00 Pure hypercholesterolemia, unspecified; I50.9 Heart failure, unspecified; E11.9 Type 2 diabetes mellitus without complications; I25.2 Old myocardial infarction; Z86.711 Personal history of pulmonary embolism; Z86.718 Personal history of other venous thrombosis and embolism; Z95.5 Presence of coronary angioplasty implant and graft; Z95.1 Presence of aortocoronary bypass graft; Z79.01 Long term (current) use of anticoagulants
CPT/HCPCS: 71045; 80048; 82550; 82552; 83880; 84484; 85025; 85610; 85730; 93005; 94640; 94664; 96374; 99285; J2930

== ENCOUNTER 2017-11-12 22:02 | Inpatient (IN) | payer MEDICARE, MEDICAID ==
[~2017-11-12] VITALS: Ht 175.3 cm; Wt 87.7 kg
[~2017-11-12 22:02] MED LIST changes: +ALBU1AER5 INH
[2017-11-12 22:12] VITALS: BP 164/72; PULSE 97; RESP 22; TEMP 98.6; O2SAT 99
[2017-11-12] MEDS ORDERED: SODIUM CHLORIDE 0.9% FLUSH 10 ML FLUSH IVF PRN (22:15)
[2017-11-12 22:17] VITALS: BP 130/63; PULSE 94; RESP 20; O2SAT 100
--- NOTE | 2017-11-12 22:18 | PD ---
HPI Chief Complaint: chest pain Time Seen by Provider: 22:08 Travel History International Travel<30 days: No Contact w/Intl Traveler<30days: No History of Present Illness HPI 87 y/o male presents with central chest pain for the past 3 days. He took one baby aspirin in the ambulance team gave him 3 aspirin and 1 nitroglycerin. That took his pain from a 9 to an 8. He denies other concurrent complaints. He states he does not have a piece hand and he does not remember his cardiac history but he has been here multiple times before. Quality of pain is burning. Severity is currently moderate. He denies specific modifying factors. History is limited as patient is a poor historian. PFSH Past Medical History Hx Anticoagulant Therapy: Yes Arthritis: Yes Asthma: No Blood Disorders: No Anxiety: No Depression: No Heart Rhythm Problems: No Cancer: No Cardiac Catheterization: Yes Cardiovascular Problems: Yes (UT, HTN) High Cholesterol: Yes Chemotherapy: No Chest Pain: No Congestive Heart Failure: Yes COPD: No Cerebrovascular Accident: Yes Coronary Artery Disease: Yes Diabetes: Yes Diminished Hearing: No Endocrine: Yes Gastrointestinal Disorders: Yes (GERD, ADMITTED WITH SUSPECTED GI BLEED 08/29/17 ) GERD: Yes Genitourinary: Yes (UNKNOWN LEFT KIDNEY PROBLEM) Headaches: Yes Hypertension: Yes Immune Disorder: No Implanted Vascular Access Dvce: Yes (EYE) Musculoskeletal: Yes Neurologic: Yes Psychiatric: No Reproductive: No Respiratory: No Immunizations Current: Yes Migraines: No Radiation Therapy: No Seizures: No Sleep Apnea: No Thyroid Disease: No Past Surgical History Abdominal Surgery: No AICD: No Arteriovenous Shunt: No Body Medical Devices: coronary artery stents Cardiac Surgery: Yes (CABG- 2005; CARDIAC CATH. WITH STENT- 2004) Coronary Artery Bypass Graft: Yes (3 VESSEL ) Coronary Stent: Yes Ear Surgery: No Endocrine Surgery: No Eye Surgery: Yes (LEFT CATARACT EXTRACTION WITH IOL) Genitourinary Surgery: No Gynecologic Surgery: No Joint Replacement: No Neurologic Surgery: No Oral Surgery: No Pacemaker: No Thoracic Surgery: No Other Surgery: Yes (COLONOSCOPY) Social History Alcohol Use: No Tobacco Use: No Substance Use: No Allergies-Medications (Allergen,Severity, Reaction): Coded Allergies: No Known Allergies (Verified Allergy, Unknown, 08/29/17) Reported Meds & Prescriptions Reported Meds & Active Scripts Active Proair Respiclick Inh (Albuterol Sulfate) 90 Mcg/Act Aerp 2 Puff INH Q4-6H PRN Coumadin (Warfarin) 5 Mg Tab 5 Mg PO DAILY@1600 Check INR Wednesday, Wednesday , Wednesday 2 weeks target INR between 2 and 3 Follow instructions from primary physician Komal (Wheat Dextrin) 3 Gram/3.8 Gram Powder 3 Gm PO DAILY 30 Days Pantoprazole (Pantoprazole Sodium) 40 Mg Tab 40 Mg PO DAILY [new rolling walker] .XX CONTINUOUS PRN Reported Calcitriol 0.25 Mcg Cap 0.25 Mcg PO MOWEFR Take 1 capsule (0.25mcg) three times weekly on Wednesday,Wednesday and Wednesday Tradjenta (Linagliptin) 5 Mg Tab 5 Mg PO DAILY Uloric (Febuxostat) 40 Mg Tab 40 Mg PO DAILY Tamsulosin (Tamsulosin HCl) 0.4 Mg Cap 0.4 Mg PO HS Amlodipine-Olmesartan 5-40 Mg Tab 1 Tab PO DAILY Repaglinide 0.5 Mg Tab 0.5 Mg PO BIDAC Review of Systems Except as stated in HPI: all other systems reviewed are Neg Physical Exam Narrative GENERAL: 87 y/o male in no apparent distress SKIN: Focused skin assessment warm/dry. HEAD: Atraumatic. Normocephalic. EYES: Pupils equal and round. No scleral icterus. No injection or drainage. ENT: No nasal bleeding or discharge. Mucous membranes pink and moist. NECK: Trachea midline. No JVD. CARDIOVASCULAR: Regular rate and rhythm. No murmur appreciated. RESPIRATORY: No accessory muscle use. Breath sounds equal bilaterally. GASTROINTESTINAL: Abdomen soft, non-tender, nondistended. MUSCULOSKELETAL: No obvious deformities. NEUROLOGICAL: Awake. moves all extremities. Normal speech. PSYCHIATRIC: Appropriate mood and affect; insight and judgment normal. RECTAL EXAM: Performed with photography teacher and after permission. No large external hemorrhoid or fissure, stool is black, non-bloody. Data Data Last Documented VS Vital Signs Date Time Temp Pulse Resp B/P (MAP) Pulse Ox O2 Delivery O2 Flow Rate FiO2 11/12/17 22:17 94 20 130/63 (85) 100 Room Air 11/12/17 22:12 98.6 Orders Orders Electrocardiogram (11/12/17 22:09) B-Type Natriuretic Peptide (11/12/17 22:09) Ckmb (Isoenzyme) Profile (11/12/17 22:09) Complete Blood Count With Diff (11/12/17 22:) Comprehensive Metabolic Panel (11/12/17 22:) Magnesium (Mg) (11/12/17 22:) Prothrombin Time / Inr (Pt) (11/12/17 22:) Act Partial Throm Time (Ptt) (11/12/17 22:09) Troponin I (11/12/17:) Chest, Single Ap (11/12/17:) Ecg Monitoring (11/12/17:) Bilateral Bp Monitoring (11/12/17:) Iv Access Insert/Monitor (11/12/17 22:) Oximetry (11/12/17 22:) Sodium Chloride 0.9% Flush (Ns Flush) (11/12/17 22:15) Red Blood Cells (Rbc) (11/12/17 23:10) Blood Product Administration (11/12/17 23:10) Sodium Chlor 0.9% 250 Ml Inj (Ns 250 Ml (11/12/17 23:15) Type And Screen (11/12/17 23:10) CKMB (11/12/17 22:25) CKMB% (11/12/17 22:25) Sodium Chloride 0.9... W/Pantoprazole In (11/12/17 23:43) Sodium Chloride 0.9... W/Pantoprazole In (11/12/17 23:43) Admit Order (Ed Use Only) (11/13/17 00:13) Labs Laboratory Tests Test 11/12/17 22: White Blood Count 7.6 TH/MM3 Red Blood Count 2.34 MIL/MM3 Hemoglobin 6.8 GM/DL Hematocrit 21.2 % Mean Corpuscular Volume 90.9 FL Mean Corpuscular Hemoglobin 29.1 PG Mean Corpuscular Hemoglobin Concent 32.0 % Red Cell Distribution Width 15.5 % Platelet Count 162 TH/MM3 Mean Platelet Volume 11.1 FL Neutrophils (%) (Auto) 42.6 % Lymphocytes (%) (Auto) 44.2 % Monocytes (%) (Auto) 10.0 % Eosinophils (%) (Auto) 2.4 % Basophils (%) (Auto) 0.8 % Neutrophils # (Auto) 3.2 TH/MM3 Lymphocytes # (Auto) 3.4 TH/MM3 Monocytes # (Auto) 0.8 TH/MM3 Eosinophils # (Auto) 0.2 TH/MM3 Basophils # (Auto) 0.1 TH/MM3 CBC Comment DIFF FINAL Differential Comment Prothrombin Time 13.4 SEC Prothromb Time International Ratio 1.3 RATIO Activated Partial Thromboplast Time 26.9 SEC Blood Urea Nitrogen 33 MG/DL Creatinine 2.28 MG/DL Random Glucose 115 MG/DL Total Protein 6.1 GM/DL Albumin 2.9 GM/DL Calcium Level 7.7 MG/DL Magnesium Level 2.2 MG/DL Alkaline Phosphatase 49 U/L Aspartate Amino Transf (AST/SGOT) 21 U/L Alanine Aminotransferase (ALT/SGPT) 15 U/L Total Bilirubin 0.3 MG/DL Sodium Level 143 MEQ/L Potassium Level 4.5 MEQ/L Chloride Level 113 MEQ/L Carbon Dioxide Level 23.1 MEQ/L Anion Gap 7 MEQ/L Estimat Glomerular Filtration Rate 33 ML/MIN Total Creatine Kinase 128 U/L Creatine Kinase MB 1.2 NG/ML Troponin I 0.02 NG/ML B-Type Natriuretic Peptide 39 PG/ML MDM Medical Decision Making Medical Screen Exam Complete: Yes Emergency Medical Condition: Yes Medical Record Reviewed: Yes (pmh confirmed, colonoscopy August 2017 showed hemorrhoids and diverticulosis. EGD showed irritation of duodenal bulb and gastritis) Interpretation(s) CBC & BMP Diagram 11/12/17 22:25 Total Protein 6.1 L, Albumin 2.9 L, Calcium Level 7.7 L, Magnesium Level 2.2, Alkaline Phosphatase 49, Aspartate Amino Transf (AST/SGOT) 21, Alanine Aminotransferase (ALT/SGPT) 15, Total Bilirubin 0.3 Last 24 hours Impressions Chest X-Ray 11/12/173 Signed Impressions: Service Date/Time: Sunday, November 12, 2017 22:24 - CONCLUSION: 1. No acute disease. Postop CABG. Lisandro Jacobo MD Differential Diagnosis angina, musculoskeletal, gastritis, PE Narrative Course We will check blood work, chest x-ray, EKG and monitor given hemoglobin will start transfusion and check rectal. Patient is actively bleeding with black stool and will place on Protonix drip given history and admit to the hospital for further care. Critical Care Narrative Aggregate critical care time was 31 minutes. Time to perform other separately billable procedures was not included in the critical care time. My time did not include minutes spent treating any other patients simultaneously or on activities that did not directly contribute to the patient's treatment. The services I provided to this patient were to treat and/or prevent clinically significant deterioration that could result in hemorrhagic shock, : I provided critical care services requiring my management, as noted below: Chart data review, documentation time, medication orders and management, vital sign assessments/reviewing monitor data, ordering and reviewing lab tests, ordering and interpreting/reviewing x-rays and diagnostic studies, care of the patient and discussion of the patient with the admitting physicians. Physician Communication Physician Communication resident team states to admit to dr gallagher Diagnosis Primary Impression: GI bleed Qualified Codes: K92.2 - Gastrointestinal hemorrhage, unspecified Additional Impressions: Chest pain Qualified Codes: R07.9 - Chest pain, unspecified Renal insufficiency Anemia Qualified Codes: D64.9 - Anemia, unspecified Admitting Information Admitting Physician Requests: Admit Lien Mendez MD Nov 12, 2017 22:18
--- NOTE | 2017-11-12 22:47 | RADRPT ---
EXAM DATE/TIME: 11/12/2017 22:24 [facility] COMPARISON: No previous studies available for comparison. INDICATIONS : Chest pain starting today MEDICAL HISTORY : Diabetes mellitus type II. Hypertension Hypercholesterolemia. CAD, CVA, SURGICAL HISTORY : CABG. Cardiac Stent ENCOUNTER: Initial ACUITY: 1 day PAIN SCORE: 10/10 LOCATION: Bilateral chest FINDINGS: A single view of the chest demonstrates the lungs to be symmetrically aerated without evidence of mas s, infiltrate or effusion. The cardiomediastinal contours are unremarkable with postoperative CABG. Tortuous aorta. Osseous structures are intact. CONCLUSION: 1. No acute disease. Postop CABG. Lisandro Jacobo MD on November 12, 2017 at 22:44 Board Certified Radiologist. This report was verified electronically.
[2017-11-12 23:00] LABS: AUTOMATED NEUTROPHIL # 3.2 TH/MM3 (1.8-7.7); BASOPHIL # 0.1 TH/MM3 (0-0.2); BASOPHIL % 0.8 % (0.0-2.0); EOSINOPHIL # 0.2 TH/MM3 (0-0.4); EOSINOPHIL % 2.4 % (0.0-4.0); HEMATOCRIT 21.2 % (39.0-51.0); LYMPH % 44.2 % (9.0-44.0); LYMPHOCYTE # 3.4 TH/MM3 (1.0-4.8); MEAN CELL VOLUME 90.9 FL (80.0-100.0); MEAN CORPUSCULAR HEMOGLOBIN 29.1 PG (27.0-34.0); MEAN PLATELET VOLUME 11.1 FL (7.0-11.0); MONOCYTE # 0.8 TH/MM3 (0-0.9); NEUT % 42.6 % (16.0-70.0); PLATELET COUNT 162 TH/MM3 (150-450); RED BLOOD COUNT 2.34 MIL/MM3 (4.50-5.90); RED CELL DISTRIBUTION WIDTH 15.5 % (11.6-17.2); WHITE BLOOD COUNT 7.6 TH/MM3 (4.0-11.0)
[2017-11-12 23:10] LABS: HEMOGLOBIN 6.8 GM/DL (13.0-17.0)
[2017-11-12 23:13] LABS: INTERNATIONAL NORMALIZED RATIO 1.3 RATIO; PROTHROMBIN TIME - PATIENT 13.4 SEC (9.8-11.6)
[2017-11-12] MEDS ORDERED: SODIUM CHLOR 0.9% 250 ML INJ 250 ML IV ONE (23:15)
[2017-11-12 23:21] LABS: ALKALINE PHOSPHATASE 49 U/L (45-117); TOTAL BILIRUBIN ADULT 0.3 MG/DL (0.2-1.0); TOTAL PROTEIN 6.1 GM/DL (6.4-8.2); TROPONIN I 0.02 NG/ML (0.02-0.05)
[2017-11-12 23:25] LABS: ALBUMIN 2.9 GM/DL (3.4-5.0); ALT (GPT) 15 U/L (12-78); AST (GOT) 21 U/L (15-37); BICARBONATE 23.1 MEQ/L (21.0-32.0); BLOOD UREA NITROGEN 33 MG/DL (7-18); CALCIUM 7.7 MG/DL (8.5-10.1); CHLORIDE 113 MEQ/L (98-107); CREATININE 2.28 MG/DL (0.60-1.30); GLOMERULAR FILTRATION RATE 33 ML/MIN (>89); GLUCOSE,RANDOM 115 MG/DL (74-106); MAGNESIUM 2.2 MG/DL (1.5-2.5); SODIUM (NA) 143 MEQ/L (136-145)
[2017-11-12] MEDS ORDERED: PANTOPRAZOLE INJ 80 MG in SODIUM CHLORIDE 0.9% INJ 100 ML IV SCH (23:43)
[2017-11-12] MEDS ORDERED: PANTOPRAZOLE INJ 80 MG in SODIUM CHLORIDE 0.9% INJ 35 ML IV ONE (23:43)
[2017-11-13] VITALS (15 sets, daily range): BP systolic 118–166; BP diastolic 60–80; PULSE 64–84; RESP 12–20; TEMP 97.3–98.8; O2SAT 97–100
--- NOTE | 2017-11-13 00:20 | HHI.HP ---
[facility] Service Family Medicine Primary Care Physician Pravin Mcmanus III, MD Admission Diagnosis anemia, gi bleed, chest pain Diagnoses: International Travel<30 Days: No Contact w/Intl Traveler<30days: No Known Affected Area: No History of Present Illness This is an 87-year-old male with a PMH of HTN, Hyperlipidemia, CAD, CHF (Echo w/ EF 55-60%), DM, GERD and h/o PE/DVT on Coumadin who presented to the ED w/ c/o nonradiating--burning mid sternal chest pain. Patient is a poor historian. Patient stated chest pain started a couple days ago but has progressively worsened. He rates chest pain as greater than 10/10, made worse with movement. Currently chest pain has improved. Patient stated he has not taken anything to alleviate the pain. Patient unable to describe whether chest pain is similar to acid reflux. In addition patient reports that since August 2017 he has had black stools. Patient reports that he had pill-endoscopy procedure done and he turned in the pill 2 weeks ago however he still is pending for results (does not remember the GI specialist that was following him for this procedure). He mentioned that he had a call from a nurse who he believes works for the GI specialist and was told to make an appointment. However, he was not able to make a follow-up appointment. Denies nausea, vomiting, vomiting blood, weight loss, cough, abdominal pain, shortness of breath. Endorses dizziness, fatigue, good appetite. Review of Systems Constitutional: COMPLAINS OF: Fatigue, Dizziness, DENIES: Fever, Weight loss, Chills, Change in appetite Eyes: COMPLAINS OF: Blurred vision (since 2016), DENIES: Eye pain Ears, nose, mouth, throat: COMPLAINS OF: Running Nose, DENIES: Tinnitus, Throat pain, Ear Pain Respiratory: DENIES: Cough, Shortness of breath Cardiovascular: COMPLAINS OF: Chest pain, Lower Extremity Edema, DENIES: Syncope Gastrointestinal: COMPLAINS OF: Black stools, DENIES: Abdominal pain, Diarrhea , Nausea, Vomiting, Anorexia Genitourinary: COMPLAINS OF: Nocturia (3-4 a night), DENIES: Urinary frequency , Hematuria, Dysuria Musculoskeletal: COMPLAINS OF: Back pain, DENIES: Joint pain, Muscle aches Integumentary: DENIES: Rash Hematologic/lymphatic: DENIES: Bruising Neurologic: COMPLAINS OF: Paresthesias (feet ), DENIES: Headache Past Family Social History Past Medical History GERD DM HTN DVT BL Past Surgical History CABG, triple bypass, at age 62 Left Cataract Surgery Allergies: Coded Allergies: No Known Allergies (Verified Allergy, Unknown, 08/29/17) Family History Father- in car accident mother- DM 4 sisters- DM Social History Patient lives by himself in an apartment in [place]. Patient stated he does not know to read or write and his daughter helps him with those types of correspondence. Daughter also helps him completely different and chores/tasks around the home. Denies smoking, alcohol use or illicit drug use. Physical Exam Vital Signs Vital Signs Date Time Temp Pulse Resp B/P (MAP) Pulse Ox O2 Delivery O2 Flow Rate FiO2 11/12/17 22:17 94 20 130/63 (85) 100 Room Air 11/12/17 22:12 98.6 97 22 164/72 (102) 99 Physical Exam GENERAL: This is a well-nourished, well-developed patient, in no apparent distress. SKIN: No rashes, ecchymoses or lesions. Cool and dry. HEAD: Atraumatic. Normocephalic. No temporal or scalp tenderness. EYES: Pupils equal round and reactive. Extraocular motions intact. No scleral icterus. No injection or drainage. Ptosis of the right eye due to work injury. ENT: Nose without bleeding, purulent drainage or septal hematoma. Throat without erythema, tonsillar hypertrophy or exudate. Uvula midline. Airway patent. Patient with mass like lesion on soft palate, non-erythematous, non- friable. NECK: Trachea midline. No JVD or lymphadenopathy. Supple, nontender, no meningeal signs. CARDIOVASCULAR: Normal S1 and S2. Regular rate and rhythm without murmurs, gallops, or rubs. RESPIRATORY: Clear to auscultation. Breath sounds equal bilaterally. No wheezes , rales, or rhonchi. GASTROINTESTINAL: Abdomen soft, non-tender, distended. No hepato-splenomegaly, or palpable masses. No guarding. MUSCULOSKELETAL: Extremities without clubbing, cyanosis, or edema. No joint tenderness, effusion, or edema noted. No calf tenderness. Negative Homans sign bilaterally. Normal foot exam and normal sensation bilaterally. +1 DP pulses BL. NEUROLOGICAL: Awake and alert. Motor and sensory grossly within normal limits. Five out of 5 muscle strength in all muscle groups. Laboratory Laboratory Tests Test 11/12/17 22:25 White Blood Count 7.6 Red Blood Count 2.34 Hemoglobin 6.8 Hematocrit 21.2 Mean Corpuscular Volume 90.9 Mean Corpuscular Hemoglobin 29.1 Mean Corpuscular Hemoglobin Concent 32.0 Red Cell Distribution Width 15.5 Platelet Count 162 Mean Platelet Volume 11.1 Neutrophils (%) (Auto) 42.6 Lymphocytes (%) (Auto) 44.2 Monocytes (%) (Auto) 10.0 Eosinophils (%) (Auto) 2.4 Basophils (%) (Auto) 0.8 Neutrophils # (Auto) 3.2 Lymphocytes # (Auto) 3.4 Monocytes # (Auto) 0.8 Eosinophils # (Auto) 0.2 Basophils # (Auto) 0.1 CBC Comment DIFF FINAL Differential Comment Prothrombin Time 13.4 Prothromb Time International Ratio 1.3 Activated Partial Thromboplast Time 26.9 Blood Urea Nitrogen 33 Creatinine 2.28 Random Glucose 115 Total Protein 6.1 Albumin 2.9 Calcium Level 7.7 Magnesium Level 2.2 Alkaline Phosphatase 49 Aspartate Amino Transf (AST/SGOT) 21 Alanine Aminotransferase (ALT/SGPT) 15 Total Bilirubin 0.3 Sodium Level 143 Potassium Level 4.5 Chloride Level 113 Carbon Dioxide Level 23.1 Anion Gap 7 Estimat Glomerular Filtration Rate 33 Total Creatine Kinase 128 Creatine Kinase MB 1.2 Troponin I 0.02 B-Type Natriuretic Peptide 39 Result Diagram: 11/12/17222411/12/172224 Imaging Last Impressions Chest X-Ray 11/12/172208 Signed Impressions: Service Date/Time: Sunday, November 12, 2017 22:24 - CONCLUSION: 1. No acute disease. Postop CABG. Lisandro Jacobo MD [place] VTE Risk Assessment Capronaldi VTE Risk Assessment: Mod/High Risk (score >= 2) VTE Pharm Contraindication: High risk for bleeding Caprini Risk Assessment Model Point Value = 1 Point Value = 2 Point Value = 3 Point Value = 5 Age 41-60 Minor surgery BMI > 25 kg/m2 Swollen legs Varicose veins or History of unexplained or recurrent spontaneous Oral contraceptives or hormone replacement Sepsis (< 1 month) Serious lung disease, including pneumonia (< 1 month) Abnormal pulmonary function Acute myocardial infarction Congestive heart failure (< 1 month) History of inflammatory bowel disease Medical patient at bed rest Age 61-74 Arthroscopic surgery Major open surgery (> 45 min) Laparoscopic surgery (> 45 min) Malignancy Confined to bed (> 72 hours) Immobilizing plaster cast Central venous access Age >= 75 History of VTE Family history of VTE Factor V Leiden Prothrombin [id number] Lupus anticoagulant Anticardiolipin antibodies Elevated serum homocysteine Heparin-induced thrombocytopenia Other congenital or acquired thrombophilia Stroke (< 1 month) Elective arthroplasty Hip, pelvis, or leg fracture Acute spinal cord injury (< 1 month) Prophylaxis Regimen Total Risk Factor Score Risk Level Prophylaxis Regimen 0-1 Low Early ambulation 2 Moderate Order ONE of the following: *Sequential Compression Device (SCD) *Heparin 5000 units SQ BID 3-4 Higher Order ONE of the following medications: *Heparin 5000 units SQ TID *Enoxaparin/Lovenox 40 mg SQ daily (WT < 150 kg, CrCl > 30 mL/min) *Enoxaparin/Lovenox 30 mg SQ daily (WT < 150 kg, CrCl > 10-29 mL/min) *Enoxaparin/Lovenox 30 mg SQ BID (WT < 150 kg, CrCl > 30 mL/min) AND/OR *Sequential Compression Device (SCD) 5 or more Highest Order ONE of the following medications: *Heparin 5000 units SQ TID (Preferred with Epidurals) *Enoxaparin/Lovenox 40 mg SQ daily (WT < 150 kg, CrCl > 30 mL/min) *Enoxaparin/Lovenox 30 mg SQ daily (WT < 150 kg, CrCl > 10-29 mL/min) *Enoxaparin/Lovenox 30 mg SQ BID (WT < 150 kg, CrCl > 30 mL/min) AND *Sequential Compression Device (SCD) Assessment and Plan Assessment and Plan This is an 87-year-old male with a PMH of HTN, Hyperlipidemia, CAD, CHF (Echo w/ EF 55-60%), DM and h/o PE/DVT on Coumadin who presented to the ED w/ c/ o burning chest pain and chronic symptoms of black stools. Patient admitted for further workup of chest pain and suspected GI bleed. Code Status Full code Discussed Condition With DW Dr. McIjaciel Ragsdale Problem List: (1) Chest pain ICD Codes: R07.9 - Chest pain Status: Resolved Plan: Patient with 2-3 day hx of nonradiating burning midsternal chest pain that is worse with movement. Patient stated that chest pain has improved. -Initial troponin 1 negative -Vital signs within normal limits. -Follow up serial troponins and EKG. (2) Hypertension ICD Codes: I10 - Hypertension Status: Chronic Plan: Continue with current medication regimen. Monitor vitals (3) GI bleed ICD Codes: K92.2 - Gastrointestinal hemorrhage, unspecified Status: Chronic Plan: Patient with history of black stools since August. -Recent pill endoscopy procedure done as outpatient, result still pending, per patient. -GI referral submitted, appreciate recommendations -Patient found to have H&H of 6.8/21.2, MCV within normal limits -INR 1.3 -Hemodynamically stable -Patient with symptomatic anemia- dizziness and fatigue -2 units of packed red blood cells ordered for transfusion, follow-up posttransfusion H&H -Continue with Protonix 40mg IV twice a day (4) DM (diabetes mellitus) ICD Codes: E11.9 - Type 2 diabetes mellitus without complications Status: Acute Plan: -Home by po medications held -Low-dose SSI -Accu-Cheks (5) Chronic kidney disease ICD Codes: N18.9 - Chronic kidney disease, unspecified Status: Acute Plan: Patient with history of chronic kidney disease Creatinine of 2.28, baseline ranging from 1.7-2.2 -Continue to monitor (6) Nutrition, metabolism, and development symptoms ICD Codes: R63.8 - Symptoms concerning nutrition, metabolism, and development Status: Acute Plan: Fluids: 75 mL per hour, half maintenance Electrolytes: Replete as needed Nutrition: NPO, pending GI recommendations for possible procedures DVT prophylaxis: SCDs, anticoagulation contraindicated due to GI bleed. -Home Coumadin Held Physician Certification 2 Midnight Certification Type: Admission for Inpatient Services Order for Inpatient Services The services are ordered in accordance with Medicare regulations or non- Medicare payer requirements, as applicable. In the case of services not specified as inpatient-only, they are appropriately provided as inpatient services in accordance with the 2-midnight benchmark. Estimated LOS (days): 3 days is the estimated time the patient will need to remain in the hospital, assuming treatment plan goals are met and no additional complications. Post-Hospital Plan: Home Problem Qualifiers (1) Chest pain: Qualified Codes: R07.9 - Chest pain, unspecified (2) GI bleed: Qualified Codes: K92.2 - Gastrointestinal hemorrhage, unspecified Zoila Veras MD, R1 Nov 13, 2017 00:20
[2017-11-13] MEDS ORDERED: SODIUM CHLOR 0.9% 1000 ML INJ 1,000 ML IV SCH (01:26)
[2017-11-13] MEDS ORDERED: SODIUM CHLORIDE 0.9% FLUSH 10 ML FLUSH IV FLUSH PRN (01:30)
[2017-11-13] MEDS ORDERED: NALOXONE HCL 0.4 MG/ML AMP IV PUSH PRN (01:30)
[2017-11-13] MEDS ORDERED: DEXTROSE 50% IN WATER 50 ML VIAL(D50) IV PUSH PRN (02:30)
[2017-11-13] MEDS ORDERED: GLUCAGON 1 MG/ML VIAL OTHER PRN (02:30)
[2017-11-13] MEDS ORDERED: CALCIUM CARBONATE 500 MG CHEWABLE TAB CHEW PRN (05:00)
[2017-11-13] MEDS: PANTOPRAZOLE SODIUM 40 MG VIAL IV PUSH SCH ×2 (05:45→16:51)
[2017-11-13] MEDS: INSULIN ASPART SUPPLEMENTAL SCALE SQ SCH ×4 (07:30→21:00)
[2017-11-13] MEDS ORDERED: FUROSEMIDE 20 MG/2 ML VIAL IV PUSH ONE (08:00)
[2017-11-13] MEDS: LOSARTAN 50 MG TAB PO SCH (08:47)
[2017-11-13] MEDS: amLODIPine BESYLATE 5 MG TAB PO SCH (08:47)
[2017-11-13] MEDS: SODIUM CHLORIDE 0.9% FLUSH 10 ML FLUSH IV FLUSH SCH ×2 (08:48→21:04)
[2017-11-13] MEDS ORDERED: LINAGLIPTIN 5 MG PO SCH (09:00)
[2017-11-13] MEDS ORDERED: ULORIC 40 MG PO SCH (09:00)
[2017-11-13] MEDS ORDERED: PANTOPRAZOLE SODIUM 40 MG VIAL IV PUSH SCH (10:00)
[2017-11-13 10:44] LABS: AUTOMATED NEUTROPHIL # 3.5 TH/MM3 (1.8-7.7); BASOPHIL % 0.4 % (0.0-2.0); EOSINOPHIL # 0.2 TH/MM3 (0-0.4); EOSINOPHIL % 3.1 % (0.0-4.0); HEMOGLOBIN 9.4 GM/DL (13.0-17.0); MEAN CELL VOLUME 87.8 FL (80.0-100.0); MEAN CORPUSCULAR HEMOGLOBIN 29.6 PG (27.0-34.0); MEAN CORPUSCULAR HGB CONC 33.6 % (32.0-36.0); MEAN PLATELET VOLUME 9.8 FL (7.0-11.0); MONO % 10.1 % (0.0-8.0); MONOCYTE # 0.6 TH/MM3 (0-0.9); NEUT % 54.4 % (16.0-70.0); PLATELET COUNT 144 TH/MM3 (150-450); RED BLOOD COUNT 3.18 MIL/MM3 (4.50-5.90); RED CELL DISTRIBUTION WIDTH 15.3 % (11.6-17.2); RETIC # 89.2 MIL/L (20.0-150.0); RETIC % 2.8 % (0.4-3.0); WHITE BLOOD COUNT 6.4 TH/MM3 (4.0-11.0)
--- NOTE | 2017-11-13 10:46 | PD.CONS ---
HPI History of Present Illness This is a 87 year old male with hx HTN, CAD, CHF, PE, DVT who presented with mid sternal chest pain starting 2-3 days ago. Troponin not elevated and chest pain has since resolved. GI has been consulted for heme pos stool and aemia. Pt has had melena since august. He was evaluated by our service at that time. Had EGD and colonoscopy 08/2017 with finding sigmoid diverticulosis, hemorrhoids; erythematous gastritis, duodenal inflammation, no bleeding found. He had recent capsule endoscopy that showed food in the stomach, poor visualization. he states his black tarry stool never resolved. On coumadin. Poor historian. (Melinda Banuelos) PFSH Past Medical History PE DVT HTN HLD CAD CHF DM Past Surgical History CABG (Melinda Banuelos) Coded Allergies: No Known Allergies (Verified Allergy, Unknown, 08/29/17) Family History DM Social History denies toxic habits (Melinda Banuelos) Review of Systems Constitutional: DENIES: Fever Endocrine: DENIES: Polydipsia Eyes: DENIES: Blurred vision Ears, nose, mouth, throat: DENIES: Hearing loss Respiratory: DENIES: Cough Cardiovascular: DENIES: Chest pain Gastrointestinal: COMPLAINS OF: Black stools, DENIES: Abdominal pain, Bloody stools, Nausea, Vomiting Genitourinary: DENIES: Urinary incontinence Musculoskeletal: DENIES: Joint pain Integumentary: DENIES: Abnormal pigmentation Hematologic/lymphatic: DENIES: Bruising Immunologic/allergic: DENIES: Eczema Neurologic: DENIES: Headache Psychiatric: DENIES: Confusion (Melinda Banuelos) GI Exam Vitals I&O Vital Signs Date Time Temp Pulse Resp B/P (MAP) Pulse Ox O2 Delivery O2 Flow Rate FiO2 11/13/17 08:05 97.6 70 20 166/80 (108) 100 11/13/17 05:51 97.9 74 14 154/70 100 11/13/17 05:36 98.0 71 12 139/70 100 11/13/17 04:55 98.0 67 14 147/72 100 11/13/17 04:30 98.0 76 14 151/71 100 11/13/17 02:55 97.8 70 14 135/65 100 11/13/17 02:25 98.0 73 16 127/61 100 11/13/17 02:00 98.0 69 16 166/76 100 11/13/17 00:25 84 18 118/76 (90) 97 Room Air 11/12/17 22:17 94 20 130/63 (85) 100 Room Air 11/12/17 22:12 98.6 97 22 164/72 (102) 99 I/O 11/12/17 11/12/17 11/12/17 11/13/17 11/13/17 11/13/17 07:00 15:00 23:00 07:00 15:00 23:00 Intake Total 603.8 ml 410 ml Output Total 400 ml 275 ml Balance 203.8 ml 135 ml Intake IV Total 53.8 ml Packed Cells 400 ml 400 ml Blood Product IV Normal Saline Flush 150 ml 10 ml Output Urine Total 400 ml 275 ml # Voids 1 Imaging Last Impressions Chest X-Ray 11/12/172208 Signed Impressions: Service Date/Time: Sunday, November 12, 2017 22:24 - CONCLUSION: 1. No acute disease. Postop CABG. Lisandro Jacobo MD Laboratory Test 11/12/17 22:25 11/13/17 06:40 11/13/17 09:50 White Blood Count 7.6 TH/MM3 Red Blood Count 2.34 MIL/MM3 Hemoglobin 6.8 GM/DL Hematocrit 21.2 % Mean Corpuscular Volume 90.9 FL Mean Corpuscular Hemoglobin 29.1 PG Mean Corpuscular Hemoglobin Concent 32.0 % Red Cell Distribution Width 15.5 % Platelet Count 162 TH/MM3 Mean Platelet Volume 11.1 FL Neutrophils (%) (Auto) 42.6 % Lymphocytes (%) (Auto) 44.2 % Monocytes (%) (Auto) 10.0 % Eosinophils (%) (Auto) 2.4 % Basophils (%) (Auto) 0.8 % Neutrophils # (Auto) 3.2 TH/MM3 Lymphocytes # (Auto) 3.4 TH/MM3 Monocytes # (Auto) 0.8 TH/MM3 Eosinophils # (Auto) 0.2 TH/MM3 Basophils # (Auto) 0.1 TH/MM3 CBC Comment DIFF FINAL Differential Comment Prothrombin Time 13.4 SEC Prothromb Time International Ratio 1.3 RATIO Activated Partial Thromboplast Time 26.9 SEC Blood Urea Nitrogen 33 MG/DL Creatinine 2.28 MG/DL Random Glucose 115 MG/DL Total Protein 6.1 GM/DL Albumin 2.9 GM/DL Calcium Level 7.7 MG/DL Magnesium Level 2.2 MG/DL Alkaline Phosphatase 49 U/L Aspartate Amino Transf (AST/SGOT) 21 U/L Alanine Aminotransferase (ALT/SGPT) 15 U/L Total Bilirubin 0.3 MG/DL Sodium Level 143 MEQ/L Potassium Level 4.5 MEQ/L Chloride Level 113 MEQ/L Carbon Dioxide Level 23.1 MEQ/L Anion Gap 7 MEQ/L Estimat Glomerular Filtration Rate 33 ML/MIN Total Creatine Kinase 128 U/L Creatine Kinase MB 1.2 NG/ML Troponin I 0.02 NG/ML 0.09 NG/ML B-Type Natriuretic Peptide 39 PG/ML Physical Examination HEENT: PERRL; normocephalic; atraumatic; no jaundice. CHEST: CTA CARDIAC: RRR ABDOMEN: Soft, nondistended, nontender; no hepatosplenomegaly; bowel sounds are present in all four quadrants. EXTREMITIES: No clubbing, cyanosis, or edema. SKIN: Normal; no rash; no jaundice. SPINE NURSE: No focal deficits; alert and oriented times three. (Melinda Banuelos) Assessment and Plan Plan ASSESSMENT - anemia, melena - GIB, source small bowel? had recent capsule endoscopy with poor visualization. EGD and colonoscopy 08/2017 found hemorrhoids, sigmoid diverticulosis, erythematous gastritis, duodenitis , no bleeding was found. Has had melena since August and hgb 6.8 on admission this is drop from August received 2/ PRBC, HH pending PLAN - EGD/enteroscopy Wednesday - await repeat HH - if hgb trends down or active bleeding will do enteroscopy Wednesday - monitor HH - continue BID IV protonix - clear liquids - notify GI of active bleeding - further recs to follow pt seen by myself and Dr Mzt and this note is written on her behalf (Melinda Banuelos) Physician Comments seen, examined agree with above ct abdomen/pelvis enteroscopy Wednesday unless indicated otherwise monitor hb (Maddie Mtz MD) Melinda Banuelos Nov 13, 2017 10:45 Maddie Mtz MD Nov 13, 2017 19:36
[2017-11-13 11:00] LABS: ALT (GPT) 14 U/L (12-78); AST (GOT) 14 U/L (15-37); BICARBONATE 24.8 MEQ/L (21.0-32.0); BLOOD UREA NITROGEN 36 MG/DL (7-18); CALCIUM 8.1 MG/DL (8.5-10.1); CHLORIDE 112 MEQ/L (98-107); CREATININE 2.12 MG/DL (0.60-1.30); GLOMERULAR FILTRATION RATE 36 ML/MIN (>89); GLUCOSE,RANDOM 84 MG/DL (74-106); SODIUM (NA) 142 MEQ/L (136-145)
[2017-11-13 11:02] LABS: ALKALINE PHOSPHATASE 53 U/L (45-117); TOTAL BILIRUBIN ADULT 0.5 MG/DL (0.2-1.0); TOTAL PROTEIN 6.2 GM/DL (6.4-8.2)
--- NOTE | 2017-11-13 12:16 | HHI.FPPN ---
Subjective Remarks No acute issues overnight. Vitals are stable, patient remains afebrile. He is having some back pain this morning and states that he typically takes Lortab for pain at home. He continues to have black stool. He denies any chest pain, shortness of breath, fever, chills, nausea, vomiting, diarrhea, or reactions to the blood transfusions. He is ambulating without difficulty. He requests eyedrops for dry eyes this morning. (Madina Guillory MD, R3) Objective Vitals Vital Signs Date Time Temp Pulse Resp B/P (MAP) Pulse Ox O2 Delivery O2 Flow Rate FiO2 11/13/17 11:46 98.8 64 20 136/69 (91) 100 11/13/17 08:05 97.6 70 20 166/80 (108) 100 11/13/17 08:00 81 11/13/17 05:51 97.9 74 14 154/70 100 11/13/17 05:36 98.0 71 12 139/70 100 11/13/17 04:55 98.0 67 14 147/72 100 11/13/17 04:30 98.0 76 14 151/71 100 11/13/17 02:55 97.8 70 14 135/65 100 11/13/17 02:25 98.0 73 16 127/61 100 11/13/17 02:00 98.0 69 16 166/76 100 11/13/17 00:25 84 18 118/76 (90) 97 Room Air 11/12/17 22:17 94 20 130/63 (85) 100 Room Air 11/12/17 22:12 98.6 97 22 164/72 (102) 99 I/O 11/12/17 11/12/17 11/12/17 11/13/17 11/13/17 11/13/17 07:00 15:00 23:00 07:00 15:00 23:00 Intake Total 603.8 ml 410 ml Output Total 400 ml 275 ml Balance 203.8 ml 135 ml Intake IV Total 53.8 ml Packed Cells 400 ml 400 ml Blood Product IV Normal Saline Flush 150 ml 10 ml Output Urine Total 400 ml 275 ml # Voids 1 (Madina Guillory MD, R3) Result Diagram: 11/13/17 0950 11/13/17 0950 Imaging Last Impressions Chest X-Ray 11/12/173 Signed Impressions: Service Date/Time: Sunday, November 12, 2017 22:24 - CONCLUSION: 1. No acute disease. Postop CABG. Lisandro Jacobo MD Objective Remarks GENERAL: Well-nourished, well-developed male patient in no acute distress. SKIN: Warm and dry. No rashes or lesions present. EYES: No scleral icterus. No conjunctival injection or drainage. Pupils equal, round, reactive to light and accommodation. Extraocular movements intact. Ptosis of the right eye. THROAT: Moist mucous membranes. No erythema or exudate in oropharynx. NECK: Supple, trachea midline. No lymphadenopathy. No thyroid nodules. CARDIOVASCULAR: Regular rate and rhythm without murmurs, gallops, or rubs. Strong radial and pedal pulses. CHEST: Symmetric chest expansion with respiration. RESPIRATORY: Breath sounds clear to auscultation bilaterally. No accessory muscle use. No wheezes, rhonchi or rales. GASTROINTESTINAL: Abdomen soft, non-tender, nondistended. No masses or hernias. No hepatosplenomegaly. Bowel sounds present. MUSCULOSKELETAL: No cyanosis or edema. No nail changes. NEURO: Cranial nerves II through XII grossly intact. Good muscle tone. PSYCH: Normal mood and affect. Good eye contact. Good insight and judgment. Normal speech. (Madina Guillory MD, R3) A/P Assessment and Plan This is an 87-year-old male with a PMH of HTN, Hyperlipidemia, CAD, CHF (Echo w/ EF 55-60%), DM and h/o PE/DVT on Coumadin who presented to the ED w/ c/ o burning chest pain and chronic symptoms of black stools. Patient admitted for chest pain and GI bleed. Discharge Planning Pending further GI evaluation and stabilization of GI bleed, likely in the next several days. (Madina Guillory MD, R3) Attending Attestation Table rounds with DR Guillory, Dr Castillo, Dr Ruvalcaba and Dr Veras were performed this morning A detailed discussion regarding patients admission and hospital course was reviewed with Resident team Patient was seen and examined with team Agree with contents in above note SeeAssessment and Plan patient tolerarted transfusion without complications (Troy Ragsdale MD) Problem List: (1) GI bleed ICD Codes: K92.2 - Gastrointestinal hemorrhage, unspecified Status: Acute Plan: Patient with history of black stools since August. -Recent pill endoscopy procedure done as outpatient, result still pending, per patient. -GI referral submitted, appreciate recommendations- plan for EGD Wednesday, continue to monitor H/H, if hgb trends down EGD tomorrow. Continue BID IV Protonix, clear liquid diet. -H&H of 6.8/21.2, MCV within normal limits on admission s/p 2 units PRBC with improvement in Hgb to 9.4 -INR 1.3 -Hemodynamically stable -Continue with Protonix 40mg IV twice a day -Monitor H/H Q6H (2) Chest pain ICD Codes: R07.9 - Chest pain Status: Resolved Plan: Patient with 2-3 day hx of nonradiating burning midsternal chest pain that is worse with movement. Patient stated that chest pain has improved. -Troponins trending up from 0.02 to 0.09. No additional chest pain, likely from elevated creatinine/GI bleed -Vital signs within normal limits. - Continue tele (3) Hypertension ICD Codes: I10 - Hypertension Status: Chronic Plan: Continue with current medication regimen. Monitor vitals (4) DM (diabetes mellitus) ICD Codes: E11.9 - Type 2 diabetes mellitus without complications Status: Acute Plan: -Home by po medications held -Low-dose SSI -Accu-Cheks (5) Chronic kidney disease ICD Codes: N18.9 - Chronic kidney disease, unspecified Status: Chronic Plan: Patient with history of chronic kidney disease Creatinine of 2.28, baseline ranging from 1.7-2.2 -Continue to monitor (6) Nutrition, metabolism, and development symptoms ICD Codes: R63.8 - Symptoms concerning nutrition, metabolism, and development Status: Acute Plan: Fluids: Encourage PO hydration Electrolytes: Replete as needed Nutrition: clear liquids, NPO prior to endoscopy DVT prophylaxis: SCDs, anticoagulation contraindicated due to GI bleed. -Home Coumadin Held (Madina Guillory MD, R3) Problem Qualifiers (1) GI bleed: Qualified Codes: K92.2 - Gastrointestinal hemorrhage, unspecified (2) Chest pain: Qualified Codes: R07.9 - Chest pain, unspecified (3) Hypertension: Qualified Codes: I10 - Essential (primary) hypertension (4) DM (diabetes mellitus): Qualified Codes: E11.9 - Type 2 diabetes mellitus without complications Madina Guillory MD, R3 Nov 13, 2017 12:16 Troy Ragsdale MD Nov 13, 2017 16:32
[2017-11-13] MEDS: ARTIFICIAL TEARS OPTH SOLN 15 ML BTL EACH EYE PRN (12:42)
[2017-11-13 13:07] LABS: IRON (FE) 39 MCG/DL (65-175)
[2017-11-13 13:15] LABS: % SATURATION IRON PROFILE 13.3 % (20-50); FERRITIN 14 NG/ML (26-388); TOTAL IRON BINDING CAPACITY 294 MCG/DL (250-450)
--- NOTE | 2017-11-13 14:34 | EKG ---
Date Performed: 11/12/2017 Time Performed: 22:12:57 PTAGE: 87 years EKG: Sinus rhythm WITH FREQUENT VENTRICULAR PREMATURE COMPLEXES POSSIBLE LEFT ATRIAL ENLARGEMENT NONSPECIFIC T-WAVE AB NORMALITY ABNORMAL RHYTHM ECG Since PREVIOUS TRACING , no significant change noted PREVIOUS TRACIN10/25/2017 02.02 DOCTOR: Anupam Ang Interpretating Date/Time 11/13/2017 14:33:54
--- NOTE | 2017-11-13 14:36 | EKG ---
Date Performed: 11/13/2017 Time Performed: 11:10:57 PTAGE: 87 years EKG: Sinus rhythm WITH FREQUENT VENTRICULAR PREMATURE COMPLEXES POSSIBLE LEFT ATRIAL ENLARGEMENT NONSPECIFIC T-WAVE AB NORMALITY ABNORMAL RHYTHM ECG Since PREVIOUS TRACING , no significant change noted PREVIOUS TRACIN11/13/2017 05.09 DOCTOR: Anupam Ang Interpretating Date/Time 11/13/2017 14:34:40
--- NOTE | 2017-11-13 14:36 | EKG ---
Date Performed: 11/13/2017 Time Performed: 05:09:14 PTAGE: 87 years EKG: Sinus rhythm with PVC(s). Borderline ECG Since PREVIOUS TRACING , no significant change noted PREVIOUS TRACIN11/12/2017 22.12 DOCTOR: Anupam Ang Interpretating Date/Time 11/13/2017 14:34:25
[2017-11-13] MEDS: ACETAMINOPHEN/HYDROcodone 325 MG/5 MG TAB PO PRN (15:41)
[2017-11-13 18:36] LABS: HEMATOCRIT 25.3 % (39.0-51.0); HEMOGLOBIN 8.7 GM/DL (13.0-17.0)
[2017-11-13] MEDS ORDERED: DIATRIZOATE MEGLUM/DIATRIZOATE SOD 9 ML CUP PO ONE (20:30)
[2017-11-13] MEDS: TAMSULOSIN HCL 0.4 MG CAP PO SCH (21:06)
[2017-11-13 22:31] LABS: HEMATOCRIT 25.3 % (39.0-51.0); HEMOGLOBIN 8.4 GM/DL (13.0-17.0)
--- NOTE | 2017-11-13 23:00 | RADRPT ---
EXAM DATE/TIME: 11/13/2017 22:38 [facility] COMPARISON: CT ABDOMEN & PELVIS W/O CONTRAST, July 21, 2016, 15:06. INDICATIONS : Anemia; possible GI bleed. Patient states he has black stools. ORAL CONTRAST: Prescribed oral contrast ingested. RADIATION DOSE: 7.5 CTDIvol (mGy) MEDICAL HISTORY : Cerebrovascular disease. Congestive heart failure. Hypertension.GERD, diabetes SURGICAL HISTORY : CABG ENCOUNTER: Initial ACUITY: 1 day PAIN SCALE: 0/10 LOCATION: abdomen TECHNIQUE: Volumetric scanning of the abdomen and pelvis was performed. Using automated exposure control and ad justment of the mA and/or kV according to patient size, radiation dose was kept as low as reasonably achievable to obtain optimal diagnostic quality images. DICOM format image data is available electro nically for review and comparison. FINDINGS: Minimal linear scarring at the lung bases. No effusion. No acute findings in the liver, spleen, adrenals, kidneys or pancreas. No calcified gallstones or albertina iary ductal dilatation. Small hiatal hernia. No pelvic masses or adenopathy. There are colonic diverticula without evidence for diverticulitis. CONCLUSION: 1. No acute findings. Colonic diverticula without diverticulitis. Stable renal cysts compared with O[place] tober 2016. Small hiatal hernia. Lisandro Jacobo MD on November 13, 2017 at 22:54 Board Certified Radiologist. This report was verified electronically.
[2017-11-14] VITALS (14 sets, daily range): BP systolic 112–146; BP diastolic 58–74; PULSE 60–91; RESP 16–20; TEMP 97.4–98.5; O2SAT 98–100
[2017-11-14 05:26] LABS: AUTOMATED NEUTROPHIL # 3.4 TH/MM3 (1.8-7.7); BASOPHIL % 0.3 % (0.0-2.0); EOSINOPHIL # 0.2 TH/MM3 (0-0.4); EOSINOPHIL % 4.1 % (0.0-4.0); HEMATOCRIT 23.4 % (39.0-51.0); HEMOGLOBIN 8.1 GM/DL (13.0-17.0); LYMPH % 26.1 % (9.0-44.0); LYMPHOCYTE # 1.5 TH/MM3 (1.0-4.8); MEAN CELL VOLUME 86.8 FL (80.0-100.0); MEAN CORPUSCULAR HEMOGLOBIN 29.9 PG (27.0-34.0); MEAN CORPUSCULAR HGB CONC 34.5 % (32.0-36.0); MEAN PLATELET VOLUME 9.2 FL (7.0-11.0); MONO % 9.7 % (0.0-8.0); MONOCYTE # 0.5 TH/MM3 (0-0.9); NEUT % 59.8 % (16.0-70.0); PLATELET COUNT 130 TH/MM3 (150-450); RED BLOOD COUNT 2.69 MIL/MM3 (4.50-5.90); RED CELL DISTRIBUTION WIDTH 14.9 % (11.6-17.2); WHITE BLOOD COUNT 5.6 TH/MM3 (4.0-11.0)
[2017-11-14] MEDS: PANTOPRAZOLE SODIUM 40 MG VIAL IV PUSH SCH ×2 (05:33→18:24)
[2017-11-14 05:50] LABS: ALBUMIN 2.6 GM/DL (3.4-5.0); ALT (GPT) 11 U/L (12-78); AST (GOT) 12 U/L (15-37); BICARBONATE 25.5 MEQ/L (21.0-32.0); BLOOD UREA NITROGEN 32 MG/DL (7-18); CALCIUM 7.9 MG/DL (8.5-10.1); CHLORIDE 109 MEQ/L (98-107); GLOMERULAR FILTRATION RATE 41 ML/MIN (>89); GLUCOSE,RANDOM 91 MG/DL (74-106); SODIUM (NA) 141 MEQ/L (136-145)
[2017-11-14 05:52] LABS: ALKALINE PHOSPHATASE 48 U/L (45-117); TOTAL BILIRUBIN ADULT 0.6 MG/DL (0.2-1.0); TOTAL PROTEIN 5.3 GM/DL (6.4-8.2)
[2017-11-14] MEDS: INSULIN ASPART SUPPLEMENTAL SCALE SQ SCH ×4 (08:00→21:00)
--- NOTE | 2017-11-14 08:52 | HHI.GIFU ---
Subjective Remarks Pt resting in bed, c/o being cold. Continued black tarry stool. No new bleeding. (Melinda Banuelos) Objective Vitals I&O Vital Signs Date Time Temp Pulse Resp B/P (MAP) Pulse Ox O2 Delivery O2 Flow Rate FiO2 11/14/17 07:49 97.9 71 20 123/63 (83) 100 11/14/17 04:36 98.1 73 18 112/59 (76) 98 11/14/17 01:13 98.0 67 18 143/63 (89) 100 11/13/17 21:10 97.3 71 18 125/60 (81) 99 11/13/17 17:28 70 11/13/17 15:50 98.0 72 20 135/70 (91) 100 11/13/17 12:24 100 11/13/17 11:46 98.8 64 20 136/69 (91) 100 I/O 11/13/17 11/13/17 11/13/17 11/14/17 11/14/17 11/14/17 07:00 15:00 23:00 07:00 15:00 23:00 Intake Total 603.8 ml 410 ml 1470 ml Output Total 400 ml 275 ml 1550 ml Balance 203.8 ml 135 ml -80 ml Intake Oral 960 ml IV Total 53.8 ml 510 ml Packed Cells 400 ml 400 ml Blood Product IV Normal Saline Flush 150 ml 10 ml Output Urine Total 400 ml 275 ml 1550 ml # Voids 1 3 # Bowel Movements 1 Laboratory Laboratory Tests Test 11/13/17 09:50 11/13/17 18:21 11/13/17 22:11 11/14/17 05:08 White Blood Count 6.4 5.6 Red Blood Count 3.18 2.69 Hemoglobin 9.4 8.7 8.4 8.1 Hematocrit 28.0 25.3 25.3 23.4 Mean Corpuscular Volume 87.8 86.8 Mean Corpuscular Hemoglobin 29.6 29.9 Mean Corpuscular Hemoglobin Concent 33.6 34.5 Red Cell Distribution Width 15.3 14.9 Platelet Count 144 130 Mean Platelet Volume 9.8 9.2 Neutrophils (%) (Auto) 54.4 59.8 Lymphocytes (%) (Auto) 32.0 26.1 Monocytes (%) (Auto) 10.1 9.7 Eosinophils (%) (Auto) 3.1 4.1 Basophils (%) (Auto) 0.4 0.3 Neutrophils # (Auto) 3.5 3.4 Lymphocytes # (Auto) 2.0 1.5 Monocytes # (Auto) 0.6 0.5 Eosinophils # (Auto) 0.2 0.2 Basophils # (Auto) 0.0 0.0 CBC Comment DIFF FINAL DIFF FINAL Differential Comment Reticulocyte Count 2.8 Absolute Reticulocyte Count 89.2 Blood Urea Nitrogen 36 32 Creatinine 2.12 1.90 Random Glucose 84 91 Total Protein 6.2 5.3 Albumin 3.0 2.6 Calcium Level 8.1 7.9 Alkaline Phosphatase 53 48 Aspartate Amino Transf (AST/SGOT) 14 12 Alanine Aminotransferase (ALT/SGPT) 14 11 Total Bilirubin 0.5 0.6 Sodium Level 142 141 Potassium Level 4.2 4.3 Chloride Level 112 109 Carbon Dioxide Level 24.8 25.5 Anion Gap 5 7 Estimat Glomerular Filtration Rate 36 41 Iron Level 39 Total Iron Binding Capacity 294 Percent Iron Saturation 13.3 Ferritin 14 Troponin I 0.10 Imaging Last Impressions Abdomen/Pelvis CT 11/13/17 0000 Signed Impressions: Service Date/Time: Monday, November 13, 2017 22:38 - CONCLUSION: 1. No acute findings. Colonic diverticula without diverticulitis. Stable renal cysts compared with June 2016. Small hiatal hernia. Lisandro Jacobo MD Chest X-Ray 11/12/179 Signed Impressions: Service Date/Time: Sunday, November 12, 2017 22:24 - CONCLUSION: 1. No acute disease. Postop CABG. Lisandro Jacobo MD Physical Exam HEENT: PERRL; normocephalic; atraumatic; no jaundice. CHEST: CTA CARDIAC: RRR ABDOMEN: Soft, nondistended, nontender; no hepatosplenomegaly; bowel sounds are present in all four quadrants. EXTREMITIES: No clubbing, cyanosis, or edema. SKIN: Normal; no rash; no jaundice. FREELANCE TRANSLATOR: No focal deficits; alert and oriented times three. (Melinda Banuelos) Assessment and Plan Plan ASSESSMENT - anemia, melena - GIB, source small bowel? had recent capsule endoscopy with poor visualization. EGD and colonoscopy 08/2017 found hemorrhoids, sigmoid diverticulosis, erythematous gastritis, duodenitis , no bleeding was found. Has had melena since August and hgb 6.8 on admission this is drop from August received 2/ PRBC, HH pending 11/14/17 HH is trending down gradually. continued melena. no other GI complaints, stable. PLAN - EGD/enteroscopy Wednesday - await repeat HH - monitor HH - continue BID IV protonix - clear liquids - notify GI of active bleeding - further recs to follow pt seen by myself and Dr Mtz and this note is written on her behalf (Melinda Banuelos) Physician Comments bleeding scan positive, suggest small intestine enteroscopy in am, if negative ir for possible angiogram, double balloon enteroscopy, repeat capsule-may need transfer if continues to bleed and no source identified transfuse prn to keep hb more than 9 (Maddie Mtz MD) Melinda Banuelos Nov 14, 2017 08:52 Maddie Mtz MD Nov 14, 2017 17:53
--- NOTE | 2017-11-14 09:04 | HHI.FPPN ---
Subjective Remarks Patient seen and examined at bedside today. Patient states he is able to ambulate by himself to the bathroom, and he still feels a little dizzy. Denies any chest pain or shortness of breath. No acute events overnight. Denies fever /chills. Objective Vitals Vital Signs Date Time Temp Pulse Resp B/P (MAP) Pulse Ox O2 Delivery O2 Flow Rate FiO2 11/14/17 07:49 97.9 71 20 123/63 (83) 100 11/14/17 04:36 98.1 73 18 112/59 (76) 98 11/14/17 01:13 98.0 67 18 143/63 (89) 100 11/13/17 21:10 97.3 71 18 125/60 (81) 99 11/13/17 17:28 70 11/13/17 15:50 98.0 72 20 135/70 (91) 100 11/13/17 12:24 100 11/13/17 11:46 98.8 64 20 136/69 (91) 100 I/O 11/13/17 11/13/17 11/13/17 11/14/17 11/14/17 11/14/17 07:00 15:00 23:00 07:00 15:00 23:00 Intake Total 603.8 ml 410 ml 1470 ml Output Total 400 ml 275 ml 1550 ml Balance 203.8 ml 135 ml -80 ml Intake Oral 960 ml IV Total 53.8 ml 510 ml Packed Cells 400 ml 400 ml Blood Product IV Normal Saline Flush 150 ml 10 ml Output Urine Total 400 ml 275 ml 1550 ml # Voids 1 3 # Bowel Movements 1 Result Diagram: 11/14/17 0508 11/14/17 0508 Objective Remarks GENERAL: Well-nourished, well-developed male patient in no acute distress. SKIN: Warm and dry. No rashes or lesions present. EYES: No scleral icterus. No conjunctival injection or drainage. Pupils equal, round, reactive to light and accommodation. Extraocular movements intact. Ptosis of the right eye. THROAT: Moist mucous membranes. No erythema or exudate in oropharynx. NECK: Supple, trachea midline. No lymphadenopathy. No thyroid nodules. CARDIOVASCULAR: Regular rate and rhythm without murmurs, gallops, or rubs. Strong radial and pedal pulses. CHEST: Symmetric chest expansion with respiration. RESPIRATORY: Breath sounds clear to auscultation bilaterally. No accessory muscle use. No wheezes, rhonchi or rales. GASTROINTESTINAL: Abdomen soft, non-tender, nondistended. No masses or hernias. No hepatosplenomegaly. Bowel sounds present. MUSCULOSKELETAL: No cyanosis or edema. No nail changes. NEURO: Cranial nerves II through XII grossly intact. Good muscle tone. PSYCH: Normal mood and affect. Good eye contact. Good insight and judgment. Normal speech. A/P Assessment and Plan This is an 87-year-old male with a PMH of HTN, Hyperlipidemia, CAD, CHF (Echo w/ EF 55-60%), DM and h/o PE/DVT on Coumadin who presented to the ED w/ c/ o burning chest pain and chronic symptoms of black stools. Patient admitted for chest pain and GI bleed. GI following, plan for EGD/enteroscopy Wednesday. Discharge Planning Pending further GI evaluation and stabilization of GI bleed, likely in the next several days. Problem List: (1) GI bleed ICD Codes: K92.2 - Gastrointestinal hemorrhage, unspecified Status: Acute Plan: Patient with history of black stools since August. -Recent pill endoscopy procedure done as outpatient, poor visualization -GI referral submitted, appreciate recommendations- plan for EGD Wednesday, continue to monitor H/H, if hgb trends down EGD tomorrow. Continue BID IV Protonix, clear liquid diet. -H&H of 6.8/21.2, MCV within normal limits on admission s/p 2 units PRBC with improvement in Hgb to 9.4 -H&H trend is gradually decreasin.7, 8.4, 8.1 -INR 1.3 -Hemodynamically stable -Continue with Protonix 40mg IV twice a day -Monitor H/H Q6H -We will transfuse to keep hemoglobin over 8.0 (2) Chest pain ICD Codes: R07.9 - Chest pain Status: Resolved Plan: Patient with 2-3 day hx of nonradiating burning midsternal chest pain that is worse with movement. No chest pain today -Troponins trending up from 0.02 to 0.09. No additional chest pain, likely from elevated creatinine/GI bleed -Vital signs within normal limits. - Continue tele (3) Hypertension ICD Codes: I10 - Hypertension Status: Chronic Plan: Continue with current medication regimen. Monitor vitals (4) DM (diabetes mellitus) ICD Codes: E11.9 - Type 2 diabetes mellitus without complications Status: Acute Plan: -Hold by po medications held -Low-dose SSI -Accu-Cheks (5) Chronic kidney disease ICD Codes: N18.9 - Chronic kidney disease, unspecified Status: Chronic Plan: Patient with history of chronic kidney disease Creatinine of 1.90, baseline ranging from 1.7-2.2 -Continue to monitor (6) Nutrition, metabolism, and development symptoms ICD Codes: R63.8 - Symptoms concerning nutrition, metabolism, and development Status: Acute Plan: Fluids: Encourage PO hydration Electrolytes: Replete as needed Nutrition: clear liquids, NPO at midnight prior to endoscopy tomorrow DVT prophylaxis: SCDs, anticoagulation contraindicated due to GI bleed. -Home Coumadin Held Problem Qualifiers (1) GI bleed: Qualified Codes: K92.2 - Gastrointestinal hemorrhage, unspecified (2) Chest pain: Qualified Codes: R07.9 - Chest pain, unspecified (3) Hypertension: Qualified Codes: I10 - Essential (primary) hypertension (4) DM (diabetes mellitus): Qualified Codes: E11.9 - Type 2 diabetes mellitus without complications Taina Day MD R2 Nov 14, 2017 09:04
[2017-11-14] MEDS: LOSARTAN 50 MG TAB PO SCH (09:23)
[2017-11-14] MEDS: amLODIPine BESYLATE 5 MG TAB PO SCH (09:23)
[2017-11-14] MEDS: SODIUM CHLORIDE 0.9% FLUSH 10 ML FLUSH IV FLUSH SCH ×2 (09:24→21:14)
[2017-11-14] MEDS: ACETAMINOPHEN/HYDROcodone 325 MG/5 MG TAB PO PRN (09:27)
--- NOTE | 2017-11-14 12:54 | RADRPT ---
EXAM DATE/TIME: 11/14/2017 10:01 [facility] COMPARISON: No previous studies available for comparison. INDICATIONS : Rectal bleeding with blood in stool and chest pain for three days. DOSE: 20.0 mCi Tc99m Ultratag labeled red blood cells IV IMAGIN hrs MEDICAL HISTORY : Cardiovascular disease. Diabetes mellitus type 2. Hypertension. SURGICAL HISTORY : CABG ENCOUNTER: Initial ACUITY: 1 day PAIN SCALE: 2/10 LOCATION: Bilateral upper quadrant TECHNIQUE: Following the modified in vitro labeling of autologous red cells, dynamic continuous images were acqu ired for the specified interval. FINDINGS: BIODISTRIBUTION: There is a very good labeling of red cells without significant uptake in the gastric wall. There is good delineation of the blood pool of the spleen and abdominal vessels. BLEEDING: The study is positive for episodes of GI bleeding. The amount of blood is minimal and the origin of the bleeding is not discernible from the images. A small amount of activity is seen in the right par asagittal mid abdomen at 33 minutes, and the left hypogastric region at 34 minutes, in the left parac entral hypogastric region at 39 minutes and the right lower quadrant at 8 minutes. There is also carlo dence of anterograde and retrograde peristalsis. The overall impression is that these scattered area s of activity located in small bowel. CONCLUSION: Positive GI bleeding scan with intraluminal blood initially observed at 30 minutes and seen scattered throughout the abdomen out to 110 minutes. While the location of the cannot be identified, it most probably arises somewhere within the small bowel. Quinton Sandhu MD on November 14, 2017 at 12:47 Board Certified Radiologist. This report was verified electronically.
[2017-11-14 16:35] LABS: HEMATOCRIT 24.2 % (39.0-51.0); HEMOGLOBIN 8.3 GM/DL (13.0-17.0)
[2017-11-14] MEDS: ARTIFICIAL TEARS OPTH SOLN 15 ML BTL EACH EYE PRN (21:12)
[2017-11-14] MEDS: TAMSULOSIN HCL 0.4 MG CAP PO SCH (21:13)
[2017-11-15] VITALS (12 sets, daily range): BP systolic 106–150; BP diastolic 55–75; PULSE 55–96; RESP 16–20; TEMP 97.5–98.2; O2SAT 96–100
[2017-11-15] MEDS: PANTOPRAZOLE SODIUM 40 MG VIAL IV PUSH SCH ×2 (06:08→17:40)
[2017-11-15] MEDS ORDERED: LACTATED RINGER'S 1000 ML IV PRN (06:15)
[2017-11-15] MEDS ORDERED: METOPROLOL TARTRATE 25 MG TAB PO PRN (06:15)
[2017-11-15] MEDS ORDERED: INSULIN HUMAN REGULAR 1,000 UNITS/10 ML VIAL SQ PRN (06:15)
[2017-11-15] MEDS ORDERED: SODIUM CHLORID 0.9% 500 ML IV PRN (06:15)
[2017-11-15] MEDS ORDERED: CHLORHEXIDINE GLUCONATE 2 % 1 PACK (2 CLOTHS) TOPICAL PRN (06:15)
[2017-11-15] MEDS ORDERED: POVIDONE IODINE 5% (ANTISEPSIS KIT) 4 APPLICATIONS EACH NARE PRN (06:15)
[2017-11-15] MEDS: INSULIN ASPART SUPPLEMENTAL SCALE SQ SCH ×4 (08:00→21:00)
[2017-11-15] MEDS: SODIUM CHLORIDE 0.9% FLUSH 10 ML FLUSH IV FLUSH SCH ×2 (09:38→22:22)
[2017-11-15] MEDS: LOSARTAN 50 MG TAB PO SCH ×2 (09:52→10:48)
[2017-11-15] MEDS: amLODIPine BESYLATE 5 MG TAB PO SCH ×2 (09:53→10:48)
--- NOTE | 2017-11-15 10:06 | GIPROC ---
[facility] [address] [facility]. [facility], [address] EGD PROCEDURE REPORT EXAM DATE: 11/15/2017 PATIENT NAME: Kevin Schmitt MR #: [id number] BIRTHDATE: 1930 ATTENDING: Goznalo Marley MD ORDER #: [id number] [employer] OPERATOR: Flory Lundberg and Coretta Moffett STATUS: inpatient INDICATIONS: The patient is a 87 yr old male here for an EGD due to acute post hemorrhagic anemia and melena PROCEDURE PERFORMED: EGD, diagnostic MEDICATIONS: None and Per Anesthesia. TOPICAL ANESTHETIC: CONSENT: The patient understands the risks and benefits of the procedure and understands that these risks include, but are not limited to: sedation, allergic reaction, infection, perforation and/or bleeding. Alternative means of evaluation and treatment include, among others: physical exam, x-rays, and/or surgical intervention. The patient elects to proceed with this endoscopic procedure. medical equipment was checked for proper function. Hand hygiene and appropriate measures for infection prevention was taken. After the risks, benefits and alternatives of the procedure were thoroughly explained, Informed consent was verified, confirmed and timeout was successfully executed by the treatment team. The patient was anesthetized with topical anesthesia and the Pentax [id number]-[id number] endoscope was introduced through the mouth and advanced to the third portion of the duodenum. Retroflexed views revealed no abnormalities The gastroscope was then slowly withdrawn and removed. ESOPHAGUS: There was LA Class A esophagitis noted. STOMACH: There was erythematous moderate gastritis in the gastric antrum. DUODENUM: Blood in duodenum, no source of bleeding identified. ADVERSE EVENTS: There were no complications. IMPRESSIONS: 1. There was LA Class A esophagitis noted 2. There was erythematous gastritis in the gastric antrum 3. Blood in duodenum, no source of bleeding identified 4. Retroflexed views revealed no abnormalities RECOMMENDATIONS: 1. Anti-reflux regimen 2. Continue PPI 3. Angiogram with embolization PATIENT CONDITION: stable DISPOSITION: Inpatient REPEAT EXAM: Return 2 days EGD Gonzalo Marley MD eSigned: Gonzalo Marley MD 11/15/2017 10:05 AM cc: PATIENT NAME: Kevin Schmitt MR#: [id number]
[2017-11-15] MEDS: ACETAMINOPHEN/HYDROcodone 325 MG/5 MG TAB PO PRN (10:51)
[2017-11-15] MEDS ORDERED: fentaNYL CITRATE 250 MCG/5 ML AMP ONE (11:35)
[2017-11-15] MEDS ORDERED: MIDAZOLAM HCL 2 MG/2 ML VIAL ONE ×2 (11:35)
[2017-11-15] MEDS ORDERED: PROPOFOL 200 MG/20 ML AMP IV ONE (12:00)
[2017-11-15] MEDS ORDERED: LIDOCAINE HCL 1% PF 5 ML SYRINGE OTHER ONE (12:00)
--- NOTE | 2017-11-15 13:20 | PD.RAD ---
Post Procedure Progress Note Pre Procedure Diagnosis: (1) Gastritis and duodenitis (2) Anemia (3) Hvbns-ab-yoarxjf kidney injury (4) GI bleed Post Procedure Diagnosis: (1) Gastritis and duodenitis (2) Anemia (3) Ansei-ju-olxwwrh kidney injury (4) GI bleed Procedure Date: Nov 15, 2017 Supervising Radiologist: Quinton Moran JR Proceduralist/Assist: Destiny Baez, RT(R), Sinan Ashton, RT(R) Anesthesia: Conscious Sedation Plan of Activity Patient to Unit: ROPU Patient Condition: Good See PACS Report for procedural detail/treatment Vascular-Arterial Procedure Procedure 1 Procedure Site: Celiac, Superior Mesenteric Artery Procedure(s): Angiogram Access Access Site(s): Right Femoral Artery Findings: Selective mesenteric angio shows no source of hemorrhage. No embolization performed. Plan F/U with GI. Jr. Dean,Quinton Valentin MD Nov 15, 2017 13:20
[2017-11-15] MEDS ORDERED: IODIXANOL 320 MG/ML 50 ML VIAL (for RAD SPEC) I-ARTERIAL ONE (13:31)
--- NOTE | 2017-11-15 14:13 | RADRPT ---
EXAM DATE/TIME: 11/15/2017 13:48 [facility] COMPARISON: No previous studies available for comparison. INDICATIONS : Patient presents with hemorrhage in need of celiac angiogram with possible intervention. MEDICAL HISTORY : GERD DM HTN DVT BL SURGICAL HISTORY : CABG Triple bypass, at age 62 Left Cataract Surgery ENCOUNTER: Initial ACUITY: 2 days PAIN SCORE: 0/10 LOCATION: N/A FLUORO TIME: 5.3 minutes IMAGE SERIES: 4 ACCESS SITE: Right Femoral artery SEDATION TIME: 45 minutes CONTRAST: 1.) 80 cc Visipaque (iodixanol) MEDICATION(S): 1.) 3 mg midazolam (Versed) IV 2.) 150 mcg fentanyl (Sublimaze) IV PROCEDURE : 1. Ultrasound-guided puncture of the access site. 2. Conscious sedation with continuous EKG and Oximetry monitoring. 3. Angiography of the left phrenic artery 4. Angiography of the superior mesenteric artery 5. Angiography of the celiac axis The risks, benefits and alternatives to the procedure were explained and verbal and written consent w as obtained. The site was prepped in sterile fashion. Full sterile technique was used, including ca p, mask, sterile gloves and gown and a large sterile sheet. Hand hygiene and 2% chlorhexidine and/or betadine/alcohol prep was utilized per protocol for cutaneous antisepsis. Sterile gel and sterile p robe cover were utilized for ultrasound guidance. The skin and subcutaneous tissues were infiltrated with local anesthetic solution. With ultrasound and fluoroscopic guidance the right common femoral artery was punctured and a vascula r sheath was placed. Selection of the left phrenic, subsequently the left superior mesenteric artery, and celiac axis with dedicated selective angiography from these levels. These diagnostic images show no source of active hemorrhage. No abnormal vessel observed. No embolization performed. The puncture site was closed with manual pressure and hemostasis was obtained. The patient tolerated the procedure well and there were no complications. Conscious sedation was performed with the prescribed dosages and duration as above in the presence of an independent trained radiology nurse to assist in the monitoring of the patient. EKG and oximetry remained stable throughout the procedure. CONCLUSION: Mesenteric angiography without a source of hemorrhage in this patient with an upper GI bleed. Quinton Moran Jr., MD on November 15, 2017 at 14:08 Board Certified Radiologist. This report was verified electronically.
[2017-11-15 16:04] LABS: BASOPHIL % 0.2 % (0.0-2.0); EOSINOPHIL # 0.2 TH/MM3 (0-0.4); EOSINOPHIL % 2.4 % (0.0-4.0); HEMATOCRIT 32.6 % (39.0-51.0); HEMOGLOBIN 11.2 GM/DL (13.0-17.0); MEAN CELL VOLUME 86.2 FL (80.0-100.0); MEAN CORPUSCULAR HEMOGLOBIN 29.5 PG (27.0-34.0); MEAN CORPUSCULAR HGB CONC 34.2 % (32.0-36.0); MEAN PLATELET VOLUME 9.4 FL (7.0-11.0); MONO % 9.3 % (0.0-8.0); MONOCYTE # 0.7 TH/MM3 (0-0.9); NEUT % 63.1 % (16.0-70.0); PLATELET COUNT 146 TH/MM3 (150-450); RED BLOOD COUNT 3.78 MIL/MM3 (4.50-5.90); RED CELL DISTRIBUTION WIDTH 15.9 % (11.6-17.2)
--- NOTE | 2017-11-15 16:10 | HHI.FPPN ---
Subjective Remarks Seen and examined at bedside. No acute events overnight. Patient just returned back from EGD procedure. Denies CP, SOB, abdominal pain. Pt states he continues to have black stools. Pt would like to have his diet advanced. Objective Vitals Vital Signs Date Time Temp Pulse Resp B/P (MAP) Pulse Ox O2 Delivery O2 Flow Rate FiO2 11/15/17 14:50 59 18 125/75 (92) 96 11/15/17 14:20 55 18 123/73 (90) 98 11/15/17 14:05 62 18 124/71 (88) 99 11/15/17 13:50 69 18 117/70 (86) 98 11/15/17 13:35 97.7 73 20 122/73 (89) 98 11/15/17 10:25 97.0 59 18 110/61 (77) 100 11/15/17 08:00 97.5 68 16 139/75 (96) 100 11/15/17 05:26 98.2 71 18 129/64 (85) 100 11/15/17 01:13 98.2 96 18 106/55 (72) 98 11/15/17 01:00 83 11/14/17 23:11 98.3 61 19 146/73 98 11/14/17 21:01 98.1 85 19 127/64 99 11/14/17 20:38 98.5 76 18 118/74 (89) 100 11/14/17 20:30 98.3 72 18 124/64 99 11/14/17 20:04 98.1 69 18 124/59 100 11/14/17 20:00 70 11/14/17 17:36 99 21 11/14/17 17:09 97.8 60 16 122/58 100 11/14/17 16:51 97.4 70 20 130/60 100 11/14/17 16:31 97.4 70 20 130/61 (84) 100 I/O 11/14/17 11/14/17 11/14/17 11/15/17 11/15/17 11/15/17 07:00 15:00 23:00 07:00 15:00 23:00 Intake Total 1170 ml 400 ml 400 ml Output Total 1225 ml Balance -55 ml 400 ml 400 ml Intake Oral 720 ml Packed Cells 400 ml 400 ml Blood Product IV Normal Saline Flush 50 ml Other 400 ml Output Urine Total 1225 ml # Voids 3 1 # Bowel Movements 1 Result Diagram: 11/14/17 1540 11/14/17 0508 Imaging Last Impressions Celiac/Hepatic Arteriogram 11/15/17 0000 Signed Impressions: Service Date/Time: Wednesday, November 15, 2017 13:48 - CONCLUSION: Mesenteric angiography without a source of hemorrhage in this patient with an upper GI bleed. Quinton Moran Jr., MD GI Bleed Scan Nuclear Medicine 11/14/17 0629 Signed Impressions: Service Date/Time: Tuesday, November 14, 2017 10:01 - CONCLUSION: Positive GI bleeding scan with intraluminal blood initially observed at 30 minutes and seen scattered throughout the abdomen out to 110 minutes. While the location of the cannot be identified, it most probably arises somewhere within the small bowel. Quinton Sandhu MD Abdomen/Pelvis CT 11/13/17 0000 Signed Impressions: Service Date/Time: Monday, November 13, 2017 22:38 - CONCLUSION: 1. No acute findings. Colonic diverticula without diverticulitis. Stable renal cysts compared with June 2016. Small hiatal hernia. Lisandro Jacobo MD Chest X-Ray 11/12/172208 Signed Impressions: Service Date/Time: Sunday, November 12, 2017 22:24 - CONCLUSION: 1. No acute disease. Postop CABG. Lisandro Jacobo MD Objective Remarks GENERAL: Well-nourished, well-developed male patient in no acute distress. SKIN: Warm and dry. No rashes or lesions present. EYES: No scleral icterus. No conjunctival injection or drainage. Pupils equal, round, reactive to light and accommodation. Extraocular movements intact. Ptosis of the right eye. THROAT: Moist mucous membranes. No erythema or exudate in oropharynx. NECK: Supple, trachea midline. No lymphadenopathy. No thyroid nodules. CARDIOVASCULAR: Regular rate and rhythm without murmurs, gallops, or rubs. RESPIRATORY: CTA BL. No accessory muscle use. No wheezes, rhonchi or rales. GASTROINTESTINAL: Abdomen soft, non-tender, nondistended. No masses or hernias. No hepatosplenomegaly. Bowel sounds present. MUSCULOSKELETAL: No cyanosis or edema. No nail changes. NEURO: Cranial nerves II through XII grossly intact. Good muscle tone. PSYCH: Normal mood and affect. Good eye contact. Good insight and judgment. Normal speech. A/P Assessment and Plan This is an 87-year-old male with a PMH of HTN, Hyperlipidemia, CAD, CHF (Echo w/ EF 55-60%), DM and h/o PE/DVT on Coumadin who presented to the ED w/ c/ o burning chest pain and chronic symptoms of black stools. Patient admitted for chest pain and GI bleed. GI following, plan for EGD/enteroscopy today. Discharge Planning Pending further GI evaluation and stabilization of GI bleed, likely in the next several days. Problem List: (1) GI bleed ICD Codes: K92.2 - Gastrointestinal hemorrhage, unspecified Status: Acute Plan: Patient with history of black stools since August. -Recent pill endoscopy procedure done as outpatient, poor visualization -GI following, appreciate recommendations- plan for EGD today, continue to monitor H/H, transfuse if hgb <9. Continue BID IV Protonix -On admission H&H of 6.8/21.2, MCV within normal limits on admission s/p 4 units PRBC with appropriate response -H&H trend is gradually decreasin.7, 8.4, 8.1. 8.3 -INR 1.3, f/u coag profile and am labs -Hemodynamically stable -Continue with Protonix 40mg IV twice a day Imaging: -Celiac/hepatic arteriogram: Mesenteric angiography without a source of hemorrhage in this patient with an upper GI bleed. -Bleeding scan: Positive GI bleed scan with intraluminal blood initially observed at 30 minutes and seen scattered throughout the abdomen at 110 minutes. .Location cannot be identified but most probably arises somewhere within the small bowel. -Based on panendoscopy with enteroscopy procedure: Blood in the duodenum with no Source Identified; Gastritis. -possible repeat EGD in 2 days per GI note (2) Chest pain ICD Codes: R07.9 - Chest pain Status: Resolved Plan: Patient with 2-3 day hx of nonradiating burning midsternal chest pain that is worse with movement. No chest pain today -Troponins trending up from 0.02 to 0.09. No additional chest pain, likely from elevated creatinine/GI bleed -Vital signs within normal limits. -Continue tele - EKG: Sinus rhythm, with frequent ventricular premature complexes possible left atrial enlargement and nonspecific T-wave abnormalities normal rhythm ECG since previous tracing, no significant change noted. (3) Hypertension ICD Codes: I10 - Hypertension Status: Chronic Plan: Continue with current medication regimen. BP WNL Monitor vitals (4) DM (diabetes mellitus) ICD Codes: E11.9 - Type 2 diabetes mellitus without complications Status: Acute Plan: -Hold by po medications held -Low-dose SSI -Accu-Cheks B-86-86 (5) Chronic kidney disease ICD Codes: N18.9 - Chronic kidney disease, unspecified Status: Chronic Plan: Patient with history of chronic kidney disease Creatinine of 1.90, baseline ranging from 1.7-2.2 -Continue to monitor (6) Nutrition, metabolism, and development symptoms ICD Codes: R63.8 - Symptoms concerning nutrition, metabolism, and development Status: Acute Plan: Fluids: Encourage PO hydration Electrolytes: Replete as needed Nutrition: mechanical soft DVT prophylaxis: SCDs, anticoagulation contraindicated due to GI bleed. -Home Coumadin Held Problem Qualifiers (1) GI bleed: Qualified Codes: K92.2 - Gastrointestinal hemorrhage, unspecified (2) Chest pain: Qualified Codes: R07.9 - Chest pain, unspecified (3) Hypertension: Qualified Codes: I10 - Essential (primary) hypertension (4) DM (diabetes mellitus): Qualified Codes: E11.9 - Type 2 diabetes mellitus without complications Zoila Veras MD, R1 Nov 15, 2017 16:10
[2017-11-15 16:33] LABS: INTERNATIONAL NORMALIZED RATIO 1.1 RATIO; PROTHROMBIN TIME - PATIENT 11.4 SEC (9.8-11.6)
[2017-11-15] MEDS: TAMSULOSIN HCL 0.4 MG CAP PO SCH (22:22)
[2017-11-16] VITALS (10 sets, daily range): BP systolic 122–142; BP diastolic 64–87; PULSE 49–92; RESP 16–20; TEMP 97.7–98.6; O2SAT 97–99
[2017-11-16] MEDS: PANTOPRAZOLE SODIUM 40 MG VIAL IV PUSH SCH ×2 (05:12→17:18)
[2017-11-16 07:38] LABS: HEMATOCRIT 29.3 % (39.0-51.0); HEMOGLOBIN 9.9 GM/DL (13.0-17.0)
[2017-11-16 07:50] LABS: INTERNATIONAL NORMALIZED RATIO 1.2 RATIO; PROTHROMBIN TIME - PATIENT 11.8 SEC (9.8-11.6)
[2017-11-16] MEDS: INSULIN ASPART SUPPLEMENTAL SCALE SQ SCH ×4 (08:00→20:31)
[2017-11-16 08:12] LABS: ALBUMIN 2.7 GM/DL (3.4-5.0); ALT (GPT) 11 U/L (12-78); AST (GOT) 13 U/L (15-37); BICARBONATE 26.2 MEQ/L (21.0-32.0); BLOOD UREA NITROGEN 26 MG/DL (7-18); CALCIUM 7.8 MG/DL (8.5-10.1); CHLORIDE 110 MEQ/L (98-107); CREATININE 1.88 MG/DL (0.60-1.30); GLOMERULAR FILTRATION RATE 42 ML/MIN (>89); GLUCOSE,RANDOM 84 MG/DL (74-106); SODIUM (NA) 142 MEQ/L (136-145)
[2017-11-16 08:14] LABS: ALKALINE PHOSPHATASE 53 U/L (45-117); TOTAL BILIRUBIN ADULT 1.1 MG/DL (0.2-1.0); TOTAL PROTEIN 5.6 GM/DL (6.4-8.2)
[2017-11-16] MEDS: amLODIPine BESYLATE 5 MG TAB PO SCH (08:34)
[2017-11-16] MEDS: LOSARTAN 50 MG TAB PO SCH (08:34)
[2017-11-16] MEDS: SODIUM CHLORIDE 0.9% FLUSH 10 ML FLUSH IV FLUSH SCH ×2 (08:34→20:33)
--- NOTE | 2017-11-16 12:52 | HHI.GIFU ---
Subjective Remarks Pt eating lunch. at bedside. Continued melena. No jarrett bleeding. (Melinda Banuelos) Objective Vitals I&O Vital Signs Date Time Temp Pulse Resp B/P (MAP) Pulse Ox O2 Delivery O2 Flow Rate FiO2 11/16/17 10:55 82 11/16/17 08:56 91 11/16/17 08:47 97.7 53 16 142/75 (97) 99 11/16/17 08:37 92 11/16/17 04:00 97.9 49 20 128/66 (86) 97 11/16/17 00:00 98.6 79 18 138/87 (104) 97 11/15/17 20:00 97.5 69 18 150/75 (100) 98 11/15/17 16:00 98.0 71 17 136/64 (88) 99 11/15/17 14:50 59 18 125/75 (92) 96 11/15/17 14:20 55 18 123/73 (90) 98 11/15/17 14:05 62 18 124/71 (88) 99 11/15/17 13:50 69 18 117/70 (86) 98 11/15/17 13:35 97.7 73 20 122/73 (89) 98 I/O 11/15/17 11/15/17 11/15/17 11/16/17 11/16/17 11/16/17 07:00 15:00 23:00 07:00 15:00 23:00 Intake Total 400 ml 400 ml Balance 400 ml 400 ml Packed Cells 400 ml Other 400 ml # Voids 1 5 4 # Bowel Movements 1 2 1 Laboratory Laboratory Tests Test 11/15/17 15:40 11/16/17 07:24 White Blood Count 8.0 Red Blood Count 3.78 Hemoglobin 11.2 9.9 Hematocrit 32.6 29.3 Mean Corpuscular Volume 86.2 Mean Corpuscular Hemoglobin 29.5 Mean Corpuscular Hemoglobin Concent 34.2 Red Cell Distribution Width 15.9 Platelet Count 146 Mean Platelet Volume 9.4 Neutrophils (%) (Auto) 63.1 Lymphocytes (%) (Auto) 25.0 Monocytes (%) (Auto) 9.3 Eosinophils (%) (Auto) 2.4 Basophils (%) (Auto) 0.2 Neutrophils # (Auto) 5.0 Lymphocytes # (Auto) 2.0 Monocytes # (Auto) 0.7 Eosinophils # (Auto) 0.2 Basophils # (Auto) 0.0 CBC Comment DIFF FINAL Differential Comment Prothrombin Time 11.4 11.8 Prothromb Time International Ratio 1.1 1.2 Activated Partial Thromboplast Time 23.6 23.3 Blood Urea Nitrogen 26 Creatinine 1.88 Random Glucose 84 Total Protein 5.6 Albumin 2.7 Calcium Level 7.8 Alkaline Phosphatase 53 Aspartate Amino Transf (AST/SGOT) 13 Alanine Aminotransferase (ALT/SGPT) 11 Total Bilirubin 1.1 Sodium Level 142 Potassium Level 3.9 Chloride Level 110 Carbon Dioxide Level 26.2 Anion Gap 6 Estimat Glomerular Filtration Rate 42 Imaging Last Impressions Celiac/Hepatic Arteriogram 11/15/17 0000 Signed Impressions: Service Date/Time: Wednesday, November 15, 2017 13:48 - CONCLUSION: Mesenteric angiography without a source of hemorrhage in this patient with an upper GI bleed. Quinton Moran Jr., MD GI Bleed Scan Nuclear Medicine 11/14/17 0629 Signed Impressions: Service Date/Time: Tuesday, November 14, 2017 10:01 - CONCLUSION: Positive GI bleeding scan with intraluminal blood initially observed at 30 minutes and seen scattered throughout the abdomen out to 110 minutes. While the location of the cannot be identified, it most probably arises somewhere within the small bowel. Quinton Sandhu MD Abdomen/Pelvis CT 11/13/17 0000 Signed Impressions: Service Date/Time: Monday, November 13, 2017 22:38 - CONCLUSION: 1. No acute findings. Colonic diverticula without diverticulitis. Stable renal cysts compared with June 2016. Small hiatal hernia. Lisandro Jacobo MD Chest X-Ray 11/12/17 924 Signed Impressions: Service Date/Time: Sunday, November 12, 2017 22:24 - CONCLUSION: 1. No acute disease. Postop CABG. Lisandro Jacobo MD Physical Exam HEENT: PERRL; normocephalic; atraumatic; no jaundice. CHEST: CTA CARDIAC: irr HR ABDOMEN: Soft, nondistended, nontender; no hepatosplenomegaly; bowel sounds are present in all four quadrants. EXTREMITIES: No clubbing, cyanosis, or edema. SKIN: Normal; no rash; no jaundice. COUNCILMAN: No focal deficits; alert and oriented times three. (Melinda Banuelos) Assessment and Plan Plan ASSESSMENT - anemia, melena - GIB, source small bowel? had recent capsule endoscopy with poor visualization. EGD and colonoscopy 08/2017 found hemorrhoids, sigmoid diverticulosis, erythematous gastritis, duodenitis , no bleeding was found. Has had melena since August and hgb 6.8 on admission this is drop from August received 2/ PRBC, HH pending 11/14/17 HH is trending down gradually. continued melena. no other GI complaints, stable. 11/16/17 s/p enteroscopy foudn esophagitis, erythematous gastritis. s/p angiogram, no source bleeding found. hgb dropped from 11 to 9.9 continued black tarry stool. PLAN - EGD/enteroscopy Wednesday - obtain consent - NPO after midnight - monitor HH - continue BID IV protonix - notify GI of active bleeding - further recs to follow pt seen by myself and Dr Marley and this note is written on his behalf (Melinda Banuelos) Physician Comments Seen and examined with [employer]ER< continues to bleed. Angiogram -ve for source of bleeding. Repeat enteroscopy planned for tomorrow. Monitorlabs closely. [place] [facility] [place]. (Gonzalo Marley MD) Melinda Banuelos Nov 16, 2017 12:52 Gonzalo Marley MD Nov 16, 2017 15:07
--- NOTE | 2017-11-16 14:16 | HHI.FPPN ---
Subjective Remarks Patient seen and examined this point. No acute events overnight. He had more melena this morning. Denies any nausea or vomiting. Has any pain. Denies any chest pain, shortness of breath, leg pain. Objective Vitals Vital Signs Date Time Temp Pulse Resp B/P (MAP) Pulse Ox O2 Delivery O2 Flow Rate FiO2 11/16/17 12:00 98.2 77 16 125/64 (84) 98 11/16/17 10:55 82 11/16/17 08:56 91 11/16/17 08:47 97.7 53 16 142/75 (97) 99 11/16/17 08:37 92 11/16/17 04:00 97.9 49 20 128/66 (86) 97 11/16/17 00:00 98.6 79 18 138/87 (104) 97 11/15/17 20:00 97.5 69 18 150/75 (100) 98 11/15/17 16:00 98.0 71 17 136/64 (88) 99 11/15/17 14:50 59 18 125/75 (92) 96 11/15/17 14:20 55 18 123/73 (90) 98 I/O 11/15/17 11/15/17 11/15/17 11/16/17 11/16/17 11/16/17 07:00 15:00 23:00 07:00 15:00 23:00 Intake Total 400 ml 400 ml Balance 400 ml 400 ml Packed Cells 400 ml Other 400 ml # Voids 1 5 4 # Bowel Movements 1 2 1 Result Diagram: 11/16/17 0724 11/16/17 0724 Imaging Last Impressions Celiac/Hepatic Arteriogram 11/15/17 0000 Signed Impressions: Service Date/Time: Wednesday, November 15, 2017 13:48 - CONCLUSION: Mesenteric angiography without a source of hemorrhage in this patient with an upper GI bleed. Quinton Moran Jr., MD GI Bleed Scan Nuclear Medicine 11/14/17 0629 Signed Impressions: Service Date/Time: Tuesday, November 14, 2017 10:01 - CONCLUSION: Positive GI bleeding scan with intraluminal blood initially observed at 30 minutes and seen scattered throughout the abdomen out to 110 minutes. While the location of the cannot be identified, it most probably arises somewhere within the small bowel. Quinton Sandhu MD Abdomen/Pelvis CT 11/13/17 0000 Signed Impressions: Service Date/Time: Monday, November 13, 2017 22:38 - CONCLUSION: 1. No acute findings. Colonic diverticula without diverticulitis. Stable renal cysts compared with June 2016. Small hiatal hernia. Lisandro Jacobo MD Chest X-Ray 11/12/179 Signed Impressions: Service Date/Time: Sunday, November 12, 2017 22:24 - CONCLUSION: 1. No acute disease. Postop CABG. Lisandro Jacobo MD Objective Remarks GENERAL: Well-nourished, well-developed male patient in no acute distress. SKIN: Warm and dry. No rashes or lesions present. CARDIOVASCULAR: Regular rate, irregular rhythm. RESPIRATORY: CTA BL. No accessory muscle use. No wheezes, rhonchi or rales. GASTROINTESTINAL: Abdomen soft, non-tender, nondistended. No masses or hernias. No hepatosplenomegaly. Bowel sounds present. MUSCULOSKELETAL: No cyanosis or edema. No nail changes. NEURO: Good muscle tone. PSYCH: Normal mood and affect. Good eye contact. Good insight and judgment. Normal speech. A/P Assessment and Plan This is an 87-year-old male with a PMH of HTN, Hyperlipidemia, CAD, CHF (Echo w/ EF 55-60%), DM and h/o PE/DVT on Coumadin who presented to the ED w/ c/ o burning chest pain and chronic symptoms of black stools. Patient admitted for chest pain and GI bleed. GI following, plan for EGD/enteroscopy today. Discharge Planning Pending further GI evaluation and stabilization of GI bleed, likely in the next several days. Problem List: (1) GI bleed ICD Codes: K92.2 - Gastrointestinal hemorrhage, unspecified Status: Acute Plan: Patient with history of black stools since August. Recent pill endoscopy procedure done as outpatient, poor visualization -GI following, appreciate recommendations -s/p EGD/enteroscopy: no source of bleeding found -Trend CBC -Repeat EGD/enteroscopy 11/17 -Continue with Protonix 40mg IV twice a day Imaging: -Celiac/hepatic arteriogram: Mesenteric angiography without a source of hemorrhage in this patient with an upper GI bleed. -Bleeding scan: Positive GI bleed scan with intraluminal blood initially observed at 30 minutes and seen scattered throughout the abdomen at 110 minutes. .Location cannot be identified but most probably arises somewhere within the small bowel. -Based on panendoscopy with enteroscopy procedure: Blood in the duodenum with no Source Identified; Gastritis. -possible repeat EGD in 2 days per GI note (2) Chest pain ICD Codes: R07.9 - Chest pain Status: Resolved Plan: Patient with 2-3 day hx of nonradiating burning midsternal chest pain that is worse with movement. No chest pain today -Troponins trending up from 0.02 to 0.09. No additional chest pain, likely from elevated creatinine/GI bleed -Vital signs within normal limits. -Continue tele -Bigeminy noted on telemetry -Recurrent PVCs -Monitor symptoms, consider consult if needed - EKG: Sinus rhythm, with frequent ventricular premature complexes possible left atrial enlargement and nonspecific T-wave abnormalities normal rhythm ECG since previous tracing, no significant change noted. (3) Hypertension ICD Codes: I10 - Hypertension Status: Chronic Plan: Continue with current medication regimen. BP WNL Monitor vitals (4) DM (diabetes mellitus) ICD Codes: E11.9 - Type 2 diabetes mellitus without complications Status: Acute Plan: -Hold by po medications held -Low-dose SSI -Accu-Cheks (5) Chronic kidney disease ICD Codes: N18.9 - Chronic kidney disease, unspecified Status: Chronic Plan: Patient with history of chronic kidney disease Baseline ranging from 1.7-2.2 -Continue to monitor (6) Nutrition, metabolism, and development symptoms ICD Codes: R63.8 - Symptoms concerning nutrition, metabolism, and development Status: Acute Plan: Fluids: Encourage PO hydration Electrolytes: Replete as needed Nutrition: mechanical soft DVT prophylaxis: SCDs, anticoagulation contraindicated due to GI bleed. -Home Coumadin Held Problem Qualifiers (1) GI bleed: Qualified Codes: K92.2 - Gastrointestinal hemorrhage, unspecified (2) Chest pain: Qualified Codes: R07.9 - Chest pain, unspecified (3) Hypertension: Qualified Codes: I10 - Essential (primary) hypertension (4) DM (diabetes mellitus): Qualified Codes: E11.9 - Type 2 diabetes mellitus without complications Leonel Eagle MD Nov 16, 2017 14:16
[2017-11-16] MEDS ORDERED: LACTATED RINGER'S 1000 ML IV PRN (17:30)
[2017-11-16] MEDS ORDERED: POVIDONE IODINE 5% (ANTISEPSIS KIT) 4 APPLICATIONS EACH NARE PRN (17:30)
[2017-11-16] MEDS ORDERED: METOPROLOL TARTRATE 25 MG TAB PO PRN (17:30)
[2017-11-16] MEDS ORDERED: CHLORHEXIDINE GLUCONATE 2 % 1 PACK (2 CLOTHS) TOPICAL PRN (17:30)
[2017-11-16] MEDS ORDERED: SODIUM CHLORID 0.9% 500 ML IV PRN (17:30)
[2017-11-16] MEDS: TAMSULOSIN HCL 0.4 MG CAP PO SCH (20:33)
[2017-11-17] VITALS (10 sets, daily range): BP systolic 98–153; BP diastolic 60–126; PULSE 56–76; RESP 18–20; TEMP 98–99.4; O2SAT 95–99
[2017-11-17] MEDS: ARTIFICIAL TEARS OPTH SOLN 15 ML BTL EACH EYE PRN (06:18)
[2017-11-17] MEDS: PANTOPRAZOLE SODIUM 40 MG VIAL IV PUSH SCH ×2 (06:18→17:40)
[2017-11-17] MEDS: INSULIN ASPART SUPPLEMENTAL SCALE SQ SCH ×4 (08:00→21:00)
[2017-11-17 09:19] LABS: AUTOMATED NEUTROPHIL # 3.2 TH/MM3 (1.8-7.7); BASOPHIL % 0.5 % (0.0-2.0); EOSINOPHIL # 0.3 TH/MM3 (0-0.4); EOSINOPHIL % 5.6 % (0.0-4.0); HEMATOCRIT 28.6 % (39.0-51.0); HEMOGLOBIN 9.8 GM/DL (13.0-17.0); LYMPH % 24.8 % (9.0-44.0); LYMPHOCYTE # 1.4 TH/MM3 (1.0-4.8); MEAN CORPUSCULAR HEMOGLOBIN 29.5 PG (27.0-34.0); MEAN CORPUSCULAR HGB CONC 34.3 % (32.0-36.0); MONO % 10.5 % (0.0-8.0); MONOCYTE # 0.6 TH/MM3 (0-0.9); NEUT % 58.6 % (16.0-70.0); PLATELET COUNT 130 TH/MM3 (150-450); RED BLOOD COUNT 3.33 MIL/MM3 (4.50-5.90); RED CELL DISTRIBUTION WIDTH 15.4 % (11.6-17.2); WHITE BLOOD COUNT 5.5 TH/MM3 (4.0-11.0)
[2017-11-17] MEDS: SODIUM CHLORIDE 0.9% FLUSH 10 ML FLUSH IV FLUSH SCH ×2 (09:20→20:47)
[2017-11-17] MEDS: amLODIPine BESYLATE 5 MG TAB PO SCH (09:20)
[2017-11-17] MEDS: LOSARTAN 50 MG TAB PO SCH (09:20)
[2017-11-17 09:50] LABS: BICARBONATE 25.9 MEQ/L (21.0-32.0); CALCIUM 8.1 MG/DL (8.5-10.1); CREATININE 1.76 MG/DL (0.60-1.30)
[2017-11-17] MEDS ORDERED: PROPOFOL 200 MG/20 ML AMP IV ONE (12:00)
[2017-11-17] MEDS ORDERED: LIDOCAINE HCL 1% PF 5 ML SYRINGE OTHER ONE (12:00)
--- NOTE | 2017-11-17 12:02 | GIPROC ---
[facility] [address] [facility]. [facility], [id number] ENTEROSCOPY PROCEDURE REPORT EXAM DATE: 11/17/2017 PATIENT NAME: Kevin Schmitt MR#: [id number] BIRTHDATE: 1930 ATTENDING: Gonzalo Marley MD ORDER #: [id number] WINDOWS SOFTWARE ENGINEER: Flory Lundberg and Vernell Terry STATUS: inpatient INDICATIONS: The patient is a 87 yr old male here for an enteroscopy procedure due to anemia, iron deficiency anemia, and melenic bleeding PROCEDURE PERFORMED: Small bowel enteroscopy with ablation therapy MEDICATIONS: None and Per Anesthesia. CONSENT: The patient understands the risks and benefits of the procedure and understands that these risks include, but are not limited to: sedation, allergic reaction, infection, perforation and/or bleeding. Alternative means of evaluation and treatment include, among others: physical exam, x-rays, and/or surgical intervention. The patient elects to proceed with this endoscopic procedure. medical equipment was checked for proper function. Hand hygiene and appropriate measures for infection prevention was taken. After the risks, benefits and alternatives of the procedure were thoroughly explained, Informed consent was verified, confirmed and timeout was successfully executed by the treatment team. The Pentax [id number]-2900 endoscope was introduced through the mouth and advanced to the afferent jejunal loop jejunum. The prep was good. The instrument was then slowly withdrawn while examining the mucosa circumferentially. The scope was then completely withdrawn from the patient and the procedure terminated. The pulse, BP, and O2 saturation were monitored and documented by the physician and the nursing staff throughout the entire procedure. The patient was cared for as planned according to standard protocol, then discharged to recovery in stable condition and with appropriate post procedure care. 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 Located 100 cm from the point of entry. 4 mm Bipolar cautery was performed with a 10 fr probe. ADVERSE EVENTS: There were no complications. 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 Anti-reflux regimen 2. Avoid NSAIDS RECALL: Return 2 week(s) Capsule Endoscopy Gonzalo Marley MD eSigned: Gonzalo Marley MD 11/17/2017 12:02 PM cc:
--- NOTE | 2017-11-17 12:19 | HHI.FPPN ---
Subjective Remarks Patient seen and examined at bedside this morning. No acute events overnight. Patient still have black stools, not increased in amount. Patient states he feels well otherwise. Denies CP, SOB, abdominal pain or N/V. Objective Vitals Vital Signs Date Time Temp Pulse Resp B/P (MAP) Pulse Ox O2 Delivery O2 Flow Rate FiO2 11/17/17 10:20 73 11/17/17 10:12 98 11/17/17 08:00 98.7 63 20 120/60 (80) 98 11/17/17 04:00 98.1 63 18 98/126 (117) 98 11/17/17 02:08 98 11/17/17 00:33 69 11/17/17 00:00 98.0 56 18 127/62 (83) 99 11/16/17 20:00 83 11/16/17 20:00 97.9 64 18 122/65 (84) 98 11/16/17 17:08 83 11/16/17 16:00 98.2 75 17 124/71 (88) 98 I/O 11/16/17 11/16/17 11/16/17 11/17/17 11/17/17 11/17/17 07:00 15:00 23:00 07:00 15:00 23:00 Intake Total 400 ml Balance 400 ml Other 400 ml # Voids 4 # Bowel Movements 1 1 Result Diagram: 11/17/17 0730 11/17/17 0730 Objective Remarks GENERAL: Well-nourished, well-developed male patient in no acute distress. SKIN: Warm and dry. No rashes or lesions present. CARDIOVASCULAR: Regular rate, irregular rhythm. RESPIRATORY: CTA BL. No accessory muscle use. No wheezes, rhonchi or rales. GASTROINTESTINAL: Abdomen soft, non-tender, nondistended. No masses or hernias. No hepatosplenomegaly. Bowel sounds present. MUSCULOSKELETAL: No cyanosis or edema. No nail changes. NEURO: Good muscle tone. PSYCH: Normal mood and affect. Good eye contact. Good insight and judgment. Normal speech. A/P Assessment and Plan This is an 87-year-old male with a PMH of HTN, Hyperlipidemia, CAD, CHF (Echo w/ EF 55-60%), DM and h/o PE/DVT on Coumadin who presented to the ED w/ c/ o burning chest pain and chronic symptoms of black stools. Patient admitted for chest pain and GI bleed. GI following, plan for EGD/enteroscopy today. Discharge Planning Pending further GI evaluation and stabilization of GI bleed, likely in the next several days. Problem List: (1) GI bleed ICD Codes: K92.2 - Gastrointestinal hemorrhage, unspecified Status: Acute Plan: Patient with history of black stools since August. Recent pill endoscopy procedure done as outpatient, poor visualization -GI following, appreciate recommendations -s/p EGD/enteroscopy: no source of bleeding found - Repeat EGD today -H/H stable 9.8/28.6 -Vital signs stable -Continue with Protonix 40mg IV twice a day Imaging: -Celiac/hepatic arteriogram: Mesenteric angiography without a source of hemorrhage in this patient with an upper GI bleed. -Bleeding scan: Positive GI bleed scan with intraluminal blood initially observed at 30 minutes and seen scattered throughout the abdomen at 110 minutes. .Location cannot be identified but most probably arises somewhere within the small bowel. -Based on panendoscopy with enteroscopy procedure: Blood in the duodenum with no Source Identified; Gastritis. (2) Chest pain ICD Codes: R07.9 - Chest pain Status: Resolved Plan: Patient with 2-3 day hx of nonradiating burning midsternal chest pain that is worse with movement. Chest pain resolved. -Troponins trending up from 0.02 to 0.09. No additional chest pain, likely from elevated creatinine/GI bleed -Vital signs within normal limits. -Continue tele -Bigeminy noted on telemetry -Recurrent PVCs -Monitor symptoms, consider consult if needed - EKG: Sinus rhythm, with frequent ventricular premature complexes possible left atrial enlargement and nonspecific T-wave abnormalities normal rhythm ECG since previous tracing, no significant change noted. (3) Hypertension ICD Codes: I10 - Hypertension Status: Chronic Plan: Continue with current medication regimen. BP WNL Monitor vitals (4) DM (diabetes mellitus) ICD Codes: E11.9 - Type 2 diabetes mellitus without complications Status: Acute Plan: -Hold by po medications held -Low-dose SSI -Accu-Cheks (5) Chronic kidney disease ICD Codes: N18.9 - Chronic kidney disease, unspecified Status: Chronic Plan: Patient with history of chronic kidney disease Baseline ranging from 1.7-2.2 -Cr down-trending, Cr- 1.76 today (6) Nutrition, metabolism, and development symptoms ICD Codes: R63.8 - Symptoms concerning nutrition, metabolism, and development Status: Acute Plan: Fluids: LR 30mls/hr Electrolytes: Replete as needed Nutrition: Npo for GI procedure DVT prophylaxis: SCDs, anticoagulation contraindicated due to GI bleed. -Home Coumadin Held Problem Qualifiers (1) GI bleed: Qualified Codes: K92.2 - Gastrointestinal hemorrhage, unspecified (2) Chest pain: Qualified Codes: R07.9 - Chest pain, unspecified (3) Hypertension: Qualified Codes: I10 - Essential (primary) hypertension (4) DM (diabetes mellitus): Qualified Codes: E11.9 - Type 2 diabetes mellitus without complications Zoila Veras MD, R1 Nov 17, 2017 12:19
[2017-11-17 18:37] LABS: HEMATOCRIT 34.5 % (39.0-51.0); HEMOGLOBIN 11.5 GM/DL (13.0-17.0)
[2017-11-17] MEDS: TAMSULOSIN HCL 0.4 MG CAP PO SCH (20:47)
[2017-11-18] VITALS (7 sets, daily range): BP systolic 120–142; BP diastolic 62–76; PULSE 55–81; RESP 17–18; TEMP 97.7–98.7; O2SAT 97–98
[2017-11-18] MEDS: PANTOPRAZOLE SODIUM 40 MG VIAL IV PUSH SCH (05:59)
[2017-11-18 08:12] LABS: ALBUMIN 2.9 GM/DL (3.4-5.0); ALT (GPT) 11 U/L (12-78); AST (GOT) 15 U/L (15-37); BICARBONATE 25.7 MEQ/L (21.0-32.0); BLOOD UREA NITROGEN 23 MG/DL (7-18); CALCIUM 8.1 MG/DL (8.5-10.1); CHLORIDE 109 MEQ/L (98-107); CREATININE 1.95 MG/DL (0.60-1.30); GLOMERULAR FILTRATION RATE 40 ML/MIN (>89); GLUCOSE,RANDOM 91 MG/DL (74-106); SODIUM (NA) 142 MEQ/L (136-145)
[2017-11-18 08:15] LABS: ALKALINE PHOSPHATASE 62 U/L (45-117); TOTAL BILIRUBIN ADULT 0.7 MG/DL (0.2-1.0); TOTAL PROTEIN 6.2 GM/DL (6.4-8.2)
[2017-11-18] MEDS: INSULIN ASPART SUPPLEMENTAL SCALE SQ SCH ×2 (08:17→11:56)
[2017-11-18] MEDS: amLODIPine BESYLATE 5 MG TAB PO SCH (08:18)
[2017-11-18] MEDS: SODIUM CHLORIDE 0.9% FLUSH 10 ML FLUSH IV FLUSH SCH (08:18)
[2017-11-18] MEDS: LOSARTAN 50 MG TAB PO SCH (08:18)
--- NOTE | 2017-11-18 09:57 | HHI.FPPN ---
Subjective Remarks Patient seen and examined this morning at bedside. No acute events overnight. Patient with no concerns or complaints. Tolerating by mouth intake well. Denies any pain, chest pain, shortness of breath, nausea /vomiting, or abdominal pain. Patient stated he had a small bowel movement yesterday in still black in color before EGD procedure. Objective Vitals Vital Signs Date Time Temp Pulse Resp B/P (MAP) Pulse Ox O2 Delivery O2 Flow Rate FiO2 11/18/17 09:22 69 11/18/17 08:07 97.7 55 17 120/67 (84) 98 11/18/17 04:00 98.3 72 18 124/62 (82) 97 11/18/17 01:02 81 11/18/17 00:00 98.7 63 18 142/64 (90) 97 11/17/17 20:00 99.4 68 18 145/65 (91) 97 11/17/17 17:39 95 21 11/17/17 15:36 98.8 76 20 153/67 (95) 98 11/17/17 12:45 98.3 66 18 157/71 (99) 100 Room Air 11/17/17 12:09 98.3 87 18 184/71 (108) 100 Nasal Cannula 2 11/17/17 10:20 73 11/17/17 10:12 98 I/O 11/17/17 11/17/17 11/17/17 11/18/17 11/18/17 11/18/17 07:00 15:00 23:00 07:00 15:00 23:00 Intake Total 640 ml Balance 640 ml Intake Oral 240 ml Other 400 ml # Voids 3 3 # Bowel Movements 1 Result Diagram: 11/17/17 1806 11/18/17 0736 Objective Remarks GENERAL: Well-nourished, well-developed male patient in no acute distress. SKIN: Warm and dry. No rashes or lesions present. CARDIOVASCULAR: Regular rate, irregular rhythm. RESPIRATORY: CTA BL. No accessory muscle use. No wheezes, rhonchi or rales. GASTROINTESTINAL: Abdomen soft, non-tender, nondistended. No masses or hernias. No hepatosplenomegaly. Bowel sounds present. MUSCULOSKELETAL: No cyanosis or edema. No nail changes. NEURO: Good muscle tone. PSYCH: Normal mood and affect. Good eye contact. Good insight and judgment. Normal speech. A/P Assessment and Plan This is an 87-year-old male with a PMH of HTN, Hyperlipidemia, CAD, CHF (Echo w/ EF 55-60%), DM and h/o PE/DVT on Coumadin who presented to the ED w/ c/ o burning chest pain and chronic symptoms of black stools. Patient admitted for chest pain and GI bleed. GI following, plan for EGD/enteroscopy today. Discharge Planning Pending stabilization of H&H, possible discharge today if labs continue to be stable. Problem List: (1) GI bleed ICD Codes: K92.2 - Gastrointestinal hemorrhage, unspecified Status: Acute Plan: Patient with history of black stools since August. 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 Pt OK to be discharge if H /H is stable per GI. -H/H stable -Vital signs stable -Continue with Protonix 40mg IV twice a day - Spoke to pt regarding benefit of stopping home Coumadin that he has been taking for h/o PE and DVT due to his risk of bleeding. Risk and benefits discussed of stopping Coumadin discussed with patient this am. Will also discuss with pt's daughter. Imaging: -Celiac/hepatic arteriogram: Mesenteric angiography without a source of hemorrhage in this patient with an upper GI bleed. -Bleeding scan: Positive GI bleed scan with intraluminal blood initially observed at 30 minutes and seen scattered throughout the abdomen at 110 minutes. .Location cannot be identified but most probably arises somewhere within the small bowel. -Based on panendoscopy with enteroscopy procedure: Blood in the duodenum with no Source Identified; Gastritis. (2) Chest pain ICD Codes: R07.9 - Chest pain Status: Resolved Plan: Patient with 2-3 day hx of nonradiating burning midsternal chest pain that is worse with movement. Chest pain resolved. Patient asymptomatic. -Troponins trending up from 0.02 to 0.09. No additional chest pain, likely from elevated creatinine/GI bleed -Vital signs within normal limits. -Continue tele -Bigeminy noted on telemetry -Recurrent PVCs -Monitor symptoms, consider consult if needed - EKG: Sinus rhythm, with frequent ventricular premature complexes possible left atrial enlargement and nonspecific T-wave abnormalities normal rhythm ECG since previous tracing, no significant change noted. (3) Hypertension ICD Codes: I10 - Hypertension Status: Chronic Plan: Continue with current medication regimen. BP WNL Monitor vitals (4) DM (diabetes mellitus) ICD Codes: E11.9 - Type 2 diabetes mellitus without complications Status: Acute Plan: -Hold by po medications held -Low-dose SSI -Accu-Cheks (5) Chronic kidney disease ICD Codes: N18.9 - Chronic kidney disease, unspecified Status: Chronic Plan: Patient with history of chronic kidney disease Baseline ranging from 1.7-2.2 -Cr- 1.95 today (6) Nutrition, metabolism, and development symptoms ICD Codes: R63.8 - Symptoms concerning nutrition, metabolism, and development Status: Acute Plan: Fluids: LR 30mls/hr Electrolytes: Replete as needed Nutrition: heart healthy diet DVT prophylaxis: SCDs, anticoagulation contraindicated due to GI bleed. -Home Coumadin Held Problem Qualifiers (1) GI bleed: Qualified Codes: K92.2 - Gastrointestinal hemorrhage, unspecified (2) Chest pain: Qualified Codes: R07.9 - Chest pain, unspecified (3) Hypertension: Qualified Codes: I10 - Essential (primary) hypertension (4) DM (diabetes mellitus): Qualified Codes: E11.9 - Type 2 diabetes mellitus without complications Zoila Veras MD, R1 Nov 18, 2017 09:57
[2017-11-18 10:31] LABS: BASOPHIL % 0.3 % (0.0-2.0); EOSINOPHIL # 0.4 TH/MM3 (0-0.4); EOSINOPHIL % 5.7 % (0.0-4.0); HEMOGLOBIN 9.9 GM/DL (13.0-17.0); LYMPH % 23.6 % (9.0-44.0); LYMPHOCYTE # 1.5 TH/MM3 (1.0-4.8); MEAN CELL VOLUME 86.4 FL (80.0-100.0); MEAN CORPUSCULAR HEMOGLOBIN 28.7 PG (27.0-34.0); MEAN CORPUSCULAR HGB CONC 33.2 % (32.0-36.0); MEAN PLATELET VOLUME 9.7 FL (7.0-11.0); MONO % 8.4 % (0.0-8.0); MONOCYTE # 0.5 TH/MM3 (0-0.9); PLATELET COUNT 139 TH/MM3 (150-450); RED BLOOD COUNT 3.47 MIL/MM3 (4.50-5.90); RED CELL DISTRIBUTION WIDTH 15.4 % (11.6-17.2); WHITE BLOOD COUNT 6.4 TH/MM3 (4.0-11.0)
--- NOTE | 2017-11-18 11:54 | HHI.GIFU ---
Subjective Remarks pt resting in bed. tolerating diet. no obvious bleeding. (Melinda Banuelos) Objective Vitals I&O Vital Signs Date Time Temp Pulse Resp B/P (MAP) Pulse Ox O2 Delivery O2 Flow Rate FiO2 11/18/17 10:04 98 21 11/18/17 09:22 69 11/18/17 08:07 97.7 55 17 120/67 (84) 98 11/18/17 04:00 98.3 72 18 124/62 (82) 97 11/18/17 01:02 81 11/18/17 00:00 98.7 63 18 142/64 (90) 97 11/17/17 20:00 99.4 68 18 145/65 (91) 97 11/17/17 17:39 95 21 11/17/17 15:36 98.8 76 20 153/67 (95) 98 11/17/17 12:45 98.3 66 18 157/71 (99) 100 Room Air 11/17/17 12:09 98.3 87 18 184/71 (108) 100 Nasal Cannula 2 I/O 11/17/17 11/17/17 11/17/17 11/18/17 11/18/17 11/18/17 07:00 15:00 23:00 07:00 15:00 23:00 Intake Total 640 ml Balance 640 ml Intake Oral 240 ml Other 400 ml # Voids 3 3 # Bowel Movements 1 Laboratory Laboratory Tests Test 11/17/17 18:06 11/18/17 07:36 11/18/17 09:01 Hemoglobin 11.5 9.9 Hematocrit 34.5 30.0 Blood Urea Nitrogen 23 Creatinine 1.95 Random Glucose 91 Total Protein 6.2 Albumin 2.9 Calcium Level 8.1 Alkaline Phosphatase 62 Aspartate Amino Transf (AST/SGOT) 15 Alanine Aminotransferase (ALT/SGPT) 11 Total Bilirubin 0.7 Sodium Level 142 Potassium Level 4.0 Chloride Level 109 Carbon Dioxide Level 25.7 Anion Gap 7 Estimat Glomerular Filtration Rate 40 White Blood Count 6.4 Red Blood Count 3.47 Mean Corpuscular Volume 86.4 Mean Corpuscular Hemoglobin 28.7 Mean Corpuscular Hemoglobin Concent 33.2 Red Cell Distribution Width 15.4 Platelet Count 139 Mean Platelet Volume 9.7 Neutrophils (%) (Auto) 62.0 Lymphocytes (%) (Auto) 23.6 Monocytes (%) (Auto) 8.4 Eosinophils (%) (Auto) 5.7 Basophils (%) (Auto) 0.3 Neutrophils # (Auto) 4.0 Lymphocytes # (Auto) 1.5 Monocytes # (Auto) 0.5 Eosinophils # (Auto) 0.4 Basophils # (Auto) 0.0 CBC Comment DIFF FINAL Differential Comment Imaging Last Impressions Celiac/Hepatic Arteriogram 11/15/17 0000 Signed Impressions: Service Date/Time: Wednesday, November 15, 2017 13:48 - CONCLUSION: Mesenteric angiography without a source of hemorrhage in this patient with an upper GI bleed. Quinton Moran Jr., MD GI Bleed Scan Nuclear Medicine 11/14/17 0629 Signed Impressions: Service Date/Time: Tuesday, November 14, 2017 10:01 - CONCLUSION: Positive GI bleeding scan with intraluminal blood initially observed at 30 minutes and seen scattered throughout the abdomen out to 110 minutes. While the location of the cannot be identified, it most probably arises somewhere within the small bowel. Quinton Sandhu MD Abdomen/Pelvis CT 11/13/17 0000 Signed Impressions: Service Date/Time: Monday, November 13, 2017 22:38 - CONCLUSION: 1. No acute findings. Colonic diverticula without diverticulitis. Stable renal cysts compared with June 2016. Small hiatal hernia. Lisandro Jacobo MD Chest X-Ray 11/12/172208 Signed Impressions: Service Date/Time: Sunday, November 12, 2017 22:24 - CONCLUSION: 1. No acute disease. Postop CABG. Lisandro Jacobo MD Physical Exam HEENT: PERRL; normocephalic; atraumatic; no jaundice. CHEST: CTA CARDIAC: irr HR ABDOMEN: Soft, nondistended, nontender; no hepatosplenomegaly; bowel sounds are present in all four quadrants. EXTREMITIES: No clubbing, cyanosis, or edema. SKIN: Normal; no rash; no jaundice. BENEFITS TECHNICIAN: No focal deficits; alert and oriented times three. (Melinda Banuelos [facility]) Assessment and Plan Plan ASSESSMENT - anemia, melena - GIB, source small bowel? had recent capsule endoscopy with poor visualization. EGD and colonoscopy 08/2017 found hemorrhoids, sigmoid diverticulosis, erythematous gastritis, duodenitis , no bleeding was found. Has had melena since August and hgb 6.8 on admission this is drop from August received 2/ PRBC, HH pending 11/14/17 HH is trending down gradually. continued melena. no other GI complaints, stable. 11/16/17 s/p enteroscopy foudn esophagitis, erythematous gastritis. s/p angiogram, no source bleeding found. hgb dropped from 11 to 9.9 continued black tarry stool. 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 HGB down to 9.9 today but has fluctuated bet 9.8 and 11 for last few days, no blood transfusion since 11/14. PLAN - WHIT - monitor HH - BID PO protonix - notify GI of active bleeding - f/u with GI in 1 week - check CBC before GI f/u - will need capsule endoscopy - ok to d/c from GI standpoint pt seen by myself and Dr Marley and this note is written on his behalf (Melinda Banuelos) Physician Comments Seen and eamined with POPPY, no bleeding, some drop in H/H . Can go home if no further bleeding with Gi fu i 1 week. May need referral for double balloon enteroscopy. (Gonzalo Marley MD) Melinda Banuelos Nov 18, 2017 11:54 Gonzalo Marley MD Nov 18, 2017 15:42
[2017-11-18] MEDS ORDERED: PANT40TA3 PO (12:02)
--- NOTE | 2017-11-18 12:11 | HHI.DCPOC ---
Discharge Care Plan Diagnosis: (1) GI bleed (2) Anemia Goals to Promote Your Health * To prevent worsening of your condition and complications * To maintain your health at the optimal level Directions to Meet Your Goals Take your medications as prescribed Follow your dietary instruction Follow activity as directed Keep your appointments as scheduled Take your immunizations and boosters as scheduled If your symptoms worsen call your PCP, if no PCP go to Urgent Care Center or Emergency Room Smoking is Dangerous to Your Health. Avoid second hand smoke Call the 24-hour hour crisis hotline for domestic abuse at Zoila Veras MD, R1 Nov 18, 2017 12:11
--- NOTE | 2017-11-18 12:20 | HHI.DS ---
Discharge Summary Admission Date Nov 13, 2017 at 00:15 Discharge Date: Nov 18, 2017 Admitting Diagnosis anemia, gi bleed, chest pain (1) GI bleed Diagnosis: Principal Plan: Patient with history of black stools since August. 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 Pt OK to be discharge if H /H is stable per GI. 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 Risk and benefits discussed of stopping Coumadin discussed with patient this am. Will also discuss with pt's daughter. Imaging: -Celiac/hepatic arteriogram: Mesenteric angiography without a source of hemorrhage in this patient with an upper GI bleed. -Bleeding scan: Positive GI bleed scan with intraluminal blood initially observed at 30 minutes and seen scattered throughout the abdomen at 110 minutes. .Location cannot be identified but most probably arises somewhere within the small bowel. -Based on panendoscopy with enteroscopy procedure: Blood in the duodenum with no Source Identified; Gastritis. ICD Codes: K92.2 - Gastrointestinal hemorrhage, unspecified Status: Acute (2) Chest pain Diagnosis: Principal Plan: Patient with 2-3 day hx of nonradiating burning midsternal chest pain that is worse with movement. Chest pain resolved. Patient asymptomatic. -Troponins trending up from 0.02 to 0.09. No additional chest pain, likely from elevated creatinine/GI bleed -Vital signs within normal limits. -Continue tele -Bigeminy noted on telemetry -Recurrent PVCs -Monitor symptoms, consider consult if needed - EKG: Sinus rhythm, with frequent ventricular premature complexes possible left atrial enlargement and nonspecific T-wave abnormalities normal rhythm ECG since previous tracing, no significant change noted. ICD Codes: R07.9 - Chest pain Status: Resolved (3) Hypertension Diagnosis: Secondary Plan: Continue with current medication regimen. BP WNL Monitor vitals ICD Codes: I10 - Hypertension Status: Chronic (4) DM (diabetes mellitus) Diagnosis: Secondary Plan: -Hold by po medications held -Low-dose SSI -Accu-Cheks ICD Codes: E11.9 - Type 2 diabetes mellitus without complications Status: Acute (5) Chronic kidney disease Diagnosis: Secondary Plan: Patient with history of chronic kidney disease Baseline ranging from 1.7-2.2 -Cr- 1.95 today ICD Codes: N18.9 - Chronic kidney disease, unspecified Status: Chronic Consultants GI- Dr. Marley Brief History This is an 87-year-old male with a PMH of HTN, Hyperlipidemia, CAD, CHF (Echo w/ EF 55-60%), DM, GERD and h/o PE/DVT on Coumadin who presented to the ED w/ c/o nonradiating--burning mid sternal chest pain. Patient is a poor historian. Patient stated chest pain started a couple days ago but has progressively worsened. He rates chest pain as greater than 10/10, made worse with movement. Currently chest pain has improved. Patient stated he has not taken anything to alleviate the pain. Patient unable to describe whether chest pain is similar to acid reflux. In addition patient reports that since August 2017 he has had black stools. Patient reports that he had pill-endoscopy procedure done and he turned in the pill 2 weeks ago however he still is pending for results (does not remember the GI specialist that was following him for this procedure). He mentioned that he had a call from a nurse who he believes works for the GI specialist and was told to make an appointment. However, he was not able to make a follow-up appointment. Denies nausea, vomiting, vomiting blood, weight loss, cough, abdominal pain, shortness of breath. Endorses dizziness, fatigue, good appetite. CBC/BMP: 11/18/17 0901 11/18/17 0736 Significant Findings Laboratory Tests Test 11/15/17 15:40 11/16/17 07:24 11/17/17 07:30 11/17/17 18:06 Red Blood Count 3.78 MIL/MM3 (4.50-5.90) 3.33 MIL/MM3 (4.50-5.90) Hemoglobin 11.2 GM/DL (13.0-17.0) 9.9 GM/DL (13.0-17.0) 9.8 GM/DL (13.0-17.0) 11.5 GM/DL (13.0-17.0) Hematocrit 32.6 % (39.0-51.0) 29.3 % (39.0-51.0) 28.6 % (39.0-51.0) 34.5 % (39.0-51.0) Platelet Count 146 TH/MM3 (150-450) 130 TH/MM3 (150-450) Monocytes (%) (Auto) 9.3 % (0.0-8.0) 10.5 % (0.0-8.0) Activated Partial Thromboplast Time 23.6 SEC (24.3-30.1) 23.3 SEC (24.3-30.1) Prothrombin Time 11.8 SEC (9.8-11.6) Blood Urea Nitrogen 26 MG/DL (7-18) 26 MG/DL (7-18) Creatinine 1.88 MG/DL (0.60-1.30) 1.76 MG/DL (0.60-1.30) Total Protein 5.6 GM/DL (6.4-8.2) Albumin 2.7 GM/DL (3.4-5.0) Calcium Level 7.8 MG/DL (8.5-10.1) 8.1 MG/DL (8.5-10.1) Aspartate Amino Transf (AST/SGOT) 13 U/L (15-37) Alanine Aminotransferase (ALT/SGPT) 11 U/L (12-78) Total Bilirubin 1.1 MG/DL (0.2-1.0) Chloride Level 110 MEQ/L (98-107) 109 MEQ/L (98-107) Estimat Glomerular Filtration Rate 42 ML/MIN (>89) 45 ML/MIN (>89) Eosinophils (%) (Auto) 5.6 % (0.0-4.0) Test 11/18/17 07:36 11/18/17 09:01 Blood Urea Nitrogen 23 MG/DL (7-18) Creatinine 1.95 MG/DL (0.60-1.30) Total Protein 6.2 GM/DL (6.4-8.2) Albumin 2.9 GM/DL (3.4-5.0) Calcium Level 8.1 MG/DL (8.5-10.1) Alanine Aminotransferase (ALT/SGPT) 11 U/L (12-78) Chloride Level 109 MEQ/L (98-107) Estimat Glomerular Filtration Rate 40 ML/MIN (>89) Red Blood Count 3.47 MIL/MM3 (4.50-5.90) Hemoglobin 9.9 GM/DL (13.0-17.0) Hematocrit 30.0 % (39.0-51.0) Platelet Count 139 TH/MM3 (150-450) Monocytes (%) (Auto) 8.4 % (0.0-8.0) Eosinophils (%) (Auto) 5.7 % (0.0-4.0) Imaging Last Impressions Celiac/Hepatic Arteriogram 11/15/17 0000 Signed Impressions: Service Date/Time: Wednesday, November 15, 2017 13:48 - CONCLUSION: Mesenteric angiography without a source of hemorrhage in this patient with an upper GI bleed. Quinton Moran Jr., MD GI Bleed Scan Nuclear Medicine 11/14/17 0629 Signed Impressions: Service Date/Time: Tuesday, November 14, 2017 10:01 - CONCLUSION: Positive GI bleeding scan with intraluminal blood initially observed at 30 minutes and seen scattered throughout the abdomen out to 110 minutes. While the location of the cannot be identified, it most probably arises somewhere within the small bowel. Quinton Sandhu MD Abdomen/Pelvis CT 11/13/17 0000 Signed Impressions: Service Date/Time: Monday, November 13, 2017 22:38 - CONCLUSION: 1. No acute findings. Colonic diverticula without diverticulitis. Stable renal cysts compared with June 2016. Small hiatal hernia. Lisandro Jacobo MD Chest X-Ray 11/12/17 1348 Signed Impressions: Service Date/Time: Sunday, November 12, 2017 22:24 - CONCLUSION: 1. No acute disease. Postop CABG. Lisandro Jacobo MD PE at Discharge GENERAL: Well-nourished, well-developed male patient in no acute distress. SKIN: Warm and dry. No rashes or lesions present. CARDIOVASCULAR: Regular rate, irregular rhythm. RESPIRATORY: CTA BL. No accessory muscle use. No wheezes, rhonchi or rales. GASTROINTESTINAL: Abdomen soft, non-tender, nondistended. No masses or hernias. No hepatosplenomegaly. Bowel sounds present. MUSCULOSKELETAL: No cyanosis or edema. No nail changes. NEURO: Good muscle tone. PSYCH: Normal mood and affect. Good eye contact. Good insight and judgment. Normal speech. Pt Condition on Discharge: Stable Discharge Disposition: Discharge Home Discharge Instructions DIET: Follow Instructions for: Heart Healthy Diet Activities you can perform: Regular-No Restrictions Follow up Referrals: Gastroenterology - 1 Week with Gonzalo Marley MD PCP Follow-up - 3-5 Days New Orders: CBC NO DIFF - 3-5 Days New Medications: Pantoprazole (Pantoprazole) 40 Mg Tab 40 MG PO Q12HR, #60 TAB 0 Refills Continued Medications: Albuterol Powder Inh (Proair Respiclick Inh) 90 Mcg/Act Aerp 2 PUFF INH Q4-6H PRN for SHORTNESS OF BREATH, #1 INHALER 0 Refills Amlodipine-Olmesartan (Amlodipine-Olmesartan) 5-40 Mg Tab 1 TAB PO DAILY for Blood Pressure Management, #30 TAB 0 Refills Calcitriol (Calcitriol) 0.25 Mcg Cap 0.25 MCG PO MOWEFR for Calcium Supplement, #30 CAP 0 Refills Take 1 capsule (0.25mcg) three times weekly on Wednesday,Wednesday and Wednesday Febuxostat (Uloric) 40 Mg Tab 40 MG PO DAILY Linagliptin (Tradjenta) 5 Mg Tab 5 MG PO DAILY for Blood Sugar Management, #30 TAB 0 Refills Pantoprazole (Pantoprazole) 40 Mg Tab 40 MG PO DAILY for gastritis, #31 TAB Repaglinide (Repaglinide) 0.5 Mg Tab 0.5 MG PO BIDAC for Blood Sugar Management, #60 TAB 0 Refills Tamsulosin (Tamsulosin) 0.4 Mg Cap 0.4 MG PO HS for Manage Prostate Problems, #30 CAP 0 Refills Wheat Dextrin (Benefiber) 3 Gram/3.8 Gram Powder 3 GM PO DAILY for diverticulosis prevention for 30 Days, #1 CONTAINER Discontinued Medications: Warfarin (Coumadin) 5 Mg Tab 5 MG PO DAILY@1600 for Blood Clot Prevention, #30 TAB Check INR Wednesday, Wednesday , Wednesday 2 weeks target INR between 2 and 3 Follow instructions from primary physician Zoila Veras MD, R1 Nov 18, 2017 12:20
[2017-11-18] MEDS ORDERED: PANTOPRAZOLE SOD 40 MG DELAYED RELEASE TAB PO SCH (21:00)
== END 2017-11-18 14:25 | disposition home or self-care (01) | DRG 378 ==
LOC: NEPC 22:02 → NEDA 11-13 00:15 → N05A 11-13 01:28
PROVIDERS: ADMIT Family Medicine; ATTEND Family Medicine
PROC: 30233N1 Transfusion of Nonautologous Red Blood Cells into Peripheral Vein, Percutaneous Approach (ICD-10-PCS; principal; 2017-11-13)
PROC: 0DJ08ZZ Inspection of Upper Intestinal Tract, Via Natural or Artificial Opening Endoscopic (ICD-10-PCS; 2017-11-15)
PROC: B414YZZ Fluoroscopy of Superior Mesenteric Artery using Other Contrast (ICD-10-PCS; 2017-11-15)
PROC: B4141ZZ Fluoroscopy of Superior Mesenteric Artery using Low Osmolar Contrast (ICD-10-PCS; 2017-11-15)
PROC: 0D598ZZ Destruction of Duodenum, Via Natural or Artificial Opening Endoscopic (ICD-10-PCS; 2017-11-17)
DX: K55.21 Angiodysplasia of colon with hemorrhage (principal); D62 Acute posthemorrhagic anemia; N17.9 Acute kidney failure, unspecified; E11.22 Type 2 diabetes mellitus with diabetic chronic kidney disease; I13.0 Hypertensive heart and chronic kidney disease with heart failure and stage 1 through stage 4 chronic kidney disease, or unspecified chronic kidney disease; I50.9 Heart failure, unspecified; I25.10 Atherosclerotic heart disease of native coronary artery without angina pectoris; N18.9 Chronic kidney disease, unspecified; E78.5 Hyperlipidemia, unspecified; R42 Dizziness and giddiness; K57.30 Diverticulosis of large intestine without perforation or abscess without bleeding; K64.9 Unspecified hemorrhoids; K29.70 Gastritis, unspecified, without bleeding; K21.0 Gastro-esophageal reflux disease with esophagitis; I49.3 Ventricular premature depolarization; K29.80 Duodenitis without bleeding; I25.2 Old myocardial infarction; H04.123 Dry eye syndrome of bilateral lacrimal glands; Z79.01 Long term (current) use of anticoagulants; Z79.84 Long term (current) use of oral hypoglycemic drugs; Z86.711 Personal history of pulmonary embolism; Z86.718 Personal history of other venous thrombosis and embolism; Z86.73 Personal history of transient ischemic attack (TIA), and cerebral infarction without residual deficits; Z95.1 Presence of aortocoronary bypass graft; Z95.5 Presence of coronary angioplasty implant and graft
CPT/HCPCS: 36245; 36430; 71045; 74176; 75726; 75774; 76937; 78278; 80048; 80053; 82550; 82552; 82728; 82948; 83540; 83550; 83735; 83880; 84484; 85014; 85018; 85025; 85044; 85610; 85730; 86850; 86900; 86901; 86920; 93005; 99152; 99153; A9560; C1769; C1887; C9113; J1815; J1940; J2250; J3010; J7030; J7050; J7120; P9016; Q9963; Q9967

== ENCOUNTER 2017-12-29 16:32 | Emergency (ER) | payer MEDICARE, MEDICAID ==
[~2017-12-29] VITALS: Ht 175.3 cm; Wt 95.0 kg
[~2017-12-29 16:32] MED LIST changes: -COUM5TAB PO; -ENOX100P SQ
[2017-12-29 16:58] VITALS: BP 132/65; PULSE 71; RESP 17; TEMP 97.3; O2SAT 100
[2017-12-29] MEDS ORDERED: ASPI-516 CHEW (19:08)
[2017-12-29] MEDS ORDERED: ATOR40TA16 PO (19:08)
== END 2017-12-29 17:06 | disposition left against medical advice (07) ==
LOC: NED 16:32
DX: R07.9 Chest pain, unspecified (principal)
CPT/HCPCS: 99281

== ENCOUNTER 2017-12-29 18:15 | Inpatient (IN) | payer MEDICARE, MEDICAID ==
[~2017-12-29] VITALS: Ht 175.3 cm; Wt 88.2 kg
[2017-12-29] VITALS (15 sets, daily range): BP systolic 119–149; BP diastolic 58–73; PULSE 65–76; RESP 14–20; TEMP 97.5–97.8; O2SAT 100
--- NOTE | 2017-12-29 18:44 | PD ---
HPI Chief Complaint: Chest Pain Time Seen by Provider: 18:33 Travel History International Travel<30 days: No Contact w/Intl Traveler<30days: No Traveled to known affect area: No History of Present Illness HPI This is an 87-year-old male with extensive past medical history who is a very poor historian. He has a history of hypertension, hyperlipidemia, coronary artery disease, CHF, diabetes, GERD, history of PE and DVT. He has been experiencing chest pain for the past 2 days. He points at the middle of his chest as the location of his pain. He says that it radiates into the arms. He reports associated lightheadedness. He denies abdominal pain, nausea or vomiting, shortness of breath, cough, congestion. He has had dark colored stools over the past few days. Of note, the patient was admitted on November 13 for evaluation of chest pain as well as GI bleed. 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 This was cauterized. Coumadin was discontinued at that time given the risk of repeat bleeding. He does take an aspirin on a daily basis. PFSH Past Medical History Hx Anticoagulant Therapy: Yes Arthritis: Yes Asthma: No Blood Disorders: No Anxiety: No Depression: No Heart Rhythm Problems: No Cancer: No Cardiac Catheterization: Yes Cardiovascular Problems: Yes High Cholesterol: Yes Chemotherapy: No Chest Pain: No Congestive Heart Failure: Yes COPD: No Cerebrovascular Accident: Yes Coronary Artery Disease: Yes Diabetes: Yes Patient Takes Glucophage: Yes Diminished Hearing: No Endocrine: Yes Gastrointestinal Disorders: Yes (GERD, ADMITTED WITH SUSPECTED GI BLEED 08/29/17 ) GERD: Yes Genitourinary: Yes (UNKNOWN LEFT KIDNEY PROBLEM) Headaches: Yes Hypertension: Yes Immune Disorder: No Implanted Vascular Access Dvce: Yes (EYE) Musculoskeletal: Yes Neurologic: Yes Psychiatric: No Reproductive: No Respiratory: Yes (asthma) Immunizations Current: Yes Migraines: No Radiation Therapy: No Seizures: No Sleep Apnea: No Thyroid Disease: No Past Surgical History Abdominal Surgery: No AICD: No Arteriovenous Shunt: No Body Medical Devices: coronary artery stents Cardiac Surgery: Yes (CABG- 2005; CARDIAC CATH. WITH STENT- 2004) Coronary Artery Bypass Graft: Yes (3 VESSEL ) Coronary Stent: Yes Ear Surgery: No Endocrine Surgery: No Eye Surgery: Yes (LEFT CATARACT EXTRACTION WITH IOL) Genitourinary Surgery: No Gynecologic Surgery: No Joint Replacement: No Neurologic Surgery: No Oral Surgery: No Pacemaker: No Thoracic Surgery: No Other Surgery: Yes (COLONOSCOPY) Social History Alcohol Use: No Tobacco Use: No Substance Use: No Allergies-Medications (Allergen,Severity, Reaction): Coded Allergies: No Known Allergies (Verified Allergy, Unknown, 12/29/17) Reported Meds & Prescriptions Reported Meds & Active Scripts Active Pantoprazole (Pantoprazole Sodium) 40 Mg Tab 40 Mg PO Q12HR Proair Respiclick Inh (Albuterol Sulfate) 90 Mcg/Act Aerp 2 Puff INH Q4-6H PRN Pantoprazole (Pantoprazole Sodium) 40 Mg Tab 40 Mg PO DAILY Reported Atorvastatin (Atorvastatin Calcium) 40 Mg Tab 40 Mg PO HS Aspirin 81 Mg Chew 81 Mg CHEW DAILY Calcitriol 0.25 Mcg Cap 0.25 Mcg PO MOWEFR Take 1 capsule (0.25mcg) three times weekly on Wednesday,Wednesday and Wednesday Tradjenta (Linagliptin) 5 Mg Tab 5 Mg PO DAILY Uloric (Febuxostat) 40 Mg Tab 40 Mg PO DAILY Tamsulosin (Tamsulosin HCl) 0.4 Mg Cap 0.4 Mg PO HS Amlodipine-Olmesartan 5-40 Mg Tab 1 Tab PO DAILY Repaglinide 0.5 Mg Tab 0.5 Mg PO BIDAC Review of Systems Except as stated in HPI: all other systems reviewed are Neg Physical Exam Narrative GENERAL: Well-developed well-nourished elderly male in no acute distress SKIN: Warm and dry. HEAD: Atraumatic. Normocephalic. EYES: Pupils equal and round. No scleral icterus. No injection or drainage. ENT: No nasal bleeding or discharge. Mucous membranes pink and moist. NECK: Trachea midline. No JVD. CARDIOVASCULAR: Regular rate and rhythm. No murmur appreciated. RESPIRATORY: No accessory muscle use. Clear to auscultation. Breath sounds equal bilaterally. GASTROINTESTINAL: Abdomen soft, non-tender, nondistended. Hepatic and splenic margins not palpable. Rectal examination reveals black stool, heme positive. MUSCULOSKELETAL: No obvious deformities. No clubbing. No cyanosis. No edema. NEUROLOGICAL: Awake and alert. No obvious cranial nerve deficits. Motor grossly within normal limits. Normal speech. Data Data Last Documented VS Vital Signs Date Time Temp Pulse Resp B/P (MAP) Pulse Ox O2 Delivery O2 Flow Rate FiO2 12/29/17 20:01 74 16 119/59 (79) 100 Nasal Cannula 2.00 12/29/17 18:26 97.6 Orders Orders Electrocardiogram (12/29/17 18:41) Ckmb (Isoenzyme) Profile (12/29/17 18:41) Complete Blood Count With Diff (12/29/17 18:41) Comprehensive Metabolic Panel (12/29/17 18:41) Magnesium (Mg) (12/29/17 18:41) Prothrombin Time / Inr (Pt) (12/29/17 18:41) Act Partial Throm Time (Ptt) (12/29/17 18:41) Troponin I (12/29/17 18:41) Ecg Monitoring (12/29/17 18:41) Bilateral Bp Monitoring (12/29/17 18:41) Iv Access Insert/Monitor (12/29/17 18:41) Oximetry (12/29/17 18:41) Oxygen Administration (12/29/17 18:41) Sodium Chloride 0.9% Flush (Ns Flush) (12/29/17 18:45) Nitroglycerin Sl (Nitrostat Sl) (12/29/17 18:45) Chest, Pa & Lat (12/29/17 18:41) Pantoprazole Inj (Protonix Inj) (12/29/17 18:45) Type And Screen (12/29/17 18:41) Sodium Chloride 0.9... W/Pantoprazole In (12/29/17 18:47) Sodium Chloride 0.9... W/Pantoprazole In (12/29/17 18:47) Red Blood Cells (Rbc) (12/29/17 20:14) Blood Product Administration (12/29/17 20:14) Sodium Chlor 0.9% 250 Ml Inj (Ns 250 Ml (12/29/17 20:15) CKMB (12/29/17 18:50) CKMB% (12/29/17 18:50) Labs Laboratory Tests Test 12/29/17 18:50 White Blood Count 7.0 TH/MM3 Red Blood Count 2.22 MIL/MM3 Hemoglobin 5.7 GM/DL Hematocrit 17.9 % Mean Corpuscular Volume 80.8 FL Mean Corpuscular Hemoglobin 25.6 PG Mean Corpuscular Hemoglobin Concent 31.7 % Red Cell Distribution Width 16.5 % Platelet Count 206 TH/MM3 Mean Platelet Volume 10.3 FL Neutrophils (%) (Auto) 55.5 % Lymphocytes (%) (Auto) 31.1 % Monocytes (%) (Auto) 11.1 % Eosinophils (%) (Auto) 1.8 % Basophils (%) (Auto) 0.5 % Neutrophils # (Auto) 3.9 TH/MM3 Lymphocytes # (Auto) 2.2 TH/MM3 Monocytes # (Auto) 0.8 TH/MM3 Eosinophils # (Auto) 0.1 TH/MM3 Basophils # (Auto) 0.0 TH/MM3 CBC Comment DIFF FINAL Differential Comment Blood Urea Nitrogen 31 MG/DL Creatinine 2.94 MG/DL Random Glucose 85 MG/DL Total Protein 7.1 GM/DL Albumin 3.4 GM/DL Calcium Level 8.2 MG/DL Magnesium Level 2.9 MG/DL Alkaline Phosphatase 55 U/L Aspartate Amino Transf (AST/SGOT) 40 U/L Alanine Aminotransferase (ALT/SGPT) 20 U/L Total Bilirubin 0.4 MG/DL Sodium Level 140 MEQ/L Potassium Level 4.9 MEQ/L Chloride Level 110 MEQ/L Carbon Dioxide Level 23.0 MEQ/L Anion Gap 7 MEQ/L Estimat Glomerular Filtration Rate 25 ML/MIN Total Creatine Kinase 213 U/L Creatine Kinase MB 7.3 NG/ML Troponin I 1.67 NG/ML MDM Medical Decision Making Medical Screen Exam Complete: Yes Emergency Medical Condition: Yes Medical Record Reviewed: Yes Differential Diagnosis Upper GI bleed, gastritis, coronary artery disease, pulmonary embolism, pericarditis, myocarditis, PE Narrative Course 87-year-old male with chest pain that radiates into the arms for 2 days. He has melena on examination. 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 The patient will be placed on ECG monitoring pulse oximetry. A 12-lead EKG was obtained revealing sinus rhythm with no acute ST elevation or T-wave changes. Lab work, chest x-ray have been ordered. Type and screen has been ordered. He was placed on Protonix drip. CBC reveals a hemoglobin of 5.7, hematocrit 17.9. 3 units packed red blood cells have been ordered. he also has a troponin of 1.67. BUN is 31, creatinine 2.94, GFR 25. Unable to provide anticoagulation secondary to the GI bleed with critical anemia. 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 [facility] Point of Care Internal Pos. & Neg. Controls: Passed Fecal Specimen Occult Blood: Positive Diagnosis Primary Impression: Upper GI bleed Additional Impressions: Chest pain NSTEMI (non-ST elevated myocardial infarction) Admitting Information Admitting Physician Requests: Admit Jc Weinstein Dec 29, 2017 18:44
[2017-12-29] MEDS ORDERED: PANTOPRAZOLE SODIUM 40 MG VIAL IVP ONE (18:45)
[2017-12-29] MEDS ORDERED: SODIUM CHLORIDE 0.9% FLUSH 10 ML FLUSH IVF PRN (18:45)
[2017-12-29] MEDS ORDERED: PANTOPRAZOLE INJ 80 MG in SODIUM CHLORIDE 0.9% INJ 35 ML IV ONE (18:47)
[2017-12-29] MEDS: NITROGLYCERIN 0.4 MG SL 25 TABS/BTL SL SCH ×2 (18:59→20:03)
[2017-12-29] MEDS ORDERED: ATOR40TA16 PO (19:08)
[2017-12-29] MEDS ORDERED: ASPI-516 CHEW (19:08)
--- NOTE | 2017-12-29 19:54 | RADRPT ---
EXAM DATE/TIME: 12/29/2017 19:33 [facility] COMPARISON: No previous studies available for comparison. INDICATIONS : Chest pain. MEDICAL HISTORY : Hypertension. SURGICAL HISTORY : CABG. ENCOUNTER: Initial ACUITY: 3 days PAIN SCORE: 9/10 LOCATION: middle chest. FINDINGS: #1 previous bypass are noted. PA and lateral views of the chest demonstrate the lungs to be symmetri nevaeh aerated without evidence of mass, infiltrate or effusion. The cardiomediastinal contours are u nremarkable. Mild degenerative changes thoracic spine. CONCLUSION: Previous bypass. No infiltrate or failure. Jamel Triplett MD FACR on December 29, 2017 at 19:52 Board Certified Radiologist. This report was verified electronically.
[2017-12-29] MEDS: PANTOPRAZOLE INJ 80 MG in SODIUM CHLORIDE 0.9% INJ 100 ML IV SCH (20:05)
[2017-12-29 20:08] LABS: AUTOMATED NEUTROPHIL # 3.9 TH/MM3 (1.8-7.7); BASOPHIL % 0.5 % (0.0-2.0); EOSINOPHIL # 0.1 TH/MM3 (0-0.4); EOSINOPHIL % 1.8 % (0.0-4.0); LYMPH % 31.1 % (9.0-44.0); LYMPHOCYTE # 2.2 TH/MM3 (1.0-4.8); MEAN CELL VOLUME 80.8 FL (80.0-100.0); MEAN CORPUSCULAR HEMOGLOBIN 25.6 PG (27.0-34.0); MEAN CORPUSCULAR HGB CONC 31.7 % (32.0-36.0); MEAN PLATELET VOLUME 10.3 FL (7.0-11.0); MONO % 11.1 % (0.0-8.0); MONOCYTE # 0.8 TH/MM3 (0-0.9); NEUT % 55.5 % (16.0-70.0); PLATELET COUNT 206 TH/MM3 (150-450); RED BLOOD COUNT 2.22 MIL/MM3 (4.50-5.90); RED CELL DISTRIBUTION WIDTH 16.5 % (11.6-17.2)
[2017-12-29 20:14] LABS: HEMOGLOBIN 5.7 GM/DL (13.0-17.0)
[2017-12-29 20:15] LABS: HEMATOCRIT 17.9 % (39.0-51.0)
[2017-12-29] MEDS ORDERED: SODIUM CHLOR 0.9% 250 ML INJ 250 ML IV ONE (20:15)
[2017-12-29 20:18] LABS: ALBUMIN 3.4 GM/DL (3.4-5.0); ALKALINE PHOSPHATASE 55 U/L (45-117); ALT (GPT) 20 U/L (12-78); AST (GOT) 40 U/L (15-37); BLOOD UREA NITROGEN 31 MG/DL (7-18); CALCIUM 8.2 MG/DL (8.5-10.1); CHLORIDE 110 MEQ/L (98-107); CREATININE 2.94 MG/DL (0.60-1.30); GLOMERULAR FILTRATION RATE 25 ML/MIN (>89); GLUCOSE,RANDOM 85 MG/DL (74-106); MAGNESIUM 2.9 MG/DL (1.5-2.5); SODIUM (NA) 140 MEQ/L (136-145); TOTAL BILIRUBIN ADULT 0.4 MG/DL (0.2-1.0); TOTAL PROTEIN 7.1 GM/DL (6.4-8.2)
[2017-12-29 20:20] LABS: TROPONIN I 1.67 NG/ML (0.02-0.05)
[2017-12-29] MEDS ORDERED: SENNOSIDES 8.6 MG TAB PO PRN (23:15)
[2017-12-29] MEDS ORDERED: BISACODYL 10 MG SUPP RECTAL PRN (23:15)
[2017-12-29] MEDS ORDERED: ACETAMINOPHEN 325 MG TAB PO PRN (23:15)
[2017-12-29] MEDS ORDERED: ONDANSETRON HCL 4 MG/2 ML VIAL IV PUSH PRN (23:15)
[2017-12-29] MEDS ORDERED: MAGNESIUM HYDROXIDE SUSP 30 ML CUP PO PRN (23:15)
[2017-12-29] MEDS ORDERED: CHLORHEXIDINE GLUCONATE 2 % 1 PACK (2 CLOTHS) TOP PRN (23:15)
[2017-12-29] MEDS ORDERED: SODIUM CHLORIDE 0.9% FLUSH 10 ML FLUSH IV FLUSH PRN (23:15)
[2017-12-29] MEDS ORDERED: LACTULOSE SYRUP 20 GM/30 ML CUP PO PRN (23:15)
[2017-12-29] MEDS ORDERED: MISCELLANEOUS NURSING INFORMATION XX SCH (23:15)
[2017-12-29] MEDS ORDERED: RESP: ALBUTEROL 2.5 MG/IPRATROPIUM 0.5 MG NEB (PRN) INH (23:15)
--- NOTE | 2017-12-29 23:27 | HHI.HP ---
HPI Service Critical Care Medicine Primary Care Physician Pravin Mcmanus III, MD Admission Diagnosis Anemia, upper GI bleed, NSTEMI Diagnosis: Travel History International Travel<30 Days: No Contact w/Intl Traveler <30 Da: No Traveled to Known Affected Are: No History of Present Illness History of Present Illness HPI This is an 87-year-old male with extensive past medical history who is a very poor historian. He has a history of hypertension, hyperlipidemia, coronary artery disease, CHF, diabetes, GERD, history of PE and DVT. He has been experiencing chest pain for the past 2 days. He points at the middle of his chest as the location of his pain. He says that it radiates into the arms. He reports associated lightheadedness. He denies abdominal pain, nausea or vomiting, shortness of breath, cough, congestion. He has had dark colored stools over the past few days. Of note, the patient was admitted on November 13 for evaluation of chest pain as well as GI bleed. 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 This was cauterized. Coumadin was discontinued at that time given the risk of repeat bleeding. He does take an aspirin on a daily basis. Patient was noted to have a hemoglobin of 5.7 and troponin 1.67. He was initiated on Protonix drip, 3 unit PRBCs were ordered by ER and was accepted for admission by critical care medicine service. When I evaluated the patient in the ER he was resting comfortably and not in any acute distress. At the time of my evaluation he denied any chest pain or shortness of breath currently. History was obtained by reviewing records and discussion with ER PA. Patient is not a very good historian. History PFSH Past Medical History Hx Anticoagulant Therapy: Yes Arthritis: Yes Asthma: No Blood Disorders: No Anxiety: No Depression: No Heart Rhythm Problems: No Cancer: No Cardiac Catheterization: Yes Cardiovascular Problems: Yes High Cholesterol: Yes Chemotherapy: No Chest Pain: No Congestive Heart Failure: Yes COPD: No Cerebrovascular Accident: Yes Coronary Artery Disease: Yes Diabetes: Yes Patient Takes Glucophage: Yes Diminished Hearing: No Endocrine: Yes Gastrointestinal Disorders: Yes (GERD, ADMITTED WITH SUSPECTED GI BLEED 08/29/17 ) GERD: Yes Genitourinary: Yes (UNKNOWN LEFT KIDNEY PROBLEM) Headaches: Yes Hypertension: Yes Immune Disorder: No Implanted Vascular Access Dvce: Yes (EYE) Musculoskeletal: Yes Neurologic: Yes Psychiatric: No Reproductive: No Respiratory: Yes (asthma) Immunizations Current: Yes Migraines: No Radiation Therapy: No Seizures: No Sleep Apnea: No Thyroid Disease: No Past Surgical History Abdominal Surgery: No AICD: No Arteriovenous Shunt: No Body Medical Devices: coronary artery stents Cardiac Surgery: Yes (CABG- 2005; CARDIAC CATH. WITH STENT- 2004) Coronary Artery Bypass Graft: Yes (3 VESSEL ) Coronary Stent: Yes Ear Surgery: No Endocrine Surgery: No Eye Surgery: Yes (LEFT CATARACT EXTRACTION WITH IOL) Genitourinary Surgery: No Gynecologic Surgery: No Joint Replacement: No Neurologic Surgery: No Oral Surgery: No Pacemaker: No Thoracic Surgery: No Other Surgery: Yes (COLONOSCOPY) Social History Alcohol Use: No Tobacco Use: No Substance Use: No Allergies-Medications Allergies-Medications (Allergen,Severity, Reaction): Coded Allergies: No Known Allergies (Verified Allergy, Unknown, 12/29/17) Reported Meds & Prescriptions Reported Meds & Active Scripts Active Pantoprazole (Pantoprazole Sodium) 40 Mg Tab 40 Mg PO Q12HR Proair Respiclick Inh (Albuterol Sulfate) 90 Mcg/Act Aerp 2 Puff INH Q4-6H PRN Pantoprazole (Pantoprazole Sodium) 40 Mg Tab 40 Mg PO DAILY Reported Atorvastatin (Atorvastatin Calcium) 40 Mg Tab 40 Mg PO HS Aspirin 81 Mg Chew 81 Mg CHEW DAILY Calcitriol 0.25 Mcg Cap 0.25 Mcg PO MOWEFR Take 1 capsule (0.25mcg) three times weekly on Wednesday,Wednesday and Wednesday Tradjenta (Linagliptin) 5 Mg Tab 5 Mg PO DAILY Uloric (Febuxostat) 40 Mg Tab 40 Mg PO DAILY Tamsulosin (Tamsulosin HCl) 0.4 Mg Cap 0.4 Mg PO HS Amlodipine-Olmesartan 5-40 Mg Tab 1 Tab PO DAILY Repaglinide 0.5 Mg Tab 0.5 Mg PO BIDAC ROS Review of Systems Except as stated in HPI: all other systems reviewed are Neg Past Family Social History Allergies: Coded Allergies: No Known Allergies (Verified Allergy, Unknown, 12/29/17) Physical Exam Vital Signs Vital Signs Date Time Temp Pulse Resp B/P (MAP) Pulse Ox O2 Delivery O2 Flow Rate FiO2 12/29/17 22:49 97.7 67 17 133/65 100 12/29/17 22:23 97.5 65 16 134/73 100 12/29/17 22:07 97.5 69 16 126/60 100 12/29/17 21:52 97.5 69 17 134/61 100 12/29/17 21:36 97.6 68 18 129/60 100 12/29/17 20:01 74 16 119/59 (79) 100 Nasal Cannula 2.00 12/29/17 20:00 71 14 119/59 (79) 100 Nasal Cannula 2.00 12/29/17 19:04 100 Nasal Cannula 2.00 12/29/17 19:00 100 Nasal Cannula 2.00 12/29/17 18:31 71 20 126/58 (80) 100 Nasal Cannula 2.00 12/29/17 18:26 97.6 76 15 126/58 (80) 100 Physical Exam Narrative GENERAL: Well-developed well-nourished elderly male in no acute distress SKIN: Warm and dry. Pallor present HEAD: Atraumatic. Normocephalic. EYES: Pupils equal and round. No scleral icterus. No injection or drainage. ENT: No nasal bleeding or discharge. Mucous membranes pink and moist. NECK: Trachea midline. No JVD. CARDIOVASCULAR: Regular rate and rhythm. No murmur appreciated. RESPIRATORY: No accessory muscle use. Clear to auscultation. Breath sounds equal bilaterally. GASTROINTESTINAL: Abdomen soft, non-tender, nondistended. Hepatic and splenic margins not palpable. Rectal examination reveals black stool, heme positive. MUSCULOSKELETAL: No obvious deformities. No clubbing. No cyanosis. No edema. NEUROLOGICAL: Awake and alert. No obvious cranial nerve deficits. Motor grossly within normal limits. Normal speech. Laboratory Laboratory Tests Test 12/29/17 18:50 White Blood Count 7.0 Red Blood Count 2.22 Hemoglobin 5.7 Hematocrit 17.9 Mean Corpuscular Volume 80.8 Mean Corpuscular Hemoglobin 25.6 Mean Corpuscular Hemoglobin Concent 31.7 Red Cell Distribution Width 16.5 Platelet Count 206 Mean Platelet Volume 10.3 Neutrophils (%) (Auto) 55.5 Lymphocytes (%) (Auto) 31.1 Monocytes (%) (Auto) 11.1 Eosinophils (%) (Auto) 1.8 Basophils (%) (Auto) 0.5 Neutrophils # (Auto) 3.9 Lymphocytes # (Auto) 2.2 Monocytes # (Auto) 0.8 Eosinophils # (Auto) 0.1 Basophils # (Auto) 0.0 CBC Comment DIFF FINAL Differential Comment Blood Urea Nitrogen 31 Creatinine 2.94 Random Glucose 85 Total Protein 7.1 Albumin 3.4 Calcium Level 8.2 Magnesium Level 2.9 Alkaline Phosphatase 55 Aspartate Amino Transf (AST/SGOT) 40 Alanine Aminotransferase (ALT/SGPT) 20 Total Bilirubin 0.4 Sodium Level 140 Potassium Level 4.9 Chloride Level 110 Carbon Dioxide Level 23.0 Anion Gap 7 Estimat Glomerular Filtration Rate 25 Total Creatine Kinase 213 Creatine Kinase MB 7.3 Troponin I 1.67 Result Diagram: 12/29/17184912/29/171849 Imaging Last Impressions Chest X-Ray 12/29/171840 Signed Impressions: Service Date/Time: Friday, December 29, 2017 19:33 - CONCLUSION: Previous bypass. No infiltrate or failure. Jamel Triplett MD FACR Capronaldi VTE Risk Assessment Caprini VTE Risk Assessment: Mod/High Risk (score >= 2) VTE Pharm Contraindication: High risk for bleeding Caprini Risk Assessment Model Point Value = 1 Point Value = 2 Point Value = 3 Point Value = 5 Age 41-60 Minor surgery BMI > 25 kg/m2 Swollen legs Varicose veins or History of unexplained or recurrent spontaneous Oral contraceptives or hormone replacement Sepsis (< 1 month) Serious lung disease, including pneumonia (< 1 month) Abnormal pulmonary function Acute myocardial infarction Congestive heart failure (< 1 month) History of inflammatory bowel disease Medical patient at bed rest Age 61-74 Arthroscopic surgery Major open surgery (> 45 min) Laparoscopic surgery (> 45 min) Malignancy Confined to bed (> 72 hours) Immobilizing plaster cast Central venous access Age >= 75 History of VTE Family history of VTE Factor V Leiden Prothrombin [id number] Lupus anticoagulant Anticardiolipin antibodies Elevated serum homocysteine Heparin-induced thrombocytopenia Other congenital or acquired thrombophilia Stroke (< 1 month) Elective arthroplasty Hip, pelvis, or leg fracture Acute spinal cord injury (< 1 month) Prophylaxis Regimen Total Risk Factor Score Risk Level Prophylaxis Regimen 0-1 Low Early ambulation 2 Moderate Order ONE of the following: *Sequential Compression Device (SCD) *Heparin 5000 units SQ BID 3-4 Higher Order ONE of the following medications: *Heparin 5000 units SQ TID *Enoxaparin/Lovenox 40 mg SQ daily (WT < 150 kg, CrCl > 30 mL/min) *Enoxaparin/Lovenox 30 mg SQ daily (WT < 150 kg, CrCl > 10-29 mL/min) *Enoxaparin/Lovenox 30 mg SQ BID (WT < 150 kg, CrCl > 30 mL/min) AND/OR *Sequential Compression Device (SCD) 5 or more Highest Order ONE of the following medications: *Heparin 5000 units SQ TID (Preferred with Epidurals) *Enoxaparin/Lovenox 40 mg SQ daily (WT < 150 kg, CrCl > 30 mL/min) *Enoxaparin/Lovenox 30 mg SQ daily (WT < 150 kg, CrCl > 10-29 mL/min) *Enoxaparin/Lovenox 30 mg SQ BID (WT < 150 kg, CrCl > 30 mL/min) AND *Sequential Compression Device (SCD) Assessment and Plan Assessment and Plan 87 year-old male with: Suspected upper GI bleed Severe anemia Chest pain non-STEMI Plan: Neuro: Follow neuro status. Pain medications as needed. Cardiovascular: IV hydration, watch for hypotension. Cycle cardiac enzymes. Elevated troponin noted however cannot start antiplatelet currently due to GI bleed. Cardiology consult requested for elevated troponin. Pulmonary: Continue supplemental O2 as needed. Bronchodilators when necessary. GI/liver: Nothing by mouth for now. GI consult requested for further evaluation of suspected upper GI bleed. Renal/: IV hydration, strict intake output, monitor and replete electrolytes, follow BUN/creatinine. ID: No antibiotics at this time. Heme: Follow CBC, serial H&H. Endocrine: Watch for hyperglycemia, SSI for glycemic control if needed. Prophylaxis: Protonix gtt., SCDs. Condition critical Time spent on critical care excluding procedures 50 minutes Ridge Guillen MD Dec 29, 2017 23:27
[2017-12-30] VITALS (14 sets, daily range): BP systolic 119–149; BP diastolic 62–71; PULSE 56–120; RESP 12–21; TEMP 98.1–98.6; O2SAT 99–100
[2017-12-30] MEDS: SODIUM CHLOR 0.9% 1000 ML INJ 1,000 ML IV SCH ×2 (00:49→17:38)
[2017-12-30] MEDS: CHLORHEXIDINE GLUCONATE 2 % 1 PACK (2 CLOTHS) TOP SCH (04:00)
[2017-12-30 04:22] LABS: AUTOMATED NEUTROPHIL # 3.8 TH/MM3 (1.8-7.7); BASOPHIL % 0.5 % (0.0-2.0); EOSINOPHIL # 0.2 TH/MM3 (0-0.4); HEMATOCRIT 28.8 % (39.0-51.0); HEMOGLOBIN 9.5 GM/DL (13.0-17.0); LYMPH % 22.4 % (9.0-44.0); LYMPHOCYTE # 1.3 TH/MM3 (1.0-4.8); MEAN CELL VOLUME 80.4 FL (80.0-100.0); MEAN CORPUSCULAR HEMOGLOBIN 26.6 PG (27.0-34.0); MEAN CORPUSCULAR HGB CONC 33.1 % (32.0-36.0); MEAN PLATELET VOLUME 9.7 FL (7.0-11.0); MONO % 9.1 % (0.0-8.0); MONOCYTE # 0.5 TH/MM3 (0-0.9); PLATELET COUNT 147 TH/MM3 (150-450); RED BLOOD COUNT 3.57 MIL/MM3 (4.50-5.90); RED CELL DISTRIBUTION WIDTH 16.3 % (11.6-17.2); WHITE BLOOD COUNT 5.8 TH/MM3 (4.0-11.0)
[2017-12-30 04:32] LABS: INTERNATIONAL NORMALIZED RATIO 1.1 RATIO; PROTHROMBIN TIME - PATIENT 11.5 SEC (9.8-11.6)
[2017-12-30 04:44] LABS: AST (GOT) 19 U/L (15-37); BICARBONATE 25.4 MEQ/L (21.0-32.0); BLOOD UREA NITROGEN 29 MG/DL (7-18); CALCIUM 7.6 MG/DL (8.5-10.1); CHLORIDE 110 MEQ/L (98-107); CREATININE 2.47 MG/DL (0.60-1.30); GLOMERULAR FILTRATION RATE 30 ML/MIN (>89); GLUCOSE,RANDOM 87 MG/DL (74-106); MAGNESIUM 2.7 MG/DL (1.5-2.5); SODIUM (NA) 141 MEQ/L (136-145)
[2017-12-30 04:48] LABS: ALKALINE PHOSPHATASE 52 U/L (45-117); ALT (GPT) 15 U/L (12-78); PHOSPHORUS 3.9 MG/DL (2.5-4.9); TOTAL BILIRUBIN ADULT 1.9 MG/DL (0.2-1.0); TOTAL PROTEIN 6.2 GM/DL (6.4-8.2)
[2017-12-30] MEDS: PANTOPRAZOLE INJ 80 MG in SODIUM CHLORIDE 0.9% INJ 100 ML IV SCH ×2 (05:37→17:39)
[2017-12-30] MEDS: DOCUSATE SODIUM 50 MG/SENNA 8.6 MG TAB PO SCH ×2 (09:00→21:00)
--- NOTE | 2017-12-30 09:34 | MB ---
cc: Anupam Ang MD DATE: 12/30/2017 HISTORY OF PRESENT ILLNESS: New is an 87-year-old gentleman with history of hypertension, hyperlipidemia, coronary artery disease, CHF, diabetes, GERD, history of pulmonary embolus and deep venous thrombosis. The patient is not a very good historian. Apparently, per the ER note, he had been having chest pain for 2 days. Today, he does not indicate that he is having any chest pain. He feels well and he appears comfortable. Apparently, he had a near-syncopal event. Also, dark colored stools were noted for several days prior to admission. Currently, he denies chest pain, fever, chills, cough, bleeding, PND or orthopnea. 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 He has a history of arthritis, CHF, CVA, coronary artery disease, diabetes, history of GI bleeding, hypertension, history of CABG in 2005, PCI in 2004, left cataract extraction, and colonoscopy. SOCIAL HISTORY: Denies tobacco or alcohol use. ALLERGIES: NONE. MEDICATIONS PRIOR TO ADMISSION: 1. Pantoprazole. 2. ProAir. 3. Atorvastatin 40 at bedtime. 4. Aspirin 81 mg a day. 5. Calcitriol. 6. Tradjenta. 7. Uloric, 8. Tamsulosin. 9. Amlodipine. 10. Olmesartan . 11. Repaglinide. PHYSICAL EXAMINATION: VITAL SIGNS: Pulse 61, blood pressure 119/71, respiratory rate 12, pulse 53, temperature 98.4. GENERAL: He is alert and oriented x 3, in no acute distress. NECK: Supple. No JVD or bruit. CARDIOVASCULAR: S1, S2. No murmurs, rubs or gallops. LUNGS: Clear to auscultation bilaterally. ABDOMEN: Soft, nontender, nondistended with positive bowel sounds. EXTREMITIES: No lower extremity edema. LABORATORY DATA: On 12/29/2017, white count 7.0, hemoglobin 5.7, hematocrit 17.9, platelet count is 206. Sodium 140, potassium 4.9, chloride 110, bicarbonate 23.0, BUN 31, creatinine 2.94. AST 40. Troponin is 1.67, followed by 2.13. CK is 213. INR is 1.1. IMAGING STUDIES: Chest x-ray: Previous bypass. No infiltrate or failure. EKG: Normal sinus rhythm at 72 beats per minute, otherwise normal. DIAGNOSES: 1. Stw-[id number] myocardial infarction. 2. Gastrointestinal bleed. 3. Anemia. 4. Acute renal failure. 5. Coronary artery disease. 6. Elevated liver function test. 7. Thrombocytopenia. DISCUSSION: At this point in time, I think that his elevated troponin is most likely from decreased supply from severe anemia, possibly in combination with some degree of obstructive coronary disease; however, I do not think obstructive coronary disease is the primary event. The patient is asymptomatic status post transfusion. We will try to keep his hemoglobin over 9. At this point in time, his anticoagulation will need to be determined by GI. Recommend continue telemetry monitoring. Monitor hemoglobin. Monitor creatinine. His statin is being held due to elevated liver enzymes and would also defer this to GI in terms of when risks and benefits of restarting the statin. Also beta blockers, SOY inhibitors, currently contraindicated due to gastrointestinal bleeding and acute renal failure, respectively. Anupam Ang MD AWSteve/ARELI , 09:11 AM , 09:32 AM
--- NOTE | 2017-12-30 12:06 | PD.CONS ---
HPI History of Present Illness This is a 87 year old M with PMH significant for HTN, hyperlipidemia, CAD, CHF, diabetes, GERD, history of PE and DVT. Pt presented to the ER yesterday with complaints of chest pain for the past two days that he states radiated into both of his arms and his back. Pain is constant, does not notice any factors making the pain worse or better. Also has been having worsening of his acid reflux for the past couple days, has been taking Tagamet OTC with mild relief. Also complaining of black stools for the past four to five days, states only a few episodes a day, most recent one was prior to hospital arrival. Denies nausea, vomiting, abdominal pain, hematochezia, weight loss. Pt has history of GIB. Has had GI work up in the recent past. Capsule endoscopy (10/20/17) --> Excessive gastric food residue suspicious for gastroparesis. Limited evaluation of small bowel due to poor prep. No bleeding or source of bleeding visualized. Small bowel enteroscopy (Oct 2017) -->An AV malformation was found in the second portion of the duodenum. Last colonoscopy from Aug 2017 consistent with diverticulosis and hemorrhoids. Previously on Coumadin, however due to previous GIB is currently on a daily ASA. Denies ETOH, NSAIDs, smoking. (Mary Ann Menjivar) PFSH Past Medical History HTN Hyperlipidemia, CAD CHF Diabetes GERD History of PE and DVT Past Surgical History EGD Enteroscopy Colonoscopy (Mary Ann Menjivar) Coded Allergies: No Known Allergies (Verified Allergy, Unknown, 12/29/17) Social History Denies ETOH Denies smoking Denies illicit drugs (Mary Ann Menjivar) Review of Systems Gastrointestinal: COMPLAINS OF: Black stools, Heartburn, DENIES: Abdominal pain , Bloody stools, Constipation, Diarrhea, Nausea, Vomiting, Difficulty Swallowing , Odynophagia, Swelling of Abdomen, Hematemesis (Mary Ann Menjivar) GI Exam Vitals I&O Vital Signs Date Time Temp Pulse Resp B/P (MAP) Pulse Ox O2 Delivery O2 Flow Rate FiO2 12/30/17 11:45 100 Nasal Cannula 1.00 12/30/17 06:00 61 12/30/17 04:00 63 12/30/17 04:00 98.4 63 12 119/71 (87) 100 12/30/17 02:00 77 12/30/17 01:13 75 20 127/66 100 12/30/17 00:14 98.1 120 20 119/71 (87) 99 12/30/17 00:00 12/29/17 23:50 97.5 73 18 149/69 100 12/29/17 23:35 97.5 69 14 136/62 100 12/29/17 23:20 97.5 67 16 125/65 100 12/29/17 23:04 97.8 68 17 139/63 100 12/29/17 22:49 97.7 67 17 133/65 100 12/29/17 22:23 97.5 65 16 134/73 100 12/29/17 22:07 97.5 69 16 126/60 100 12/29/17 21:52 97.5 69 17 134/61 100 12/29/17 21:36 97.6 68 18 129/60 100 12/29/17 20:01 74 16 119/59 (79) 100 Nasal Cannula 2.00 12/29/17 20:00 71 14 119/59 (79) 100 Nasal Cannula 2.00 12/29/17 19:04 100 Nasal Cannula 2.00 12/29/17 19:00 100 Nasal Cannula 2.00 12/29/17 19:00 100 Nasal Cannula 2.00 12/29/17 18:31 71 20 126/58 (80) 100 Nasal Cannula 2.00 12/29/17 18:26 97.6 76 15 126/58 (80) 100 I/O 12/29/17 12/29/17 12/29/17 12/30/17 12/30/17 12/30/17 07:00 15:00 23:00 07:00 15:00 23:00 Intake Total 1285 ml Output Total 300 ml Balance 985 ml Intake Oral 0 ml IV Total 385 ml Packed Cells 800 ml Blood Product IV Normal Saline Flush 100 ml Output Urine Total 300 ml # Bowel Movements 0 Imaging Last Impressions Chest X-Ray 12/29/17 1841 Signed Impressions: Service Date/Time: Friday, December 29, 2017 19:33 - CONCLUSION: Previous bypass. No infiltrate or failure. Jamel Triplett MD FACR Laboratory Test 12/29/17 18:50 12/30/17 00:15 12/30/17 02:04 12/30/17 03:32 White Blood Count 7.0 TH/MM3 5.8 TH/MM3 Red Blood Count 2.22 MIL/MM3 3.57 MIL/MM3 Hemoglobin 5.7 GM/DL 9.5 GM/DL Hematocrit 17.9 % 28.8 % Mean Corpuscular Volume 80.8 FL 80.4 FL Mean Corpuscular Hemoglobin 25.6 PG 26.6 PG Mean Corpuscular Hemoglobin Concent 31.7 % 33.1 % Red Cell Distribution Width 16.5 % 16.3 % Platelet Count 206 TH/MM3 147 TH/MM3 Mean Platelet Volume 10.3 FL 9.7 FL Neutrophils (%) (Auto) 55.5 % 65.0 % Lymphocytes (%) (Auto) 31.1 % 22.4 % Monocytes (%) (Auto) 11.1 % 9.1 % Eosinophils (%) (Auto) 1.8 % 3.0 % Basophils (%) (Auto) 0.5 % 0.5 % Neutrophils # (Auto) 3.9 TH/MM3 3.8 TH/MM3 Lymphocytes # (Auto) 2.2 TH/MM3 1.3 TH/MM3 Monocytes # (Auto) 0.8 TH/MM3 0.5 TH/MM3 Eosinophils # (Auto) 0.1 TH/MM3 0.2 TH/MM3 Basophils # (Auto) 0.0 TH/MM3 0.0 TH/MM3 CBC Comment DIFF FINAL DIFF FINAL Differential Comment Blood Urea Nitrogen 31 MG/DL 29 MG/DL Creatinine 2.94 MG/DL 2.47 MG/DL Random Glucose 85 MG/DL 87 MG/DL Total Protein 7.1 GM/DL 6.2 GM/DL Albumin 3.4 GM/DL 3.0 GM/DL Calcium Level 8.2 MG/DL 7.6 MG/DL Magnesium Level 2.9 MG/DL 2.7 MG/DL Alkaline Phosphatase 55 U/L 52 U/L Aspartate Amino Transf (AST/SGOT) 40 U/L 19 U/L Alanine Aminotransferase (ALT/SGPT) 20 U/L 15 U/L Total Bilirubin 0.4 MG/DL 1.9 MG/DL Sodium Level 140 MEQ/L 141 MEQ/L Potassium Level 4.9 MEQ/L 4.4 MEQ/L Chloride Level 110 MEQ/L 110 MEQ/L Carbon Dioxide Level 23.0 MEQ/L 25.4 MEQ/L Anion Gap 7 MEQ/L 6 MEQ/L Estimat Glomerular Filtration Rate 25 ML/MIN 30 ML/MIN Total Creatine Kinase 213 U/L Creatine Kinase MB 7.3 NG/ML Troponin I 1.67 NG/ML 2.13 NG/ML Nasal Screen MRSA (PCR) MRSA NOT DETECTED Prothrombin Time 11.5 SEC Prothromb Time International Ratio 1.1 RATIO Phosphorus Level 3.9 MG/DL Test 12/30/17 08:31 Physical Examination HEENT: Normocephalic; atraumatic CHEST: Even/unlabored CARDIAC: RRR with frequent PVCs on monitor ABDOMEN: Soft, nondistended, nontender; bowel sounds active SKIN: Normal; no rash; no jaundice. SCENIC DESIGNER: No focal deficits; alert and oriented times three. (Mary Ann Menjivar) Assessment and Plan Plan Assessment: - Anemia with reports of melena- History of GIB. Previous GI work up: Capsule endoscopy (10/20/17) --> Excessive gastric food residue suspicious for gastroparesis. Limited evaluation of small bowel due to poor prep. No bleeding or source of bleeding visualized. Small bowel enteroscopy (Oct 2017) -->An AV malformation was found in the second portion of the duodenum. Last colonoscopy from Aug 2017 consistent with diverticulosis and hemorrhoids. NM bleeding scan (11/14/17) Positive GI bleeding scan with intraluminal blood initially observed at 30 minutes and seen scattered throughout the abdomen out to 110 minutes. While the location of the cannot be identified, it most probably arises somewhere within the small bowel. Previous celiac artery angiogram (Oct 2017) --> Mesenteric angiography without a source of hemorrhage in this patient with an upper GI bleed. H/H 5.7/17.9 on admission now S/P 2 U PRBCs Protonix gtt. - Hyperbilirubinemia- unclear significance- WNL on admission. LFTs now WNL - Elevated troponin- seen by cardiology who states probably secondary to extreme anemia- pt previously on Coumadin DCd previously for GIB, currently on daily ASA Plan: EGD with single balloon enteroscopy Obtain consent NPO after MN Ok for clear liquids today Protonix gtt Monitor H/H Transfuse to keep hgb over 8 Further recommendations based on findings of above Pt has been seen and examined by myself and Dr. Marley and this note is written on his behalf (Mary Ann Menjivar) Physician Comments Seen and examined with POPPY, push enteroscopy planned for tomorrow. Monitor H/ H. Discussed with pt. Thank you (Gonzalo Marley MD) Mary Ann Menjivar Dec 30, 2017 12:06 Gonzalo Marley MD Dec 30, 2017 13:57
[2017-12-30 12:33] LABS: HEMATOCRIT 28.4 % (39.0-51.0); HEMOGLOBIN 9.5 GM/DL (13.0-17.0)
[2017-12-30] MEDS ORDERED: MORPHINE SULFATE 2 MG/ML SYRINGE IV PUSH PRN (13:00)
--- NOTE | 2017-12-30 13:05 | HHI.CCPN ---
Subjective Remarks/Hospital Course This is an 87-year-old male with extensive past medical history who is a very poor historian. He has a history of hypertension, hyperlipidemia, coronary artery disease, CHF, diabetes, GERD, history of PE and DVT. He has been experiencing chest pain for the past 2 days. He points at the middle of his chest as the location of his pain. He says that it radiates into the arms. He reports associated lightheadedness. He denies abdominal pain, nausea or vomiting, shortness of breath, cough, congestion. He has had dark colored stools over the past few days. Of note, the patient was admitted on November 13 for evaluation of chest pain as well as GI bleed. 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 This was cauterized. Coumadin was discontinued at that time given the risk of repeat bleeding. He does take an aspirin on a daily basis. Patient was noted to have a hemoglobin of 5.7 and troponin 1.67. He was initiated on Protonix drip, 3 unit PRBCs were ordered by ER and was accepted for admission by critical care medicine service. When I evaluated the patient in the ER he was resting comfortably and not in any acute distress. At the time of my evaluation he denied any chest pain or shortness of breath currently. History was obtained by reviewing records and discussion with ER PA. Patient is not a very good historian. Subjective: 12/30: Afebrile. Patient denies chest discomfort, normotensive. Patient continues on Protonix infusion. Hemoglobin stable at 9.5 with continued serial monitoring. No further melanotic stools since admission to hospital. Objective Vital Signs Date Time Temp Pulse Resp B/P (MAP) Pulse Ox O2 Delivery O2 Flow Rate FiO2 12/30/17 11:45 100 Nasal Cannula 1.00 12/30/17 06:00 61 12/30/17 04:00 98.4 12 119/71 (87) Intake and Output 12/30/17 12/30/17 12/31/17 08:00 16:00 00:00 Intake Total 1285 ml Output Total 300 ml Balance 985 ml Result Diagram: 12/30/17 1145 12/30/17 0332 Imaging Last Impressions Chest X-Ray 12/29/17 4111 Signed Impressions: Service Date/Time: Friday, December 29, 2017 19:33 - CONCLUSION: Previous bypass. No infiltrate or failure. Jamel Triplett MD FACR Objective Remarks Narrative GENERAL: Well-developed well-nourished -British elderly male in no acute distress SKIN: Warm and dry. Pallor present HEAD: Atraumatic. Normocephalic. EYES: Pupils equal and round. No scleral icterus. No injection or drainage. Right eyelid closed secondary to remote history of injury but no visual deficits ENT: No nasal bleeding or discharge. Mucous membranes pink and moist. NECK: Trachea midline. No JVD. CARDIOVASCULAR: Regular rate and rhythm. No murmur appreciated. RESPIRATORY: No accessory muscle use. Clear to auscultation. Breath sounds equal bilaterally. GASTROINTESTINAL: Abdomen soft, non-tender, nondistended. Hepatic and splenic margins not palpable. Rectal examination reveals black stool, heme positive. MUSCULOSKELETAL: No obvious deformities. No clubbing. No cyanosis. No edema. NEUROLOGICAL: Awake and alert. No obvious cranial nerve deficits. Motor grossly within normal limits. Normal speech. A/P Problem List: (1) CAD (coronary artery disease) ICD Code: I25.10 - CAD (coronary artery disease) Status: Acute (2) Diabetes mellitus type 2 in nonobese ICD Code: E11.9 - Diabetes mellitus type 2 in nonobese Status: Chronic (3) GI bleed ICD Code: K92.2 - Gastrointestinal hemorrhage, unspecified Status: Acute (4) NSTEMI (non-ST elevated myocardial infarction) ICD Code: I21.4 - Non-ST elevation (NSTEMI) myocardial infarction Status: Acute (5) Upper GI bleed ICD Code: K92.2 - Gastrointestinal hemorrhage, unspecified Status: Acute (6) Hypertension ICD Code: I10 - Hypertension Status: Chronic (7) CAD (coronary artery disease) ICD Code: I25.10 - Coronary artery disease Status: Acute (8) Chest pain ICD Code: R07.9 - Chest pain, unspecified Status: Acute (9) Rtppm-jv-wcovaxu kidney injury ICD Code: N17.9 - Ocdqs-ba-wbjbubw renal failure; N18.9 - Chronic kidney disease, unspecified Status: Acute Assessment and Plan 87 year-old male with: Suspected upper GI bleed Severe anemia-resolved Chest pain -resolved non-STEMI Plan: Neuro: Neuro checks per ICU Tylenol 650 mg every 6 hours for pain and/or fever Morphine 2 mg IV every 4 hours as needed for breakthrough pain 7-10 Cardiovascular: IV hydration, watch for hypotension. Continue normal saline at 84 cc/hour. Troponin levels 1.67 -> 2.13->2.13 elevated troponin noted however cannot start antiplatelet currently due to GI bleed., Unable to provide a statin secondary to elevated LFTs, unable to provide beta blockers secondary to hypotension Cardiology following Obtain BNP Pulmonary: Maintain O2 sat greater than 92% Continue supplemental O2 as needed. Bronchodilators when necessary. GI/liver: Maintain nothing by mouth for now. Protonix infusion 8 mg/hr Monitor liver enzymes. GI consult consulted -evaluation of suspected upper GI bleed. Renal/: IV hydration normal saline 84 cc/strict intake output, monitor and replete electrolytes, follow BUN/creatinine. ID: No antibiotics clinically indicated at this time. Heme: Follow CBC, serial H&H. Maintain hemoglobin greater than 9 Endocrine: Watch for hyperglycemia, SSI for glycemic control if needed. Prophylaxis: Protonix infusion, SCDs. DVT prophylaxis not indicated at this time in the setting of GI I bleed my billing statement This patient remains critically ill with one or more organ systems which are or may become a threat to life. I have spent in excess of 30 minutes discontinuously in the care and management of this patient. This time is exclusive of procedures, and includes, but is not limited to, evaluation of the patient, review of the medical record, discussions with family, consultants, nursing staff, or respiratory therapy, and documentation in the medical record. Physician Jessi Lane MD Dec 30, 2017 13:05
[2017-12-30] MEDS: SODIUM CHLORIDE 0.9% FLUSH 10 ML FLUSH IV FLUSH SCH ×2 (17:38→21:00)
[2017-12-30 18:42] LABS: HEMATOCRIT 30.8 % (39.0-51.0); HEMOGLOBIN 10.1 GM/DL (13.0-17.0)
[2017-12-30 23:46] LABS: HEMATOCRIT 30.4 % (39.0-51.0); HEMOGLOBIN 9.8 GM/DL (13.0-17.0)
[2017-12-31] VITALS (12 sets, daily range): BP systolic 146–172; BP diastolic 66–75; PULSE 54–71; RESP 9–24; TEMP 97.9–98.4; O2SAT 95–100
[2017-12-31] MEDS: PANTOPRAZOLE INJ 80 MG in SODIUM CHLORIDE 0.9% INJ 100 ML IV SCH ×2 (03:26→15:46)
[2017-12-31] MEDS: CHLORHEXIDINE GLUCONATE 2 % 1 PACK (2 CLOTHS) TOP SCH (04:00)
[2017-12-31] MEDS: SODIUM CHLOR 0.9% 1000 ML INJ 1,000 ML IV SCH ×3 (04:31→22:48)
[2017-12-31 05:28] LABS: HEMATOCRIT 30.5 % (39.0-51.0); MEAN CELL VOLUME 80.7 FL (80.0-100.0); MEAN CORPUSCULAR HEMOGLOBIN 26.5 PG (27.0-34.0); MEAN CORPUSCULAR HGB CONC 32.9 % (32.0-36.0); MEAN PLATELET VOLUME 9.9 FL (7.0-11.0); PLATELET COUNT 146 TH/MM3 (150-450); RED BLOOD COUNT 3.78 MIL/MM3 (4.50-5.90); RED CELL DISTRIBUTION WIDTH 16.4 % (11.6-17.2); WHITE BLOOD COUNT 6.3 TH/MM3 (4.0-11.0)
[2017-12-31 05:46] LABS: BICARBONATE 24.6 MEQ/L (21.0-32.0); CALCIUM 7.6 MG/DL (8.5-10.1); CREATININE 2.11 MG/DL (0.60-1.30); MAGNESIUM 2.4 MG/DL (1.5-2.5); PHOSPHORUS 3.4 MG/DL (2.5-4.9)
[2017-12-31 06:11] LABS: TROPONIN I 1.59 NG/ML (0.02-0.05)
--- NOTE | 2017-12-31 08:56 | HHI.CCPN ---
Subjective Remarks/Hospital Course This is an 87-year-old male with extensive past medical history who is a very poor historian. He has a history of hypertension, hyperlipidemia, coronary artery disease, CHF, diabetes, GERD, history of PE and DVT. He has been experiencing chest pain for the past 2 days. He points at the middle of his chest as the location of his pain. He says that it radiates into the arms. He reports associated lightheadedness. He denies abdominal pain, nausea or vomiting, shortness of breath, cough, congestion. He has had dark colored stools over the past few days. Of note, the patient was admitted on November 13 for evaluation of chest pain as well as GI bleed. 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 This was cauterized. Coumadin was discontinued at that time given the risk of repeat bleeding. He does take an aspirin on a daily basis. Patient was noted to have a hemoglobin of 5.7 and troponin 1.67. He was initiated on Protonix drip, 3 unit PRBCs were ordered by ER and was accepted for admission by critical care medicine service. When I evaluated the patient in the ER he was resting comfortably and not in any acute distress. At the time of my evaluation he denied any chest pain or shortness of breath currently. History was obtained by reviewing records and discussion with ER PA. Patient is not a very good historian. Subjective: 12/30: Afebrile. Patient denies chest discomfort, normotensive. Patient continues on Protonix infusion. Hemoglobin stable at 9.5 with continued serial monitoring. No further melanotic stools since admission to hospital. 12/31: Hemoglobin stable over the last 24 hours. Patient denies any discomfort no active signs of bleeding no melena or hematemesis. Patient states he has an appetite. Patient is scheduled for EGD this a.m. Protonix infusing. Objective Vital Signs Date Time Temp Pulse Resp B/P (MAP) Pulse Ox O2 Delivery O2 Flow Rate FiO2 12/31/17 06:00 60 12/31/17 04:00 98.4 12 152/66 (94) 100 12/30/17 20:25 21 12/30/17 11:45 Nasal Cannula 1.00 Intake and Output 12/31/17 12/31/17 12/31/17 07:59 15:59 23:59 Intake Total 1522.6 ml Output Total 940 ml Balance 582.6 ml Result Diagram: 12/31/17 0438 12/31/17 0438 Imaging Last Impressions Chest X-Ray 12/29/17 1841 Signed Impressions: Service Date/Time: Friday, December 29, 2017 19:33 - CONCLUSION: Previous bypass. No infiltrate or failure. Jamel Triplett MD FACR Objective Remarks Narrative GENERAL: Well-developed well-nourished -[place] elderly male in no acute distress SKIN: Warm and dry. Pallor present HEAD: Atraumatic. Normocephalic. EYES: Pupils equal and round. No scleral icterus. No injection or drainage. Right eyelid closed secondary to remote history of injury but no visual deficits ENT: No nasal bleeding or discharge. Mucous membranes pink and moist. NECK: Trachea midline. No JVD. CARDIOVASCULAR: Regular rate and rhythm. No murmur appreciated. RESPIRATORY: No accessory muscle use. Clear to auscultation. Breath sounds equal bilaterally. GASTROINTESTINAL: Abdomen soft, non-tender, nondistended. Hepatic and splenic margins not palpable. Rectal examination reveals black stool, heme positive. MUSCULOSKELETAL: No obvious deformities. No clubbing. No cyanosis. No edema. NEUROLOGICAL: Awake and alert. No obvious cranial nerve deficits. Motor grossly within normal limits. Normal speech. A/P Problem List: (1) CAD (coronary artery disease) ICD Code: I25.10 - CAD (coronary artery disease) Status: Acute (2) Diabetes mellitus type 2 in nonobese ICD Code: E11.9 - Diabetes mellitus type 2 in nonobese Status: Chronic (3) GI bleed ICD Code: K92.2 - Gastrointestinal hemorrhage, unspecified Status: Acute (4) NSTEMI (non-ST elevated myocardial infarction) ICD Code: I21.4 - Non-ST elevation (NSTEMI) myocardial infarction Status: Acute (5) Upper GI bleed ICD Code: K92.2 - Gastrointestinal hemorrhage, unspecified Status: Acute (6) Hypertension ICD Code: I10 - Hypertension Status: Chronic (7) CAD (coronary artery disease) ICD Code: I25.10 - Coronary artery disease Status: Acute (8) Chest pain ICD Code: R07.9 - Chest pain, unspecified Status: Resolved (9) Mubwd-vc-jgmrfmk kidney injury ICD Code: N17.9 - Qmegg-on-gzaizqc renal failure; N18.9 - Chronic kidney disease, unspecified Status: Acute Assessment and Plan 87 year-old male with: Suspected upper GI bleed Severe anemia-resolved Chest pain -resolved non-STEMI Plan: Neuro: Neuro checks per ICU Tylenol 650 mg every 6 hours for pain and/or fever Morphine 2 mg IV every 4 hours as needed for breakthrough pain 7-10 Cardiovascular: IV hydration, watch for hypotension. Continue normal saline at 84 cc/hour. Troponin levels downtrending Elevated troponin noted however cannot start antiplatelet currently due to GI bleed., Unable to provide a statin secondary to elevated LFTs, unable to provide beta blockers secondary to hypotension Cardiology following Obtain BNP Pulmonary: Maintain O2 sat greater than 92% Continue supplemental O2 as needed. Bronchodilators when necessary. GI/liver: Maintain nothing by mouth for now. Protonix infusion 8 mg/hr Trend LFT's GI following 12/31 Plan for EGD today Renal/: IV hydration normal saline 84 cc/strict intake output, monitor and replete electrolytes, follow BUN/creatinine. ID: No antibiotics clinically indicated at this time. Heme: Follow CBC, serial H&H. Maintain hemoglobin greater than 9 Endocrine: Watch for hyperglycemia, SSI for glycemic control if needed. Prophylaxis: Protonix infusion, SCDs. DVT prophylaxis not indicated at this time in the setting of GI bleed my billing statement Level 3 follow up Discussed with patient and [employer] at bedside Physician Jessi Lane MD Dec 31, 2017 08:56
[2017-12-31] MEDS: DOCUSATE SODIUM 50 MG/SENNA 8.6 MG TAB PO SCH ×2 (09:00→20:14)
[2017-12-31] MEDS ORDERED: GLUCAGON 1 MG/ML VIAL OTHER PRN (09:00)
[2017-12-31] MEDS ORDERED: DEXTROSE 50% IN WATER 50 ML VIAL(D50) IV PUSH PRN (09:00)
[2017-12-31 10:28] LABS: DIRECT BILIRUBIN ADULT 0.3 MG/DL (0.0-0.2)
[2017-12-31 10:30] LABS: INDIRECT BILIRUBIN 0.7 MG/DL (0.0-0.8); TOTAL PROTEIN 6.3 GM/DL (6.4-8.2)
--- NOTE | 2017-12-31 11:39 | EKG ---
Date Performed: 12/29/2017 Time Performed: 18:36:38 PTAGE: 87 years EKG: Sinus rhythm NONSPECIFIC ST & T-WAVE ABNORMALITY BORDERLINE ECG PREVIOUS TRACING : 11/13/2017 11.10 Since the prior tracing, the frequent PVCs have resolved, b ut there is otherwise no significant serial change. DOCTOR: Sarai Cadet Interpretating Date/Time 12/31/2017 11:37:56
[2017-12-31] MEDS: INSULIN ASPART SUPPLEMENTAL SCALE SQ SCH ×3 (12:00→20:14)
[2017-12-31] MEDS ORDERED: PROPOFOL 200 MG/20 ML AMP IV ONE (12:00)
[2017-12-31] MEDS ORDERED: LIDOCAINE HCL 1% PF 5 ML SYRINGE OTHER ONE (12:00)
[2017-12-31 12:12] LABS: HEMATOCRIT 29.6 % (39.0-51.0)
[2017-12-31] MEDS ORDERED: DO NOT ADM ANY ANTICOAGULANT DRUGS PRN (13:15)
[2017-12-31] MEDS: SODIUM CHLORIDE 0.9% FLUSH 10 ML FLUSH IV FLUSH SCH ×2 (14:12→20:14)
--- NOTE | 2017-12-31 15:14 | PD.CARD.PN ---
Subjective Subjective Remarks alert in nad, denies chest pain or dyspnea Objective Medications Current Medications Medications (Trade) Dose Ordered Sig/Johanne Route Start Time Stop Time Status Last Admin Pantoprazole Sodium 80 mg/ Sodium Chloride 100 ml @ 10 mls/hr Q10H IV 12/29/17 18:47 12/31/17 03:26 Sodium Chloride 1,000 ml @ 84 mls/hr [id number] IV 12/29/17 23:08 12/31/17 14:11 (NS Flush) 2 ml UNSCH PRN IV FLUSH 12/29/17 23:15 (NS Flush) 2 ml BID IV FLUSH 12/30/17 09:00 12/31/17 14:12 (Tylenol) 650 mg Q6H PRN PO 12/29/17 23:15 (Zofran Inj) 4 mg Q6H PRN IV PUSH 12/29/17 23:15 (Duoneb Neb) 1 ampule Q4HR NEB PRN INH 12/29/17 23:15 Miscellaneous Information 1 Q361D XX 12/29/17 23:15 12/29/17 23:15 (Chlorhexidine 2% Cloth) 3 pack Taper DAILY@04 TOP 12/30/17 04:00 12/26/18 03:59 12/31/17 04:00 (Chlorhexidine 2% Cloth) 3 pack UNSCH PRN TOP 12/29/17 23:15 (Monica-Colace) 1 tab BID PO 12/30/17 09:00 (Milk Of Magnesia Liq) 30 ml Q12H PRN PO 12/29/17 23:15 (Senokot) 17.2 mg Q12H PRN PO 12/29/17 23:15 (Dulcolax Supp) 10 mg DAILY PRN RECTAL 12/29/17 23:15 (Lactulose Liq) 30 ml DAILY PRN PO 12/29/17 23:15 (Morphine Inj) 2 mg Q4H PRN IV PUSH 12/30/17 13:00 (D50w (Vial) Inj) 50 ml UNSCH PRN IV PUSH 12/31/17 09:00 (Glucagon Inj) 1 mg UNSCH PRN OTHER 12/31/17 09:00 (NovoLOG SUPPLEMENTAL SCALE) 1 ACHS SLIDING SCALE SQ 12/31/17 12:00 Miscellaneous Information ALL NURSING DEPARTME... UNSCH PRN .XX 12/31/17 13:15 01/01/18 13:14 Vital Signs / I&O Vital Signs Date Time Temp Pulse Resp B/P (MAP) Pulse Ox O2 Delivery O2 Flow Rate FiO2 12/31/17 13:40 59 18 127/59 (81) 100 12/31/17 13:15 98.2 67 18 143/63 (89) 100 12/31/17 10:00 68 12/31/17 08:00 64 12/31/17 06:00 60 12/31/17 04:00 98.4 54 12 152/66 (94) 100 12/31/17 04:00 54 12/31/17 02:00 54 12/31/17 00:00 60 12/31/17 00:00 98.3 60 15 146/67 (93) 100 12/30/17 20:25 100 21 12/30/17 20:00 98.2 64 19 147/68 (94) 100 12/30/17 20:00 64 12/30/17 18:00 71 12/30/17 16:00 60 12/30/17 16:00 98.6 60 15 137/62 (87) 100 I/O 12/30/17 12/30/17 12/30/17 12/31/17 12/31/17 12/31/17 06:59 14:59 22:59 06:59 14:59 22:59 Intake Total 1285 ml 200 ml 1522.6 ml 50 ml Output Total 300 ml 1000 ml 940 ml Balance 985 ml -800 ml 582.6 ml 50 ml Intake Oral 0 ml 200 ml 240 ml IV Total 385 ml 1282.6 ml Packed Cells 800 ml Blood Product IV Normal Saline Flush 100 ml Other 50 ml Output Urine Total 300 ml 1000 ml 940 ml # Bowel Movements 0 1 1 Laboratory GENERAL: SKIN: Warm and dry. HEAD: Normocephalic. EYES: No scleral icterus. No injection or drainage. NECK: Supple, trachea midline. No JVD or lymphadenopathy. CARDIOVASCULAR: Regular rate and rhythm without murmurs, gallops, or rubs. RESPIRATORY: Breath sounds equal bilaterally. No accessory muscle use. GASTROINTESTINAL: Abdomen soft, non-tender, nondistended. MUSCULOSKELETAL: No cyanosis, or edema. BACK: Nontender without obvious deformity. No CVA tenderness. Laboratory Tests Test 12/30/17 17:15 12/30/17 23:40 12/31/17 04:38 12/31/17 11:06 Hemoglobin 10.1 GM/DL 9.8 GM/DL 10.0 GM/DL 10.0 GM/DL Hematocrit 30.8 % 30.4 % 30.5 % 29.6 % White Blood Count 6.3 TH/MM3 Red Blood Count 3.78 MIL/MM3 Mean Corpuscular Volume 80.7 FL Mean Corpuscular Hemoglobin 26.5 PG Mean Corpuscular Hemoglobin Concent 32.9 % Red Cell Distribution Width 16.4 % Platelet Count 146 TH/MM3 Mean Platelet Volume 9.9 FL Blood Urea Nitrogen 22 MG/DL Creatinine 2.11 MG/DL Random Glucose 77 MG/DL Calcium Level 7.6 MG/DL Phosphorus Level 3.4 MG/DL Magnesium Level 2.4 MG/DL Sodium Level 142 MEQ/L Potassium Level 4.4 MEQ/L Chloride Level 111 MEQ/L Carbon Dioxide Level 24.6 MEQ/L Anion Gap 6 MEQ/L Estimat Glomerular Filtration Rate 36 ML/MIN Total Bilirubin 1.0 MG/DL Direct Bilirubin 0.3 MG/DL Indirect Bilirubin 0.7 MG/DL Aspartate Amino Transf (AST/SGOT) 18 U/L Alanine Aminotransferase (ALT/SGPT) 15 U/L Alkaline Phosphatase 62 U/L Troponin I 1.59 NG/ML Total Protein 6.3 GM/DL Albumin 3.0 GM/DL Assessment and Plan Problem List: (1) CKD (chronic kidney disease) ICD Codes: N18.9 - Chronic kidney disease Status: Acute (2) Renal insufficiency ICD Codes: N28.9 - Disorder of kidney and ureter, unspecified Status: Acute (3) GI bleed ICD Codes: K92.2 - Gastrointestinal hemorrhage, unspecified (4) NSTEMI (non-ST elevated myocardial infarction) ICD Codes: I21.4 - Non-ST elevation (NSTEMI) myocardial infarction Status: Acute (5) CAD (coronary artery disease) ICD Codes: I25.10 - CAD (coronary artery disease) Status: Acute (6) Diabetes mellitus type 2 in nonobese ICD Codes: E11.9 - Diabetes mellitus type 2 in nonobese Status: Chronic (7) Zrkaq-om-rdvzskt kidney injury ICD Codes: N17.9 - Rlxsr-hf-jmlbdwa renal failure; N18.9 - Chronic kidney disease, unspecified Status: Acute (8) Hx of CABG ICD Codes: Z95.1 - Presence of aortocoronary bypass graft Status: Acute Assessment and Plan 1.) CAD - nstemi due to gib, anemia, assymptomatic, hgb stable; f/u cbc Anupam Ang MD Dec 31, 2017 15:14
[2017-12-31 21:02] LABS: HEMATOCRIT 31.7 % (39.0-51.0); HEMOGLOBIN 10.4 GM/DL (13.0-17.0)
[2018-01-01] VITALS (19 sets, daily range): BP systolic 111–201; BP diastolic 56–95; PULSE 55–99; RESP 8–24; TEMP 97.2–98.2; O2SAT 98–100
[2018-01-01] MEDS: PANTOPRAZOLE INJ 80 MG in SODIUM CHLORIDE 0.9% INJ 100 ML IV SCH ×3 (01:17→16:47)
[2018-01-01] MEDS: CHLORHEXIDINE GLUCONATE 2 % 1 PACK (2 CLOTHS) TOP SCH (04:00)
[2018-01-01 06:14] LABS: HEMATOCRIT 30.7 % (39.0-51.0); HEMOGLOBIN 10.2 GM/DL (13.0-17.0)
[2018-01-01 06:27] LABS: ALBUMIN 2.6 GM/DL (3.4-5.0); BICARBONATE 21.9 MEQ/L (21.0-32.0); CALCIUM 7.4 MG/DL (8.5-10.1); CREATININE 1.92 MG/DL (0.60-1.30)
[2018-01-01 06:28] LABS: DIRECT BILIRUBIN ADULT 0.2 MG/DL (0.0-0.2)
[2018-01-01 06:31] LABS: INDIRECT BILIRUBIN 0.5 MG/DL (0.0-0.8); TOTAL BILIRUBIN ADULT 0.7 MG/DL (0.2-1.0)
[2018-01-01 07:05] LABS: HEMATOCRIT 30.7 % (39.0-51.0); HEMOGLOBIN 10.1 GM/DL (13.0-17.0); MEAN CORPUSCULAR HEMOGLOBIN 26.4 PG (27.0-34.0); MEAN CORPUSCULAR HGB CONC 33.1 % (32.0-36.0); MEAN PLATELET VOLUME 10.2 FL (7.0-11.0); PLATELET COUNT 134 TH/MM3 (150-450); RED BLOOD COUNT 3.83 MIL/MM3 (4.50-5.90); WHITE BLOOD COUNT 5.9 TH/MM3 (4.0-11.0)
[2018-01-01] MEDS: INSULIN ASPART SUPPLEMENTAL SCALE SQ SCH ×4 (08:00→20:00)
[2018-01-01 08:24] LABS: CALCIUM-PROTEIN CORRECTED 8.2 MG/DL (8.5-10.1); TOTAL PROTEIN 5.7 GM/DL (6.4-8.2)
[2018-01-01] MEDS: DOCUSATE SODIUM 50 MG/SENNA 8.6 MG TAB PO SCH ×2 (09:00→19:58)
--- NOTE | 2018-01-01 09:41 | PD.CARD.PN ---
Subjective Subjective Remarks alert in nad, assymptomatic Objective Medications Current Medications Medications (Trade) Dose Ordered Sig/Johanne Route Start Time Stop Time Status Last Admin Pantoprazole Sodium 80 mg/ Sodium Chloride 100 ml @ 10 mls/hr Q10H IV 12/29/17 18:47 01/01/18 01:17 Sodium Chloride 1,000 ml @ 84 mls/hr [id number] IV 12/29/17 23:08 12/31/17 22:48 (NS Flush) 2 ml UNSCH PRN IV FLUSH 12/29/17 23:15 (NS Flush) 2 ml BID IV FLUSH 12/30/17 09:00 12/31/17 20:14 (Tylenol) 650 mg Q6H PRN PO 12/29/17 23:15 (Zofran Inj) 4 mg Q6H PRN IV PUSH 12/29/17 23:15 (Duoneb Neb) 1 ampule Q4HR NEB PRN INH 12/29/17 23:15 Miscellaneous Information 1 Q361D XX 12/29/17 23:15 12/29/17 23:15 (Chlorhexidine 2% Cloth) 3 pack Taper DAILY@04 TOP 12/30/17 04:00 12/26/18 03:59 12/31/17 04:00 (Chlorhexidine 2% Cloth) 3 pack UNSCH PRN TOP 12/29/17 23:15 (Monica-Colace) 1 tab BID PO 12/30/17 09:00 12/31/17 20:14 (Milk Of Magnesia Liq) 30 ml Q12H PRN PO 12/29/17 23:15 (Senokot) 17.2 mg Q12H PRN PO 12/29/17 23:15 (Dulcolax Supp) 10 mg DAILY PRN RECTAL 12/29/17 23:15 (Lactulose Liq) 30 ml DAILY PRN PO 12/29/17 23:15 (Morphine Inj) 2 mg Q4H PRN IV PUSH 12/30/17 13:00 (D50w (Vial) Inj) 50 ml UNSCH PRN IV PUSH 12/31/17 09:00 (Glucagon Inj) 1 mg UNSCH PRN OTHER 12/31/17 09:00 (NovoLOG SUPPLEMENTAL SCALE) 1 ACHS SLIDING SCALE SQ 12/31/17 12:00 Miscellaneous Information ALL NURSING DEPARTME... UNSCH PRN .XX 12/31/17 13:15 01/01/18 13:14 (Lipitor) 40 mg HS PO 01/01/18 21:00 (Flomax) 0.4 mg HS PO 01/01/18 21:00 (Norvasc) 5 mg DAILY PO 01/01/18 10:00 (Apresoline Inj) 20 mg Q4H PRN IV PUSH 01/01/18 10:00 (Cozaar) 100 mg DAILY PO 01/02/18 10:00 Vital Signs / I&O Vital Signs Date Time Temp Pulse Resp B/P (MAP) Pulse Ox O2 Delivery O2 Flow Rate FiO2 01/01/18 09:11 100 01/01/18 04:00 97.2 60 17 169/89 (115) 100 01/01/18 04:00 60 01/01/18 02:00 65 01/01/18 00:00 98.1 55 20 157/70 (99) 99 01/01/18 00:00 55 12/31/17 22:00 70 12/31/17 21:31 100 21 12/31/17 20:00 98.0 71 19 163/74 (103) 95 12/31/17 20:00 71 12/31/17 18:00 54 12/31/17 16:00 61 12/31/17 16:00 69 12/31/17 16:00 97.9 61 9 159/72 (101) 100 12/31/17 14:00 69 12/31/17 13:40 59 18 127/59 (81) 100 12/31/17 13:15 98.2 67 18 143/63 (89) 100 12/31/17 10:00 68 I/O 12/31/17 12/31/17 12/31/17 01/01/18 01/01/18 01/01/18 07:00 15:00 23:00 07:00 15:00 23:00 Intake Total 1522.6 ml 50 ml 2080 ml 1228 ml Output Total 940 ml 1275 ml 1400 ml Balance 582.6 ml 50 ml 805 ml -172 ml Intake Oral 240 ml 960 ml 120 ml IV Total 1282.6 ml 1120 ml 1108 ml Other 50 ml Output Urine Total 940 ml 1275 ml 1400 ml # Voids 5 # Bowel Movements 1 0 1 Physical Exam GENERAL: SKIN: Warm and dry. HEAD: Normocephalic. EYES: No scleral icterus. No injection or drainage. NECK: Supple, trachea midline. No JVD or lymphadenopathy. CARDIOVASCULAR: Regular rate and rhythm without murmurs, gallops, or rubs. RESPIRATORY: Breath sounds equal bilaterally. No accessory muscle use. GASTROINTESTINAL: Abdomen soft, non-tender, nondistended. MUSCULOSKELETAL: No cyanosis, or edema. BACK: Nontender without obvious deformity. No CVA tenderness. Laboratory Laboratory Tests Test 12/31/17 11:06 12/31/17 20:26 01/01/18 04:09 Hemoglobin 10.0 GM/DL 10.4 GM/DL 10.1 GM/DL Hematocrit 29.6 % 31.7 % 30.7 % White Blood Count 5.9 TH/MM3 Red Blood Count 3.83 MIL/MM3 Mean Corpuscular Volume 80.0 FL Mean Corpuscular Hemoglobin 26.4 PG Mean Corpuscular Hemoglobin Concent 33.1 % Red Cell Distribution Width 16.0 % Platelet Count 134 TH/MM3 Mean Platelet Volume 10.2 FL Blood Urea Nitrogen 19 MG/DL Creatinine 1.92 MG/DL Random Glucose 84 MG/DL Total Protein 5.7 GM/DL Albumin 2.6 GM/DL Calcium Level 7.4 MG/DL Alkaline Phosphatase 56 U/L Aspartate Amino Transf (AST/SGOT) 16 U/L Alanine Aminotransferase (ALT/SGPT) 12 U/L Total Bilirubin 0.7 MG/DL Direct Bilirubin 0.2 MG/DL Sodium Level 143 MEQ/L Potassium Level 4.1 MEQ/L Chloride Level 113 MEQ/L Carbon Dioxide Level 21.9 MEQ/L Anion Gap 8 MEQ/L Estimat Glomerular Filtration Rate 41 ML/MIN Protein Corrected Calcium 8.2 MG/DL Indirect Bilirubin 0.5 MG/DL B-Type Natriuretic Peptide 463 PG/ML Assessment and Plan Problem List: (1) CKD (chronic kidney disease) ICD Codes: N18.9 - Chronic kidney disease Status: Acute (2) Renal insufficiency ICD Codes: N28.9 - Disorder of kidney and ureter, unspecified Status: Acute (3) GI bleed ICD Codes: K92.2 - Gastrointestinal hemorrhage, unspecified (4) NSTEMI (non-ST elevated myocardial infarction) ICD Codes: I21.4 - Non-ST elevation (NSTEMI) myocardial infarction Status: Acute (5) CAD (coronary artery disease) ICD Codes: I25.10 - CAD (coronary artery disease) Status: Acute (6) Diabetes mellitus type 2 in nonobese ICD Codes: E11.9 - Diabetes mellitus type 2 in nonobese Status: Chronic (7) Jnpgu-sa-rssxwnd kidney injury ICD Codes: N17.9 - Ztebz-zx-ycyhidi renal failure; N18.9 - Chronic kidney disease, unspecified Status: Acute (8) Hx of CABG ICD Codes: Z95.1 - Presence of aortocoronary bypass graft Status: Acute Assessment and Plan 1.) CAD - nstemi due to gib, anemia, assymptomatic, hgb stable; f/u cbc; continue lipitor, ac held due to gib Anupam Ang MD Jan 01, 2018 09:41
[2018-01-01] MEDS ORDERED: hydrALAZINE HCL 20 MG/ML VIAL IV PUSH PRN (10:00)
[2018-01-01] MEDS: SODIUM CHLOR 0.9% 1000 ML INJ 1,000 ML IV SCH (10:43)
[2018-01-01] MEDS: SODIUM CHLORIDE 0.9% FLUSH 10 ML FLUSH IV FLUSH SCH ×2 (13:53→19:58)
[2018-01-01] MEDS: amLODIPine BESYLATE 5 MG TAB PO SCH (13:53)
[2018-01-01 16:29] LABS: HEMATOCRIT 35.3 % (39.0-51.0); HEMOGLOBIN 11.5 GM/DL (13.0-17.0)
[2018-01-01] MEDS: ATORVASTATIN 40 MG TAB PO SCH (19:58)
[2018-01-01] MEDS: TAMSULOSIN HCL 0.4 MG CAP PO SCH (19:58)
--- NOTE | 2018-01-01 20:22 | HHI.CCPN ---
Subjective Remarks/Hospital Course This is an 87-year-old male with extensive past medical history who is a very poor historian. He has a history of hypertension, hyperlipidemia, coronary artery disease, CHF, diabetes, GERD, history of PE and DVT. He has been experiencing chest pain for the past 2 days. He points at the middle of his chest as the location of his pain. He says that it radiates into the arms. He reports associated lightheadedness. He denies abdominal pain, nausea or vomiting, shortness of breath, cough, congestion. He has had dark colored stools over the past few days. Of note, the patient was admitted on November 13 for evaluation of chest pain as well as GI bleed. 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 This was cauterized. Coumadin was discontinued at that time given the risk of repeat bleeding. He does take an aspirin on a daily basis. Patient was noted to have a hemoglobin of 5.7 and troponin 1.67. He was initiated on Protonix drip, 3 unit PRBCs were ordered by ER and was accepted for admission by critical care medicine service. When I evaluated the patient in the ER he was resting comfortably and not in any acute distress. At the time of my evaluation he denied any chest pain or shortness of breath currently. History was obtained by reviewing records and discussion with ER PA. Patient is not a very good historian. Subjective: 12/30: Afebrile. Patient denies chest discomfort, normotensive. Patient continues on Protonix infusion. Hemoglobin stable at 9.5 with continued serial monitoring. No further melanotic stools since admission to hospital. 12/31: Hemoglobin stable over the last 24 hours. Patient denies any discomfort no active signs of bleeding no melena or hematemesis. Patient states he has an appetite. Patient is scheduled for EGD this a.m. Protonix infusing. 01/01: Patient underwent EGD, report pending. Okay to transfer patient from GI standpoint to medical floor per Dr. Crow. Patient's diet advanced. Hemoglobin stable. Patient denies chest. Normotensive. Objective Vital Signs Date Time Temp Pulse Resp B/P (MAP) Pulse Ox O2 Delivery O2 Flow Rate FiO2 01/01/18 18:00 67 01/01/18 17:00 20 115/58 (77) 100 01/01/18 16:00 98.2 12/31/17 21:31 21 12/30/17 11:45 Nasal Cannula 1.00 Intake and Output 01/01/18 01/01/18 01/02/18 08:00 16:00 00:00 Intake Total 1228 ml Output Total 1400 ml Balance -172 ml Result Diagram: 01/01/18 1543 01/01/18 0409 Imaging Last Impressions Chest X-Ray 12/29/17 1841 Signed Impressions: Service Date/Time: Friday, December 29, 2017 19:33 - CONCLUSION: Previous bypass. No infiltrate or failure. Jamel Triplett MD FACR Objective Remarks Narrative GENERAL: Well-developed well-nourished -[place] elderly male in no acute distress SKIN: Warm and dry. Pallor present HEAD: Atraumatic. Normocephalic. EYES: Pupils equal and round. No scleral icterus. No injection or drainage. Right eyelid closed secondary to remote history of injury but no visual deficits ENT: No nasal bleeding or discharge. Mucous membranes pink and moist. NECK: Trachea midline. No JVD. CARDIOVASCULAR: Regular rate and rhythm. No murmur appreciated. RESPIRATORY: No accessory muscle use. Clear to auscultation. Breath sounds equal bilaterally. GASTROINTESTINAL: Abdomen soft, non-tender, nondistended. Hepatic and splenic margins not palpable. Rectal examination reveals black stool, heme positive. MUSCULOSKELETAL: No obvious deformities. No clubbing. No cyanosis. No edema. NEUROLOGICAL: Awake and alert. No obvious cranial nerve deficits. Motor grossly within normal limits. Normal speech. A/P Problem List: (1) CAD (coronary artery disease) ICD Code: I25.10 - CAD (coronary artery disease) Status: Acute (2) Diabetes mellitus type 2 in nonobese ICD Code: E11.9 - Diabetes mellitus type 2 in nonobese Status: Chronic (3) GI bleed ICD Code: K92.2 - Gastrointestinal hemorrhage, unspecified Status: Acute (4) NSTEMI (non-ST elevated myocardial infarction) ICD Code: I21.4 - Non-ST elevation (NSTEMI) myocardial infarction Status: Acute (5) Upper GI bleed ICD Code: K92.2 - Gastrointestinal hemorrhage, unspecified Status: Acute (6) Hypertension ICD Code: I10 - Hypertension Status: Chronic (7) CAD (coronary artery disease) ICD Code: I25.10 - Coronary artery disease Status: Acute (8) Chest pain ICD Code: R07.9 - Chest pain, unspecified Status: Resolved (9) Jugcj-ss-etktvze kidney injury ICD Code: N17.9 - Zedew-yq-fituiaj renal failure; N18.9 - Chronic kidney disease, unspecified Status: Acute Assessment and Plan 87 year-old male with: Suspected upper GI bleed Severe anemia-resolved Chest pain -resolved non-STEMI Plan: Neuro: Neuro checks per ICU Tylenol 650 mg every 6 hours for pain and/or fever Morphine 2 mg IV every 4 hours as needed for breakthrough pain 7-10 Cardiovascular: Maintain map greater than 65 D/C normal saline Troponin levels downtrended Cardiology following Home antihypertensive medication resumed Pulmonary: Maintain O2 sat greater than 92% Continue supplemental O2 as needed. Bronchodilators when necessary. GI/liver: Diet advance per GI Protonix infusion 8 mg/hr GI following 12/31 EGD performed Renal/: strict intake output, monitor and replete electrolytes, follow BUN/creatinine. ID: No antibiotics clinically indicated at this time. Heme: Follow CBC, serial H&H. Maintain hemoglobin greater than 9 Endocrine: Watch for hyperglycemia, SSI for glycemic control if needed. Prophylaxis: Protonix infusion, SCDs. DVT prophylaxis not indicated at this time in the setting of GI bleed my billing statement Level 2 follow up Discussed with patient and SCHOOL SPEECH THERAPIST at bedside. Planned transfer to [facility] in a.m.. Plan transfer to [facility] floor when bed becomes available Physician Jessi Lane MD Jan 01, 2018 20:22
[2018-01-02] VITALS (9 sets, daily range): BP systolic 104–161; BP diastolic 60–72; PULSE 55–113; RESP 16–20; TEMP 97.5–98.6; O2SAT 95–100
[2018-01-02] MEDS: PANTOPRAZOLE INJ 80 MG in SODIUM CHLORIDE 0.9% INJ 100 ML IV SCH ×3 (02:47→22:38)
[2018-01-02] MEDS: CHLORHEXIDINE GLUCONATE 2 % 1 PACK (2 CLOTHS) TOP SCH (04:00)
[2018-01-02 06:32] LABS: HEMATOCRIT 31.1 % (39.0-51.0); MEAN CELL VOLUME 80.4 FL (80.0-100.0); MEAN CORPUSCULAR HEMOGLOBIN 25.9 PG (27.0-34.0); MEAN CORPUSCULAR HGB CONC 32.3 % (32.0-36.0); MEAN PLATELET VOLUME 9.7 FL (7.0-11.0); PLATELET COUNT 145 TH/MM3 (150-450); RED BLOOD COUNT 3.87 MIL/MM3 (4.50-5.90); RED CELL DISTRIBUTION WIDTH 16.3 % (11.6-17.2); WHITE BLOOD COUNT 6.3 TH/MM3 (4.0-11.0)
[2018-01-02 07:51] LABS: BICARBONATE 22.5 MEQ/L (21.0-32.0); CALCIUM 7.6 MG/DL (8.5-10.1); CREATININE 1.96 MG/DL (0.60-1.30)
--- NOTE | 2018-01-02 07:57 | PD.CARD.PN ---
Subjective Subjective Remarks alert in nad, assymptomatic Objective Medications Current Medications Medications (Trade) Dose Ordered Sig/Johanne Route Start Time Stop Time Status Last Admin Pantoprazole Sodium 80 mg/ Sodium Chloride 100 ml @ 10 mls/hr Q10H IV 12/29/17 18:47 01/02/18 02:47 (NS Flush) 2 ml UNSCH PRN IV FLUSH 12/29/17 23:15 (NS Flush) 2 ml BID IV FLUSH 12/30/17 09:00 01/01/18 19:58 (Tylenol) 650 mg Q6H PRN PO 12/29/17 23:15 (Zofran Inj) 4 mg Q6H PRN IV PUSH 12/29/17 23:15 (Duoneb Neb) 1 ampule Q4HR NEB PRN INH 12/29/17 23:15 Miscellaneous Information 1 Q361D XX 12/29/17 23:15 12/29/17 23:15 (Chlorhexidine 2% Cloth) 3 pack Taper DAILY@04 TOP 12/30/17 04:00 12/26/18 03:59 12/31/17 04:00 (Chlorhexidine 2% Cloth) 3 pack UNSCH PRN TOP 12/29/17 23:15 (Monica-Colace) 1 tab BID PO 12/30/17 09:00 01/01/18 19:58 (Milk Of Magnesia Liq) 30 ml Q12H PRN PO 12/29/17 23:15 (Senokot) 17.2 mg Q12H PRN PO 12/29/17 23:15 (Dulcolax Supp) 10 mg DAILY PRN RECTAL 12/29/17 23:15 (Lactulose Liq) 30 ml DAILY PRN PO 12/29/17 23:15 (Morphine Inj) 2 mg Q4H PRN IV PUSH 12/30/17 13:00 (D50w (Vial) Inj) 50 ml UNSCH PRN IV PUSH 12/31/17 09:00 (Glucagon Inj) 1 mg UNSCH PRN OTHER 12/31/17 09:00 (NovoLOG SUPPLEMENTAL SCALE) 1 ACHS SLIDING SCALE SQ 12/31/17 12:00 (Lipitor) 40 mg HS PO 01/01/18 21:00 01/01/18 19:58 (Flomax) 0.4 mg HS PO 01/01/18 21:00 01/01/18 19:58 (Norvasc) 5 mg DAILY PO 01/01/18 10:00 01/01/18 13:53 (Apresoline Inj) 20 mg Q4H PRN IV PUSH 01/01/18 10:00 01/01/18 13:53 (Cozaar) 100 mg DAILY PO 01/02/18 10:00 Vital Signs / I&O Vital Signs Date Time Temp Pulse Resp B/P (MAP) Pulse Ox O2 Delivery O2 Flow Rate FiO2 01/02/18 04:00 98.3 76 16 149/64 (92) 99 01/02/18 00:00 98.6 70 16 155/65 (95) 99 01/01/18 23:30 Room Air 01/01/18 23:21 97.5 63 18 161/92 (115) 98 01/01/18 20:00 70 01/01/18 20:00 97.4 70 20 135/60 (85) 01/01/18 18:00 67 01/01/18 17:00 68 20 115/58 (77) 100 01/01/18 17:00 68 01/01/18 16:00 98.2 82 21 122/73 (89) 100 01/01/18 16:00 82 01/01/18 15:00 69 23 120/61 (80) 99 01/01/18 15:00 69 01/01/18 14:00 78 01/01/18 14:00 78 19 111/56 (74) 100 01/01/18 13:00 80 18 112/62 (79) 100 01/01/18 13:00 80 01/01/18 12:00 82 01/01/18 12:00 82 8 119/56 (77) 100 01/01/18 11:00 99 01/01/18 11:00 99 21 132/63 (86) 100 01/01/18 10:00 72 22 170/80 (110) 100 01/01/18 10:00 72 01/01/18 09:11 100 01/01/18 09:00 60 01/01/18 09:00 60 18 201/89 (126) 100 01/01/18 08:00 75 24 196/95 (128) 98 01/01/18 08:00 75 I/O 01/01/18 01/01/18 01/01/18 01/02/18 01/02/18 01/02/18 07:00 15:00 23:00 07:00 15:00 23:00 Intake Total 1228 ml Output Total 1400 ml Balance -172 ml Intake Oral 120 ml IV Total 1108 ml Output Urine Total 1400 ml # Voids 5 3 # Bowel Movements 1 0 Physical Exam GENERAL: SKIN: Warm and dry. HEAD: Normocephalic. EYES: No scleral icterus. No injection or drainage. NECK: Supple, trachea midline. No JVD or lymphadenopathy. CARDIOVASCULAR: Regular rate and rhythm without murmurs, gallops, or rubs. RESPIRATORY: Breath sounds equal bilaterally. No accessory muscle use. GASTROINTESTINAL: Abdomen soft, non-tender, nondistended. MUSCULOSKELETAL: No cyanosis, or edema. BACK: Nontender without obvious deformity. No CVA tenderness. Laboratory Laboratory Tests Test 01/01/18 15:43 01/02/18 06:00 Hemoglobin 11.5 GM/DL 10.0 GM/DL Hematocrit 35.3 % 31.1 % White Blood Count 6.3 TH/MM3 Red Blood Count 3.87 MIL/MM3 Mean Corpuscular Volume 80.4 FL Mean Corpuscular Hemoglobin 25.9 PG Mean Corpuscular Hemoglobin Concent 32.3 % Red Cell Distribution Width 16.3 % Platelet Count 145 TH/MM3 Mean Platelet Volume 9.7 FL Blood Urea Nitrogen 22 MG/DL Creatinine 1.96 MG/DL Random Glucose 87 MG/DL Calcium Level 7.6 MG/DL Sodium Level 142 MEQ/L Potassium Level 4.3 MEQ/L Chloride Level 113 MEQ/L Carbon Dioxide Level 22.5 MEQ/L Anion Gap 7 MEQ/L Estimat Glomerular Filtration Rate 40 ML/MIN Assessment and Plan Problem List: (1) CKD (chronic kidney disease) ICD Codes: N18.9 - Chronic kidney disease Status: Acute (2) Renal insufficiency ICD Codes: N28.9 - Disorder of kidney and ureter, unspecified Status: Acute (3) GI bleed ICD Codes: K92.2 - Gastrointestinal hemorrhage, unspecified (4) NSTEMI (non-ST elevated myocardial infarction) ICD Codes: I21.4 - Non-ST elevation (NSTEMI) myocardial infarction Status: Acute (5) CAD (coronary artery disease) ICD Codes: I25.10 - CAD (coronary artery disease) Status: Acute (6) Diabetes mellitus type 2 in nonobese ICD Codes: E11.9 - Diabetes mellitus type 2 in nonobese Status: Chronic (7) Vhepi-rh-ubtdtyy kidney injury ICD Codes: N17.9 - Iiyoc-eh-qijhoyz renal failure; N18.9 - Chronic kidney disease, unspecified Status: Acute (8) Hx of CABG ICD Codes: Z95.1 - Presence of aortocoronary bypass graft Status: Acute Assessment and Plan 1.) CAD - nstemi due to gib, anemia, assymptomatic, hgb stable; f/u cbc; continue lipitor, ac held due to gib, patient advised to f/u with me in office matt, 01/03/18 Anupam Ang MD Jan 02, 2018 07:57
[2018-01-02] MEDS: INSULIN ASPART SUPPLEMENTAL SCALE SQ SCH ×4 (08:00→21:00)
[2018-01-02] MEDS: amLODIPine BESYLATE 5 MG TAB PO SCH (08:58)
[2018-01-02] MEDS: SODIUM CHLORIDE 0.9% FLUSH 10 ML FLUSH IV FLUSH SCH ×2 (08:59→21:04)
[2018-01-02] MEDS: DOCUSATE SODIUM 50 MG/SENNA 8.6 MG TAB PO SCH ×2 (08:59→21:04)
[2018-01-02] MEDS: LOSARTAN 50 MG TAB PO SCH (09:03)
--- NOTE | 2018-01-02 14:15 | HHI.PR ---
Subjective Remarks Patient reported no short of breath or chest pain Afebrile Objective Vitals Vital Signs Date Time Temp Pulse Resp B/P (MAP) Pulse Ox O2 Delivery O2 Flow Rate FiO2 01/02/18 12:00 97.7 72 20 104/60 (75) 98 01/02/18 08:00 Room Air 01/02/18 08:00 57 01/02/18 08:00 98.3 71 20 126/71 (89) 99 01/02/18 04:00 98.3 76 16 149/64 (92) 99 01/02/18 04:00 62 01/02/18 00:00 98.6 70 16 155/65 (95) 99 01/01/18 23:40 67 01/01/18 23:30 Room Air 01/01/18 23:21 97.5 63 18 161/92 (115) 98 01/01/18 20:00 70 01/01/18 20:00 97.4 70 20 135/60 (85) 01/01/18 18:00 67 01/01/18 17:00 68 20 115/58 (77) 100 01/01/18 17:00 68 01/01/18 16:00 98.2 82 21 122/73 (89) 100 01/01/18 16:00 82 01/01/18 15:00 69 23 120/61 (80) 99 01/01/18 15:00 69 I/O 01/01/18 01/01/18 01/01/18 01/02/18 01/02/18 01/02/18 07:00 15:00 23:00 07:00 15:00 23:00 Intake Total 1228 ml Output Total 1400 ml Balance -172 ml Intake Oral 120 ml IV Total 1108 ml Output Urine Total 1400 ml # Voids 5 3 # Bowel Movements 1 0 Result Diagram: 01/02/1859901/02/18599 Objective Remarks GENERAL: This is a well-nourished, well-developed patient, in no apparent distress. CARDIOVASCULAR: Regular rate and rhythm without murmurs, gallops, or rubs. RESPIRATORY: Clear to auscultation. Breath sounds equal bilaterally. No wheezes , rales, or rhonchi. GASTROINTESTINAL: Abdomen soft, non-tender, nondistended. Normal active bowel sounds MUSCULOSKELETAL: Extremities without clubbing, cyanosis, or edema. NEURO: Alert & Oriented x4 to person, place, time, situation. Moves all ext x4 A/P Assessment and Plan 12/30: Afebrile. Patient denies chest discomfort, normotensive. Patient continues on Protonix infusion. Hemoglobin stable at 9.5 with continued serial monitoring. No further melanotic stools since admission to hospital. 12/31: Hemoglobin stable over the last 24 hours. Patient denies any discomfort no active signs of bleeding no melena or hematemesis. Patient states he has an appetite. Patient is scheduled for EGD this a.m. Protonix infusing. 01/01: Patient underwent EGD, report pending. Okay to transfer patient from GI standpoint to medical floor per Dr. Crow. Patient's diet advanced. Hemoglobin stable. Patient denies chest. Normotensive. 01/02: Continue to increase BNP in a.m., patient cleared by cardio, continue diuretics A/P: Suspected upper GI bleed Severe anemia-resolved Chest pain -resolved non-STEMI Plan: Cardiovascular: Maintain map greater than 65 D/C normal saline Troponin levels downtrended Cardiology following Home antihypertensive medication resumed Maintain O2 sat greater than 92% Continue supplemental O2 as needed. Bronchodilators when necessary. Diet advance per GI Protonix infusion 8 mg/hr GI following 12/31 EGD performed strict intake output, monitor and replete electrolytes, follow BUN/creatinine. Follow CBC, serial H&H. Maintain hemoglobin greater than 9 Watch for hyperglycemia, SSI for glycemic control if needed. Prophylaxis: Protonix infusion, SCDs. DVT prophylaxis not indicated at this time in the setting of GI bleed Jonathan Saleem MD Jan 02, 2018 14:15
--- NOTE | 2018-01-02 15:11 | HHI.GIFU ---
Subjective Remarks Patient is resting in the bed Denies any nausea or vomiting Afebrile No abdominal pain Objective Vitals I&O Vital Signs Date Time Temp Pulse Resp B/P (MAP) Pulse Ox O2 Delivery O2 Flow Rate FiO2 01/02/18 12:00 97.7 72 20 104/60 (75) 98 01/02/18 08:00 Room Air 01/02/18 08:00 57 01/02/18 08:00 98.3 71 20 126/71 (89) 99 01/02/18 04:00 98.3 76 16 149/64 (92) 99 01/02/18 04:00 62 01/02/18 00:00 98.6 70 16 155/65 (95) 99 01/01/18 23:40 67 01/01/18 23:30 Room Air 01/01/18 23:21 97.5 63 18 161/92 (115) 98 01/01/18 20:00 70 01/01/18 20:00 97.4 70 20 135/60 (85) 01/01/18 18:00 67 01/01/18 17:00 68 20 115/58 (77) 100 01/01/18 17:00 68 01/01/18 16:00 98.2 82 21 122/73 (89) 100 01/01/18 16:00 82 I/O 01/01/18 01/01/18 01/01/18 01/02/18 01/02/18 01/02/18 07:00 15:00 23:00 07:00 15:00 23:00 Intake Total 1228 ml Output Total 1400 ml Balance -172 ml Intake Oral 120 ml IV Total 1108 ml Output Urine Total 1400 ml # Voids 5 3 # Bowel Movements 1 0 Laboratory Laboratory Tests Test 01/01/18 15:43 01/02/18 06:00 Hemoglobin 11.5 10.0 Hematocrit 35.3 31.1 White Blood Count 6.3 Red Blood Count 3.87 Mean Corpuscular Volume 80.4 Mean Corpuscular Hemoglobin 25.9 Mean Corpuscular Hemoglobin Concent 32.3 Red Cell Distribution Width 16.3 Platelet Count 145 Mean Platelet Volume 9.7 Blood Urea Nitrogen 22 Creatinine 1.96 Random Glucose 87 Calcium Level 7.6 Sodium Level 142 Potassium Level 4.3 Chloride Level 113 Carbon Dioxide Level 22.5 Anion Gap 7 Estimat Glomerular Filtration Rate 40 Imaging Last Impressions Chest X-Ray 12/29/17 1841 Signed Impressions: Service Date/Time: Friday, December 29, 2017 19:33 - CONCLUSION: Previous bypass. No infiltrate or failure. Jamel Triplett MD FACR Physical Exam HEENT: Pupils round and reactive to light; normocephalic; atraumatic; pale mucous membranes NECK: Neck is supple, CHEST: Chest is clear CARDIAC: Regular rate and rhythm ABDOMEN: Round, Soft, nondistended, nontender; no hepatosplenomegaly; bowel sounds are present in all four quadrants. EXTREMITIES: No LE edema. SKIN: Normal; no rash; no jaundice. BANK MANAGER: No focal deficits; alert and oriented times three. Assessment and Plan Plan Assessment: - Anemia with reports of melena- History of GIB. Previous GI work up: Capsule endoscopy (10/20/17) --> Excessive gastric food residue suspicious for gastroparesis. Limited evaluation of small bowel due to poor prep. No bleeding or source of bleeding visualized. Small bowel enteroscopy (Oct 2017) -->An AV malformation was found in the second portion of the duodenum. Last colonoscopy from Aug 2017 consistent with diverticulosis and hemorrhoids. NM bleeding scan (11/14/17) Positive GI bleeding scan with intraluminal blood initially observed at 30 minutes and seen scattered throughout the abdomen out to 110 minutes. While the location of the cannot be identified, it most probably arises somewhere within the small bowel. Previous celiac artery angiogram (Oct 2017) --> Mesenteric angiography without a source of hemorrhage in this patient with an upper GI bleed. H/H 5.7/17.9 on admission now S/P 2 U PRBCs Protonix gtt. - Hyperbilirubinemia- unclear significance- WNL on admission. LFTs now WNL - Elevated troponin- seen by cardiology who states probably secondary to extreme anemia- pt previously on Coumadin DCd previously for GIB, currently on daily ASA 12/31/17 EGD done no complications known 01/02/18 patient denies any symptoms of nausea ,vomiting ,diarrhea , constipation or abdominal pain. His tolerating heart healthy diet Hemoglobin 10. without obvious bleeding. Plan: Diet heart healthy Protonix gtt, consider changing to by mouth in a.m. Anti-emetics Bowel regimen Monitor H/H and labs Supportive care Further recommendations based on findings of above Pt has been seen and examined by myself and Dr. Marley and this note is written on his behalf Edith Ambriz Jan 02, 2018 15:11
[2018-01-02] MEDS: TAMSULOSIN HCL 0.4 MG CAP PO SCH (21:04)
[2018-01-02] MEDS: ATORVASTATIN 40 MG TAB PO SCH (21:04)
[2018-01-03] VITALS (11 sets, daily range): BP systolic 123–151; BP diastolic 67–76; PULSE 51–81; RESP 16–18; TEMP 97.4–98.3; O2SAT 94–100
[2018-01-03] MEDS: CHLORHEXIDINE GLUCONATE 2 % 1 PACK (2 CLOTHS) TOP SCH (03:52)
[2018-01-03 07:54] LABS: BICARBONATE 22.4 MEQ/L (21.0-32.0); CALCIUM 7.7 MG/DL (8.5-10.1); CREATININE 1.88 MG/DL (0.60-1.30)
[2018-01-03] MEDS: INSULIN ASPART SUPPLEMENTAL SCALE SQ SCH ×4 (07:57→20:18)
[2018-01-03] MEDS: DOCUSATE SODIUM 50 MG/SENNA 8.6 MG TAB PO SCH ×2 (09:46→20:17)
[2018-01-03] MEDS: SODIUM CHLORIDE 0.9% FLUSH 10 ML FLUSH IV FLUSH SCH ×2 (09:46→20:17)
[2018-01-03] MEDS: PANTOPRAZOLE INJ 80 MG in SODIUM CHLORIDE 0.9% INJ 100 ML IV SCH ×2 (09:46→17:08)
[2018-01-03] MEDS: LOSARTAN 50 MG TAB PO SCH (09:46)
[2018-01-03] MEDS: amLODIPine BESYLATE 5 MG TAB PO SCH (09:46)
--- NOTE | 2018-01-03 15:36 | PD.CARD.PN ---
Subjective Subjective Remarks alert in nad, assymptomatic Objective Medications Current Medications Medications (Trade) Dose Ordered Sig/Johanne Route Start Time Stop Time Status Last Admin Pantoprazole Sodium 80 mg/ Sodium Chloride 100 ml @ 10 mls/hr Q10H IV 12/29/17 18:47 01/03/18 09:46 (NS Flush) 2 ml UNSCH PRN IV FLUSH 12/29/17 23:15 (NS Flush) 2 ml BID IV FLUSH 12/30/17 09:00 01/03/18 09:46 (Tylenol) 650 mg Q6H PRN PO 12/29/17 23:15 (Zofran Inj) 4 mg Q6H PRN IV PUSH 12/29/17 23:15 (Duoneb Neb) 1 ampule Q4HR NEB PRN INH 12/29/17 23:15 Miscellaneous Information 1 Q361D XX 12/29/17 23:15 12/29/17 23:15 (Chlorhexidine 2% Cloth) 3 pack Taper DAILY@04 TOP 12/30/17 04:00 12/26/18 03:59 12/31/17 04:00 (Chlorhexidine 2% Cloth) 3 pack UNSCH PRN TOP 12/29/17 23:15 (Monica-Colace) 1 tab BID PO 12/30/17 09:00 01/03/18 09:46 (Milk Of Magnesia Liq) 30 ml Q12H PRN PO 12/29/17 23:15 (Senokot) 17.2 mg Q12H PRN PO 12/29/17 23:15 (Dulcolax Supp) 10 mg DAILY PRN RECTAL 12/29/17 23:15 (Lactulose Liq) 30 ml DAILY PRN PO 12/29/17 23:15 (Morphine Inj) 2 mg Q4H PRN IV PUSH 12/30/17 13:00 (D50w (Vial) Inj) 50 ml UNSCH PRN IV PUSH 12/31/17 09:00 (Glucagon Inj) 1 mg UNSCH PRN OTHER 12/31/17 09:00 (NovoLOG SUPPLEMENTAL SCALE) 1 ACHS SLIDING SCALE SQ 12/31/17 12:00 (Lipitor) 40 mg HS PO 01/01/18 21:00 01/02/18 21:04 (Flomax) 0.4 mg HS PO 01/01/18 21:00 01/02/18 21:04 (Norvasc) 5 mg DAILY PO 01/01/18 10:00 01/03/18 09:46 (Apresoline Inj) 20 mg Q4H PRN IV PUSH 01/01/18 10:00 01/01/18 13:53 (Cozaar) 100 mg DAILY PO 01/02/18 10:00 01/03/18 09:46 Vital Signs / I&O Vital Signs Date Time Temp Pulse Resp B/P (MAP) Pulse Ox O2 Delivery O2 Flow Rate FiO2 01/03/18 12:00 97.5 70 18 146/76 (99) 99 01/03/18 12:00 Room Air 01/03/18 11:21 21 01/03/18 08:00 Room Air 01/03/18 08:00 98.2 60 18 138/67 (90) 98 01/03/18 04:00 Room Air 01/03/18 04:00 97.9 63 18 126/72 (90) 99 01/03/18 03:42 51 01/03/18 00:00 Room Air 01/03/18 00:00 98.2 62 18 151/74 (99) 100 01/02/18 23:57 55 01/02/18 20:30 21 01/02/18 20:00 98.0 64 16 134/69 (90) 100 01/02/18 20:00 Room Air 01/02/18 19:42 70 01/02/18 16:00 97.9 68 20 114/60 (78) 100 01/02/18 16:00 66 01/02/18 16:00 Room Air I/O 01/02/18 01/02/18 01/02/18 01/03/18 01/03/18 01/03/18 07:00 15:00 23:00 07:00 15:00 23:00 Intake Total 580 ml 240 ml Output Total 800 ml 600 ml Balance -220 ml -360 ml Intake Oral 480 ml 240 ml IV Total 100 ml Output Urine Total 800 ml 600 ml # Voids 3 Physical Exam GENERAL: SKIN: Warm and dry. HEAD: Normocephalic. EYES: No scleral icterus. No injection or drainage. NECK: Supple, trachea midline. No JVD or lymphadenopathy. CARDIOVASCULAR: Regular rate and rhythm without murmurs, gallops, or rubs. RESPIRATORY: Breath sounds equal bilaterally. No accessory muscle use. GASTROINTESTINAL: Abdomen soft, non-tender, nondistended. MUSCULOSKELETAL: No cyanosis, or edema. BACK: Nontender without obvious deformity. No CVA tenderness. Laboratory Laboratory Tests Test 01/03/18 05:40 Blood Urea Nitrogen 20 MG/DL Creatinine 1.88 MG/DL Random Glucose 71 MG/DL Calcium Level 7.7 MG/DL Sodium Level 142 MEQ/L Potassium Level 4.2 MEQ/L Chloride Level 112 MEQ/L Carbon Dioxide Level 22.4 MEQ/L Anion Gap 8 MEQ/L Estimat Glomerular Filtration Rate 42 ML/MIN B-Type Natriuretic Peptide 134 PG/ML Assessment and Plan Problem List: (1) CKD (chronic kidney disease) ICD Codes: N18.9 - Chronic kidney disease Status: Acute (2) Renal insufficiency ICD Codes: N28.9 - Disorder of kidney and ureter, unspecified Status: Acute (3) GI bleed ICD Codes: K92.2 - Gastrointestinal hemorrhage, unspecified (4) NSTEMI (non-ST elevated myocardial infarction) ICD Codes: I21.4 - Non-ST elevation (NSTEMI) myocardial infarction Status: Acute (5) CAD (coronary artery disease) ICD Codes: I25.10 - CAD (coronary artery disease) Status: Acute (6) Diabetes mellitus type 2 in nonobese ICD Codes: E11.9 - Diabetes mellitus type 2 in nonobese Status: Chronic (7) Shmnc-re-kosmlhx kidney injury ICD Codes: N17.9 - Tngbi-rn-yqynadk renal failure; N18.9 - Chronic kidney disease, unspecified Status: Acute (8) Hx of CABG ICD Codes: Z95.1 - Presence of aortocoronary bypass graft Status: Acute Assessment and Plan 1.) CAD - nstemi due to gib, anemia, assymptomatic, hgb stable; f/u cbc; continue lipitor, ac held due to gib, patient advised to f/u with me in office matt, 01/04/18 Anupam Ang MD Jan 03, 2018 15:36
--- NOTE | 2018-01-03 18:38 | HHI.PR ---
Subjective Remarks Resting in bed, feeling okay No abdominal pain no nausea or vomiting had EGD which showed gastritis Objective Vitals Vital Signs Date Time Temp Pulse Resp B/P (MAP) Pulse Ox O2 Delivery O2 Flow Rate FiO2 01/03/18 16:00 97.4 64 18 123/75 (91) 94 01/03/18 12:00 63 01/03/18 12:00 97.5 70 18 146/76 (99) 99 01/03/18 12:00 Room Air 01/03/18 11:21 21 01/03/18 08:00 Room Air 01/03/18 08:00 98.2 60 18 138/67 (90) 98 01/03/18 04:00 Room Air 01/03/18 04:00 97.9 63 18 126/72 (90) 99 01/03/18 03:42 51 01/03/18 00:00 Room Air 01/03/18 00:00 98.2 62 18 151/74 (99) 100 01/02/18 23:57 55 01/02/18 20:30 21 01/02/18 20:00 98.0 64 16 134/69 (90) 100 01/02/18 20:00 Room Air 01/02/18 19:42 70 I/O 01/02/18 01/02/18 01/02/18 01/03/18 01/03/18 01/03/18 07:00 15:00 23:00 07:00 15:00 23:00 Intake Total 580 ml 240 ml 960 ml Output Total 800 ml 600 ml 900 ml Balance -220 ml -360 ml 60 ml Intake Oral 480 ml 240 ml 960 ml IV Total 100 ml Output Urine Total 800 ml 600 ml 900 ml # Voids 3 # Bowel Movements 1 Result Diagram: 01/02/18 0600 01/03/18 0540 Objective Remarks GENERAL: This is a well-nourished, well-developed patient, in no apparent distress. CARDIOVASCULAR: Regular rate and rhythm without murmurs, gallops, or rubs. RESPIRATORY: Clear to auscultation. Breath sounds equal bilaterally. No wheezes , rales, or rhonchi. GASTROINTESTINAL: Abdomen soft, non-tender, nondistended. Normal active bowel sounds MUSCULOSKELETAL: Extremities without clubbing, cyanosis, or edema. NEURO: Alert & Oriented x4 to person, place, time, situation. Moves all ext x4 Procedures EGD A/P Assessment and Plan 12/30: Afebrile. Patient denies chest discomfort, normotensive. Patient continues on Protonix infusion. Hemoglobin stable at 9.5 with continued serial monitoring. No further melanotic stools since admission to hospital. 12/31: Hemoglobin stable over the last 24 hours. Patient denies any discomfort no active signs of bleeding no melena or hematemesis. Patient states he has an appetite. Patient is scheduled for EGD this a.m. Protonix infusing. 01/01: Patient underwent EGD, report pending. Okay to transfer patient from GI standpoint to medical floor per Dr. Crow. Patient's diet advanced. Hemoglobin stable. Patient denies chest. Normotensive. 01/02: Continue monitor BNP in a.m., patient cleared by cardio, continue diuretics 01/03: Monitor H&H per GI recommendation possibly discharge in a.m. if stable, BNP dropped from 463-134, creatinine decreased from 1.96-1.88 A/P: Suspected upper GI bleed Severe anemia-resolved Chest pain -resolved non-STEMI Plan: Cardiovascular: Maintain map greater than 65 D/C normal saline Troponin levels downtrended Cardiology following Home antihypertensive medication resumed Maintain O2 sat greater than 92% Continue supplemental O2 as needed. Bronchodilators when necessary. Diet advance per GI Protonix infusion 8 mg/hr GI following 12/31 EGD performed strict intake output, monitor and replete electrolytes, follow BUN/creatinine. Follow CBC, serial H&H. Maintain hemoglobin greater than 9 Watch for hyperglycemia, SSI for glycemic control if needed. Prophylaxis: Protonix infusion, SCDs. DVT prophylaxis not indicated at this time in the setting of GI bleed Jonathan Saleem MD Jan 03, 2018 18:38
[2018-01-03] MEDS: TAMSULOSIN HCL 0.4 MG CAP PO SCH (20:17)
[2018-01-03] MEDS: ATORVASTATIN 40 MG TAB PO SCH (20:17)
[2018-01-04] MEDS: PANTOPRAZOLE INJ 80 MG in SODIUM CHLORIDE 0.9% INJ 100 ML IV SCH (03:10)
[2018-01-04] MEDS: CHLORHEXIDINE GLUCONATE 2 % 1 PACK (2 CLOTHS) TOP SCH (03:11)
[2018-01-04 03:30] VITALS: BP 147/68; PULSE 60; RESP 16; TEMP 98.1; O2SAT 99
[2018-01-04 04:00] VITALS: PULSE 54
[2018-01-04] MEDS: INSULIN ASPART SUPPLEMENTAL SCALE SQ SCH (07:32)
[2018-01-04] MEDS: SODIUM CHLORIDE 0.9% FLUSH 10 ML FLUSH IV FLUSH SCH (07:35)
[2018-01-04] MEDS: DOCUSATE SODIUM 50 MG/SENNA 8.6 MG TAB PO SCH (07:56)
[2018-01-04] MEDS: amLODIPine BESYLATE 5 MG TAB PO SCH (07:56)
[2018-01-04] MEDS: LOSARTAN 50 MG TAB PO SCH (07:56)
[2018-01-04 08:01] VITALS: BP 138/72; PULSE 67; RESP 19; TEMP 98.1; O2SAT 99
[2018-01-04] MEDS ORDERED: COZA50TA PO (11:32)
[2018-01-04 11:36] LABS: HEMATOCRIT 30.6 % (39.0-51.0)
[2018-01-04 12:01] VITALS: BP 136/70; PULSE 68; RESP 19; TEMP 98; O2SAT 99
--- NOTE | 2018-01-04 18:13 | PD.CARD.PN ---
Subjective Subjective Remarks alert in nad, assymptomatic Objective Vital Signs / I&O Vital Signs Date Time Temp Pulse Resp B/P (MAP) Pulse Ox O2 Delivery O2 Flow Rate FiO2 01/04/18 12:01 98.0 68 19 136/70 (92) 99 01/04/18 08:01 98.1 67 19 138/72 (94) 99 01/04/18 04:00 Room Air 01/04/18 04:00 54 01/04/18 03:30 98.1 60 16 147/68 (94) 99 01/04/18 00:00 Room Air 01/03/18 23:55 81 01/03/18 23:55 98.3 68 16 147/71 (96) 100 01/03/18 21:31 21 01/03/18 20:00 63 01/03/18 20:00 Room Air 01/03/18 19:40 98.2 64 16 136/67 (90) 100 I/O 01/03/18 01/03/18 01/03/18 01/04/18 01/04/18 01/04/18 07:00 15:00 23:00 07:00 15:00 23:00 Intake Total 240 ml 960 ml 340 ml Output Total 600 ml 900 ml Balance -360 ml 60 ml 340 ml Intake Oral 240 ml 960 ml 240 ml IV Total 100 ml Output Urine Total 600 ml 900 ml # Voids 4 # Bowel Movements 1 1 Physical Exam GENERAL: SKIN: Warm and dry. HEAD: Normocephalic. EYES: No scleral icterus. No injection or drainage. NECK: Supple, trachea midline. No JVD or lymphadenopathy. CARDIOVASCULAR: Regular rate and rhythm without murmurs, gallops, or rubs. RESPIRATORY: Breath sounds equal bilaterally. No accessory muscle use. GASTROINTESTINAL: Abdomen soft, non-tender, nondistended. MUSCULOSKELETAL: No cyanosis, or edema. BACK: Nontender without obvious deformity. No CVA tenderness. Laboratory Laboratory Tests Test 01/04/18 11:27 Hemoglobin 10.0 GM/DL Hematocrit 30.6 % Assessment and Plan Problem List: (1) CKD (chronic kidney disease) ICD Codes: N18.9 - Chronic kidney disease Status: Acute (2) Renal insufficiency ICD Codes: N28.9 - Disorder of kidney and ureter, unspecified Status: Acute (3) GI bleed ICD Codes: K92.2 - Gastrointestinal hemorrhage, unspecified (4) NSTEMI (non-ST elevated myocardial infarction) ICD Codes: I21.4 - Non-ST elevation (NSTEMI) myocardial infarction Status: Acute (5) CAD (coronary artery disease) ICD Codes: I25.10 - CAD (coronary artery disease) Status: Acute (6) Diabetes mellitus type 2 in nonobese ICD Codes: E11.9 - Diabetes mellitus type 2 in nonobese Status: Chronic (7) [id number] kidney injury ICD Codes: N17.9 - Xsnns-[id number] renal failure; N18.9 - Chronic kidney disease, unspecified Status: Acute (8) Hx of CABG ICD Codes: Z95.1 - Presence of aortocoronary bypass graft Status: Acute Assessment and Plan 1.) CAD - nstemi due to gib, anemia, assymptomatic, hgb stable; f/u cbc; continue lipitor, ac held due to gib, patient advised to f/u with me in office matt, 01/05/18 Anupam Ang MD Jan 04, 2018 18:13
--- NOTE | 2018-01-04 19:10 | HHI.DS ---
Discharge Summary Admission Date Dec 29, 2017 at 21:15 Discharge Date: Jan 04, 2018 Admitting Diagnosis Anemia, upper GI bleed, NSTEMI (1) Chronic kidney disease ICD Code: N18.9 - Chronic kidney disease, unspecified Status: Chronic (2) DM (diabetes mellitus) ICD Code: E11.9 - Type 2 diabetes mellitus without complications Status: Acute (3) Hyperlipidemia ICD Code: E78.5 - Hyperlipidemia, unspecified Status: Acute (4) Hypertension ICD Code: I10 - Essential (primary) hypertension Status: Acute (5) CAD (coronary artery disease) ICD Code: I25.10 - Atherosclerotic heart disease of [place] coronary artery without angina pectoris Status: Acute (6) CKD (chronic kidney disease) ICD Code: N18.9 - Chronic kidney disease Status: Acute (7) GI bleed ICD Code: K92.2 - Gastrointestinal hemorrhage, unspecified Procedures EGD Brief History - From Admission History of Present Illness HPI This is an 87-year-old male with extensive past medical history who is a very poor historian. He has a history of hypertension, hyperlipidemia, coronary artery disease, CHF, diabetes, GERD, history of PE and DVT. He has been experiencing chest pain for the past 2 days. He points at the middle of his chest as the location of his pain. He says that it radiates into the arms. He reports associated lightheadedness. He denies abdominal pain, nausea or vomiting, shortness of breath, cough, congestion. He has had dark colored stools over the past few days. Of note, the patient was admitted on November 13 for evaluation of chest pain as well as GI bleed. 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 This was cauterized. Coumadin was discontinued at that time given the risk of repeat bleeding. He does take an aspirin on a daily basis. Patient was noted to have a hemoglobin of 5.7 and troponin 1.67. He was initiated on Protonix drip, 3 unit PRBCs were ordered by ER and was accepted for admission by critical care medicine service. When I evaluated the patient in the ER he was resting comfortably and not in any acute distress. At the time of my evaluation he denied any chest pain or shortness of breath currently. History was obtained by reviewing records and discussion with ER PA. Patient is not a very good historian. History PFSH Past Medical History Hx Anticoagulant Therapy: Yes Arthritis: Yes Asthma: No Blood Disorders: No Anxiety: No Depression: No Heart Rhythm Problems: No Cancer: No Cardiac Catheterization: Yes Cardiovascular Problems: Yes High Cholesterol: Yes Chemotherapy: No Chest Pain: No Congestive Heart Failure: Yes COPD: No Cerebrovascular Accident: Yes Coronary Artery Disease: Yes Diabetes: Yes Patient Takes Glucophage: Yes Diminished Hearing: No Endocrine: Yes Gastrointestinal Disorders: Yes (GERD, ADMITTED WITH SUSPECTED GI BLEED 08/29/17 ) GERD: Yes Genitourinary: Yes (UNKNOWN LEFT KIDNEY PROBLEM) Headaches: Yes Hypertension: Yes Immune Disorder: No Implanted Vascular Access Dvce: Yes (EYE) Musculoskeletal: Yes Neurologic: Yes Psychiatric: No Reproductive: No Respiratory: Yes (asthma) Immunizations Current: Yes Migraines: No Radiation Therapy: No Seizures: No Sleep Apnea: No Thyroid Disease: No Past Surgical History Abdominal Surgery: No AICD: No Arteriovenous Shunt: No Body Medical Devices: coronary artery stents Cardiac Surgery: Yes (CABG- 2005; CARDIAC CATH. WITH STENT- 2004) Coronary Artery Bypass Graft: Yes (3 VESSEL ) Coronary Stent: Yes Ear Surgery: No Endocrine Surgery: No Eye Surgery: Yes (LEFT CATARACT EXTRACTION WITH IOL) Genitourinary Surgery: No Gynecologic Surgery: No Joint Replacement: No Neurologic Surgery: No Oral Surgery: No Pacemaker: No Thoracic Surgery: No Other Surgery: Yes (COLONOSCOPY) Social History Alcohol Use: No Tobacco Use: No Substance Use: No Allergies-Medications Allergies-Medications (Allergen,Severity, Reaction): Coded Allergies: No Known Allergies (Verified Allergy, Unknown, 12/29/17) Reported Meds & Prescriptions Reported Meds & Active Scripts Active Pantoprazole (Pantoprazole Sodium) 40 Mg Tab 40 Mg PO Q12HR Proair Respiclick Inh (Albuterol Sulfate) 90 Mcg/Act Aerp 2 Puff INH Q4-6H PRN Pantoprazole (Pantoprazole Sodium) 40 Mg Tab 40 Mg PO DAILY Reported Atorvastatin (Atorvastatin Calcium) 40 Mg Tab 40 Mg PO HS Aspirin 81 Mg Chew 81 Mg CHEW DAILY Calcitriol 0.25 Mcg Cap 0.25 Mcg PO MOWEFR Take 1 capsule (0.25mcg) three times weekly on Wednesday,Wednesday and Wednesday Tradjenta (Linagliptin) 5 Mg Tab 5 Mg PO DAILY Uloric (Febuxostat) 40 Mg Tab 40 Mg PO DAILY Tamsulosin (Tamsulosin HCl) 0.4 Mg Cap 0.4 Mg PO HS Amlodipine-Olmesartan 5-40 Mg Tab 1 Tab PO DAILY Repaglinide 0.5 Mg Tab 0.5 Mg PO BIDAC ROS Review of Systems Except as stated in HPI: all other systems reviewed are Neg CBC/BMP: 01/04/18 1127 01/03/18 0540 Significant Findings Laboratory Tests Test 01/02/18 06:00 01/03/18 05:40 01/04/18 11:27 Red Blood Count 3.87 MIL/MM3 (4.50-5.90) Hemoglobin 10.0 GM/DL (13.0-17.0) 10.0 GM/DL (13.0-17.0) Hematocrit 31.1 % (39.0-51.0) 30.6 % (39.0-51.0) Mean Corpuscular Hemoglobin 25.9 PG (27.0-34.0) Platelet Count 145 TH/MM3 (150-450) Blood Urea Nitrogen 22 MG/DL (7-18) 20 MG/DL (7-18) Creatinine 1.96 MG/DL (0.60-1.30) 1.88 MG/DL (0.60-1.30) Calcium Level 7.6 MG/DL (8.5-10.1) 7.7 MG/DL (8.5-10.1) Chloride Level 113 MEQ/L (98-107) 112 MEQ/L (98-107) Estimat Glomerular Filtration Rate 40 ML/MIN (>89) 42 ML/MIN (>89) Random Glucose 71 MG/DL (74-106) B-Type Natriuretic Peptide 134 PG/ML (0-100) PE at Discharge GENERAL: This is a well-nourished, well-developed patient, in no apparent distress. CARDIOVASCULAR: Regular rate and rhythm without murmurs, gallops, or rubs. RESPIRATORY: Clear to auscultation. Breath sounds equal bilaterally. No wheezes , rales, or rhonchi. GASTROINTESTINAL: Abdomen soft, non-tender, nondistended. Normal active bowel sounds MUSCULOSKELETAL: Extremities without clubbing, cyanosis, or edema. NEURO: Alert & Oriented x4 to person, place, time, situation. Moves all ext x4 Hospital Course 87 years old male admitted with severe anemia upper GI bleed chest pain non- STEMI, cardiology consulted as well as GI, Protonix IV, H&H, cardiology recommended stabilizing hemoglobin continue Lipitor initially hold SOY inhibitor due to GI bleed and renal injury, resume that discharged since renal function started improving, and patient to follow-up as an outpatient, GI cleared patient to go on Protonix and follow-up as an outpatient for further recommendation [id number] encounter performed with the patient on discharge day, as well as physical exam, summary of hospitalization course and postdischarge plan has been D/W the patient. D/W nurse D/W case assistant. Discharge medications reviewed and printed and signed, post discharge follow up visit with PCP and other specialist as well as Brief hospital course and discharge summary has been placed. Pt Condition on Discharge: Fair Discharge Disposition: Discharge Home Discharge Time: > 30 minutes Discharge Instructions DIET: Follow Instructions for: Heart Healthy Diet, Diabetic Diet Activities you can perform: Weight Bearing as Romy Follow up Referrals: Cardiology - 1 Week with Anupam Ang MD Gastroenterology - 1 Week with Jesse Flannery MD New Medications: Losartan (Cozaar) 50 Mg Tab 100 MG PO DAILY for htn, #30 TAB Continued Medications: Albuterol Powder Inh (Proair Respiclick Inh) 90 Mcg/Act Aerp 2 PUFF INH Q4-6H PRN for SHORTNESS OF BREATH, #1 INHALER 0 Refills Amlodipine-Olmesartan (Amlodipine-Olmesartan) 5-40 Mg Tab 1 TAB PO DAILY for Blood Pressure Management, #30 TAB 0 Refills Aspirin (Aspirin) 81 Mg Chew 81 MG CHEW DAILY, TAB 0 Refills Atorvastatin (Atorvastatin) 40 Mg Tab 40 MG PO HS for Cholesterol Management, #30 TAB 0 Refills Calcitriol (Calcitriol) 0.25 Mcg Cap 0.25 MCG PO MOWEFR for Calcium Supplement, #30 CAP 0 Refills Take 1 capsule (0.25mcg) three times weekly on Wednesday,Wednesday and Wednesday Febuxostat (Uloric) 40 Mg Tab 40 MG PO DAILY Linagliptin (Tradjenta) 5 Mg Tab 5 MG PO DAILY for Blood Sugar Management, #30 TAB 0 Refills Pantoprazole (Pantoprazole) 40 Mg Tab 40 MG PO Q12HR, #60 TAB 0 Refills Repaglinide (Repaglinide) 0.5 Mg Tab 0.5 MG PO BIDAC for Blood Sugar Management, #60 TAB 0 Refills Tamsulosin (Tamsulosin) 0.4 Mg Cap 0.4 MG PO HS for Manage Prostate Problems, #30 CAP 0 Refills Jonathan Saleem MD Jan 04, 2018 19:10
--- NOTE | 2018-01-14 11:55 | MR ---
cc: Gonzalo Marley MD DATE: 12/31/2017 DATE OF PROCEDURE: 12/31/2017 INDICATIONS FOR PROCEDURE: Gastrointestinal bleeding and anemia. PROCEDURE PERFORMED: Enteroscopy. DESCRIPTION OF PROCEDURE: After informed consent and explaining the risks of the procedure to the patient including bleeding, perforation, and risk of anesthesia, Mr. Schmitt was placed in the left lateral decubitus position and sedated with the help of anesthesia. Enteroscope was advanced from the mouth into the third portion of the duodenum. Normal duodenum is seen. The scope was withdrawn through the stomach, revealing some gastritis in the body and the antrum. Biopsies were obtained. Retroflexion was normal. Esophageal lining was normal. Endoscope was then withdrawn. The patient appeared to tolerate the procedure well. There were no apparent, immediate complications. IMPRESSION: Gastritis, otherwise normal enteroscopy. RECOMMENDATIONS: Continue to monitor labs. Advance diet as tolerated. Follow up with GI. Thank you for this referral. Gonzalo Marley MD HZ/KD , 11:42 AM , 11:55 AM
== END 2018-01-04 16:09 | disposition home or self-care (01) | DRG 377 ==
LOC: NEPC 18:15 → NEDA 21:15 → HIMW 23:55 → N04B 01-01 22:10
PROVIDERS: ADMIT Hospitalist; ATTEND Hospitalist
PROC: 30233N1 Transfusion of Nonautologous Red Blood Cells into Peripheral Vein, Percutaneous Approach (ICD-10-PCS; principal; 2017-12-29)
PROC: 0DB68ZX Excision of Stomach, Via Natural or Artificial Opening Endoscopic, Diagnostic (ICD-10-PCS; 2017-12-31)
DX: K92.1 Melena (principal); I21.4 Non-ST elevation (NSTEMI) myocardial infarction; N17.9 Acute kidney failure, unspecified; I13.0 Hypertensive heart and chronic kidney disease with heart failure and stage 1 through stage 4 chronic kidney disease, or unspecified chronic kidney disease; I50.9 Heart failure, unspecified; N18.9 Chronic kidney disease, unspecified; E11.22 Type 2 diabetes mellitus with diabetic chronic kidney disease; Z79.84 Long term (current) use of oral hypoglycemic drugs; D69.6 Thrombocytopenia, unspecified; D50.0 Iron deficiency anemia secondary to blood loss (chronic); K29.70 Gastritis, unspecified, without bleeding; E78.5 Hyperlipidemia, unspecified; I25.10 Atherosclerotic heart disease of native coronary artery without angina pectoris; Z95.5 Presence of coronary angioplasty implant and graft; Z95.1 Presence of aortocoronary bypass graft; Z79.82 Long term (current) use of aspirin; Z86.711 Personal history of pulmonary embolism; Z86.718 Personal history of other venous thrombosis and embolism; K21.9 Gastro-esophageal reflux disease without esophagitis; R79.89 Other specified abnormal findings of blood chemistry
CPT/HCPCS: 36430; 71046; 80048; 80053; 80076; 82550; 82552; 82948; 83735; 83880; 84100; 84155; 84484; 85014; 85018; 85025; 85027; 85610; 85730; 86850; 86900; 86901; 86920; 87641; 88305; 88312; 93005; 96365; 96368; C9113; J0360; J1815; J7030; J7050; P9016

== ENCOUNTER 2018-02-16 18:16 | Inpatient (IN) | payer MEDICARE, MEDICAID ==
[~2018-02-16] VITALS: Ht 175.3 cm; Wt 83.9 kg
[~2018-02-16 18:16] MED LIST changes: +ASPI-516 CHEW; +ATOR40TA16 PO; +COZA50TA PO; -WHEA1POW9 PO; -[UNRECOGNIZED DRUG - SUPPLY]
[2018-02-16 18:40] VITALS: BP 139/74; PULSE 78; RESP 16; O2SAT 100
[2018-02-16] MEDS ORDERED: SODIUM CHLORIDE 0.9% FLUSH 10 ML FLUSH IVF PRN (18:45)
[2018-02-16 19:09] LABS: AUTOMATED NEUTROPHIL # 3.1 TH/MM3 (1.8-7.7); BASOPHIL % 0.6 % (0.0-2.0); EOSINOPHIL # 0.2 TH/MM3 (0-0.4); HEMATOCRIT 32.7 % (39.0-51.0); HEMOGLOBIN 10.5 GM/DL (13.0-17.0); LYMPH % 31.6 % (9.0-44.0); LYMPHOCYTE # 1.8 TH/MM3 (1.0-4.8); MEAN CELL VOLUME 77.4 FL (80.0-100.0); MEAN CORPUSCULAR HEMOGLOBIN 24.8 PG (27.0-34.0); MEAN PLATELET VOLUME 9.1 FL (7.0-11.0); MONO % 9.3 % (0.0-8.0); MONOCYTE # 0.5 TH/MM3 (0-0.9); NEUT % 55.5 % (16.0-70.0); PLATELET COUNT 181 TH/MM3 (150-450); RED BLOOD COUNT 4.22 MIL/MM3 (4.50-5.90); RED CELL DISTRIBUTION WIDTH 19.2 % (11.6-17.2); WHITE BLOOD COUNT 5.5 TH/MM3 (4.0-11.0)
--- NOTE | 2018-02-16 19:14 | RADRPT ---
EXAM DATE: 02/16/2018 7:07 PM EDT AGE/SEX: 87 years / Male INDICATIONS: Shortness of breath and dizziness. CLINICAL DATA: This is the patient's initial encounter. Patient reports that signs and symptoms have been present for 2 days and indicates a pain score of 0/10. MEDICAL/SURGICAL HISTORY: Hypertension. Congestive heart failure. Myocardial infarction. . Op en heart surgery. COMPARISON: [facility] [place], CHEST SINGLE AP, 11/12/2017. . FINDINGS: A single AP view of the chest demonstrates the lungs to be symmetrically aerated without evidence of mass, infiltrate or effusion. The cardiomediastinal structures are similar to prior with tortuous de scending thoracic aorta and heart size upper limits normal.. Osseous structures are intact. Evidence of prior median sternotomy and CABG. CONCLUSION: Lungs are clear. Electronically signed by: Quinton Sandhu MD 02/16/2018 7:13 PM EDT
[2018-02-16 19:26] LABS: ALBUMIN 3.5 GM/DL (3.4-5.0); AST (GOT) 25 U/L (15-37); BLOOD UREA NITROGEN 35 MG/DL (7-18); CALCIUM 8.6 MG/DL (8.5-10.1); CHLORIDE 111 MEQ/L (98-107); CREATININE 2.95 MG/DL (0.60-1.30); GLOMERULAR FILTRATION RATE 25 ML/MIN (>89); GLUCOSE,RANDOM 103 MG/DL (74-106); MAGNESIUM 2.3 MG/DL (1.5-2.5); SODIUM (NA) 140 MEQ/L (136-145)
[2018-02-16 19:27] LABS: ALT (GPT) 28 U/L (12-78)
[2018-02-16 19:31] LABS: ALKALINE PHOSPHATASE 67 U/L (45-117); INTERNATIONAL NORMALIZED RATIO 1.1 RATIO; PROTHROMBIN TIME - PATIENT 11.4 SEC (9.8-11.6); TOTAL BILIRUBIN ADULT 0.3 MG/DL (0.2-1.0); TOTAL PROTEIN 7.3 GM/DL (6.4-8.2); TROPONIN I LESS THAN 0.02 NG/ML (0.02-0.05)
[2018-02-16 19:36] LABS: D-DIMER 2.19 MG/L FEU (0.00-0.50)
--- NOTE | 2018-02-16 19:46 | RADRPT ---
EXAM DATE: 02/16/2018 7:42 PM EDT AGE/SEX: 87 years / Male INDICATIONS: Dizziness for three days CLINICAL DATA: This is the patient's initial encounter. Patient reports that signs and symptoms have been present for 3 days and indicates a pain score of 0/10. MEDICAL/SURGICAL HISTORY: Cerebrovascular disease. Cardiovascular disease. Hypertension. Diabete s None. RADIATION DOSE: 56.35 CTDI (mGy) COMPARISON: [facility] [place], CT BRAIN W/O CONTRAST, 11/08/2016. . TECHNIQUE: CT of the head without contrast. Using automated exposure control and adjustment of the mA and/or kV according to patient size, radiation dose was kept as low as reasonably achievable to ob tain optimal diagnostic quality images. FINDINGS: Cerebrum: Stable focal encephalomalacia defect in the left parietal high convexities. Moderate diffu se cerebral atrophy. The ventricles are normal for degree of atrophy. No evidence of midline shift, m ass lesion, hemorrhage or acute infarction. No extraaxial fluid collections are seen. Posterior Fossa: The cerebellum and brainstem are intact. The 4th ventricle is midline. The cerebe llopontine angle is unremarkable. Extracranial: The visualized portion of the orbits is intact. Skull: The calvaria is intact. No evidence of skull fracture. CONCLUSION: 1. 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 2. No acute intracranial abnormality. Electronically signed by: Esteban Isabel MD 02/16/2018 7:45 PM EDT
[2018-02-16 19:57] VITALS: O2SAT 98
--- NOTE | 2018-02-16 20:16 | PD ---
HPI Chief Complaint: Respiratory Distress Time Seen by Provider: 18:37 Travel History International Travel<30 days: No Contact w/Intl Traveler<30days: No Traveled to known affect area: No History of Present Illness HPI 87-year-old male with PMH of COPD, CHF, CKD, HTN, CAD, DM presents to the ED for evaluation of 2 day history of dizziness and shortness of breath. Patient endorses dyspnea on exertion. He endorses chronic trace lower extremity edema, no worse today. Patient denies fever, chills, headache, vision changes, chest pain, palpitations, cough, loss of appetite, abdominal pain, nausea, vomiting, changes in bowel habits, dark tarry stools, blood in the bowl, dysuria, weakness of the extremities. PFSH Past Medical History Hx Anticoagulant Therapy: Yes Arthritis: Yes Asthma: No Blood Disorders: No Anxiety: No Depression: No Heart Rhythm Problems: No Cancer: No Cardiac Catheterization: Yes Cardiovascular Problems: Yes High Cholesterol: Yes Chemotherapy: No Chest Pain: No Congestive Heart Failure: Yes COPD: No Cerebrovascular Accident: Yes Coronary Artery Disease: Yes Diabetes: Yes Patient Takes Glucophage: No Diminished Hearing: No Endocrine: Yes Gastrointestinal Disorders: Yes (GERD, ADMITTED WITH SUSPECTED GI BLEED 08/29/17 ) GERD: Yes Genitourinary: Yes (UNKNOWN LEFT KIDNEY PROBLEM) Headaches: Yes Hypertension: Yes Immune Disorder: No Implanted Vascular Access Dvce: Yes (EYE) Musculoskeletal: Yes Neurologic: Yes Psychiatric: No Reproductive: No Respiratory: Yes (asthma) Immunizations Current: Yes Migraines: No Radiation Therapy: No Seizures: No Sleep Apnea: No Thyroid Disease: No Past Surgical History Abdominal Surgery: No AICD: No Arteriovenous Shunt: No Body Medical Devices: coronary artery stents Cardiac Surgery: Yes (CABG- 2005; CARDIAC CATH. WITH STENT- 2004) Coronary Artery Bypass Graft: Yes (3 VESSEL ) Coronary Stent: Yes Ear Surgery: No Endocrine Surgery: No Eye Surgery: Yes (LEFT CATARACT EXTRACTION WITH IOL) Genitourinary Surgery: No Gynecologic Surgery: No Joint Replacement: No Neurologic Surgery: No Oral Surgery: No Pacemaker: No Thoracic Surgery: No Other Surgery: Yes (COLONOSCOPY) Social History Alcohol Use: No Tobacco Use: No Substance Use: No Allergies-Medications (Allergen,Severity, Reaction): Coded Allergies: No Known Allergies (Verified Allergy, Unknown, 02/16/18) Reported Meds & Prescriptions Reported Meds & Active Scripts Active Pantoprazole (Pantoprazole Sodium) 40 Mg Tab 40 Mg PO DAILY Reported Atorvastatin (Atorvastatin Calcium) 40 Mg Tab 40 Mg PO HS Aspirin 81 Mg Chew 81 Mg CHEW DAILY Calcitriol 0.25 Mcg Cap 0.25 Mcg PO MOWEFR Take 1 capsule (0.25mcg) three times weekly on Wednesday,Wednesday and Wednesday Tradjenta (Linagliptin) 5 Mg Tab 5 Mg PO DAILY Uloric (Febuxostat) 40 Mg Tab 40 Mg PO DAILY Tamsulosin (Tamsulosin HCl) 0.4 Mg Cap 0.4 Mg PO HS Repaglinide 0.5 Mg Tab 0.5 Mg PO BIDAC Review of Systems Except as stated in HPI: all other systems reviewed are Neg Physical Exam Narrative GENERAL: Well-nourished, well-developed -[place] male no acute distress. Speaking in short sentences. SKIN: Focused skin assessment warm/dry. HEAD: Normocephalic. EYES: No scleral icterus. No injection or drainage. NECK: Supple, trachea midline. No JVD or lymphadenopathy. CARDIOVASCULAR: Regular rate and rhythm without murmurs, gallops, or rubs. RESPIRATORY: Breath sounds clear and equal bilaterally. No accessory muscle use. GASTROINTESTINAL: Abdomen soft, non-tender, nondistended. Active bowel sounds. RECTAL EXAM: No masses or tenderness, stool is dark brown. Guaiac positive. MUSCULOSKELETAL: No cyanosis, or edema. BACK: Nontender without obvious deformity. No CVA tenderness. Data Data Last Documented VS Vital Signs Date Time Temp Pulse Resp B/P (MAP) Pulse Ox O2 Delivery O2 Flow Rate FiO2 02/16/18 19:57 98 02/16/18 19:56 16 02/16/18 18:42 Nasal Cannula 2.00 02/16/18 18:40 78 139/74 (95) Orders Orders Complete Blood Count With Diff (02/16/18 18:37) Comprehensive Metabolic Panel (02/16/18 18:37) B-Type Natriuretic Peptide (02/16/18 18:37) D-Dimer (02/16/18 18:37) Act Partial Throm Time (Ptt) (02/16/18 18:37) Prothrombin Time / Inr (Pt) (02/16/18 18:37) Magnesium (Mg) (02/16/18 18:37) Ckmb (Isoenzyme) Profile (02/16/18 18:37) Troponin I (02/16/18 18:37) Urinalysis - C+S If Indicated (02/16/18 18:37) Iv Access Insert/Monitor (02/16/18 18:37) Electrocardiogram (02/16/18 18:37) Ecg Monitoring (02/16/18 18:37) Oximetry (02/16/18 18:37) Oxygen Administration (02/16/18 18:37) Chest, Single Ap (02/16/18 18:37) Sodium Chloride 0.9% Flush (Ns Flush) (02/16/18 18:45) Ct Brain W/O Iv Contrast(Rout) (02/16/18 ) CKMB (02/16/18 18:45) CKMB% (02/16/18 18:45) Place In Observation (02/16/18 ) Vital Signs (Adult) Q4H (02/16/18 20:58) Activity Oob With Assistance (02/16/18 20:58) Diet Heart Healthy (02/17/18 Breakfast) Sodium Chloride 0.9% Flush (Ns Flush) (02/16/18 21:00) Sodium Chloride 0.9% Flush (Ns Flush) (02/16/18 21:00) Acetaminophen (Tylenol) (02/16/18 21:00) Resp Oxygen Yasmany C Titrat 1-4 L (02/16/18 ) Magnesium Hydroxide Liq (Milk Of Magnesi (02/16/18 21:00) Sennosides (Senokot) (02/16/18 21:00) Bisacodyl Supp (Dulcolax Supp) (02/16/18 21:00) Lactulose Liq (Lactulose Liq) (02/16/18 21:00) Albuterol-Ipratropium Neb (Duoneb Neb) (02/16/18 21:00) Heparin Inj (Heparin Inj) (02/16/18 21:00) Naloxone Inj (Narcan Inj) (02/16/18 21:00) Orthostatic Blood Pressure (02/16/18 21:02) Admit Order (Ed Use Only) (02/16/18 21:01) Ondansetron Odt (Zofran Odt) (02/16/18 21:00) Labs Laboratory Tests Test 02/16/18 18:45 White Blood Count 5.5 TH/MM3 Red Blood Count 4.22 MIL/MM3 Hemoglobin 10.5 GM/DL Hematocrit 32.7 % Mean Corpuscular Volume 77.4 FL Mean Corpuscular Hemoglobin 24.8 PG Mean Corpuscular Hemoglobin Concent 32.0 % Red Cell Distribution Width 19.2 % Platelet Count 181 TH/MM3 Mean Platelet Volume 9.1 FL Neutrophils (%) (Auto) 55.5 % Lymphocytes (%) (Auto) 31.6 % Monocytes (%) (Auto) 9.3 % Eosinophils (%) (Auto) 3.0 % Basophils (%) (Auto) 0.6 % Neutrophils # (Auto) 3.1 TH/MM3 Lymphocytes # (Auto) 1.8 TH/MM3 Monocytes # (Auto) 0.5 TH/MM3 Eosinophils # (Auto) 0.2 TH/MM3 Basophils # (Auto) 0.0 TH/MM3 CBC Comment DIFF FINAL Differential Comment Prothrombin Time 11.4 SEC Prothromb Time International Ratio 1.1 RATIO Activated Partial Thromboplast Time 24.0 SEC D-Dimer Quantitative (PE/DVT) 2.19 MG/L FEU Blood Urea Nitrogen 35 MG/DL Creatinine 2.95 MG/DL Random Glucose 103 MG/DL Total Protein 7.3 GM/DL Albumin 3.5 GM/DL Calcium Level 8.6 MG/DL Magnesium Level 2.3 MG/DL Alkaline Phosphatase 67 U/L Aspartate Amino Transf (AST/SGOT) 25 U/L Alanine Aminotransferase (ALT/SGPT) 28 U/L Total Bilirubin 0.3 MG/DL Sodium Level 140 MEQ/L Potassium Level 4.7 MEQ/L Chloride Level 111 MEQ/L Carbon Dioxide Level 19.0 MEQ/L Anion Gap 10 MEQ/L Estimat Glomerular Filtration Rate 25 ML/MIN Iron Level 28 MCG/DL Total Iron Binding Capacity 349 MCG/DL Percent Iron Saturation 8.0 % Ferritin 14 NG/ML Total Creatine Kinase 151 U/L Creatine Kinase MB 1.0 NG/ML Troponin I LESS THAN 0.02 NG/ML B-Type Natriuretic Peptide 65 PG/ML MDM Medical Decision Making Medical Screen Exam Complete: Yes Emergency Medical Condition: Yes Differential Diagnosis CHF exacerbation versus COPD exacerbation versus YOAV versus anemia versus hyperglycemia versus ACS versus ICH versus other Narrative Course 87-year-old male with PMH of COPD, CHF, CKD, HTN, CAD, DM presents to the ED for evaluation of 2 day history of dizziness and shortness of breath. Patient endorses dyspnea on exertion. He endorses chronic trace lower extremity edema, no worse today. Respiratory rate 16, O2 sats 100%. On exam patient is speaking in short sentences but the lungs are clear bilaterally. Guaiac positive on exam. IV was established. EKG rate 70, sinus rhythm with PVCs. WV interval 190, QRS 103, QTC 412 ms. Normal axis. No acute ST changes. Reviewed by Dr. Antony. CXR: Lungs are clear. CBC: WBC 5.5. Hemoglobin 10. Coags: INR 1.1. D-dimer 2.19. CTA contraindicated, may benefit from VQ scan CMP: BUN 35, creatinine 2.95, worsened from baseline. Cardiac enzymes negative. 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 No acute intracranial abnormality. I spoke with Dr. Arenas regarding the patient. He agrees to accept the patient to the medicine service for further evaluation. Please see medicine notes for disposition. [facility] Point of Care Internal Pos. & Neg. Controls: Passed Fecal Specimen Occult Blood: Positive Rama Duenas February 16, 2018 20:16
[2018-02-16] MEDS ORDERED: ACETAMINOPHEN 325 MG TAB PO PRN (21:00)
[2018-02-16] MEDS ORDERED: LACTULOSE SYRUP 20 GM/30 ML CUP PO PRN (21:00)
[2018-02-16] MEDS ORDERED: MAGNESIUM HYDROXIDE SUSP 30 ML CUP PO PRN (21:00)
[2018-02-16] MEDS ORDERED: NALOXONE HCL 0.4 MG/ML AMP IV PUSH PRN (21:00)
[2018-02-16] MEDS ORDERED: RESP: ALBUTEROL 2.5 MG/IPRATROPIUM 0.5 MG NEB (PRN) NEB (21:00)
[2018-02-16] MEDS ORDERED: ONDANSETRON ODT 4 MG TAB PO PRN (21:00)
[2018-02-16] MEDS ORDERED: SENNOSIDES 8.6 MG TAB PO PRN (21:00)
[2018-02-16] MEDS ORDERED: SODIUM CHLORIDE 0.9% FLUSH 10 ML FLUSH IV FLUSH PRN (21:00)
[2018-02-16] MEDS ORDERED: HEPARIN SODIUM - SQ 10,000 UNITS/ML VIAL SQ SCH (21:00)
[2018-02-16] MEDS ORDERED: BISACODYL 10 MG SUPP RECTAL PRN (21:00)
[2018-02-16] MEDS ORDERED: DEXTROSE 50% IN WATER 50 ML VIAL(D50) IV PUSH PRN (21:15)
[2018-02-16] MEDS ORDERED: GLUCAGON 1 MG/ML VIAL OTHER PRN (21:15)
[2018-02-16] MEDS: SODIUM CHLORIDE 0.9% FLUSH 10 ML FLUSH IV FLUSH SCH (21:36)
[2018-02-16] MEDS: CALCITRIOL 0.25 MCG CAP PO SCH (21:36)
[2018-02-16 21:38] LABS: IRON (FE) 28 MCG/DL (65-175); TOTAL IRON BINDING CAPACITY 349 MCG/DL (250-450)
[2018-02-16 21:41] LABS: FERRITIN 14 NG/ML (26-388)
[2018-02-16 21:47] VITALS: BP 156/80; PULSE 80; RESP 16; O2SAT 98
[2018-02-17] VITALS (10 sets, daily range): BP systolic 81–187; BP diastolic 52–88; PULSE 53–79; RESP 16–20; TEMP 97.4–98.1; O2SAT 95–100
[2018-02-17] MEDS: LEVOFLOXACIN 500 MG TAB PO SCH (04:23)
--- NOTE | 2018-02-17 04:51 | HHI.HP ---
[facility] Pravin Mcmanus III, MD Admission Diagnosis Dyspnea on exertion, GI bleed, acute on chronic kidney failure Diagnoses: Chief Complaint: short of breath Travel History International Travel<30 Days: No Contact w/Intl Traveler <30 Da: No Traveled to Known Affected Are: No History of Present Illness 87-year-old male with PMH of COPD, CHF, CKD, HTN, CAD, DM presents to the ED for evaluation of 2 day history of dizziness and shortness of breath. Patient states for the last 2 days he has had a trouble breathing and becomes short of breath with exertion. He states he does not use a nebulizer at home. No cough or sputum production noted. He also complains of dizziness when getting out of bed or getting up from a seated position. He denies any chest pain, fevers or chills. He does not take his BP at home so he is unsure how it runs. Review of Systems Except as stated in HPI: all other systems reviewed are Neg Past Family Social History Past Medical History COPD CHF Last echo 2015 shows EF 55-60% with LVH CKD HTN CAD DM Past Surgical History CABG, triple bypass, at age 62 Left Cataract Surgery Reported Medications Reported Meds & Active Scripts Active Pantoprazole (Pantoprazole Sodium) 40 Mg Tab 40 Mg PO DAILY Reported Atorvastatin (Atorvastatin Calcium) 40 Mg Tab 40 Mg PO HS Aspirin 81 Mg Chew 81 Mg CHEW DAILY Calcitriol 0.25 Mcg Cap 0.25 Mcg PO MOWEFR Take 1 capsule (0.25mcg) three times weekly on Wednesday,Wednesday and Wednesday Tradjenta (Linagliptin) 5 Mg Tab 5 Mg PO DAILY Uloric (Febuxostat) 40 Mg Tab 40 Mg PO DAILY Tamsulosin (Tamsulosin HCl) 0.4 Mg Cap 0.4 Mg PO HS Repaglinide 0.5 Mg Tab 0.5 Mg PO BIDAC Allergies: Coded Allergies: No Known Allergies (Verified Allergy, Unknown, 02/16/18) Active Ordered Medications Current Medications Medications (Trade) Dose Ordered Sig/Johanne Route Start Time Stop Time Status Last Admin (NS Flush) 2 ml UNSCH PRN IVF 02/16/18 18:45 (NS Flush) 2 ml UNSCH PRN IV FLUSH 02/16/18 21:00 (NS Flush) 2 ml BID IV FLUSH 02/16/18 21:00 02/16/18 21:36 (Tylenol) 650 mg Q4H PRN PO 02/16/18 21:00 (Zofran Odt) 4 mg Q6H PRN PO 02/16/18 21:00 (Narcan Inj) 0.4 mg UNSCH PRN IV PUSH 02/16/18 21:00 (Milk Of Magnesia Liq) 30 ml Q12H PRN PO 02/16/18 21:00 (Senokot) 17.2 mg Q12H PRN PO 02/16/18 21:00 (Dulcolax Supp) 10 mg DAILY PRN RECTAL 02/16/18 21:00 (Lactulose Liq) 30 ml DAILY PRN PO 02/16/18 21:00 (Duoneb Neb) 1 ampule Q6HR NEB PRN NEB 02/16/18 21:00 (D50w (Vial) Inj) 50 ml UNSCH PRN IV PUSH 02/16/18 21:15 (Glucagon Inj) 1 mg UNSCH PRN OTHER 02/16/18 21:15 (NovoLOG SUPPLEMENTAL SCALE) 1 ACHS SLIDING SCALE SQ 02/17/18 08:00 (Lipitor) 40 mg HS PO 02/17/18 21:00 (Rocaltrol) 0.25 mcg MOWEFR PO 02/16/18 21:15 02/16/18 21:36 (Protonix) 40 mg DAILY PO 02/17/18 09:00 (Flomax) 0.4 mg HS PO 02/17/18 21:00 Patient Own Medication PT OWN MED: Febuxos... 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 SKIN: No rashes, ecchymoses or lesions. Cool and dry. HEAD: Atraumatic. Normocephalic. EYES: Pupils equal round and reactive. CARDIOVASCULAR: Regular rate and rhythm without murmurs, gallops, or rubs. RESPIRATORY: Diminished breath sounds. No wheezes, rales, or rhonchi. GASTROINTESTINAL: Abdomen soft, non-tender, nondistended. MUSCULOSKELETAL: Extremities without clubbing, cyanosis, or edema. No calf tenderness. NEUROLOGICAL: Awake and alert. Motor and sensory grossly within normal limits. Normal speech. Laboratory Laboratory Tests Test 02/16/18 18:45 White Blood Count 5.5 Red Blood Count 4.22 Hemoglobin 10.5 Hematocrit 32.7 Mean Corpuscular Volume 77.4 Mean Corpuscular Hemoglobin 24.8 Mean Corpuscular Hemoglobin Concent 32.0 Red Cell Distribution Width 19.2 Platelet Count 181 Mean Platelet Volume 9.1 Neutrophils (%) (Auto) 55.5 Lymphocytes (%) (Auto) 31.6 Monocytes (%) (Auto) 9.3 Eosinophils (%) (Auto) 3.0 Basophils (%) (Auto) 0.6 Neutrophils # (Auto) 3.1 Lymphocytes # (Auto) 1.8 Monocytes # (Auto) 0.5 Eosinophils # (Auto) 0.2 Basophils # (Auto) 0.0 CBC Comment DIFF FINAL Differential Comment Prothrombin Time 11.4 Prothromb Time International Ratio 1.1 Activated Partial Thromboplast Time 24.0 D-Dimer Quantitative (PE/DVT) 2.19 Blood Urea Nitrogen 35 Creatinine 2.95 Random Glucose 103 Total Protein 7.3 Albumin 3.5 Calcium Level 8.6 Magnesium Level 2.3 Alkaline Phosphatase 67 Aspartate Amino Transf (AST/SGOT) 25 Alanine Aminotransferase (ALT/SGPT) 28 Total Bilirubin 0.3 Sodium Level 140 Potassium Level 4.7 Chloride Level 111 Carbon Dioxide Level 19.0 Anion Gap 10 Estimat Glomerular Filtration Rate 25 Iron Level 28 Total Iron Binding Capacity 349 Percent Iron Saturation 8.0 Ferritin 14 Total Creatine Kinase 151 Creatine Kinase MB 1.0 Troponin I LESS THAN 0.02 B-Type Natriuretic Peptide 65 Result Diagram: 02/16/18 1845 02/16/18 1845 Imaging Last Impressions Chest X-Ray 02/16/18 1837 Signed Impressions: CONCLUSION: Lungs are clear. Head CT 02/16/18 0000 Signed Impressions: CONCLUSION: 1. 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 2. No acute intracranial abnormality. Caprini VTE Risk Assessment Caprini VTE Risk Assessment: Mod/High Risk (score >= 2) VTE Pharm Contraindication: High risk for bleeding Caprini Risk Assessment Model Point Value = 1 Point Value = 2 Point Value = 3 Point Value = 5 Age 41-60 Minor surgery BMI > 25 kg/m2 Swollen legs Varicose veins or History of unexplained or recurrent spontaneous Oral contraceptives or hormone replacement Sepsis (< 1 month) Serious lung disease, including pneumonia (< 1 month) Abnormal pulmonary function Acute myocardial infarction Congestive heart failure (< 1 month) History of inflammatory bowel disease Medical patient at bed rest Age 61-74 Arthroscopic surgery Major open surgery (> 45 min) Laparoscopic surgery (> 45 min) Malignancy Confined to bed (> 72 hours) Immobilizing plaster cast Central venous access Age >= 75 History of VTE Family history of VTE Factor V Leiden Prothrombin [id number] Lupus anticoagulant Anticardiolipin antibodies Elevated serum homocysteine Heparin-induced thrombocytopenia Other congenital or acquired thrombophilia Stroke (< 1 month) Elective arthroplasty Hip, pelvis, or leg fracture Acute spinal cord injury (< 1 month) Prophylaxis Regimen Total Risk Factor Score Risk Level Prophylaxis Regimen 0-1 Low Early ambulation 2 Moderate Order ONE of the following: *Sequential Compression Device (SCD) *Heparin 5000 units SQ BID 3-4 Higher Order ONE of the following medications: *Heparin 5000 units SQ TID *Enoxaparin/Lovenox 40 mg SQ daily (WT < 150 kg, CrCl > 30 mL/min) *Enoxaparin/Lovenox 30 mg SQ daily (WT < 150 kg, CrCl > 10-29 mL/min) *Enoxaparin/Lovenox 30 mg SQ BID (WT < 150 kg, CrCl > 30 mL/min) AND/OR *Sequential Compression Device (SCD) 5 or more Highest Order ONE of the following medications: *Heparin 5000 units SQ TID (Preferred with Epidurals) *Enoxaparin/Lovenox 40 mg SQ daily (WT < 150 kg, CrCl > 30 mL/min) *Enoxaparin/Lovenox 30 mg SQ daily (WT < 150 kg, CrCl > 10-29 mL/min) *Enoxaparin/Lovenox 30 mg SQ BID (WT < 150 kg, CrCl > 30 mL/min) AND *Sequential Compression Device (SCD) Assessment and Plan Assessment and Plan 87-year-old male with PMH of COPD, CHF, CKD, HTN, CAD, DM presents to the ED for evaluation of 2 day history of dizziness and shortness of breath. 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
[2018-02-17] MEDS: SODIUM CHLOR 0.9% 1000 ML INJ 1,000 ML IV SCH ×2 (05:24→17:50)
[2018-02-17 08:05] LABS: AUTOMATED NEUTROPHIL # 3.2 TH/MM3 (1.8-7.7); BASOPHIL % 0.7 % (0.0-2.0); EOSINOPHIL # 0.2 TH/MM3 (0-0.4); EOSINOPHIL % 3.6 % (0.0-4.0); HEMATOCRIT 31.1 % (39.0-51.0); HEMOGLOBIN 10.2 GM/DL (13.0-17.0); LYMPH % 28.7 % (9.0-44.0); LYMPHOCYTE # 1.6 TH/MM3 (1.0-4.8); MEAN CORPUSCULAR HEMOGLOBIN 25.3 PG (27.0-34.0); MEAN CORPUSCULAR HGB CONC 32.9 % (32.0-36.0); MEAN PLATELET VOLUME 9.2 FL (7.0-11.0); MONOCYTE # 0.6 TH/MM3 (0-0.9); PLATELET COUNT 156 TH/MM3 (150-450); RED BLOOD COUNT 4.04 MIL/MM3 (4.50-5.90); RED CELL DISTRIBUTION WIDTH 18.9 % (11.6-17.2); WHITE BLOOD COUNT 5.7 TH/MM3 (4.0-11.0)
[2018-02-17 08:29] LABS: BICARBONATE 18.9 MEQ/L (21.0-32.0); CALCIUM 8.6 MG/DL (8.5-10.1); CREATININE 2.5 MG/DL (0.60-1.30)
[2018-02-17] MEDS: INSULIN ASPART SUPPLEMENTAL SCALE SQ SCH ×4 (08:33→21:26)
[2018-02-17] MEDS: PANTOPRAZOLE SOD 40 MG DELAYED RELEASE TAB PO SCH (09:55)
[2018-02-17] MEDS: FERROUS SULFATE 325 MG (65 MG ELEMENTAL IRON) TAB PO SCH (09:55)
[2018-02-17] MEDS: predniSONE 20 MG TAB PO SCH ×2 (09:55→21:21)
[2018-02-17] MEDS: SODIUM CHLORIDE 0.9% FLUSH 10 ML FLUSH IV FLUSH SCH ×2 (09:56→21:00)
--- NOTE | 2018-02-17 12:22 | HHI.PR ---
Subjective Remarks Follow-up shortness of breath and dizziness. States he is improving denies shortness of breath on nasal cannula. No dizziness but has not been out of bed. Not on any recent medication. Denies nausea, vomiting and diarrhea. Objective Vitals Vital Signs Date Time Temp Pulse Resp B/P (MAP) Pulse Ox O2 Delivery O2 Flow Rate FiO2 02/17/18 11:48 97.4 58 18 150/71 (97) 98 02/17/18 09:08 98.1 61 18 163/77 (105) 100 02/17/18 07:57 100 Nasal Cannula 2.00 02/17/18 05:06 173/71 (105) 115/53 (73) 81/52 (62) 02/17/18 04:00 97.6 58 20 173/71 (105) 100 115/53 (73) 81/52 (62) 02/17/18 00:00 98.1 67 20 187/88 (121) 100 02/16/18 21:49 02/16/18 21:47 80 16 156/80 (105) 98 Room Air 02/16/18 19:57 98 02/16/18 19:56 16 02/16/18 18:42 100 Nasal Cannula 2.00 02/16/18 18:40 78 16 139/74 (95) 100 I/O 02/16/18 02/16/18 02/16/18 02/17/18 02/17/18 02/17/18 06:59 14:59 22:59 06:59 14:59 22:59 Output Total 2000 ml Balance -2000 ml Output Urine Total 2000 ml Result Diagram: 02/17/18 0725 02/17/18 0725 Imaging Last Impressions Chest X-Ray 02/16/18 1837 Signed Impressions: CONCLUSION: Lungs are clear. Head CT 02/16/18 0000 Signed Impressions: CONCLUSION: 1. 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 2. No acute intracranial abnormality. Objective Remarks GENERAL: This is a well-nourished, well-developed patient, in no apparent distress. SKIN: No rashes, ecchymoses or lesions. Cool and dry. CARDIOVASCULAR: Regular rate and rhythm without murmurs, gallops, or rubs. RESPIRATORY: Diminished breath sounds. No wheezes, rales, or rhonchi. GASTROINTESTINAL: Abdomen soft, non-tender, nondistended. MUSCULOSKELETAL: Extremities without clubbing, cyanosis, or edema. No calf tenderness. NEUROLOGICAL: Awake and alert. Motor and sensory grossly within normal limits. Normal speech. Procedures none A/P Problem List: (1) COPD (chronic obstructive pulmonary disease) ICD Code: J44.9 - Chronic obstructive pulmonary disease, unspecified Assessment and Plan 87-year-old male with PMH of COPD, CHF, CKD, HTN, CAD, DM presents to the ED for evaluation of 2 day history of dizziness and shortness of breath. COPD exacerbation, acute Chest xray clear Not certain if symptom related to COPD patient has no wheezing. He has elevated d-dimer will obtain VQ scan. Unable to do CTA because of chronic kidney disease -Aramis scheduled -Levaquin PO every other day total of 5 days -Prednisone PO Daily total of 5 days Patient is orthostatic. 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 Consider pharmacological prophylaxis if stable anemia Casey Ching MD February 17, 2018 12:22
[2018-02-17] MEDS ORDERED: RESP: ALBUTEROL 0.63 MG/3 ML NEB (PRN) NEB (13:15)
[2018-02-17] MEDS: RESP: ALBUTEROL 2.5 MG/IPRATROPIUM 0.5 MG NEB (SCH) NEB ×2 (16:17→19:40)
--- NOTE | 2018-02-17 16:22 | RADRPT ---
EXAM DATE: 02/17/2018 3:22 PM EDT AGE/SEX: 87 years / Male INDICATIONS: Dyspnea and dizziness. CLINICAL DATA: This is the patient's initial encounter. Patient reports that signs and symptoms have been present for 1 day and indicates a pain score of 0/10. MEDICAL/SURGICAL HISTORY: Chronic obstructive pulmonary disease. Hypertension. Diabetes mendezi tus type II. CABG. Coronary artery stent. COMPARISON: [facility], CHEST SINGLE AP, 02/16/2018. . DOSE: 0.9 mCi Tc99m DTPA aerosol 8.3 mCi Tc99m MAA IV TECHNIQUE: Following five minutes of tidal breathing of DTPA aerosol, planar images of the lungs wer e performed in eight projections. The patient was then injected with MAA, and eight-view perfusion s can was performed. FINDINGS: There is a homogeneous pattern of aerosol delivery to the periphery of both lungs. No focal ventilat ory defects are seen. The perfusion lung scan demonstrates subsegmental perfusion defects in the upper lobes. CONCLUSION: Unmatched subsegmental perfusion defects in both upper lobes characteristic of a high probability of pulmonary embolism. Electronically signed by: Remy Guo MD 02/17/2018 4:21 PM EDT
[2018-02-17 18:05] LABS: HEMATOCRIT 33.7 % (39.0-51.0); HEMOGLOBIN 10.8 GM/DL (13.0-17.0); MEAN CELL VOLUME 78.2 FL (80.0-100.0); MEAN CORPUSCULAR HEMOGLOBIN 24.9 PG (27.0-34.0); MEAN CORPUSCULAR HGB CONC 31.9 % (32.0-36.0); MEAN PLATELET VOLUME 9.2 FL (7.0-11.0); PLATELET COUNT 161 TH/MM3 (150-450); RED BLOOD COUNT 4.31 MIL/MM3 (4.50-5.90); RED CELL DISTRIBUTION WIDTH 19.2 % (11.6-17.2)
[2018-02-17 18:15] LABS: INTERNATIONAL NORMALIZED RATIO 1.1 RATIO; PROTHROMBIN TIME - PATIENT 11.6 SEC (9.8-11.6)
[2018-02-17] MEDS: HEPARIN-D5W 25,000 U/250 ML 250 ML IV PRN (19:07)
[2018-02-17] MEDS: ATORVASTATIN 40 MG TAB PO SCH (21:21)
[2018-02-17] MEDS: TAMSULOSIN HCL 0.4 MG CAP PO SCH (21:21)
[2018-02-18] VITALS (8 sets, daily range): BP systolic 124–193; BP diastolic 68–101; PULSE 53–87; RESP 16–20; TEMP 97.7–98.2; O2SAT 96–100
[2018-02-18 01:52] LABS: AUTOMATED NEUTROPHIL # 5.1 TH/MM3 (1.8-7.7); BASOPHIL % 0.2 % (0.0-2.0); EOSINOPHIL % 0.1 % (0.0-4.0); HEMATOCRIT 31.1 % (39.0-51.0); HEMOGLOBIN 9.9 GM/DL (13.0-17.0); LYMPH % 16.7 % (9.0-44.0); LYMPHOCYTE # 1.1 TH/MM3 (1.0-4.8); MEAN CELL VOLUME 78.9 FL (80.0-100.0); MEAN CORPUSCULAR HEMOGLOBIN 25.2 PG (27.0-34.0); MEAN CORPUSCULAR HGB CONC 31.9 % (32.0-36.0); MEAN PLATELET VOLUME 9.4 FL (7.0-11.0); MONO % 7.8 % (0.0-8.0); MONOCYTE # 0.5 TH/MM3 (0-0.9); NEUT % 75.2 % (16.0-70.0); PLATELET COUNT 138 TH/MM3 (150-450); RED BLOOD COUNT 3.94 MIL/MM3 (4.50-5.90); RED CELL DISTRIBUTION WIDTH 19.2 % (11.6-17.2); WHITE BLOOD COUNT 6.8 TH/MM3 (4.0-11.0)
[2018-02-18 02:04] LABS: BICARBONATE 20.1 MEQ/L (21.0-32.0); CALCIUM 8.2 MG/DL (8.5-10.1); CREATININE 2.45 MG/DL (0.60-1.30); MAGNESIUM 2.2 MG/DL (1.5-2.5)
[2018-02-18] MEDS: INSULIN ASPART SUPPLEMENTAL SCALE SQ SCH ×4 (08:00→21:30)
[2018-02-18] MEDS: RESP: ALBUTEROL 2.5 MG/IPRATROPIUM 0.5 MG NEB (SCH) NEB ×4 (08:04→20:50)
--- NOTE | 2018-02-18 08:17 | EKG ---
Date Performed: 02/16/2018 Time Performed: 19:53:55 PTAGE: 87 years EKG: Sinus rhythm WITH FREQUENT VENTRICULAR PREMATURE COMPLEXES NONSPECIFIC T-WAVE ABNORMALITY ABNORMAL RHYTHM ECG PREVIOUS TRACING : 12/29/2017 18.36 DOCTOR: Jud Sunshine Interpretating Date/Time 02/18/2018 08:13:52
[2018-02-18] MEDS ORDERED: ASPIRIN 81 MG CHEW TAB CHEW SCH (09:00)
[2018-02-18] MEDS: SODIUM CHLORIDE 0.9% FLUSH 10 ML FLUSH IV FLUSH SCH ×2 (09:00→21:31)
[2018-02-18] MEDS: CALCITRIOL 0.25 MCG CAP PO SCH (09:32)
[2018-02-18] MEDS: SODIUM CHLOR 0.9% 1000 ML INJ 1,000 ML IV SCH ×2 (09:32→21:32)
[2018-02-18] MEDS: predniSONE 20 MG TAB PO SCH (09:33)
[2018-02-18] MEDS: PANTOPRAZOLE SOD 40 MG DELAYED RELEASE TAB PO SCH (09:33)
[2018-02-18] MEDS: FERROUS SULFATE 325 MG (65 MG ELEMENTAL IRON) TAB PO SCH (09:33)
[2018-02-18] MEDS: HEPARIN-D5W 25,000 U/250 ML 250 ML IV PRN (10:43)
--- NOTE | 2018-02-18 11:03 | HHI.PR ---
Subjective Remarks Follow-up COPD, orthostatic hypotension and PE. Improving shortness of breath. Resolved dizziness patient ambulated last night. Tolerating IV heparin no bleeding. Objective Vitals Vital Signs Date Time Temp Pulse Resp B/P (MAP) Pulse Ox O2 Delivery O2 Flow Rate FiO2 02/18/18 08:32 98.2 59 16 174/70 (104) 99 140/73 (95) 124/70 (88) 02/18/18 08:05 99 21 02/18/18 03:47 98.1 70 16 163/78 (106) 100 02/18/18 00:13 98.2 53 16 167/70 (102) 100 02/17/18 20:33 98.1 67 16 161/74 (103) 100 130/59 (82) 126/66 (86) 02/17/18 19:41 97 02/17/18 16:23 97.6 53 16 155/82 (106) 95 02/17/18 13:04 97.4 79 20 137/68 (91) 100 146/78 (100) 91/58 (69) 02/17/18 11:48 97.4 58 18 150/71 (97) 98 I/O 02/17/18 02/17/18 02/17/18 02/18/18 02/18/18 02/18/18 07:00 15:00 23:00 07:00 15:00 23:00 Intake Total 1250 ml Output Total 2000 ml Balance -2000 ml 1250 ml Intake IV Total 1250 ml Output Urine Total 2000 ml Result Diagram: 02/18/18 0105 02/18/18 0105 Imaging Last Impressions Lung Scan-V Nuclear Medicine 02/17/18 0000 Signed Impressions: CONCLUSION: Unmatched subsegmental perfusion defects in both upper lobes characteristic of a high probability of pulmonary embolism. Chest X-Ray 02/16/18 1837 Signed Impressions: CONCLUSION: Lungs are clear. Head CT 02/16/18 0000 Signed Impressions: CONCLUSION: 1. 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 2. No acute intracranial abnormality. Objective Remarks GENERAL: This is a well-nourished, well-developed patient, in no apparent distress. SKIN: No rashes, ecchymoses or lesions. Cool and dry. CARDIOVASCULAR: Regular rate and rhythm without murmurs, gallops, or rubs. RESPIRATORY: Diminished breath sounds. No wheezes, rales, or rhonchi. GASTROINTESTINAL: Abdomen soft, non-tender, nondistended. MUSCULOSKELETAL: Extremities without clubbing, cyanosis, or edema. No calf tenderness. NEUROLOGICAL: Awake and alert. Motor and sensory grossly within normal limits. Normal speech. Procedures none A/P Problem List: (1) COPD (chronic obstructive pulmonary disease) ICD Code: J44.9 - Chronic obstructive pulmonary disease, unspecified Assessment and Plan 87-year-old male with PMH of COPD, CHF, CKD, HTN, CAD, DM presents to the ED for evaluation of 2 day history of dizziness and shortness of breath. Bilateral PE. Continue heparin drip follow-up hematology consult history of AVM seen on October 2017 endoscopy repeat EGD in December 2017 showed gastritis and HAYDEE. Hemoccult stools Patient is orthostatic secondary to above. Continue IV hydration and repeat orthostatic vital signs -Teds -PT eval COPD. Improved. 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 Improving -gentle hydration -Trend creatine -Consider renal US if creatine does not improve HLD, chronic -Resume home Lipitor DVT prophylaxis: SCDs. Heparin drip Discharge Planning Per hematology, will need home health care PT and visiting nurse Casey Ching MD February 18, 2018 11:03
[2018-02-18] MEDS ORDERED: WARFARIN SOD 7.5 MG TAB PO ONE (21:00)
[2018-02-18] MEDS: TAMSULOSIN HCL 0.4 MG CAP PO SCH (21:30)
[2018-02-18] MEDS: ATORVASTATIN 40 MG TAB PO SCH (21:31)
[2018-02-19] VITALS (11 sets, daily range): BP systolic 109–163; BP diastolic 65–93; PULSE 66–86; RESP 18–22; TEMP 97.9–98.4; O2SAT 98–100
--- NOTE | 2018-02-19 04:07 | MB ---
cc: Mack Herrera MD DATE: 02/18/2018 REASON FOR CONSULTATION: The patient with the diagnosis of pulmonary embolism with a history of anemia and GI bleeding. HISTORY OF PRESENT ILLNESS: This is an 87-year-old male who is a somewhat poor historian. He has a past medical history of COPD, CHF, chronic kidney disease, hypertension, coronary artery disease, and diabetes. He lives by himself in a home. He presented to the emergency room with a 2-3 day history of shortness of breath, feeling unwell and dizziness. He was getting progressively short of breath on exertion. He has not had any chest pain. No hemoptysis. He denied any cough or congestion, and no fevers. In the emergency room, a chest x-ray was obtained which did not show any acute abnormalities. Due to concern for underlying pulmonary embolism, a V/Q scan was obtained. A CT angiogram could not be obtained because of chronic kidney disease. Lung V/Q scan showed ____ subsegmental perfusion defect in both upper lobes characteristic of high probability of pulmonary embolism. The patient was started on anticoagulation with heparin. Hematology has been consulted to make further recommendations regarding this patient. The patient has a history of anemia with GI bleeding approximately 3-4 months ago. He underwent upper and lower endoscopy. He was found to have AVMs. On this admission, his hemoglobin is 10.5. REVIEW OF SYSTEMS: A comprehensive review of systems was completed which is negative except as stated in the HPI. PAST MEDICAL HISTORY: COPD, CHF with left ventricular hypertrophy, chronic kidney disease, hypertension, coronary artery disease, diabetes. PAST SURGICAL HISTORY: CABG with triple bypass, left cataract surgery. MEDICATIONS: Prednisone 20 mg p.o. daily, aspirin 81 mg daily, atorvastatin 40 mg p.o. at bedtime, tamsulosin 0.4 mg p.o. at bedtime, heparin drip, DuoNebs, albuterol, pantoprazole 40 mg daily, iron sulfate 325 mg p.o. daily, sliding scale insulin, Levaquin 500 mg p.o. q. 48 hours, calcitriol, Tylenol p.r.n., Zofran p.r.n. ALLERGIES: NO KNOWN DRUG ALLERGIES. FAMILY HISTORY: Reviewed and is noncontributory to this admission. SOCIAL HISTORY: He denies drinking excessive alcohol. No history of tobacco abuse. He lives by himself. 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 PHYSICAL EXAMINATION: VITAL SIGNS: Blood pressure is 152/68, pulse is in the 70s, temperature is 98.1, O2 saturation is 100% on room air. GENERAL: Well-developed, well-nourished male, in no apparent distress. HEENT: Pupils are equal, round, reactive to light. EOMI. No thrush, no oral lesions. NECK: Supple. No JVD. No bruits. No lymphadenopathy. CHEST: Clear to auscultation bilaterally. CARDIAC: S1, S2. Regular rate and rhythm. ABDOMEN: Soft, nontender, nondistended. Bowel sounds are present. EXTREMITIES: Without any edema, erythema or cyanosis. SKIN: Without any petechiae, lesions, or bruises. NEUROLOGIC: No focal deficits. PSYCHIATRIC: Mood and affect is appropriate. LABORATORY DATA: WBC 6.8, hemoglobin 9.9, MCV 78.9, platelet count is 138. Serum chemistries show sodium of 141, potassium 4.5, chloride 111, CO2 of 20.1, anion gap 10, BUN 34, creatinine 2.45, GFR is 31, calcium is 8.2. Iron is 28, TIBC 349, iron saturation 8, ferritin is 14. AST is 25, ALT is 28. IMAGING: Lung V/Q scan was completed which showed high probability of pulmonary embolism in bilateral upper lobes. Chest x-ray did not show any acute abnormalities. CT of the head was also reviewed. There is a remote small left posterior parietal high convexity infarct. No acute intracranial abnormalities. ASSESSMENT AND PLAN: This is an 87-year-old male with multiple medical problems including history of coronary artery disease, congestive heart failure, chronic obstructive pulmonary disease, hypertension, hyperlipidemia, and chronic kidney disease, who presents to the emergency department with progressive worsening dyspnea. He was found to have elevated D-dimers, and a V/Q scan was obtained which showed high probability of bilateral upper lobe pulmonary embolism. 1. Bilateral pulmonary embolism, based on high probability from the V/Q scan. A CT angiogram could not be completed due to the patient's chronic kidney disease. I agree with the heparin GTT. I would recommend against starting this patient on a DOAC. I would recommend starting Coumadin. Heparin GTT would have to overlap the Coumadin until INR is greater than 2 for greater than 48 hours. We will have to closely monitor his hemoglobin. He will need to follow up closely with his primary care physician. He does have a history of a GI bleed due to AVMs, and I have discussed this with the patient and also discussed this difficult situation. I did explain to him that having pulmonary embolism is a serious diagnosis and in this situation, I would recommend anticoagulation with close monitoring. 2. Anemia with microcytosis. Anemia studies show low ferritin levels and low iron levels. I would recommend iron infusions while he is inpatient. 3. History of chronic kidney disease. 4. History of congestive heart failure. 5. Findings of remote small posterior parietal high convexity infarct. 6. History of coronary artery disease with coronary artery bypass grafting. Thank you for allowing me to participate in the care of this patient. The case was discussed with Dr. Ching. I am also recommending discontinuation of aspirin while the patient is on anticoagulation with heparin and subsequently on Coumadin. MD ALEJANDRINA Nguyen/FAIZA , 12:12 AM , 04:06 AM EMIL
[2018-02-19] MEDS: LEVOFLOXACIN 500 MG TAB PO SCH (04:23)
[2018-02-19 04:46] LABS: AUTOMATED NEUTROPHIL # 7.2 TH/MM3 (1.8-7.7); BASOPHIL % 0.4 % (0.0-2.0); EOSINOPHIL % 0.4 % (0.0-4.0); HEMATOCRIT 31.5 % (39.0-51.0); HEMOGLOBIN 9.9 GM/DL (13.0-17.0); LYMPH % 17.7 % (9.0-44.0); LYMPHOCYTE # 1.8 TH/MM3 (1.0-4.8); MEAN CELL VOLUME 78.7 FL (80.0-100.0); MEAN CORPUSCULAR HEMOGLOBIN 24.8 PG (27.0-34.0); MEAN CORPUSCULAR HGB CONC 31.5 % (32.0-36.0); MEAN PLATELET VOLUME 9.6 FL (7.0-11.0); MONO % 9.2 % (0.0-8.0); MONOCYTE # 0.9 TH/MM3 (0-0.9); NEUT % 72.3 % (16.0-70.0); PLATELET COUNT 144 TH/MM3 (150-450); RED CELL DISTRIBUTION WIDTH 19.5 % (11.6-17.2); WHITE BLOOD COUNT 9.9 TH/MM3 (4.0-11.0)
[2018-02-19 05:07] LABS: CALCIUM 8.4 MG/DL (8.5-10.1); CREATININE 2.02 MG/DL (0.60-1.30); MAGNESIUM 2.1 MG/DL (1.5-2.5)
[2018-02-19] MEDS: HEPARIN-D5W 25,000 U/250 ML 250 ML IV PRN (06:15)
[2018-02-19] MEDS: INSULIN ASPART SUPPLEMENTAL SCALE SQ SCH ×4 (08:00→20:26)
[2018-02-19] MEDS: RESP: ALBUTEROL 2.5 MG/IPRATROPIUM 0.5 MG NEB (SCH) NEB ×4 (08:00→20:49)
[2018-02-19] MEDS: IRON SUCROSE INJ 200 MG in SODIUM CHLORIDE 0.9% INJ 100 ML IV SCH (09:20)
[2018-02-19] MEDS: FERROUS SULFATE 325 MG (65 MG ELEMENTAL IRON) TAB PO SCH (09:21)
[2018-02-19] MEDS: PANTOPRAZOLE SOD 40 MG DELAYED RELEASE TAB PO SCH (09:21)
[2018-02-19] MEDS: predniSONE 20 MG TAB PO SCH (09:21)
[2018-02-19] MEDS: SODIUM CHLORIDE 0.9% FLUSH 10 ML FLUSH IV FLUSH SCH ×2 (09:21→20:22)
--- NOTE | 2018-02-19 09:26 | HHI.PR ---
Subjective Remarks seen with staff nurse denies any chest pain or shortness of breath voiding, no reported black stools or hematochezia, no abdominal pain states up and ambuator independently states good po intake Objective Vitals Vital Signs Date Time Temp Pulse Resp B/P (MAP) Pulse Ox O2 Delivery O2 Flow Rate FiO2 02/19/18 08:44 70 02/19/18 04:00 69 02/19/18 04:00 98.3 74 22 157/88 (111) 100 02/19/18 00:12 98.3 80 163/87 (112) 98 02/19/18 00:00 66 02/18/18 20:52 99 21 02/18/18 20:00 78 02/18/18 20:00 97.7 87 20 186/101 (129) 100 156/96 (116) 02/18/18 15:49 96 02/18/18 12:33 98.1 73 16 152/68 (96) 100 I/O 02/18/18 02/18/18 02/18/18 02/19/18 02/19/18 02/19/18 07:00 15:00 23:00 07:00 15:00 23:00 Intake Total 1250 ml 540 ml Output Total 1400 ml Balance 1250 ml -860 ml Intake Oral 540 ml IV Total 1250 ml Output Urine Total 1400 ml # Voids 2 Result Diagram: 02/19/18 0424 02/19/18 0424 Imaging Last Impressions Lung Scan-VQ Nuclear Medicine 02/17/18 0000 Signed Impressions: CONCLUSION: Unmatched subsegmental perfusion defects in both upper lobes characteristic of a high probability of pulmonary embolism. Chest X-Ray 02/16/18 1837 Signed Impressions: CONCLUSION: Lungs are clear. Head CT 02/16/18 0000 Signed Impressions: CONCLUSION: 1. 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 2. No acute intracranial abnormality. Objective Remarks awake and alert, no acute distress anciteric'lungs- no rales regualr rhythm abdomen soft, good bowel sounds extremiteis no edema, no calf tenderness Procedures none A/P Problem List: (1) COPD (chronic obstructive pulmonary disease) ICD Code: J44.9 - Chronic obstructive pulmonary disease, unspecified Assessment and Plan 87-year-old male with PMH of COPD, CHF, CKD, HTN, CAD, DM presents to the ED for evaluation of 2 day history of dizziness and shortness of breath. Bilateral PE. Continue heparin drip follow-up hematology consult history of AVM seen on October 2017 endoscopy repeat EGD in December 2017 showed gastritis and HAYDEE. Hemoccult stools - on Heparin drip. - overlap with coumadin check INR in am COPD. Improved. Continue Levaquin, nebulizations and steroids Anemia,- Iron defiency - hsitory of h AV malformation seen on oct 2017 endoscopy, last egd was 12/2017 and showed gastritis Hgb 10.5, Iron 28, Ferritin 14 on IV Iron x 3 days - Ferrous sulfate 325mg daily -Trend hemoglobin currently stable - on PPI - no reported active bleed DM, chronic -Accu checks with SSI- good readings -Diabetic diet -Hold PO meds while in hospital Acute on CKD stage III, creatine 2.9, baseline around 2. Improving -gentle hydration -Trend creatine -Consider renal US if creatine does not improve Elevated BP- states history of hypertension on meds- does not recall- dont see any meds on med recon start low dsoe amlodipine 2.5 mg po daily HLD, chronic -Resume home Lipitor DVT prophylaxis: SCDs. Heparin drip Increase activity Oanh Wiggins MD February 19, 2018 09:26
[2018-02-19] MEDS: amLODIPine BESYLATE 5 MG TAB PO SCH (10:15)
[2018-02-19] MEDS: SODIUM CHLOR 0.9% 1000 ML INJ 1,000 ML IV SCH ×2 (10:15→23:38)
[2018-02-19] MEDS ORDERED: PHARMACY ORDERED LAB ONE (15:15)
[2018-02-19 17:40] LABS: INTERNATIONAL NORMALIZED RATIO 1.3 RATIO; PROTHROMBIN TIME - PATIENT 13.2 SEC (9.8-11.6)
[2018-02-19] MEDS ORDERED: PILL SPLITTER OTHER PRN (18:00)
[2018-02-19] MEDS ORDERED: WARFARIN SOD 7.5 MG TAB PO SCH (18:30)
[2018-02-19] MEDS: TAMSULOSIN HCL 0.4 MG CAP PO SCH (20:19)
[2018-02-19] MEDS: ATORVASTATIN 40 MG TAB PO SCH (20:19)
[2018-02-20] VITALS (14 sets, daily range): BP systolic 144–174; BP diastolic 55–96; PULSE 65–100; RESP 16–18; TEMP 97.8–98.4; O2SAT 99–100
[2018-02-20] MEDS: HEPARIN-D5W 25,000 U/250 ML 250 ML IV PRN (03:43)
[2018-02-20 07:26] LABS: BICARBONATE 21.1 MEQ/L (21.0-32.0); CALCIUM 8.3 MG/DL (8.5-10.1); CREATININE 1.89 MG/DL (0.60-1.30)
[2018-02-20 07:28] LABS: INTERNATIONAL NORMALIZED RATIO 1.8 RATIO; PROTHROMBIN TIME - PATIENT 18.1 SEC (9.8-11.6)
[2018-02-20] MEDS: IRON SUCROSE INJ 200 MG in SODIUM CHLORIDE 0.9% INJ 100 ML IV SCH (07:46)
[2018-02-20] MEDS: predniSONE 20 MG TAB PO SCH (07:46)
[2018-02-20] MEDS: FERROUS SULFATE 325 MG (65 MG ELEMENTAL IRON) TAB PO SCH (07:46)
[2018-02-20] MEDS: amLODIPine BESYLATE 5 MG TAB PO SCH (07:46)
[2018-02-20] MEDS: PANTOPRAZOLE SOD 40 MG DELAYED RELEASE TAB PO SCH (07:46)
[2018-02-20] MEDS: INSULIN ASPART SUPPLEMENTAL SCALE SQ SCH ×4 (07:46→21:00)
[2018-02-20] MEDS: SODIUM CHLORIDE 0.9% FLUSH 10 ML FLUSH IV FLUSH SCH ×2 (07:47→22:30)
[2018-02-20] MEDS: RESP: ALBUTEROL 2.5 MG/IPRATROPIUM 0.5 MG NEB (SCH) NEB ×4 (08:00→19:59)
[2018-02-20 08:18] LABS: HEMOGLOBIN 9.8 GM/DL (13.0-17.0); MEAN CELL VOLUME 77.3 FL (80.0-100.0); MEAN CORPUSCULAR HEMOGLOBIN 25.3 PG (27.0-34.0); MEAN CORPUSCULAR HGB CONC 32.7 % (32.0-36.0); MEAN PLATELET VOLUME 10.8 FL (7.0-11.0); PLATELET COUNT 106 TH/MM3 (150-450); RED BLOOD COUNT 3.88 MIL/MM3 (4.50-5.90); RED CELL DISTRIBUTION WIDTH 19.7 % (11.6-17.2)
[2018-02-20] MEDS: SODIUM CHLOR 0.9% 1000 ML INJ 1,000 ML IV SCH (13:36)
--- NOTE | 2018-02-20 14:14 | HHI.PR ---
Subjective Remarks no complains of chest pain or shortness of breath "eating everything" up and ambulating Objective Vitals Vital Signs Date Time Temp Pulse Resp B/P (MAP) Pulse Ox O2 Delivery O2 Flow Rate FiO2 02/20/18 12:39 100 02/20/18 12:38 98.2 85 18 148/76 (100) 99 02/20/18 09:53 150/76 (100) 02/20/18 08:07 87 02/20/18 07:48 98.3 65 18 163/89 (113) 99 02/20/18 04:03 69 02/20/18 04:00 98.0 75 16 174/74 (107) 100 02/20/18 00:04 78 02/20/18 00:00 98.2 75 18 154/94 (114) 100 02/19/18 20:51 98 21 02/19/18 20:14 98.3 73 18 162/93 (116) 99 02/19/18 20:07 84 02/19/18 15:00 72 I/O 02/19/18 02/19/18 02/19/18 02/20/18 02/20/18 02/20/18 07:00 15:00 23:00 07:00 15:00 23:00 Intake Total 540 ml 636 ml 601 ml 819 ml Output Total 1400 ml 300 ml 1775 ml 650 ml 700 ml Balance -860 ml 336 ml -1174 ml 169 ml -700 ml Intake Oral 540 ml 420 ml IV Total 636 ml 601 ml 399 ml Output Urine Total 1400 ml 300 ml 1775 ml 650 ml 700 ml # Voids 2 Result Diagram: 02/20/1814 02/20/18613 Imaging Last Impressions Lung Scan-V Nuclear Medicine 02/17/18 0000 Signed Impressions: CONCLUSION: Unmatched subsegmental perfusion defects in both upper lobes characteristic of a high probability of pulmonary embolism. Chest X-Ray 02/16/18 5977 Signed Impressions: CONCLUSION: Lungs are clear. Head CT 02/16/18 0000 Signed Impressions: CONCLUSION: 1. 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 2. No acute intracranial abnormality. Objective Remarks awake and alert, no acute distress anicteric lungs- no rales regualr rhythm abdomen soft, good bowel sounds extremities no edema, no calf tenderness Procedures none A/P Problem List: (1) COPD (chronic obstructive pulmonary disease) ICD Code: J44.9 - Chronic obstructive pulmonary disease, unspecified Assessment and Plan 87-year-old male with PMH of COPD, CHF, CKD, HTN, CAD, DM presents to the ED for evaluation of 2 day history of dizziness and shortness of breath. Bilateral PE. Continue heparin drip follow-up hematology consult history of AVM seen on October 2017 endoscopy repeat EGD in December 2017 showed gastritis and HAYDEE. Hemoccult stools - on Heparin drip. - overlap with coumadin check INR 1.8 - recheck in am COPD. Improved. 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 Improving -gentle hydration -Trend creatine -Consider renal US if creatine does not improve Elevated BP- states history of hypertension on meds- does not recall- dont see any meds on med recon start low dsoe amlodipine 2.5 mg po daily- better readings- continue to monitor and adjust HLD, chronic -Resume home Lipitor DVT prophylaxis: SCDs. Heparin drip Increase activity- up and ambualting Oanh Wiggins MD February 20, 2018 14:14
[2018-02-20] MEDS ORDERED: WARFARIN SOD 3 MG TAB PO ONE (16:00)
[2018-02-20] MEDS: ATORVASTATIN 40 MG TAB PO SCH (22:30)
[2018-02-20] MEDS: TAMSULOSIN HCL 0.4 MG CAP PO SCH (22:30)
[2018-02-21] VITALS (13 sets, daily range): BP systolic 125–151; BP diastolic 62–87; PULSE 62–80; RESP 16–20; TEMP 97.7–99.6; O2SAT 96–100
[2018-02-21] MEDS: SODIUM CHLOR 0.9% 1000 ML INJ 1,000 ML IV SCH ×2 (01:04→17:08)
[2018-02-21] MEDS: LEVOFLOXACIN 500 MG TAB PO SCH (03:46)
[2018-02-21 05:12] LABS: BICARBONATE 26.1 MEQ/L (21.0-32.0); CALCIUM 8.3 MG/DL (8.5-10.1); CREATININE 1.73 MG/DL (0.60-1.30)
[2018-02-21 07:00] LABS: INTERNATIONAL NORMALIZED RATIO 2.2 RATIO
[2018-02-21] MEDS: RESP: ALBUTEROL 2.5 MG/IPRATROPIUM 0.5 MG NEB (SCH) NEB ×2 (07:36→11:02)
[2018-02-21] MEDS: INSULIN ASPART SUPPLEMENTAL SCALE SQ SCH ×4 (08:00→21:00)
--- NOTE | 2018-02-21 08:52 | HHI.PR ---
Subjective Remarks no complains of chest pain ro shortness of breath, laying flat in bed, no leg swelling voiding spontaneously- clear urine states had a good BM- "no blood" Objective Vitals Vital Signs Date Time Temp Pulse Resp B/P (MAP) Pulse Ox O2 Delivery O2 Flow Rate FiO2 02/21/18 07:38 96 02/21/18 04:04 62 02/21/18 03:43 98.6 66 16 140/72 (94) 100 02/21/18 00:56 98.7 70 16 151/84 (106) 99 02/21/18 00:01 66 02/20/18 20:58 98.4 67 18 144/55 (84) 100 02/20/18 20:06 100 02/20/18 20:02 65 02/20/18 16:00 68 02/20/18 15:57 97.8 87 18 150/96 (114) 100 02/20/18 12:39 100 02/20/18 12:38 98.2 85 18 148/76 (100) 99 02/20/18 09:53 150/76 (100) I/O 02/20/18 02/20/18 02/20/18 02/21/18 02/21/18 02/21/18 07:00 15:00 23:00 07:00 15:00 23:00 Intake Total 819 ml 1110 ml 1000 ml 1240 ml Output Total 650 ml 700 ml 2450 ml 575 ml Balance 169 ml 410 ml -1450 ml 665 ml Intake Oral 420 ml 1000 ml 240 ml IV Total 399 ml 1110 ml 1000 ml Output Urine Total 650 ml 700 ml 2450 ml 575 ml # Voids 1 # Bowel Movements 2 Result Diagram: 02/20/18 0614 02/21/18 0324 Imaging Last Impressions Lung Scan-VQ Nuclear Medicine 02/17/18 0000 Signed Impressions: CONCLUSION: Unmatched subsegmental perfusion defects in both upper lobes characteristic of a high probability of pulmonary embolism. Chest X-Ray 02/16/18 4027 Signed Impressions: CONCLUSION: Lungs are clear. Head CT 02/16/18 0000 Signed Impressions: CONCLUSION: 1. 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 2. No acute intracranial abnormality. Objective Remarks awake and alert, no acute distress, speech clear anicteric lungs- no rales regular rhythm abdomen soft, good bowel sounds extremities no edema, no calf tenderness neuro exam- unremarkable Procedures none A/P Problem List: (1) COPD (chronic obstructive pulmonary disease) ICD Code: J44.9 - Chronic obstructive pulmonary disease, unspecified Assessment and Plan 87-year-old male with PMH of COPD, CHF, CKD, HTN, CAD, DM presents to the ED for evaluation of 2 day history of dizziness and shortness of breath. Bilateral PE. Continue heparin drip follow-up hematology consult history of AVM seen on October 2017 endoscopy repeat EGD in December 2017 showed gastritis and HAYDEE. - hemoccult +, no gross bleeding - on Heparin drip. - overlap with coumadin - INR 2.2 today . start on 5 mg coumadin daily - recheck in am, if therapeutic - DC tomorrow COPD. Improved. Continue Levaquin, nebulizations and steroids Anemia,- Iron defiency - hsitory of h AV malformation seen on oct 2017 endoscopy, last egd was 12/2017 and showed gastritis Hgb 10.5, Iron 28, Ferritin 14 on IV Iron x 3 days/Hematology - getting last dose today this evening - Ferrous sulfate 325mg daily -Trend hemoglobin currently stable - on PPI - no reported active bleed DM, chronic- good readings -Accu checks with SSI- good readings -Diabetic diet -Hold PO meds while in hospital Acute on CKD stage III, creatine 2.9, baseline around 2. Improving creatinine near baseline. good po -Consider renal US if creatine does not improve Elevated BP- states history of hypertension on meds- does not recall- dont see any meds on med recon start low dsoe amlodipine 2.5 mg po daily- better readings- continue to monitor and adjust HLD, chronic -Resume home Lipitor DVT prophylaxis: SCDs. Heparin drip Increase activity- up and ambualting DC planning- PCP- Oanh Saavedra MD February 21, 2018 08:51
[2018-02-21] MEDS: PANTOPRAZOLE SOD 40 MG DELAYED RELEASE TAB PO SCH (09:18)
[2018-02-21] MEDS: FERROUS SULFATE 325 MG (65 MG ELEMENTAL IRON) TAB PO SCH (09:18)
[2018-02-21] MEDS: IRON SUCROSE INJ 200 MG in SODIUM CHLORIDE 0.9% INJ 100 ML IV SCH (09:18)
[2018-02-21] MEDS: amLODIPine BESYLATE 5 MG TAB PO SCH (09:18)
[2018-02-21] MEDS: SODIUM CHLORIDE 0.9% FLUSH 10 ML FLUSH IV FLUSH SCH ×2 (09:19→21:15)
[2018-02-21] MEDS ORDERED: WARFARIN SOD 5 MG TAB PO SCH (16:00)
[2018-02-21] MEDS ORDERED: WARFARIN SOD 7.5 MG TAB PO SCH (16:00)
[2018-02-21] MEDS: HEPARIN-D5W 25,000 U/250 ML 250 ML IV PRN (17:17)
[2018-02-21] MEDS: TAMSULOSIN HCL 0.4 MG CAP PO SCH (21:15)
[2018-02-21] MEDS: CALCITRIOL 0.25 MCG CAP PO SCH (21:15)
[2018-02-21] MEDS: ATORVASTATIN 40 MG TAB PO SCH (21:15)
[2018-02-22] VITALS (9 sets, daily range): BP systolic 122–156; BP diastolic 59–86; PULSE 64–95; RESP 16–18; TEMP 98.1–98.8; O2SAT 98–100
[2018-02-22 06:25] LABS: PROTHROMBIN TIME - PATIENT 20.5 SEC (9.8-11.6)
[2018-02-22] MEDS: SODIUM CHLORIDE 0.9% FLUSH 10 ML FLUSH IV FLUSH SCH (07:30)
[2018-02-22] MEDS: INSULIN ASPART SUPPLEMENTAL SCALE SQ SCH ×2 (08:37→11:30)
[2018-02-22] MEDS: PANTOPRAZOLE SOD 40 MG DELAYED RELEASE TAB PO SCH (08:39)
[2018-02-22] MEDS: FERROUS SULFATE 325 MG (65 MG ELEMENTAL IRON) TAB PO SCH (08:39)
[2018-02-22] MEDS: amLODIPine BESYLATE 5 MG TAB PO SCH (08:40)
[2018-02-22 10:34] LABS: AUTOMATED NEUTROPHIL # 4.8 TH/MM3 (1.8-7.7); BASOPHIL % 0.4 % (0.0-2.0); EOSINOPHIL # 0.4 TH/MM3 (0-0.4); EOSINOPHIL % 5.1 % (0.0-4.0); HEMATOCRIT 35.2 % (39.0-51.0); HEMOGLOBIN 11.3 GM/DL (13.0-17.0); LYMPH % 22.5 % (9.0-44.0); LYMPHOCYTE # 1.6 TH/MM3 (1.0-4.8); MEAN CELL VOLUME 78.1 FL (80.0-100.0); MEAN CORPUSCULAR HEMOGLOBIN 25.1 PG (27.0-34.0); MEAN CORPUSCULAR HGB CONC 32.2 % (32.0-36.0); MEAN PLATELET VOLUME 10.3 FL (7.0-11.0); MONO % 6.7 % (0.0-8.0); MONOCYTE # 0.5 TH/MM3 (0-0.9); NEUT % 65.3 % (16.0-70.0); PLATELET COUNT 127 TH/MM3 (150-450); RED BLOOD COUNT 4.51 MIL/MM3 (4.50-5.90); RED CELL DISTRIBUTION WIDTH 20.8 % (11.6-17.2); WHITE BLOOD COUNT 7.3 TH/MM3 (4.0-11.0)
--- NOTE | 2018-02-22 13:13 | HHI.PR ---
Subjective Remarks Patient wishes to be discharged home today. His INR is therapeutic Can follow-up with Dr. Yonathan LEACH to home today with home health care to be set up Objective Vitals Vital Signs Date Time Temp Pulse Resp B/P (MAP) Pulse Ox O2 Delivery O2 Flow Rate FiO2 02/22/18 11:25 98.2 91 18 122/62 (82) 100 02/22/18 11:00 79 02/22/18 08:16 98 21 02/22/18 07:52 98.1 76 18 132/59 (83) 100 02/22/18 07:00 95 02/22/18 04:25 98.8 77 16 150/77 (101) 100 02/22/18 04:01 76 02/22/18 00:35 98.4 68 18 156/86 (109) 100 02/22/18 00:02 64 02/21/18 20:58 99.6 75 18 125/66 (85) 99 02/21/18 20:03 65 02/21/18 17:42 97.7 76 18 125/66 (85) 99 02/21/18 16:00 75 I/O 02/21/18 02/21/18 02/21/18 02/22/18 02/22/18 02/22/18 06:59 14:59 22:59 06:59 14:59 22:59 Intake Total 1240 ml 600 ml 420 ml Output Total 575 ml 600 ml 1100 ml 900 ml Balance 665 ml 0 ml -680 ml -900 ml Intake Oral 240 ml 500 ml 420 ml IV Total 1000 ml 100 ml Output Urine Total 575 ml 600 ml 1100 ml 900 ml # Voids 1 # Bowel Movements 2 0 0 Result Diagram: 02/22/18 0915 02/21/18 0324 Other Results Laboratory Tests Test 02/19/18 16:46 02/20/18 06:14 02/20/18 10:45 02/20/18 20:18 Prothrombin Time 13.2 SEC 18.1 SEC Prothromb Time International Ratio 1.3 RATIO 1.8 RATIO White Blood Count 9.0 TH/MM3 Red Blood Count 3.88 MIL/MM3 Hemoglobin 9.8 GM/DL Hematocrit 30.0 % Mean Corpuscular Volume 77.3 FL Mean Corpuscular Hemoglobin 25.3 PG Mean Corpuscular Hemoglobin Concent 32.7 % Red Cell Distribution Width 19.7 % Platelet Count 106 TH/MM3 Mean Platelet Volume 10.8 FL Hematology Comments Activated Partial Thromboplast Time 143.8 SEC 87.8 SEC 130.1 SEC Blood Urea Nitrogen 20 MG/DL Creatinine 1.89 MG/DL Random Glucose 92 MG/DL Calcium Level 8.3 MG/DL Sodium Level 144 MEQ/L Potassium Level 4.0 MEQ/L Chloride Level 115 MEQ/L Carbon Dioxide Level 21.1 MEQ/L Anion Gap 8 MEQ/L Estimat Glomerular Filtration Rate 41 ML/MIN Test 02/20/18 23:15 02/21/18 03:24 02/21/18 05:37 02/21/18 14:39 Activated Partial Thromboplast Time 55.6 SEC 48.6 SEC 91.3 SEC Blood Urea Nitrogen 19 MG/DL Creatinine 1.73 MG/DL Random Glucose 109 MG/DL Calcium Level 8.3 MG/DL Sodium Level 143 MEQ/L Potassium Level 4.3 MEQ/L Chloride Level 110 MEQ/L Carbon Dioxide Level 26.1 MEQ/L Anion Gap 7 MEQ/L Estimat Glomerular Filtration Rate 46 ML/MIN Prothrombin Time 22.0 SEC Prothromb Time International Ratio 2.2 RATIO Test 02/21/18 17:34 02/21/18 23:57 02/22/18 05:49 02/22/18 09:15 Activated Partial Thromboplast Time 51.2 SEC 43.4 SEC 38.8 SEC Prothrombin Time 20.5 SEC Prothromb Time International Ratio 2.0 RATIO White Blood Count 7.3 TH/MM3 Red Blood Count 4.51 MIL/MM3 Hemoglobin 11.3 GM/DL Hematocrit 35.2 % Mean Corpuscular Volume 78.1 FL Mean Corpuscular Hemoglobin 25.1 PG Mean Corpuscular Hemoglobin Concent 32.2 % Red Cell Distribution Width 20.8 % Platelet Count 127 TH/MM3 Mean Platelet Volume 10.3 FL Neutrophils (%) (Auto) 65.3 % Lymphocytes (%) (Auto) 22.5 % Monocytes (%) (Auto) 6.7 % Eosinophils (%) (Auto) 5.1 % Basophils (%) (Auto) 0.4 % Neutrophils # (Auto) 4.8 TH/MM3 Lymphocytes # (Auto) 1.6 TH/MM3 Monocytes # (Auto) 0.5 TH/MM3 Eosinophils # (Auto) 0.4 TH/MM3 Basophils # (Auto) 0.0 TH/MM3 CBC Comment DIFF FINAL Differential Comment Imaging Last Impressions Lung Scan-VQ Nuclear Medicine 02/17/18 0000 Signed Impressions: CONCLUSION: Unmatched subsegmental perfusion defects in both upper lobes characteristic of a high probability of pulmonary embolism. Chest X-Ray 02/16/18 1837 Signed Impressions: CONCLUSION: Lungs are clear. Head CT 02/16/18 0000 Signed Impressions: CONCLUSION: 1. 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 2. No acute intracranial abnormality. Objective Remarks GENERAL: Awake alert and oriented talkative and cooperative SKIN: Warm and dry. HEAD: Atraumatic. Normocephalic. EYES: Pupils equal and round. No scleral icterus. No injection or drainage. Right eye drooping ptosis ENT: No nasal bleeding or discharge. Mucous membranes pink and moist. NECK: Trachea midline. No JVD. CARDIOVASCULAR: IRRegular rate and rhythm. S1-S2 no S3 or S4 RESPIRATORY: No accessory muscle use. Clear to auscultation. Breath sounds equal bilaterally. GASTROINTESTINAL: Abdomen soft, non-tender, nondistended. Hepatic and splenic margins not palpable. MUSCULOSKELETAL: Extremities without clubbing, cyanosis, or edema. No obvious deformities. NEUROLOGICAL: Awake and alert. No obvious cranial nerve deficits. Motor grossly within normal limits. 4 out of 5 muscle strength in the arms and legs. Normal speech. PSYCHIATRIC: Appropriate mood and affect; insight and judgment normal. Procedures none Medications and IVs Current Medications Sodium Chloride (NS Flush) 2 ml UNSCH PRN IVF FLUSH AFTER USING IV ACCESS; Start 02/16/18 at 18:45; Stop 02/19/18 at 17:05; Status DC Sodium Chloride (NS Flush) 2 ml UNSCH PRN IV FLUSH FLUSH AFTER USING IV ACCESS ; Start 02/16/18 at 21:00 Sodium Chloride (NS Flush) 2 ml BID IV FLUSH Last administered on 02/21/18at 21: 15; Start 02/16/18 at 21:00 Acetaminophen (Tylenol) 650 mg Q4H PRN PO BOX, fever, pain 1-4; Start 02/16/18 at 21:00 Ondansetron HCl (Zofran Odt) 4 mg Q6H PRN PO NAUSEA OR VOMITING; Start at 21:00 Heparin Sodium (Porcine) (Heparin Inj) 5,000 units Q12H SQ ; Start 02/16/18 at 21:00; Stop 02/16/18 at 21:48; Status DC Naloxone HCl (Narcan Inj) 0.4 mg UNSCH PRN IV PUSH SEE LABEL COMMENTS; Start at 21:00 Magnesium Hydroxide (Milk Of Magnesia Liq) 30 ml Q12H PRN PO Mild constipation Last administered on 02/19/18at 20:20; Start 02/16/18 at 21:00 Sennosides (Senokot) 17.2 mg Q12H PRN PO Moderate constipation Last administered on 02/20/18at 12:37; Start 02/16/18 at 21:00 Bisacodyl (Dulcolax Supp) 10 mg DAILY PRN RECTAL SEVERE CONSITIPATION; Start at 21:00 Lactulose (Lactulose Liq) 30 ml DAILY PRN PO SEVERE CONSITIPATION Last administered on 02/19/18at 12:44; Start 02/16/18 at 21:00 Albuterol/ Ipratropium (Duoneb Neb) 1 ampule Q6HR NEB PRN NEB dyspnea; Start at 21:00; Stop 02/17/18 at 13:14; Status DC Dextrose (D50w (Vial) Inj) 50 ml UNSCH PRN IV PUSH HYPOGLYCEMIA-SEE COMMENTS; Start 02/16/18 at 21:15 Glucagon (Glucagon Inj) 1 mg UNSCH PRN OTHER HYPOGLYCEMIA-SEE COMMENTS; Start 02/16/18 at 21:15 Insulin Aspart (NovoLOG SUPPLEMENTAL SCALE) 1 ACHS SLIDING SCALE SQ Last administered on 02/20/18at 16:04; Start 02/17/18 at 08:00 Atorvastatin Calcium (Lipitor) 40 mg HS PO Last administered on 02/21/18at 21:15 ; Start 02/17/18 at 21:00 Calcitriol (Rocaltrol) 0.25 mcg MOWEFR PO Last administered on 02/21/18at 21:15 ; Start 02/16/18 at 21:15 Pantoprazole Sodium (Protonix) 40 mg DAILY PO Last administered on 02/22/18at 08 :39; Start 02/17/18 at 09:00 Tamsulosin HCl (Flomax) 0.4 mg HS PO Last administered on 02/21/18at 21:15; Start 02/17/18 at 21:00 Patient Own Medication PT OWN MED: Febuxos... DAILY PO ; Start 02/17/18 at 09:00 ; Status Future Hold Levofloxacin (Levaquin) 500 mg Q48H PO Last administered on 02/21/18at 03:46; Start 02/17/18 at 03:15; Stop 02/22/18 at 03:14; Status DC Prednisone (Deltasone) 20 mg BID PO Last administered on 02/18/18at 09:33; Start 02/17/18 at 09:00; Stop 02/18/18 at 10:58; Status DC Sodium Chloride 1,000 ml @ 42 mls/hr [id number] IV Last administered on at 17:08; Start 02/17/18 at 04:30 Ferrous Sulfate (Ferrous Sulfate) 325 mg DAILY PO Last administered on at 08:39; Start 02/17/18 at 09:00 Albuterol/ Ipratropium (Duoneb Neb) 1 ampule QID NEB NEB Last administered on 02/21/18at 11:02; Start 02/17/18 at 16:00; Stop 02/21/18 at 15:59; Status DC Albuterol Sulfate (Albuterol Neb) 0.63 mg Q4HR NEB PRN NEB SOB/WHEEZING; Start 02/17/18 at 13:15 Aspirin (Aspirin Chew) 81 mg DAILY CHEW Last administered on 02/18/18at 09:32; Start 02/18/18 at 09:00; Stop 02/19/18 at 00:14; Status DC Heparin Sodium/ Dextrose 250 ml @ 17 mls/hr TITRATE PRN IV Coagulation Management Last administered on 02/21/18at 17:17; Start 02/17/18 at 17:00 Prednisone (Deltasone) 20 mg DAILY PO Last administered on 02/20/18at 07:46; Start 02/19/18 at 09:00; Stop 02/21/18 at 08:59; Status DC Patient Medication Teaching (Coumadin Booklet) 1 ONCE ONCE OTHER Last administered on 02/18/18at 21:00; Start 02/18/18 at 21:00; Stop 02/18/18 at 21:10 ; Status DC Pharmacy Profile Note 0 ml @ 0 mls/hr UNSCH OTHER ; Start 02/18/18 at 21:00 Patient Medication Teaching (Coumadin Booklet) 1 ONCE ONCE OTHER ; Start at 21:00; Stop 02/18/18 at 21:01; Status UNV Warfarin Sodium (Coumadin) 7.5 mg ONCE ONCE PO Last administered on 02/18/18at 21:31; Start 02/18/18 at 21:00; Stop 02/18/18 at 21:10; Status DC Iron Sucrose 200 mg/Sodium Chloride 110 ml @ 110 mls/hr DAILY IV Last administered on 02/21/18at 09:18; Start 02/19/18 at 09:00; Stop 02/21/18 at 09:59 ; Status DC Warfarin Sodium (Coumadin) 7.5 mg DAILY@16 PO Last administered on 02/19/18at 18 :23; Start 02/19/18 at 18:30; Stop 02/21/18 at 08:55; Status DC Amlodipine Besylate (Norvasc) 2.5 mg DAILY PO Last administered on 02/22/18at 08 :40; Start 02/19/18 at 09:45 Miscellaneous Information ([facility] Ordered Lab Info) SPECIFIC LAB TO BE DRAWN: ... ONCE ONCE .XX ; Start 02/19/18 at 15:15; Stop 02/19/18 at 15:16; Status DC Miscellaneous (Pill Splitter) 1 ea UNSCH PRN OTHER SEE LABEL COMMENTS; Start at 18:00 Warfarin Sodium (Coumadin) 3 mg ONCE ONCE PO Last administered on 02/20/18at 16 :01; Start 02/20/18 at 16:00; Stop 02/20/18 at 16:01; Status DC Warfarin Sodium (Coumadin) 7.5 mg DAILY@16 PO ; Start 02/21/18 at 16:00; Status Cancel Warfarin Sodium (Coumadin) 5 mg DAILY@1600 PO Last administered on 02/21/18at 17 :08; Start 02/21/18 at 16:00 A/P Problem List: (1) COPD (chronic obstructive pulmonary disease) ICD Code: J44.9 - Chronic obstructive pulmonary disease, unspecified Assessment and Plan 87-year-old male with PMH of COPD, CHF, CKD, HTN, CAD, DM presents to the ED for evaluation of 2 day history of dizziness and shortness of breath. Bilateral PE. Continue heparin drip follow-up hematology consult history of AVM seen on October 2017 endoscopy repeat EGD in December 2017 showed gastritis and HAYDEE. - hemoccult +, no gross bleeding - on Heparin drip. - overlap with coumadin - INR 2.2 today . start on 5 mg coumadin daily - recheck in am, if therapeutic - DC tomorrow COPD. Improved. Continue Levaquin, nebulizations and steroids Anemia,- Iron defiency - hsitory of h AV malformation seen on oct 2017 endoscopy, last egd was 12/2017 and showed gastritis Hgb 10.5, Iron 28, Ferritin 14 on IV Iron x 3 days/Hematology - getting last dose today this evening - Ferrous sulfate 325mg daily -Trend hemoglobin currently stable - on PPI - no reported active bleed DM, chronic- good readings -Accu checks with SSI- good readings -Diabetic diet -Hold PO meds while in hospital Acute on CKD stage III, creatine 2.9, baseline around 2. Improving creatinine near baseline. good po -Consider renal US if creatine does not improve Elevated BP- states history of hypertension on meds- does not recall- dont see any meds on med recon start low dsoe amlodipine 2.5 mg po daily- better readings- continue to monitor and adjust HLD, chronic -Resume home Lipitor DVT prophylaxis: SCDs. Heparin drip Increase activity- up and ambualting DC planning- PCP- Dr. Kiser Patient wishes to be discharged to home today We will try to set up home health care Discharge Planning DC to home today Jamel Miles DO February 22, 2018 13:13
[2018-02-22] MEDS ORDERED: ULOR40TA PO (13:19)
[2018-02-22] MEDS ORDERED: REPA1TAB PO (13:19)
[2018-02-22] MEDS ORDERED: TAMS0.4C4 PO (13:19)
[2018-02-22] MEDS ORDERED: WARF-60 PO (13:19)
[2018-02-22] MEDS ORDERED: PANT40TA3 PO (13:19)
[2018-02-22] MEDS ORDERED: FERR325T20 PO (13:19)
[2018-02-22] MEDS ORDERED: ASPI-516 CHEW (13:19)
[2018-02-22] MEDS ORDERED: SENN187 PO (13:19)
[2018-02-22] MEDS ORDERED: CALC0.25 PO (13:19)
[2018-02-22] MEDS ORDERED: NEBULIZER1 MI1 (13:19)
[2018-02-22] MEDS ORDERED: AMLO5 PO (13:19)
[2018-02-22] MEDS ORDERED: TRAD5TAB PO (13:19)
[2018-02-22] MEDS ORDERED: ALBU0.63 NEB (13:19)
[2018-02-22] MEDS ORDERED: ATOR40TA16 PO (13:19)
--- NOTE | 2018-02-22 13:22 | HHI.FF ---
Face to Face Verification Diagnosis: (1) Pulmonary embolism (2) Back pain (3) Pulmonary emboli (4) Renal insufficiency (5) [id number]-[id number] kidney injury (6) COPD (chronic obstructive pulmonary disease) (7) DM (diabetes mellitus) (8) Hyperlipidemia Physical Therapy Order: Evaluate and Treat, Improve ambulation, Strength and gait training Home Health Nursing Order: Medical education Signs/symptoms of disease process Medication education-adverse effect Nursing assessment with vital signs Home Health Aide Order: To Assist In: Bathing and personal care, central office maintainer and meal prep I have seen patient [place] on 02/22/18. My clinical findings support the need for the requested home health care services because: Ltd mobility - disease progression Deconditioned w/ increased weakness I certify that my clinical findings support that this patient is homebound because: Hx COPD- exertion dyspnea/weakness Jamel Miles DO February 22, 2018 13:22
[2018-02-22] MEDS ORDERED: LEVA500T33 PO (13:27)
[2018-02-22] MEDS ORDERED: PRED5PAK PO (13:27)
--- NOTE | 2018-02-22 13:27 | HHI.DS ---
Discharge Summary Admission Date February 19, 2018 at 08:52 Discharge Date: February 22, 2018 Admitting Diagnosis Dyspnea on exertion, GI bleed, acute on chronic kidney failure (1) COPD (chronic obstructive pulmonary disease) ICD Code: J44.9 - Chronic obstructive pulmonary disease, unspecified Diagnosis: Principal (2) Chronic kidney disease ICD Code: N18.9 - Chronic kidney disease, unspecified Diagnosis: Secondary Status: Chronic (3) DM (diabetes mellitus) ICD Code: E11.9 - Type 2 diabetes mellitus without complications Diagnosis: Secondary Status: Acute (4) Hyperlipidemia ICD Code: E78.5 - Hyperlipidemia, unspecified Diagnosis: Secondary Status: Acute (5) Hypertension ICD Code: I10 - Essential (primary) hypertension Diagnosis: Secondary Status: Acute (6) Pulmonary embolism ICD Code: I26.99 - Pulmonary embolism Diagnosis: Principal Status: Acute (7) Pulmonary emboli ICD Code: I26.99 - Other pulmonary embolism without acute cor pulmonale Diagnosis: Principal Status: Acute (8) Renal insufficiency ICD Code: N28.9 - Disorder of kidney and ureter, unspecified Diagnosis: Secondary Status: Acute Procedures none Brief History - From Admission 87-year-old male with PMH of COPD, CHF, CKD, HTN, CAD, DM presents to the ED for evaluation of 2 day history of dizziness and shortness of breath. Patient states for the last 2 days he has had a trouble breathing and becomes short of breath with exertion. He states he does not use a nebulizer at home. No cough or sputum production noted. He also complains of dizziness when getting out of bed or getting up from a seated position. He denies any chest pain, fevers or chills. He does not take his BP at home so he is unsure how it runs. CBC/BMP: 02/22/18 0915 02/21/18 0324 Significant Findings Laboratory Tests Test 02/19/18 16:46 02/20/18 06:14 02/20/18 10:45 02/20/18 20:18 Prothrombin Time 13.2 SEC (9.8-11.6) 18.1 SEC (9.8-11.6) Red Blood Count 3.88 MIL/MM3 (4.50-5.90) Hemoglobin 9.8 GM/DL (13.0-17.0) Hematocrit 30.0 % (39.0-51.0) Mean Corpuscular Volume 77.3 FL (80.0-100.0) Mean Corpuscular Hemoglobin 25.3 PG (27.0-34.0) Red Cell Distribution Width 19.7 % (11.6-17.2) Platelet Count 106 TH/MM3 (150-450) Activated Partial Thromboplast Time 143.8 SEC (24.3-30.1) 87.8 SEC (24.3-30.1) 130.1 SEC (24.3-30.1) Blood Urea Nitrogen 20 MG/DL (7-18) Creatinine 1.89 MG/DL (0.60-1.30) Calcium Level 8.3 MG/DL (8.5-10.1) Chloride Level 115 MEQ/L (98-107) Estimat Glomerular Filtration Rate 41 ML/MIN (>89) Test 02/20/18 23:15 02/21/18 03:24 02/21/18 05:37 02/21/18 14:39 Activated Partial Thromboplast Time 55.6 SEC (24.3-30.1) 48.6 SEC (24.3-30.1) 91.3 SEC (24.3-30.1) Blood Urea Nitrogen 19 MG/DL (7-18) Creatinine 1.73 MG/DL (0.60-1.30) Random Glucose 109 MG/DL (74-106) Calcium Level 8.3 MG/DL (8.5-10.1) Chloride Level 110 MEQ/L (98-107) Estimat Glomerular Filtration Rate 46 ML/MIN (>89) Prothrombin Time 22.0 SEC (9.8-11.6) Test 02/21/18 17:34 02/21/18 23:57 02/22/18 05:49 02/22/18 09:15 Activated Partial Thromboplast Time 51.2 SEC (24.3-30.1) 43.4 SEC (24.3-30.1) 38.8 SEC (24.3-30.1) Prothrombin Time 20.5 SEC (9.8-11.6) Hemoglobin 11.3 GM/DL (13.0-17.0) Hematocrit 35.2 % (39.0-51.0) Mean Corpuscular Volume 78.1 FL (80.0-100.0) Mean Corpuscular Hemoglobin 25.1 PG (27.0-34.0) Red Cell Distribution Width 20.8 % (11.6-17.2) Platelet Count 127 TH/MM3 (150-450) Eosinophils (%) (Auto) 5.1 % (0.0-4.0) Imaging Last Impressions Lung Scan-VQ Nuclear Medicine 02/17/18 0000 Signed Impressions: CONCLUSION: Unmatched subsegmental perfusion defects in both upper lobes characteristic of a high probability of pulmonary embolism. Chest X-Ray 02/16/18 1837 Signed Impressions: CONCLUSION: Lungs are clear. Head CT 02/16/18 0000 Signed Impressions: CONCLUSION: 1. 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 2. No acute intracranial abnormality. PE at Discharge GENERAL: Awake alert and oriented talkative and cooperative SKIN: Warm and dry. HEAD: Atraumatic. Normocephalic. EYES: Pupils equal and round. No scleral icterus. No injection or drainage. Right eye drooping ptosis ENT: No nasal bleeding or discharge. Mucous membranes pink and moist. NECK: Trachea midline. No JVD. CARDIOVASCULAR: IRRegular rate and rhythm. S1-S2 no S3 or S4 RESPIRATORY: No accessory muscle use. Clear to auscultation. Breath sounds equal bilaterally. GASTROINTESTINAL: Abdomen soft, non-tender, nondistended. Hepatic and splenic margins not palpable. MUSCULOSKELETAL: Extremities without clubbing, cyanosis, or edema. No obvious deformities. NEUROLOGICAL: Awake and alert. No obvious cranial nerve deficits. Motor grossly within normal limits. 4 out of 5 muscle strength in the arms and legs. Normal speech. PSYCHIATRIC: Appropriate mood and affect; insight and judgment normal. Hospital Course 87-year-old male with PMH of COPD, CHF, CKD, HTN, CAD, DM presents to the ED for evaluation of 2 day history of dizziness and shortness of breath. Patient states for the last 2 days he has had a trouble breathing and becomes short of breath with exertion. He states he does not use a nebulizer at home. No cough or sputum production noted. He also complains of dizziness when getting out of bed or getting up from a seated position. He denies any chest pain, fevers or chills. He does not take his BP at home so he is unsure how it runs. Patient is breathing better. His INR is therapeutic and wishes to be discharged to home today We will need to follow-up with Dr. Pravin Mcmanus his primary care physician regarding his INR Pt Condition on Discharge: Good Discharge Disposition: Disch w/ Home Health Serv Discharge Time: > 30 minutes Discharge Instructions DIET: Follow Instructions for: Heart Healthy Diet, Diabetic Diet Speech Therapy-Diet Recommends: Regular Activities you can perform: Regular-No Restrictions, Weight Bearing as Romy Follow up Referrals: PCP Follow-up - 2 Days with LUCILLE PCP Follow-up - 2 Days with Pravin Mcmanus III, MD New Medications: Levofloxacin (Levaquin) 500 Mg Tablet 500 MG PO DAILY for Infection for 5 Days, #5 TAB 0 Refills Nebulizer (Nebulizer) 1 Mis Mis EA .XX DIRECTED for Breathing Treatment, #1 0 Refills Prednisone (21) 5 mg tab Dose Pack (Prednisone (21) 5 mg tab Dose Pack) 5 Mg Dspk 5 MG PO DIRECTED for Inflammation, #1 DSPK 0 Refills Sennosides (Senna-Lax) 8.6 Mg Tab 2 TAB PO BID for Constipation, #120 TAB Warfarin (Warfarin) 6 Mg Tab 6 MG PO DAILY for Blood Clot Prevention, #30 TAB 0 Refills Albuterol Neb (Albuterol Neb) 0.63 Mg/3 Ml Neb 0.63 MG NEB Q4HR NEB PRN for SOB/WHEEZING, #180 NEBULE Amlodipine (Norvasc) 5 Mg Tab 2.5 MG PO DAILY for Blood Pressure Management, #30 TAB Ferrous Sulfate (Ferosul) 325 Mg (65 Mg Iron) Tablet 325 MG PO DAILY for Build Red Blood Cells, #30 TAB Continued Medications: Aspirin (Aspirin) 81 Mg Chew 81 MG CHEW DAILY for Blood Clot Prevention, #30 TAB 0 Refills (This prescription has been renewed) Atorvastatin (Atorvastatin) 40 Mg Tab 40 MG PO HS for Cholesterol Management, #30 TAB 0 Refills (This prescription has been renewed) Calcitriol (Calcitriol) 0.25 Mcg Cap 0.25 MCG PO MOWEFR for Calcium Supplement, #30 CAP 0 Refills (This prescription has been renewed) Take 1 capsule (0.25mcg) three times weekly on Wednesday,Wednesday and Wednesday Febuxostat (Uloric) 40 Mg Tab 40 MG PO DAILY for GOUT, #30 TAB (This prescription has been renewed) Linagliptin (Tradjenta) 5 Mg Tab 5 MG PO DAILY for Blood Sugar Management, #30 TAB 0 Refills (This prescription has been renewed) Pantoprazole (Pantoprazole) 40 Mg Tab 40 MG PO DAILY for gastritis, #31 TAB (This prescription has been renewed) Repaglinide (Repaglinide) 0.5 Mg Tab 0.5 MG PO BIDAC for Blood Sugar Management, #60 TAB 0 Refills (This prescription has been renewed) Tamsulosin (Tamsulosin) 0.4 Mg Cap 0.4 MG PO HS for Manage Prostate Problems, #30 CAP 0 Refills (This prescription has been renewed) Jamel Miles DO February 22, 2018 13:27
== END 2018-02-22 15:15 | disposition home health service (06) | DRG 190 ==
LOC: NEPE 18:16 → NEDA 21:02 → NEPFCDU 21:46 → OBSVTOIN 02-17 16:58 → HCIN 02-18 16:55 → INTOOBSV 02-19 08:52 → OBSVTOIN 02-19 08:52
PROVIDERS: ADMIT Hospitalist; ATTEND Hospitalist
DX: J44.1 Chronic obstructive pulmonary disease with (acute) exacerbation (principal); I26.99 Other pulmonary embolism without acute cor pulmonale; I13.0 Hypertensive heart and chronic kidney disease with heart failure and stage 1 through stage 4 chronic kidney disease, or unspecified chronic kidney disease; I50.9 Heart failure, unspecified; E11.22 Type 2 diabetes mellitus with diabetic chronic kidney disease; N18.3 Chronic kidney disease, stage 3 (moderate); I25.10 Atherosclerotic heart disease of native coronary artery without angina pectoris; E78.5 Hyperlipidemia, unspecified; K21.9 Gastro-esophageal reflux disease without esophagitis; I49.3 Ventricular premature depolarization; I95.1 Orthostatic hypotension; R19.5 Other fecal abnormalities; D50.9 Iron deficiency anemia, unspecified; K29.70 Gastritis, unspecified, without bleeding; M19.90 Unspecified osteoarthritis, unspecified site; Z79.84 Long term (current) use of oral hypoglycemic drugs; Z83.3 Family history of diabetes mellitus; Z86.73 Personal history of transient ischemic attack (TIA), and cerebral infarction without residual deficits; Z95.1 Presence of aortocoronary bypass graft; Z95.5 Presence of coronary angioplasty implant and graft
CPT/HCPCS: 70450; 71045; 76937; 78582; 80048; 80053; 82272; 82550; 82552; 82728; 82948; 83540; 83550; 83735; 83880; 84484; 85025; 85027; 85379; 85610; 85730; 93005; 94640; 94664; A9540; A9567; G8987-GP; G8988-GP; J1644; J1756; J1815; J7030; J7512

== ENCOUNTER 2018-07-11 22:39 | Inpatient (IN) ==
--- NOTE | 2018-07-11 23:08 | ED ---
HPI General Chief Complaint: Chest Pain Stated Complaint: Chest pain Time Seen by Provider: 07/11/18 23:00 Source: patient and EMS Mode of arrival: EMS Limitations: no limitations History of Present Illness HPI narrative: 88-year-old male with PMH of HTN, DM, GERD, CAD status post CABG presents the ED for evaluation of sudden onset, 8/10 burning epigastric chest pain. Onset at rest. No alleviating or exacerbating factors reported. Patient states the episode began a proximally 45 minutes before arrival. EMS reports that they administered aspirin and 2 nitroglycerin in route. Patient states pain is now 6/10. He denies associated palpitations, shortness of breath , diaphoresis, nausea, vomiting. He states that before this pain came on he was feeling well. He endorses compliance with his daily medications. However his medicines are blister is packed at bedside and today and yesterday's medications have not been taken. He is followed by Dr. Mcmanus, PCP. He states that he has an appointment with a drawstring knotter that is upcoming but does not know the doctor's name. Related Data Home Medications Medication Instructions Recorded Confirmed aspirin [Aspir-81] 81 mg PO DAILY 07/11/18 07/11/18 febuxostat [Uloric] 40 mg PO DAILY 07/11/18 07/11/18 linagliptin [Tradjenta] 5 mg PO 07/11/18 pantoprazole 40 mg PO DAILY 07/11/18 07/11/18 repaglinide 0.5 mg PO DAILY 07/11/18 07/11/18 warfarin 6 mg PO DAILY 07/11/18 07/11/18 atorvastatin 40 mg PO DAILY 07/12/18 07/12/18 tamsulosin 0.4 mg PO DAILY 07/12/18 07/12/18 Allergies Allergy/AdvReac Type Severity Reaction Status Date / Time No Known Allergies Allergy Unknown Uncoded 02/16/18 18:37 Review of Systems ROS: all other systems reviewed are negative [facility] Medical History Medical History Acid reflux (Acute) Congestive heart failure (Acute) Coronary artery disease (Acute) Diabetes (Acute) Gout (Acute) History of [place] (myocardial infarction) (Acute) Hyperlipidemia (Acute) Hypertension (Acute) Family History Family History Other Coronary artery disease Diabetes mellitus Social History Social History Substance History: No History of Abuse Smoking Status: Never smoker How Often Do You Have a Drink Containing Alcohol: Never Recent Travel in [facility] within the Last 8 Weeks: No Recent Out of Country Travel within the Last 8 Weeks: No Exam Narrative Exam Narrative: GENERAL: Well-nourished, well-developed, pleasant white male no acute distress. SKIN: Focused skin assessment warm/dry. HEAD: Atraumatic. Normocephalic. EYES: Pupils equal and round. No scleral icterus. No injection or drainage. Right eyelid droop, patient states this is baseline per ENT: No nasal bleeding or discharge. Mucous membranes pink and moist. NECK: Trachea midline. No JVD. CARDIOVASCULAR: Irregular rate and rhythm. No murmur appreciated. RESPIRATORY: No accessory muscle use. Clear to auscultation. Breath sounds equal bilaterally. GASTROINTESTINAL: Abdomen soft, non-tender, nondistended. Hepatic and splenic margins not palpable. MUSCULOSKELETAL: No obvious deformities. No clubbing. No cyanosis. Trace edema bilateral lower extremities. Homans sign negative bilaterally peer NEUROLOGICAL: Awake and alert. No obvious cranial nerve deficits. Motor grossly within normal limits. Normal speech. PSYCHIATRIC: Appropriate mood and affect; insight and judgment normal. Procedures Hemaprompt Stool Procedural Steps Taken: specimen placed in appropriate test area, developer placed on specimen and control areas and controls appropriately positive and negative Hemaprompt Stool Result: positive Course Initial Documented Vital Signs Temperature 97.8 F 07/11/18 22:47 Pulse Rate 82 07/11/18 22:47 Respiratory Rate 18 07/11/18 22:47 Blood Pressure 143/68 H 07/11/18 22:47 Pulse Oximetry 100 07/11/18 22:47 Last Documented Vital Signs Temperature 97.8 F 07/11/18 22:47 Pulse Rate 82 07/11/18 22:47 Respiratory Rate 18 07/11/18 22:47 Blood Pressure 143/68 H 07/11/18 22:47 Pulse Oximetry 99 07/11/18 23:04 Medical Decision Making RAJENDRA Attestation RAJENDRA supervised visit: Yes Attestation: I, Dr. Wheeler, have reviewed the advance practice practitioner's documentation and am in agreement, met with the patient face to face, made the diagnosis, and the medical decision making was done by me. *My assessment and Findings: The patient is 88 years old and arrives with chest pain 8/10 in severity which started suddenly. Symptoms resolved essentially prior to ER arrival. Here in the ED hemoglobin is 6.7. The patient has a history of PE and is on Coumadin with an INR of 2.5. The troponin is 0.02. EKG shows unifocal PVCs without ischemic injury pattern. Stool guaiac is brown and positive. Patient has been evaluated before for GI hemorrhage with a positive bleeding scan and a GI note raising concern for possible duodenal etiology. 2 units PRBCs ordered. Discussed with hospitalist Dr. Wallis. Patient will be admitted. MDM Narrative Medical decision making narrative: Please see RAJENDRA supervision note Medical Screen Exam Complete: Yes Emergency Medical Condition: Yes Differential Diagnosis Differential Diagnosis: Chest pain versus ACS versus GERD versus asthma exacerbation versus other Lab Data Lab results narrative: Renal insufficiency stable The patient is acutely anemic Result diagrams: 07/11/18 23:15 07/11/18 23:15 Lab Results 07/11/18 07/11/18 07/11/18 Range/Units 23:15 23:15 23:15 WBC 3.7 L (4.0-11.0) th/mm3 RBC 3.00 L (4.50-5.90) mil/mm3 Hgb 6.7 L* (13.0-17.0) gm/dL Hct 23.0 L (39.0-51.0) % MCV 76.7 L (80.0-100.0) fL MCH 22.5 L (27.0-34.0) pg MCHC 29.3 L (32.0-36.0) % RDW 19.3 H (11.6-17.2) % Plt Count 167 (150-450) th/mm3 MPV 9.7 (7.0-11.0) fL Prelim Diff (Auto) Slide review pending Neut % (Auto) 51.2 (16.0-70.0) % Lymph % (Auto) 33.3 (9.0-44.0) % [place] % (Auto) 11.9 H (0.0-8.0) % Eos % (Auto) 3.1 (0.0-4.0) % Baso % (Auto) 0.5 (0.0-2.0) % Neut # (Auto) 1.9 (1.8-7.7) th/mm3 Lymph # (Auto) 1.2 (1.0-4.8) th/mm3 [place] # (Auto) 0.4 (0.0-0.9) th/mm3 Eos # (Auto) 0.1 (0.0-0.4) th/mm3 Baso # (Auto) 0.0 (0.0-0.2) th/mm3 WBC Differential . Diff Scan Auto diff confirmed Differential Comment . Platelet Estimate Normal (Normal) Platelet Morphology Normal (Normal) Ovalocytes 1+ H (None) Acanthocytes (Spur) Occ H (None) Keratocytes Occ H (None) PT 25.7 H (9.8-11.6) sec INR 2.5 Ratio Sodium 143 (136-145) meq/L Potassium 4.1 (3.5-5.1) meq/L Chloride 112 H (98-107) meq/L Carbon Dioxide 22.6 (21.0-32.0) meq/L Anion Gap 8 (5-15) meq/L BUN 23 H (7-18) mg/dL Creatinine 2.11 H (0.60-1.30) mg/dL Estimated GFR 36 L (>89) mL/min Random Glucose 127 H (74-106) mg/dL Calcium 7.7 L (8.5-10.1) mg/dL Total Bilirubin 0.3 (0.2-1.0) mg/dL AST 14 L (15-37) U/L ALT 19 (12-78) U/L Alkaline Phosphatase 46 (45-117) U/L Troponin I 0.02 (0.02-0.05) ng/mL B-Natriuretic Peptide (0-100) pg/mL Total Protein 6.3 L (6.4-8.2) g/dL Albumin 3.0 L (3.4-5.0) g/dL Lipase 184 (73-393) U/L MTS Gel Crossmatch 07/11/18 07/12/18 Range/Units 23:15 00:15 WBC (4.0-11.0) th/mm3 RBC (4.50-5.90) mil/mm3 Hgb (13.0-17.0) gm/dL Hct (39.0-51.0) % MCV (80.0-100.0) fL MCH (27.0-34.0) pg MCHC (32.0-36.0) % RDW (11.6-17.2) % Plt Count (150-450) th/mm3 MPV (7.0-11.0) fL Prelim Diff (Auto) Neut % (Auto) (16.0-70.0) % Lymph % (Auto) (9.0-44.0) % [place] % (Auto) (0.0-8.0) % Eos % (Auto) (0.0-4.0) % Baso % (Auto) (0.0-2.0) % Neut # (Auto) (1.8-7.7) th/mm3 Lymph # (Auto) (1.0-4.8) th/mm3 [place] # (Auto) (0.0-0.9) th/mm3 Eos # (Auto) (0.0-0.4) th/mm3 Baso # (Auto) (0.0-0.2) th/mm3 WBC Differential Diff Scan Differential Comment Platelet Estimate (Normal) Platelet Morphology (Normal) Ovalocytes (None) Acanthocytes (Spur) (None) Keratocytes (None) PT (9.8-11.6) sec INR Ratio Sodium (136-145) meq/L Potassium (3.5-5.1) meq/L Chloride (98-107) meq/L Carbon Dioxide (21.0-32.0) meq/L Anion Gap (5-15) meq/L BUN (7-18) mg/dL Creatinine (0.60-1.30) mg/dL Estimated GFR (>89) mL/min Random Glucose (74-106) mg/dL Calcium (8.5-10.1) mg/dL Total Bilirubin (0.2-1.0) mg/dL AST (15-37) U/L ALT (12-78) U/L Alkaline Phosphatase (45-117) U/L Troponin I (0.02-0.05) ng/mL B-Natriuretic Peptide 114 H (0-100) pg/mL Total Protein (6.4-8.2) g/dL Albumin (3.4-5.0) g/dL Lipase (73-393) U/L MTS Gel Crossmatch See Detail Imaging Data Radiologist's impression: Chest X-Ray 07/11/18 23:00 CONCLUSION: Cardiomegaly. No acute pulmonary disease. ECG Data Attestation: I personally reviewed and interpreted this ECG as follows: (Rate 73 , sinus rhythm with PVCs. [place] interval 180, QRS 104 ms, QTC 390 ms. Normal axis. No acute ST changes. ) Discharge Plan Discharge Disposition Patient Disposition: 30 Still Patient Physicians Team ED Provider: Tarun Wheeler ED Midlevel Provider: Rama Duenas Primary Care Provider: Pravin Kenyon III Attending Provider: Raiza Wallis Status ED Status: Admitted Patient
[2018-07-11 23:34] LABS: INR 2.5 Ratio; Prothrombin Time 25.7 sec (9.8-11.6)
[2018-07-11 23:35] LABS: Baso % (Auto) 0.5 % (0.0-2.0); Eos # (Auto) 0.1 th/mm3 (0.0-0.4); Eos % (Auto) 3.1 % (0.0-4.0); Lymph # (Auto) 1.2 th/mm3 (1.0-4.8); Lymph % (Auto) 33.3 % (9.0-44.0); Mean Corpuscular Hemoglobin 22.5 pg (27.0-34.0); Mean Corpuscular Volume 76.7 fL (80.0-100.0); Mean Platelet Volume 9.7 fL (7.0-11.0); Mono # (Auto) 0.4 th/mm3 (0.0-0.9); Mono % (Auto) 11.9 % (0.0-8.0); Neut # (Auto) 1.9 th/mm3 (1.8-7.7); Neut % (Auto) 51.2 % (16.0-70.0); Platelet Count 167 th/mm3 (150-450); Red Cell Distribution Width 19.3 % (11.6-17.2); White Blood Count 3.7 th/mm3 (4.0-11.0)
[2018-07-11 23:41] LABS: Mean Corpuscular HGB Conc 29.3 % (32.0-36.0)
[2018-07-11 23:50] LABS: Anion Gap 8 meq/L (5-15); Aspartate Aminotransferase 14 U/L (15-37); Blood Urea Nitrogen 23 mg/dL (7-18); Calcium 7.7 mg/dL (8.5-10.1); Carbon Dioxide 22.6 meq/L (21.0-32.0); Chloride 112 meq/L (98-107); Glomerular Filtration Rate 36 mL/min (>89); Glucose,Random 127 mg/dL (74-106); Lipase 184 U/L (73-393); Potassium 4.1 meq/L (3.5-5.1); Sodium 143 meq/L (136-145)
[2018-07-11 23:51] LABS: Alanine Aminotransferase 19 U/L (12-78)
[2018-07-11 23:52] LABS: Hemoglobin 6.7 gm/dL (13.0-17.0)
[2018-07-11 23:55] LABS: Alkaline Phosphatase 46 U/L (45-117); Total Protein 6.3 g/dL (6.4-8.2); Troponin I 0.02 ng/mL (0.02-0.05)
--- NOTE | 2018-07-11 23:57 | XR ---
EXAM DATE: 07/11/2018 11:00 PM EDT AGE/SEX: 88 years / Male INDICATIONS: Short of breath, chest pain. CLINICAL DATA: This is the patient's initial encounter. Patient reports that signs and symptoms have been present for 1 day and indicates a pain score of 0/10. MEDICAL/SURGICAL HISTORY: None. CABG. COMPARISON: No prior exams available for comparison. FINDINGS: The cardiac silhouette is enlarged in transverse diameter. Median sternotomy wires are present. The l ungs are free of acute parenchymal opacity. No pulmonary nodules or pleural effusions are identified. CONCLUSION: Cardiomegaly. No acute pulmonary disease. Electronically signed by: Kang Childress MD 07/11/2018 11:56 PM EDT
[2018-07-12] MEDS ORDERED: Acetaminophen 500 MG Tablet PO PRN (00:24)
[2018-07-12 00:27] LABS: Acanthocytes Occ; Ovalocytes 1+
[2018-07-12 00:28] LABS: Platelet Estimate Normal (Normal)
[2018-07-12 00:29] LABS: Platelet Morphology Normal (Normal)
[2018-07-12] MEDS ORDERED: Dextrose 50% in Water 50 ML Vial IV.PUSH PRN (00:30)
--- NOTE | 2018-07-12 00:46 | P.HP ---
History of Present Illness Service: [facility] Primary Care Physician: Pravin Kenyon III, MD History of Present Illness: 88-year-old male with a past medical history significant for hypertension, hyperlipidemia, diabetes mellitus, congestive heart failure, coronary artery disease, previous GI bleed and atrial fibrillation anticoagulated on Coumadin presents to the emergency department for the evaluation of chest pain. The patient reports that approximately 7 PM this evening he started experiencing substernal chest pain that was a burning sensation. The pain was nonradiating. He denies any shortness of breath or palpitations. No abdominal pain. No nausea/vomiting/diarrhea. No lateralizing signs/symptoms. No fever/chills. Patient does have a history of a previous GI bleed that was thought to be coming from the small bowel. He denies any melena or hematemesis. Inpatient Certification: I certify that the inpatient services were ordered in accordance with Medicare regulations governing the order. This includes certification that hospital inpatient services are reasonable and necessary and in the case of services not specified as inpatient-only under 42 CFR 419.22(n), that they are appropriately provided as inpatient services in accordance to with the 2-midnight benchmark under 43 CFR 412.3(e) Estimated Total Length of Stay (Days): 3 Plans for Post Hospital Care: Not yet determined Review of Systems All other systems reviewed negative except as stated in HPI PMFSH - History History Provided By: Patient - Medical History Medical History: Medical History (Last Updated 07/12/18 @ 00:39 by Raiza Wallis MD) Acid reflux Congestive heart failure Coronary artery disease Diabetes Gout History of [place] (myocardial infarction) Hyperlipidemia Hypertension - Surgical History Surgical History: Surgical History (Last Reviewed 07/12/18 @ 00:39 by Raiza Wallis MD) History of coronary artery bypass graft x 3 - Family History Family History: Family History (Last Updated 07/12/18 @ 00:39 by Raiza Wallis MD) Other Coronary artery disease Diabetes mellitus - Tobacco History Smoking Status: Never smoker - Alcohol History How Often Do You Have a Drink Containing Alcohol: Never - Substance Use History Substance History: No History of Abuse - Travel History Recent Travel in the [place] Within the Last 8 Weeks: No Recent Travel Out of the Country Within the Last 8 Weeks: No - Immunization History Tetanus Immunization: <5 Years Medications and Allergies Active Medications: Active Medications Acetaminophen (Tylenol) 500 mg PO Q4H PRN PRN Reason: HEADACHE Dextrose (D50w Vial) 50 ml IV.PUSH UNSCH PRN PRN Reason: PER HYPOGLYCEMIA PROTOCOL Glucagon (Glucagon Inj) 1 mg OTHER PRN PRN PRN Reason: for Hypoglycemia Protocol Insulin Aspart (Novolog Insulin Correctional Sugar Inj) 0 unit SQ ACHS EVANGELINA; Protocol Pantoprazole Sodium (Protonix Inj) 40 mg IV.PUSH Q12H EVANGELINA Sodium Chloride (Ns Flush) 2 ml IV.FLUSH UNSCH PRN PRN Reason: FLUSH AFTER USING IV ACCESS Sodium Chloride (Ns Flush) 2 ml IV.FLUSH BID EVANGELINA Sodium Chloride (Ns Flush) 2 ml IV.FLUSH PRN PRN PRN Reason: FLUSH AFTER USING IV ACCESS Allergies Allergy/AdvReac Type Severity Reaction Status Date / Time No Known Allergies Allergy Unknown Uncoded 02/16/18 18:37 Home Medications Medication Instructions Recorded Confirmed Type aspirin [Aspir-81] 81 mg PO DAILY 07/11/18 07/11/18 History febuxostat [Uloric] 40 mg PO DAILY 07/11/18 07/11/18 History linagliptin [Tradjenta] 5 mg PO 07/11/18 History pantoprazole 40 mg PO DAILY 07/11/18 07/11/18 History repaglinide 0.5 mg PO DAILY 07/11/18 07/11/18 History warfarin 6 mg PO DAILY 07/11/18 07/11/18 History atorvastatin 40 mg PO DAILY 07/12/18 07/12/18 History tamsulosin 0.4 mg PO DAILY 07/12/18 07/12/18 History Exam Vital signs: Vital Signs 07/11/18 22:47 07/11/18 23:04 Temperature 97.8 F Pulse Rate 82 Respiratory Rate 18 Blood Pressure 143/68 H Pulse Oximetry 100 99 Intake & Output 07/11/18 07/11/18 07/12/18 06:59 18:59 06:59 Weight 94.347 kg Narrative: Gen.: No acute distress Head: Normocephalic. Atraumatic. EENT: Pupils equal round and reactive to light. Nose without drainage. Airway intact. Throat without injection. Cardiovascular: Regular rate and rhythm. No murmurs, rubs or gallops. Respiratory: Lungs clear to auscultation bilaterally. No wheezes or rhonchi. Abdomen: Soft, nontender, nondistended. No peritoneal signs. Musculoskeletal: No gross deformities. No edema. Skin: No obvious rashes or erythema. Neuro: Sensory and motor grossly intact. Cranial nerves II through XII grossly intact. Results - Labs CBC & Chem 7: 07/11/18 23:15 07/11/18 23:15 Labs: Laboratory Results - last 24 hr 07/11/18 07/11/18 07/11/18 23:15 23:15 23:15 WBC 3.7 L RBC 3.00 L Hgb 6.7 L* Hct 23.0 L MCV 76.7 L MCH 22.5 L MCHC 29.3 L RDW 19.3 H Plt Count 167 MPV 9.7 Prelim Diff (Auto) Slide review pending Neut % (Auto) 51.2 Lymph % (Auto) 33.3 [place] % (Auto) 11.9 H Eos % (Auto) 3.1 Baso % (Auto) 0.5 Neut # (Auto) 1.9 Lymph # (Auto) 1.2 [place] # (Auto) 0.4 Eos # (Auto) 0.1 Baso # (Auto) 0.0 WBC Differential . Diff Scan Auto diff confirmed Differential Comment . Platelet Estimate Normal Platelet Morphology Normal Ovalocytes 1+ H Acanthocytes (Spur) Occ H Keratocytes Occ H PT 25.7 H INR 2.5 Sodium 143 Potassium 4.1 Chloride 112 H Carbon Dioxide 22.6 Anion Gap 8 BUN 23 H Creatinine 2.11 H Estimated GFR 36 L Random Glucose 127 H Calcium 7.7 L Total Bilirubin 0.3 AST 14 L ALT 19 Alkaline Phosphatase 46 Troponin I 0.02 B-Natriuretic Peptide Total Protein 6.3 L Albumin 3.0 L Lipase 184 MTS Gel Crossmatch 07/11/18 07/12/18 23:15 00:15 WBC RBC Hgb Hct MCV MCH MCHC RDW Plt Count MPV Prelim Diff (Auto) Neut % (Auto) Lymph % (Auto) [place] % (Auto) Eos % (Auto) Baso % (Auto) Neut # (Auto) Lymph # (Auto) [place] # (Auto) Eos # (Auto) Baso # (Auto) WBC Differential Diff Scan Differential Comment Platelet Estimate Platelet Morphology Ovalocytes Acanthocytes (Spur) Keratocytes PT INR Sodium Potassium Chloride Carbon Dioxide Anion Gap BUN Creatinine Estimated GFR Random Glucose Calcium Total Bilirubin AST ALT Alkaline Phosphatase Troponin I B-Natriuretic Peptide 114 H Total Protein Albumin Lipase MTS Gel Crossmatch See Detail - Imaging Impressions Chest X-Ray 07/11/18 23:00 CONCLUSION: Cardiomegaly. No acute pulmonary disease. Caprini VTE Risk Assessment Caprini VTE Risk Assessment: Moderate/High Risk (score >= 2) Caprini Risk Assessment Model: Point Value = 1 Point Value = 2 Point Value = 3 Point Value = 5 Age 41-60 Minor surgery BMI > 25 kg/m2 Swollen legs Varicose veins or History of unexplained or recurrent spontaneous Oral contraceptives or hormone replacement Sepsis (< 1 month) Serious lung disease, including pneumonia (< 1 month) Abnormal pulmonary function Acute myocardial infarction Congestive heart failure (< 1 month) History of inflammatory bowel disease Medical patient at bed rest Age 61-74 Arthroscopic surgery Major open surgery (> 45 min) Laparoscopic surgery (> 45 min) Malignancy Confined to bed (> 72 hours) Immobilizing plaster cast Central venous access Age >= 75 History of VTE Family history of VTE Factor V Leiden Prothrombin [id number] Lupus anticoagulant Anticardiolipin antibodies Elevated serum homocysteine Heparin-induced thrombocytopenia Other congenital or acquired thrombophilia Stroke (< 1 month) Elective arthroplasty Hip, pelvis, or leg fracture Acute spinal cord injury (< 1 month) Prophylaxis Regimen: Total Risk Factor Score Risk Level Prophylaxis Regimen 0-1 Low Early ambulation 2 Moderate Order ONE of the following: *Sequential Compression Device (SCD) *Heparin 5000 units SQ BID 3-4 Higher Order ONE of the following medications: *Heparin 5000 units SQ TID *Enoxaparin/Lovenox 40 mg SQ daily (WT < 150 kg, CrCl > 30 mL/min) *Enoxaparin/Lovenox 30 mg SQ daily (WT < 150 kg, CrCl > 10-29 mL/min) *Enoxaparin/Lovenox 30 mg SQ BID (WT < 150 kg, CrCl > 30 mL/min) AND/OR *Sequential Compression Device (SCD) 5 or more Highest Order ONE of the following medications: *Heparin 5000 units SQ TID (Preferred with Epidurals) *Enoxaparin/Lovenox 40 mg SQ daily (WT < 150 kg, CrCl > 30 mL/min) *Enoxaparin/Lovenox 30 mg SQ daily (WT < 150 kg, CrCl > 10-29 mL/min) *Enoxaparin/Lovenox 30 mg SQ BID (WT < 150 kg, CrCl > 30 mL/min) AND *Sequential Compression Device (SCD) Assessment and Plan - Plan Assessment/plan: 1. Lower GI bleed/symptomatic anemia Hemoccult positive in the emergency department Hemoglobin 6.7 Transfuse 2 units packed red blood cells IV Protonix Gastroenterology consulted, appreciate assistance Holding home Coumadin and aspirin 2. Atrial fibrillation Rate controlled Holding Coumadin as above 3. Hypertension/hyperlipidemia/coronary artery disease Continue home medications 4. Chronic kidney disease Creatinine 2.11, baseline 1.7 Monitor renal function FEN N.p.o. Electrolytes: Monitor and replete as needed Holding pharmacologic anticoagulation for GI bleed
[2018-07-12] MEDS: Pantoprazole Inj 40 MG Vial IV.PUSH SCH ×2 (01:56→16:22)
--- NOTE | 2018-07-12 05:51 | P.PN ---
Subjective Interval history: F/U CP and GIB Physical Exam Vital signs: Vital Signs 07/11/18 22:47 07/11/18 23:04 07/12/18 01:00 Temperature 97.8 F Pulse Rate 82 60 Respiratory Rate 18 18 Blood Pressure 143/68 H 144/64 H Pulse Oximetry 100 99 100 07/12/18 02:00 07/12/18 02:36 07/12/18 02:58 Temperature 97.4 F L Pulse Rate 64 72 74 Respiratory Rate 18 14 Blood Pressure 157/70 H 182/80 H Pulse Oximetry 99 07/12/18 03:17 07/12/18 04:13 Temperature 97.6 F Pulse Rate 69 60 Respiratory Rate 16 Blood Pressure 123/62 Pulse Oximetry Intake & Output 07/11/18 07/11/18 07/12/18 06:59 18:59 06:59 Intake Total 0 / 0 Balance 0 / 0 Weight 94.347 kg Intake: Intake (Blood Product) Amt 0 / 0 Rbc As-3 Leukoreduced Unit 0 / 0 [id number] Other: Date of Last Bowel Movement 07/12/18 Weight On Admission 94.347 kg Narrative: Gen.: No acute distress Cardiovascular: Regular rate and rhythm. No murmurs, rubs or gallops. Respiratory: Lungs clear to auscultation bilaterally. No wheezes or rhonchi. Abdomen: Soft, nontender, nondistended. No peritoneal signs. Musculoskeletal: No gross deformities. No edema. Skin: No obvious rashes or erythema. Neuro: Sensory and motor grossly intact. Cranial nerves II through XII grossly intact. Results - Labs CBC & Chem 7: 07/11/18 23:15 07/11/18 23:15 Laboratory Results - last 24 hr 07/11/18 07/11/18 07/11/18 23:15 23:15 23:15 WBC 3.7 L RBC 3.00 L Hgb 6.7 L* Hct 23.0 L MCV 76.7 L MCH 22.5 L MCHC 29.3 L RDW 19.3 H Plt Count 167 MPV 9.7 Prelim Diff (Auto) Slide review pending Neut % (Auto) 51.2 Lymph % (Auto) 33.3 [place] % (Auto) 11.9 H Eos % (Auto) 3.1 Baso % (Auto) 0.5 Neut # (Auto) 1.9 Lymph # (Auto) 1.2 [place] # (Auto) 0.4 Eos # (Auto) 0.1 Baso # (Auto) 0.0 WBC Differential . Diff Scan Auto diff confirmed Differential Comment . Platelet Estimate Normal Platelet Morphology Normal Ovalocytes 1+ H Acanthocytes (Spur) Occ H Keratocytes Occ H PT 25.7 H INR 2.5 Sodium 143 Potassium 4.1 Chloride 112 H Carbon Dioxide 22.6 Anion Gap 8 BUN 23 H Creatinine 2.11 H Estimated GFR 36 L POC Glucose Random Glucose 127 H Calcium 7.7 L Total Bilirubin 0.3 AST 14 L ALT 19 Alkaline Phosphatase 46 Troponin I 0.02 B-Natriuretic Peptide Total Protein 6.3 L Albumin 3.0 L Lipase 184 Blood Type Antibody Screen MTS Gel Crossmatch Bld Prod Order Comment 07/11/18 07/12/18 07/12/18 23:15 00:15 03:04 WBC RBC Hgb Hct MCV MCH MCHC RDW Plt Count MPV Prelim Diff (Auto) Neut % (Auto) Lymph % (Auto) [place] % (Auto) Eos % (Auto) Baso % (Auto) Neut # (Auto) Lymph # (Auto) [place] # (Auto) Eos # (Auto) Baso # (Auto) WBC Differential Diff Scan Differential Comment Platelet Estimate Platelet Morphology Ovalocytes Acanthocytes (Spur) Keratocytes PT INR Sodium Potassium Chloride Carbon Dioxide Anion Gap BUN Creatinine Estimated GFR POC Glucose 99 Random Glucose Calcium Total Bilirubin AST ALT Alkaline Phosphatase Troponin I B-Natriuretic Peptide 114 H Total Protein Albumin Lipase Blood Type O Positive Antibody Screen Negative MTS Gel Crossmatch See Detail Bld Prod Order Comment - Imaging Impressions ITS Impressions Chest X-Ray 07/11/18 23:00 CONCLUSION: Cardiomegaly. No acute pulmonary disease. Assessment and Plan - Plan 1. Lower GI bleed/symptomatic anemia Hemoccult positive in the emergency department Hemoglobin 6.7 Transfuse 2 units packed red blood cells IV Protonix Gastroenterology consulted, appreciate assistance Holding home Coumadin and aspirin 2. Atrial fibrillation Rate controlled Holding Coumadin as above 3. Hypertension/hyperlipidemia/coronary artery disease/CHF Continue home medications 4. Acute on Chronic kidney disease 3 2/2 GIB Creatinine 2.11, baseline 1.7 Monitor renal function 5. DM. Monitor FS with SSC FEN N.p.o. Electrolytes: Monitor and replete as needed Holding pharmacologic anticoagulation for GI bleed
[2018-07-12 08:57] LABS: Troponin I 0.06 ng/mL (0.02-0.05)
[2018-07-12] MEDS ORDERED: FEBUXOSTAT 40 MG PO SCH (09:00)
[2018-07-12] MEDS: Insulin NovoLOG Aspart Correctional Sugar Inj SQ SCH ×4 (10:03→21:43)
--- NOTE | 2018-07-12 10:24 | P.CONGI ---
History of Present Illness Consult date: 07/12/18 Consult reason: GI bleed Chief complaint: Chest Pain; GI Bleed; Anemia History of Present Illness: This patient is an 88-year-old male who has a medical history that is significant for hypertension, hyperlipidemia, diabetes mellitus, congestive heart failure, coronary artery disease, atrial fibrillation (on Coumadin), with history of GI bleed. Patient presented to the emergency room last evening at [facility] with complaint of substernal chest pain that he describes as a burning type pain. denies shortness of breath, weakness, or dizziness. Patient denies any abdominal pain, nausea, vomiting or diarrhea. Patient has history of previous GI bleeds-small bowel origin. Denies any obvious bleeding noted in stool. Of note, stool was heme positive in the emergency room. Our practice has been consulted to evaluate patient's GI bleed/ anemia. Patient states that he takes Coumadin 6 mg 5 days a week and 3 mg 2 days weekly. Last dose taken on 07/09/2018. Coumadin taken for diagnosis of A. fib. Patient also takes aspirin 81 p.o. daily. Patient denies abdominal pain, nausea or vomiting. Denies any known family history of gastrointestinal disorders. Denies any tobacco use or that of EtOH. Denies any use of NSAIDs. 12/31/2017 small bowel enteroscopy with biopsy done revealed the following--> esophagitis found in the distal esophagus, gastritis found in the body of the antrum of the stomach, duodenal bulb normal in appearance. Patient did present to the emergency room with complaint of burning chest wall pain, states he takes pantoprazole 40 mg p.o. daily. He states the pain he felt was not what he felt was heartburn. <Molly Kaba - Last Filed: 07/12/18 10:24> Review of Systems All other systems reviewed negative except as stated in HPI <Molly Kaba - Last Filed: 07/12/18 10:24> PMFSH - History History Provided By: Patient - Medical History Medical History: Medical History (Last Updated 07/12/18 @ 00:39 by Raiza aWllis MD) Acid reflux Congestive heart failure Coronary artery disease Diabetes Gout History of NH (myocardial infarction) Hyperlipidemia Hypertension - Surgical History Surgical History: Surgical History (Last Reviewed 07/12/18 @ 00:39 by Raiza Wallis MD) History of coronary artery bypass graft x 3 - Family History Family History: Family History (Last Updated 07/12/18 @ 00:39 by Raiza Wallis MD) Other Coronary artery disease Diabetes mellitus - Tobacco History Second Hand Smoke Exposure: No Smoking Status: Never smoker - Alcohol History How Often Do You Have a Drink Containing Alcohol: Never - Substance Use History Substance History: No History of Abuse - Travel History Recent Travel in the [place] Within the Last 8 Weeks: No Recent Travel Out of the Country Within the Last 8 Weeks: No - Immunization History Tetanus Immunization: <5 Years <Molly Kaba - Last Filed: 07/12/18 10:24> - Medical History Medical History: Medical History (Last Updated 07/12/18 @ 00:39 by Raiza Wallis MD) Acid reflux Congestive heart failure Coronary artery disease Diabetes Gout History of NH (myocardial infarction) Hyperlipidemia Hypertension - Surgical History Surgical History: Surgical History (Last Reviewed 07/12/18 @ 00:39 by Raiza Wlalis MD) History of coronary artery bypass graft x 3 - Family History Family History: Family History (Last Updated 07/12/18 @ 00:39 by Raiza Wallis MD) Other Coronary artery disease Diabetes mellitus <Maddie Mtz - Last Filed: 07/12/18 16:07> Medications and Allergies Active Medications: Active Medications Acetaminophen (Tylenol) 500 mg PO Q4H PRN PRN Reason: HEADACHE Atorvastatin Calcium (Lipitor) 40 mg PO DAILY EVANGELINA Dextrose (D50w Vial) 50 ml IV.PUSH UNSCH PRN PRN Reason: PER HYPOGLYCEMIA PROTOCOL Glucagon (Glucagon Inj) 1 mg OTHER PRN PRN PRN Reason: for Hypoglycemia Protocol Insulin Aspart (Novolog Insulin Correctional Sugar Inj) 0 unit SQ ACHS EVANGELINA; Protocol Nitroglycerin (Nitrostat Sl) 0.4 mg SL Q5M PRN PRN Reason: CHEST PAIN Last Admin: 07/12/18 03:09 Dose: 0.4 mg Pantoprazole Sodium (Protonix Inj) 40 mg IV.PUSH Q12H EVANGELINA Last Admin: 07/12/18 01:56 Dose: 40 mg Pat Own Med: Febuxostat (Uloric) 40mg Tablets 0 each PO DAILY EVANGELINA Sodium Chloride (Ns Flush) 2 ml IV.FLUSH UNSCH PRN PRN Reason: FLUSH AFTER USING IV ACCESS Sodium Chloride (Ns Flush) 2 ml IV.FLUSH BID [facility] Sodium Chloride (Ns Flush) 2 ml IV.FLUSH PRN PRN PRN Reason: FLUSH AFTER USING IV ACCESS Tamsulosin HCl (Flomax) 0.4 mg PO DAILY [facility] <Molly Kaba - Last Filed: 07/12/18 10:24> Active Medications: Active Medications Acetaminophen (Tylenol) 500 mg PO Q4H PRN PRN Reason: HEADACHE Atorvastatin Calcium (Lipitor) 40 mg PO DAILY [facility] Last Admin: 07/12/18 10:04 Dose: 40 mg Dextrose (D50w Vial) 50 ml IV.PUSH UNSCH PRN PRN Reason: PER HYPOGLYCEMIA PROTOCOL Enalaprilat (Vasotec Inj) 1.25 mg IV.PUSH Q6H PRN PRN Reason: BLOOD PRESSURE MANAGEMENT Glucagon (Glucagon Inj) 1 mg OTHER PRN PRN PRN Reason: for Hypoglycemia Protocol Sodium Chloride (Ns Inj) 1,000 mls @ 50 mls/hr IV.CONT .Q20H [facility] Insulin Aspart (Novolog Insulin Correctional Sugar Inj) 0 unit SQ ACHS [facility]; Protocol Last Admin: 07/12/18 10:03 Dose: Not Given Nitroglycerin (Nitrostat Sl) 0.4 mg SL Q5M PRN PRN Reason: CHEST PAIN Last Admin: 07/12/18 03:09 Dose: 0.4 mg Pantoprazole Sodium (Protonix Inj) 40 mg IV.PUSH Q12H [facility] Last Admin: 07/12/18 01:56 Dose: 40 mg Pat Own Med: Febuxostat (Uloric) 40mg Tablets 0 each PO DAILY [facility] Sodium Chloride (Ns Flush) 2 ml IV.FLUSH UNSCH PRN PRN Reason: FLUSH AFTER USING IV ACCESS Sodium Chloride (Ns Flush) 2 ml IV.FLUSH BID [facility] Last Admin: 07/12/18 10:04 Dose: 2 ml Sodium Chloride (Ns Flush) 2 ml IV.FLUSH PRN PRN PRN Reason: FLUSH AFTER USING IV ACCESS Tamsulosin HCl (Flomax) 0.4 mg PO DAILY [facility] Last Admin: 07/12/18 10:04 Dose: 0.4 mg <Maddie Mtz - Last Filed: 07/12/18 16:07> Allergies Allergy/AdvReac Type Severity Reaction Status Date / Time No Known Allergies Allergy Unknown Uncoded 02/16/18 18:37 Home Medications Medication Instructions Recorded Confirmed Type aspirin [Aspir-81] 81 mg PO DAILY 07/11/18 07/11/18 History febuxostat [Uloric] 40 mg PO DAILY 07/11/18 07/11/18 History linagliptin [Tradjenta] 5 mg PO 07/11/18 History pantoprazole 40 mg PO DAILY 07/11/18 07/11/18 History repaglinide 0.5 mg PO DAILY 07/11/18 07/11/18 History warfarin 6 mg PO DAILY 07/11/18 07/11/18 History atorvastatin 40 mg PO DAILY 07/12/18 07/12/18 History tamsulosin 0.4 mg PO DAILY 07/12/18 07/12/18 History Exam Vital signs: Vital Signs 07/11/18 22:47 07/11/18 23:04 07/12/18 01:00 Temperature 97.8 F Pulse Rate 82 60 Respiratory Rate 18 18 Blood Pressure 143/68 H 144/64 H Pulse Oximetry 100 99 100 07/12/18 02:00 07/12/18 02:36 07/12/18 02:58 Temperature 97.4 F L Pulse Rate 64 72 74 Respiratory Rate 18 14 Blood Pressure 157/70 H 182/80 H Pulse Oximetry 99 07/12/18 03:17 07/12/18 04:13 07/12/18 06:14 Temperature 97.6 F 97.5 F L Pulse Rate 69 60 58 L Respiratory Rate 16 16 Blood Pressure 123/62 186/82 H Pulse Oximetry 100 07/12/18 06:36 07/12/18 06:38 07/12/18 08:00 Temperature 97.1 F L 97.7 F 98.3 F Pulse Rate 62 63 59 L Respiratory Rate 18 18 18 Blood Pressure 176/81 H 178/84 H 175/85 H Pulse Oximetry 100 98 100 07/12/18 08:52 Temperature Pulse Rate Respiratory Rate Blood Pressure Pulse Oximetry 99 Intake & Output 07/11/18 07/12/18 07/12/18 18:59 06:59 18:59 Intake Total 400 / 400 330 / 330 Balance 400 / 400 330 / 330 Weight 94.347 kg Intake: Other 30 / 30 Rbc As-3 Leukoreduced Unit [id number] Intake (Blood Product) Amt 400 / 400 300 / 300 Rbc As-3 Leukoreduced Unit 400 / 400 [id number] Rbc As-3 Leukoreduced Unit 0 / 0 300 / 300 [id number] Other: Other Intake Source Rbc As-3 Leukoreduced Unit Saline Solution [id number] Date of Last Bowel Movement 07/12/18 Weight On Admission 94.347 kg - Constitutional no acute distress - Routine HEENT Exam Head: Present: normocephalic - Routine Respiratory Exam Present: CTA bilaterally. Absent: accessory muscle use - Routine Cardiovascular Exam Present: RRR, S1, S2 - Routine Abdominal Exam Present: soft, normoactive bowel sounds. Absent: tenderness, distended, guarding, firm - Routine Extremities Exam Present: full ROM, pulses intact. Absent: edema - Routine Skin Exam Present: dry, pallor, warm - Routine Neurological Exam Present: alert, oriented X3 <Kaba,Molly - Last Filed: 07/12/18 10:24> Vital signs: Vital Signs 07/11/18 22:47 07/11/18 23:04 07/12/18 01:00 Temperature 97.8 F Pulse Rate 82 60 Respiratory Rate 18 18 Blood Pressure 143/68 H 144/64 H Pulse Oximetry 100 99 100 07/12/18 02:00 07/12/18 02:36 07/12/18 02:58 Temperature 97.4 F L Pulse Rate 64 72 74 Respiratory Rate 18 14 Blood Pressure 157/70 H 182/80 H Pulse Oximetry 99 07/12/18 03:17 07/12/18 04:13 07/12/18 06:14 Temperature 97.6 F 97.5 F L Pulse Rate 69 60 58 L Respiratory Rate 16 16 Blood Pressure 123/62 186/82 H Pulse Oximetry 100 07/12/18 06:36 07/12/18 06:38 07/12/18 08:00 Temperature 97.1 F L 97.7 F 98.3 F Pulse Rate 62 63 59 L Respiratory Rate 18 18 18 Blood Pressure 176/81 H 178/84 H 175/85 H Pulse Oximetry 100 98 100 07/12/18 08:52 07/12/18 12:00 Temperature 97.9 F Pulse Rate 68 Respiratory Rate 18 Blood Pressure 169/83 H Pulse Oximetry 99 97 Intake & Output 07/11/18 07/12/18 07/12/18 18:59 06:59 18:59 Intake Total 400 / 400 330 / 330 Balance 400 / 400 330 / 330 Weight 94.347 kg Intake: Other Rbc As-3 Leukoreduced Unit / [id number] Intake (Blood Product) Amt 400 / 400 300 / 300 Rbc As-3 Leukoreduced Unit 400 / 400 [id number] Rbc As-3 Leukoreduced Unit 0 / 0 300 / 300 [id number] Other: Other Intake Source Rbc As-3 Leukoreduced Unit Saline Solution [id number] Date of Last Bowel Movement 07/12/18 Weight On Admission 94.347 kg <Maddie Mtz - Last Filed: 07/12/18 16:07> Results - Labs CBC & Chem 7: 07/11/18 23:15 07/11/18 23:15 Labs: Laboratory Results - last 24 hr 07/11/18 07/11/18 07/11/18 23:15 23:15 23:15 WBC 3.7 L RBC 3.00 L Hgb 6.7 L* Hct 23.0 L MCV 76.7 L MCH 22.5 L MCHC 29.3 L RDW 19.3 H Plt Count 167 MPV 9.7 Prelim Diff (Auto) Slide review pending Neut % (Auto) 51.2 Lymph % (Auto) 33.3 [place] % (Auto) 11.9 H Eos % (Auto) 3.1 Baso % (Auto) 0.5 Neut # (Auto) 1.9 Lymph # (Auto) 1.2 [place] # (Auto) 0.4 Eos # (Auto) 0.1 Baso # (Auto) 0.0 WBC Differential . Diff Scan Auto diff confirmed Differential Comment . Platelet Estimate Normal Platelet Morphology Normal Ovalocytes 1+ H Acanthocytes (Spur) Occ H Keratocytes Occ H PT 25.7 H INR 2.5 Sodium 143 Potassium 4.1 Chloride 112 H Carbon Dioxide 22.6 Anion Gap 8 BUN 23 H Creatinine 2.11 H Estimated GFR 36 L POC Glucose Random Glucose 127 H Calcium 7.7 L Total Bilirubin 0.3 AST 14 L ALT 19 Alkaline Phosphatase 46 Total Creatine Kinase Troponin I 0.02 B-Natriuretic Peptide Total Protein 6.3 L Albumin 3.0 L Lipase 184 Blood Type Antibody Screen MTS Gel Crossmatch Bld Prod Order Comment 07/11/18 07/12/18 07/12/18 23:15 00:15 03:04 WBC RBC Hgb Hct MCV MCH MCHC RDW Plt Count MPV Prelim Diff (Auto) Neut % (Auto) Lymph % (Auto) [place] % (Auto) Eos % (Auto) Baso % (Auto) Neut # (Auto) Lymph # (Auto) [place] # (Auto) Eos # (Auto) Baso # (Auto) WBC Differential Diff Scan Differential Comment Platelet Estimate Platelet Morphology Ovalocytes Acanthocytes (Spur) Keratocytes PT INR Sodium Potassium Chloride Carbon Dioxide Anion Gap BUN Creatinine Estimated GFR POC Glucose 99 Random Glucose Calcium Total Bilirubin AST ALT Alkaline Phosphatase Total Creatine Kinase Troponin I B-Natriuretic Peptide 114 H Total Protein Albumin Lipase Blood Type O Positive Antibody Screen Negative MTS Gel Crossmatch See Detail Bld Prod Order Comment 07/12/18 07/12/18 07:50 08:23 WBC RBC Hgb Hct MCV MCH MCHC RDW Plt Count MPV Prelim Diff (Auto) Neut % (Auto) Lymph % (Auto) [place] % (Auto) Eos % (Auto) Baso % (Auto) Neut # (Auto) Lymph # (Auto) [place] # (Auto) Eos # (Auto) Baso # (Auto) WBC Differential Diff Scan Differential Comment Platelet Estimate Platelet Morphology Ovalocytes Acanthocytes (Spur) Keratocytes PT INR Sodium Potassium Chloride Carbon Dioxide Anion Gap BUN Creatinine Estimated GFR POC Glucose 89 Random Glucose Calcium Total Bilirubin AST ALT Alkaline Phosphatase Total Creatine Kinase 136 Troponin I 0.06 H B-Natriuretic Peptide Total Protein Albumin Lipase Blood Type Antibody Screen MTS Gel Crossmatch Bld Prod Order Comment - Imaging Impressions Chest X-Ray 07/11/18 23:00 CONCLUSION: Cardiomegaly. No acute pulmonary disease. <Molly Kaba - Last Filed: 07/12/18 10:24> - Labs CBC & Chem 7: 07/12/18 11:06 07/12/18 11:06 Labs: Laboratory Results - last 24 hr 07/11/18 07/11/18 07/11/18 23:15 23:15 23:15 WBC 3.7 L RBC 3.00 L Hgb 6.7 L* Hct 23.0 L MCV 76.7 L MCH 22.5 L MCHC 29.3 L RDW 19.3 H Plt Count 167 MPV 9.7 Prelim Diff (Auto) Slide review pending Neut % (Auto) 51.2 Lymph % (Auto) 33.3 [place] % (Auto) 11.9 H Eos % (Auto) 3.1 Baso % (Auto) 0.5 Neut # (Auto) 1.9 Lymph # (Auto) 1.2 [place] # (Auto) 0.4 Eos # (Auto) 0.1 Baso # (Auto) 0.0 WBC Differential . Diff Scan Auto diff confirmed Differential Comment . Platelet Estimate Normal Platelet Morphology Normal Ovalocytes 1+ H Acanthocytes (Spur) Occ H Keratocytes Occ H PT 25.7 H INR 2.5 Sodium 143 Potassium 4.1 Chloride 112 H Carbon Dioxide 22.6 Anion Gap 8 BUN 23 H Creatinine 2.11 H Estimated GFR 36 L POC Glucose Random Glucose 127 H Calcium 7.7 L Total Bilirubin 0.3 AST 14 L ALT 19 Alkaline Phosphatase 46 Total Creatine Kinase Troponin I 0.02 B-Natriuretic Peptide Total Protein 6.3 L Albumin 3.0 L Lipase 184 Blood Type Antibody Screen MTS Gel Crossmatch Bld Prod Order Comment 07/11/18 07/12/18 07/12/18 23:15 00:15 03:04 WBC RBC Hgb Hct MCV MCH MCHC RDW Plt Count MPV Prelim Diff (Auto) Neut % (Auto) Lymph % (Auto) [place] % (Auto) Eos % (Auto) Baso % (Auto) Neut # (Auto) Lymph # (Auto) [place] # (Auto) Eos # (Auto) Baso # (Auto) WBC Differential Diff Scan Differential Comment Platelet Estimate Platelet Morphology Ovalocytes Acanthocytes (Spur) Keratocytes PT INR Sodium Potassium Chloride Carbon Dioxide Anion Gap BUN Creatinine Estimated GFR POC Glucose 99 Random Glucose Calcium Total Bilirubin AST ALT Alkaline Phosphatase Total Creatine Kinase Troponin I B-Natriuretic Peptide 114 H Total Protein Albumin Lipase Blood Type O Positive Antibody Screen Negative MTS Gel Crossmatch See Detail Bld Prod Order Comment 07/12/18 07/12/18 07/12/18 07:50 08:23 11:06 WBC RBC Hgb Hct MCV MCH MCHC RDW Plt Count MPV Prelim Diff (Auto) Neut % (Auto) Lymph % (Auto) [place] % (Auto) Eos % (Auto) Baso % (Auto) Neut # (Auto) Lymph # (Auto) [place] # (Auto) Eos # (Auto) Baso # (Auto) WBC Differential Diff Scan Differential Comment Platelet Estimate Platelet Morphology Ovalocytes Acanthocytes (Spur) Keratocytes PT INR Sodium 140 Potassium 4.0 Chloride 108 H Carbon Dioxide 26.2 Anion Gap 6 BUN 20 H Creatinine 1.97 H Estimated GFR 39 L POC Glucose 89 Random Glucose 79 Calcium 8.6 D Total Bilirubin AST ALT Alkaline Phosphatase Total Creatine Kinase 136 150 Troponin I 0.06 H 0.06 H B-Natriuretic Peptide Total Protein Albumin Lipase Blood Type Antibody Screen MTS Gel Crossmatch Bld Prod Order Comment 07/12/18 07/12/18 11:06 12:22 WBC RBC Hgb 10.1 L D Hct 31.6 L MCV MCH MCHC RDW Plt Count MPV Prelim Diff (Auto) Neut % (Auto) Lymph % (Auto) [place] % (Auto) Eos % (Auto) Baso % (Auto) Neut # (Auto) Lymph # (Auto) [place] # (Auto) Eos # (Auto) Baso # (Auto) WBC Differential Diff Scan Differential Comment Platelet Estimate Platelet Morphology Ovalocytes Acanthocytes (Spur) Keratocytes PT INR Sodium Potassium Chloride Carbon Dioxide Anion Gap BUN Creatinine Estimated GFR POC Glucose 92 Random Glucose Calcium Total Bilirubin AST ALT Alkaline Phosphatase Total Creatine Kinase Troponin I B-Natriuretic Peptide Total Protein Albumin Lipase Blood Type Antibody Screen MTS Gel Crossmatch Bld Prod Order Comment - Imaging Impressions Chest X-Ray 07/11/18 23:00 CONCLUSION: Cardiomegaly. No acute pulmonary disease. GI Bleed Scan Nuclear Medicine 07/12/18 00:00 CONCLUSION: No episodes of active GI bleeding observed. <Maddie Mtz - Last Filed: 07/12/18 16:07> Assessment and Plan (1) GI bleed Status: Acute Code(s): K92.2 - Gastrointestinal hemorrhage, unspecified - Plan This patient is an 88-year-old male who has a medical history that is significant for hypertension, hyperlipidemia, diabetes mellitus, congestive heart failure, coronary artery disease, atrial fibrillation (on Coumadin), with history of GI bleed. Patient presented to the emergency room last evening at [facility] with complaint of substernal chest pain that he describes as a burning type pain. denies shortness of breath, weakness, or dizziness. Patient denies any abdominal pain, nausea, vomiting or diarrhea. Patient has history of previous GI bleeds-small bowel origin. Denies any obvious bleeding noted in stool. Of note, stool was heme positive in the emergency room. Our practice has been consulted to evaluate patient's GI bleed/ anemia. Patient states that he takes Coumadin 6 mg 5 days a week and 3 mg 2 days weekly. Last dose taken on 07/09/2018. Coumadin taken for diagnosis of A. fib. Patient also takes aspirin 81 p.o. daily. Patient denies abdominal pain, nausea or vomiting. Denies any known family history of gastrointestinal disorders. Denies any tobacco use or that of EtOH. Denies any use of NSAIDs. 12/31/2017 small bowel enteroscopy with biopsy done revealed the following--> esophagitis found in the distal esophagus, gastritis found in the body of the antrum of the stomach, duodenal bulb normal in appearance. Patient did present to the emergency room with complaint of burning chest wall pain, states he takes pantoprazole 40 mg p.o. daily. He states the pain he felt was not what he felt was heartburn. GI bleed Patient presented to the emergency room with complaints of chest pain, burning in nature. Troponin initially negative ,today 0.06. Upon ER evaluation hemoglobin 6.7 hematocrit 23.0 platelet count 167 INR 2.5. Patient denies any obvious noted bleeding in stool, denies any nausea vomiting or abdominal pain. Patient on Coumadin for A. fib, last dose taken 07/09/2018. Stool Hemoccult positive in the emergency room. Will order bleeding scan at this time. History of small bowel bleeding with multiple enteroscopy's performed in the past. Plan -N.p.o. for now -Continue to hold Coumadin -Monitor for bleeding -Transfuse as needed -Continue Pantoprazole -Hold all anticoagulants -Hold aspirin -Monitor labs -Bleeding scan ordered for today -Supportive care -Further recommendations to follow based on patient's status and findings This patient has been seen by myself and Dr. Mtz and this note is written on her behalf - Attending Attestation Dr. Mtz <Molly Kaba - Last Filed: 07/12/18 10:24> (1) GI bleed Status: Acute Code(s): K92.2 - Gastrointestinal hemorrhage, unspecified - Attending Attestation seen, examined agree with above enteroscopy in am clear liquid diet fu bleeding scan <Maddie Mtz - Last Filed: 07/12/18 16:07>
[2018-07-12 11:57] LABS: Hematocrit 31.6 % (39.0-51.0); Hemoglobin 10.1 gm/dL (13.0-17.0)
[2018-07-12 12:24] LABS: Calcium 8.6 mg/dL (8.5-10.1); Carbon Dioxide 26.2 meq/L (21.0-32.0)
[2018-07-12 12:29] LABS: Troponin I 0.06 ng/mL (0.02-0.05)
--- NOTE | 2018-07-12 15:19 | P.PNADD ---
Addendum to Inpatient Note Reason for Addendum: Additional Documentation Additional information: Patient seen and examined, received 2 units of blood. H&H pending. Was seen by GI. No hematemesis, no recent blood in the stool. Denies any chest pain, no shortness of breath. Currently n.p.o.
--- NOTE | 2018-07-12 15:56 | NM ---
EXAM DATE: 07/12/2018 1:27 PM EDT AGE/SEX: 88 years / Male INDICATIONS: Blood in stool. Rectal bleeding. CLINICAL DATA: This is the patient's initial encounter. Patient reports that signs and symptoms have been present for 1 day and indicates a pain score of 0/10. MEDICAL/SURGICAL HISTORY: Congestive heart failure. Cardiovascular disease. Diabetes mellitus type II. CABG. COMPARISON: [facility] – [place], GI BLEEDING SCAN, 11/14/2017. . No external comparison. TECHNIQUE: Following the modified in vitro labeling of autologous red cells, dynamic continuous image s were acquired for two hours. ?? DOSE: 20.1 mCi Tc 99m Ultratag Labeled Red Blood Cells IV IMAGING TIME: 2 hr FINDINGS: Biodistribution: There is a very good labeling of red cells without significant uptake in the gastri c wall. There is good delineation of the blood pool of the spleen and abdominal vessels. Bleeding: No episodes of active GI bleeding are observed during two hours of continuous observation . CONCLUSION: No episodes of active GI bleeding observed. Electronically signed by: Pravin Marcano MD 07/12/2018 3:55 PM EDT
[2018-07-12] MEDS: Sod Chloride 0.9% Inj 1,000 ML IV.CONT SCH (16:09)
--- NOTE | 2018-07-12 19:55 | ECG ---
Date Performed: 07/11/2018 Time Performed: 22:55:08 PTAGE: 88 years EKG: Sinus rhythm WITH FREQUENT VENTRICULAR PREMATURE COMPLEXES POSSIBLE LEFT ATRIAL ENLARGEMENT NONSPECIFIC T-WAVE AB NORMALITY Since previous tracing, no significant change noted ABNORMAL RHYTHM ECG PREVIOUS TRACING : 02/16/2018 19.53 DOCTOR: Lidia Bettencourt Interpretating Date/Time 07/12/2018 19:53:42
--- NOTE | 2018-07-12 19:56 | ECG ---
Date Performed: 07/12/2018 Time Performed: 11:11:16 PTAGE: 88 years EKG: SINUS BRADYCARDIA WITH SINUS ARRHYTHMIA NONSPECIFIC T-WAVE ABNORMALITY Since previous gabriella ng, no significant change noted BORDERLINE ECG PREVIOUS TRACING : 07/11/2018 22.55 DOCTOR: Lidia Bettencourt Interpretating Date/Time 07/12/2018 19:53:52
[2018-07-12 20:19] LABS: Hematocrit 31.3 % (39.0-51.0); Hemoglobin 9.7 gm/dL (13.0-17.0)
[2018-07-13 00:03] LABS: Hemoglobin 9.5 gm/dL (13.0-17.0)
[2018-07-13] MEDS: Pantoprazole Inj 40 MG Vial IV.PUSH SCH ×2 (00:22→13:15)
[2018-07-13] MEDS ORDERED: Chlorhexidine Gluconate 2% 1 Pack (2 Cloths) TOPICAL ONE (04:36)
[2018-07-13] MEDS ORDERED: Metoprolol Tartrate 25 MG Tablet PO ONE (04:36)
[2018-07-13] MEDS ORDERED: Sodium Chlor 0.9% Inj 500 ML IV.SIG SCH (05:00)
[2018-07-13 05:29] LABS: Baso % (Auto) 0.7 % (0.0-2.0); Eos # (Auto) 0.2 th/mm3 (0.0-0.4); Eos % (Auto) 3.6 % (0.0-4.0); Hematocrit 29.4 % (39.0-51.0); Hemoglobin 9.6 gm/dL (13.0-17.0); Lymph # (Auto) 1.8 th/mm3 (1.0-4.8); Lymph % (Auto) 29.8 % (9.0-44.0); Mean Corpuscular HGB Conc 32.5 % (32.0-36.0); Mean Corpuscular Hemoglobin 25.6 pg (27.0-34.0); Mean Corpuscular Volume 78.8 fL (80.0-100.0); Mean Platelet Volume 9.5 fL (7.0-11.0); Mono # (Auto) 0.8 th/mm3 (0.0-0.9); Mono % (Auto) 12.3 % (0.0-8.0); Neut # (Auto) 3.3 th/mm3 (1.8-7.7); Neut % (Auto) 53.6 % (16.0-70.0); Platelet Count 153 th/mm3 (150-450); Red Blood Count 3.74 mil/mm3 (4.50-5.90); Red Cell Distribution Width 21.1 % (11.6-17.2); White Blood Count 6.1 th/mm3 (4.0-11.0)
[2018-07-13 05:36] LABS: INR 2.1 Ratio; Prothrombin Time 21.1 sec (9.8-11.6)
[2018-07-13 06:09] LABS: Calcium 7.7 mg/dL (8.5-10.1); Carbon Dioxide 26.4 meq/L (21.0-32.0); Potassium 4.1 meq/L (3.5-5.1)
[2018-07-13] MEDS: Insulin NovoLOG Aspart Correctional Sugar Inj SQ SCH ×4 (08:13→20:55)
--- NOTE | 2018-07-13 08:35 | P.PN ---
Subjective Interval history: Follow-up for chest pain, GI bleedpatient more awake, oriented x3. Denies any chest pain, no shortness of breath. No blood in the stool, no hematemesis, no abdominal pain. Hemoglobin came up to 9.6 after blood transfusion. Continues n.p.o., going for enteroscopy today. States that he is hungry, anxious to eat. Physical Exam Vital signs: Vital Signs 07/12/18 08:52 07/12/18 12:00 07/12/18 16:00 Temperature 97.9 F 97.2 F L Pulse Rate 68 52 L Respiratory Rate 18 18 Blood Pressure 169/83 H 194/84 H Pulse Oximetry 99 97 99 07/12/18 16:55 07/12/18 20:00 07/13/18 00:15 Temperature 97.8 F Pulse Rate 62 60 Respiratory Rate 16 Blood Pressure 149/69 H 165/79 H Pulse Oximetry 97 07/13/18 00:24 07/13/18 04:00 07/13/18 04:14 Temperature 98.3 F 98.2 F Pulse Rate 60 51 L 48 L Respiratory Rate 17 17 Blood Pressure 194/92 H 151/87 H Pulse Oximetry 99 98 Intake & Output 07/12/18 07/13/18 07/13/18 18:59 06:59 18:59 Intake Total 810 / 810 450 / 450 Output Total 400 / 400 Balance 810 / 810 50 / 50 Weight 88 kg Intake: Oral 480 / 480 450 / 450 Other 30 / 30 Rbc As-3 Leukoreduced Unit 30 / 30 [id number] Intake (Blood Product) Amt 300 / 300 Rbc As-3 Leukoreduced Unit 300 / 300 [id number] Output: Urine 400 / 400 Other: Other Intake Source Rbc As-3 Leukoreduced Unit Saline Solution [id number] # Voids 4 Date of Last Bowel Movement 07/10/18 Narrative: GENERAL: Well-nourished, well-developed patient in no apparent distress. SKIN: Warm and dry. HEAD: Atraumatic. Normocephalic. EYES: Right eye cloudy, maintains eye close. Left pupil 2 mm and brisk. Extraocular eye movements intact. ENT: No nasal bleeding or discharge. Mucous membranes pink and moist. NECK: Trachea midline. No JVD. CARDIOVASCULAR: Regular rate and rhythm. RESPIRATORY: No accessory muscle use. Clear to auscultation. Breath sounds equal bilaterally. GASTROINTESTINAL: Abdomen soft, non-tender, nondistended. Hepatic and splenic margins not palpable. MUSCULOSKELETAL: Extremities without clubbing, cyanosis, or edema. No obvious deformities. NEUROLOGICAL: Awake and alert. No obvious cranial nerve deficits. Motor grossly within normal limits. Five out of 5 muscle strength in the arms and legs. Normal speech. PSYCHIATRIC: Appropriate mood and affect; insight and judgment normal. Results - Labs CBC & Chem 7: 07/13/18 05:12 07/13/18 05:12 Laboratory Results - last 24 hr 07/12/18 07/12/18 07/12/18 00:15 07:50 11:06 WBC RBC Hgb Hct MCV MCH MCHC RDW Plt Count MPV Neut % (Auto) Lymph % (Auto) [place] % (Auto) Eos % (Auto) Baso % (Auto) Neut # (Auto) Lymph # (Auto) [place] # (Auto) Eos # (Auto) Baso # (Auto) WBC Differential Differential Comment PT INR Sodium 140 Potassium 4.0 Chloride 108 H Carbon Dioxide 26.2 Anion Gap 6 BUN 20 H Creatinine 1.97 H Estimated GFR 39 L POC Glucose Random Glucose 79 Calcium 8.6 D Total Creatine Kinase 136 150 Troponin I 0.06 H 0.06 H MTS Gel Crossmatch See Detail 07/12/18 07/12/18 07/12/18 11:06 12:22 16:24 WBC RBC Hgb 10.1 L D Hct 31.6 L MCV MCH MCHC RDW Plt Count MPV Neut % (Auto) Lymph % (Auto) [place] % (Auto) Eos % (Auto) Baso % (Auto) Neut # (Auto) Lymph # (Auto) [place] # (Auto) Eos # (Auto) Baso # (Auto) WBC Differential Differential Comment PT INR Sodium Potassium Chloride Carbon Dioxide Anion Gap BUN Creatinine Estimated GFR POC Glucose 92 78 Random Glucose Calcium Total Creatine Kinase Troponin I MTS Gel Crossmatch 07/12/18 07/12/18 07/12/18 19:10 20:01 23:53 WBC RBC Hgb 9.7 L 9.5 L Hct 31.3 L 29.0 L MCV MCH MCHC RDW Plt Count MPV Neut % (Auto) Lymph % (Auto) [place] % (Auto) Eos % (Auto) Baso % (Auto) Neut # (Auto) Lymph # (Auto) [place] # (Auto) Eos # (Auto) Baso # (Auto) WBC Differential Differential Comment PT INR Sodium Potassium Chloride Carbon Dioxide Anion Gap BUN Creatinine Estimated GFR POC Glucose 131 H Random Glucose Calcium Total Creatine Kinase Troponin I MTS Gel Crossmatch 07/13/18 07/13/18 07/13/18 05:12 05:12 05:12 WBC 6.1 RBC 3.74 L Hgb 9.6 L Hct 29.4 L MCV 78.8 L MCH 25.6 L MCHC 32.5 RDW 21.1 H Plt Count 153 MPV 9.5 Neut % (Auto) 53.6 Lymph % (Auto) 29.8 [place] % (Auto) 12.3 H Eos % (Auto) 3.6 Baso % (Auto) 0.7 Neut # (Auto) 3.3 Lymph # (Auto) 1.8 [place] # (Auto) 0.8 Eos # (Auto) 0.2 Baso # (Auto) 0.0 WBC Differential . Differential Comment Auto diff final PT 21.1 H INR 2.1 Sodium 143 Potassium 4.1 Chloride 112 H Carbon Dioxide 26.4 Anion Gap 5 BUN 19 H Creatinine 1.85 H Estimated GFR 42 L POC Glucose Random Glucose 78 Calcium 7.7 L D Total Creatine Kinase Troponin I MTS Gel Crossmatch - Imaging Impressions GI Bleed Scan Nuclear Medicine 07/12/18 00:00 CONCLUSION: No episodes of active GI bleeding observed. Assessment and Plan - Assessment (1) Chest pain Code(s): R07.9 - Chest pain, unspecified Status: Acute (2) Symptomatic anemia Code(s): D64.9 - Anemia, unspecified Status: Acute (3) GI bleed Code(s): K92.2 - Gastrointestinal hemorrhage, unspecified Status: Acute (4) Hypertension Code(s): I10 - Essential (primary) hypertension Status: Chronic - Plan Assessment/plan: 88-year-old male with a past medical history significant for hypertension, hyperlipidemia, diabetes mellitus, congestive heart failure, coronary artery disease, previous GI bleed and atrial fibrillation anticoagulated on Coumadin presents to the emergency department for the evaluation of chest pain. The patient reported he started experiencing substernal chest pain that was a burning sensation. The pain was nonradiating. He denies any shortness of breath or palpitations. No abdominal pain. No nausea/vomiting/diarrhea. No lateralizing signs/symptoms. No fever/chills. Patient does have a history of a previous GI bleed that was thought to be coming from the small bowel. He denied any melena or hematemesis. Lower GI bleed/symptomatic anemia Hemoccult positive in the emergency department Hemoglobin 6.7, s/p transfusion 2 units packed red blood cells -IV Protonix -Gastroenterology consulted, appreciate assistance -Holding home Coumadin and aspirin -H&H posttransfusion, hemoglobin 9.6, hematocrit 29.4. -Had bleeding scan, negative -Going for enteroscopy today Chest pain, secondary to anemia, no evidence of ACS -Continue to monitor, chest pain-free Atrial fibrillation Rate controlled -Holding Coumadin as above Hypertension-blood pressure elevated up to 190s. Improved today 140s Patient is not on any medication at home Continue with Vasotec as needed -add Norvasc 5 mg po daily to start tomorrow as pt. is NPO Hyperlipidemia/coronary artery disease -Aspirin on hold -Continue statin Acute on chronic kidney disease Creatinine on admission 2.11, baseline 1.7 -Monitor renal function -Continue with cautious hydration Creatinine coming down, 1.85 BPH Continue with Flomax Type 2 diabetes Continue with Accu-Cheks before meals and at bedtime and insulin therapy as needed SCDs for DVT prophylaxis Repeat labs in the morning We will follow-up on results from enteroscopy Code Status: Full code Discussed Condition With: RN, patient Discharge Planning: Possible discharge 1-2 days (1) Chest pain Qualifiers: Chest pain type: other chest pain Qualified Code(s): R07.89 - Other chest pain; R07.8 - Other chest pain (3) GI bleed Qualifiers: GI bleed type/associated pathology: unspecified gastrointestinal hemorrhage type Qualified Code(s): K92.2 - Gastrointestinal hemorrhage, unspecified (4) Hypertension Qualifiers: Hypertension type: essential hypertension Qualified Code(s): I10 - Essential (primary) hypertension
[2018-07-13] MEDS: Sod Chloride 0.9% Inj 1,000 ML IV.CONT SCH (18:38)
--- NOTE | 2018-07-13 18:45 | P.PNGI ---
Subjective Interval history: Patient laying comfortably in bed. Denies any noted bleeding. Plan of care discussed, INR elevated FFP ordered Physical Exam Vital signs: Vital Signs 07/12/18 20:00 07/13/18 00:15 07/13/18 00:24 Temperature 97.8 F 98.3 F Pulse Rate 62 60 60 Respiratory Rate 16 17 Blood Pressure 165/79 H 194/92 H Pulse Oximetry 97 99 07/13/18 04:00 07/13/18 04:14 07/13/18 09:00 Temperature 98.2 F 97.9 F Pulse Rate 51 L 48 L 50 L Respiratory Rate 17 17 Blood Pressure 151/87 H 141/67 H Pulse Oximetry 98 99 07/13/18 10:08 07/13/18 11:14 07/13/18 12:00 Temperature 97.5 F L 95.7 F L Pulse Rate 46 L 49 L Respiratory Rate 16 17 Blood Pressure 164/75 H 187/76 H Pulse Oximetry 95 95 99 07/13/18 13:52 07/13/18 16:44 Temperature 97.5 F L 97.5 F L Pulse Rate 94 H 62 Respiratory Rate 18 18 Blood Pressure 180/84 H 143/83 H Pulse Oximetry 93 L 98 Intake & Output 07/12/18 07/13/18 07/13/18 18:59 06:59 18:59 Intake Total 810 / 810 450 / 450 1638 / 1638 Output Total 400 / 400 400 / 400 Balance 810 / 810 50 / 50 1238 / 1238 Weight 88 kg Intake: IV 1000 / 1000 NS Inj 1,000 ML @ 50 mls/hr IV. 1000 / 1000 CONT .Q20H [facility] Rx#:[id number] Oral 480 / 480 450 / 450 Anesthesia Amount 300 / 300 Other 30 / 30 Rbc As-3 Leukoreduced Unit [id number] Intake (Blood Product) Amt 300 / 300 338 / 338 Plasma Thawed 5 Day Cp2d Unit 338 / 338 [id number] Plasma Thawed 5 Day Cp2d Unit 0 / 0 [id number] Rbc As-3 Leukoreduced Unit 300 / 300 [id number] Output: Urine 400 / 400 400 / 400 Other: Other Intake Source Rbc As-3 Leukoreduced Unit Saline Solution [id number] # Voids 4 Date of Last Bowel Movement 07/10/18 - Constitutional no acute distress - Routine HEENT Exam Head: Present: normocephalic - Routine Respiratory Exam Present: CTA bilaterally - Routine Abdominal Exam Present: soft, normoactive bowel sounds. Absent: tenderness - Routine Skin Exam Present: dry, warm - Routine Neurological Exam Present: alert, oriented X3 - Routine Psychiatric Exam Present: normal affect, cooperative Results - Labs CBC & Chem 7: 07/13/18 05:12 07/13/18 05:12 Laboratory Results - last 24 hr 07/12/18 07/12/18 07/12/18 00:15 19:10 20:01 WBC RBC Hgb 9.7 L Hct 31.3 L MCV MCH MCHC RDW Plt Count MPV Neut % (Auto) Lymph % (Auto) [place] % (Auto) Eos % (Auto) Baso % (Auto) Neut # (Auto) Lymph # (Auto) [place] # (Auto) Eos # (Auto) Baso # (Auto) WBC Differential Differential Comment PT INR Sodium Potassium Chloride Carbon Dioxide Anion Gap BUN Creatinine Estimated GFR POC Glucose 131 H Random Glucose Calcium MTS Gel Crossmatch See Detail Blood Bank Comment 07/12/18 07/13/18 07/13/18 23:53 05:12 05:12 WBC 6.1 RBC 3.74 L Hgb 9.5 L 9.6 L Hct 29.0 L 29.4 L MCV 78.8 L MCH 25.6 L MCHC 32.5 RDW 21.1 H Plt Count 153 MPV 9.5 Neut % (Auto) 53.6 Lymph % (Auto) 29.8 [place] % (Auto) 12.3 H Eos % (Auto) 3.6 Baso % (Auto) 0.7 Neut # (Auto) 3.3 Lymph # (Auto) 1.8 [place] # (Auto) 0.8 Eos # (Auto) 0.2 Baso # (Auto) 0.0 WBC Differential . Differential Comment Auto diff final PT INR Sodium 143 Potassium 4.1 Chloride 112 H Carbon Dioxide 26.4 Anion Gap 5 BUN 19 H Creatinine 1.85 H Estimated GFR 42 L POC Glucose Random Glucose 78 Calcium 7.7 L D MTS Gel Crossmatch Blood Bank Comment 07/13/18 07/13/18 07/13/18 05:12 09:12 10:15 WBC RBC Hgb Hct MCV MCH MCHC RDW Plt Count MPV Neut % (Auto) Lymph % (Auto) [place] % (Auto) Eos % (Auto) Baso % (Auto) Neut # (Auto) Lymph # (Auto) [place] # (Auto) Eos # (Auto) Baso # (Auto) WBC Differential Differential Comment PT 21.1 H INR 2.1 Sodium Potassium Chloride Carbon Dioxide Anion Gap BUN Creatinine Estimated GFR POC Glucose 80 Random Glucose Calcium MTS Gel Crossmatch Blood Bank Comment 07/13/18 07/13/18 07/13/18 15:11 16:50 17:30 WBC RBC Hgb Hct MCV MCH MCHC RDW Plt Count MPV Neut % (Auto) Lymph % (Auto) [place] % (Auto) Eos % (Auto) Baso % (Auto) Neut # (Auto) Lymph # (Auto) [place] # (Auto) Eos # (Auto) Baso # (Auto) WBC Differential Differential Comment PT INR Sodium Potassium Chloride Carbon Dioxide Anion Gap BUN Creatinine Estimated GFR POC Glucose 72 75 75 Random Glucose Calcium MTS Gel Crossmatch Blood Bank Comment Assessment and Plan (1) GI bleed Status: Acute Code(s): K92.2 - Gastrointestinal hemorrhage, unspecified - Plan This patient is an 88-year-old male who has a medical history that is significant for hypertension, hyperlipidemia, diabetes mellitus, congestive heart failure, coronary artery disease, atrial fibrillation (on Coumadin), with history of GI bleed. Patient presented to the emergency room last evening at [facility] with complaint of substernal chest pain that he describes as a burning type pain. denies shortness of breath, weakness, or dizziness. Patient denies any abdominal pain, nausea, vomiting or diarrhea. Patient has history of previous GI bleeds-small bowel origin. Denies any obvious bleeding noted in stool. Of note, stool was heme positive in the emergency room. Our practice has been consulted to evaluate patient's GI bleed/ anemia. Patient states that he takes Coumadin 6 mg 5 days a week and 3 mg 2 days weekly. Last dose taken on 07/09/2018. Coumadin taken for diagnosis of A. fib. Patient also takes aspirin 81 p.o. daily. Patient denies abdominal pain, nausea or vomiting. Denies any known family history of gastrointestinal disorders. Denies any tobacco use or that of EtOH. Denies any use of NSAIDs. 12/31/2017 small bowel enteroscopy with biopsy done revealed the following--> esophagitis found in the distal esophagus, gastritis found in the body of the antrum of the stomach, duodenal bulb normal in appearance. Patient did present to the emergency room with complaint of burning chest wall pain, states he takes pantoprazole 40 mg p.o. daily. He states the pain he felt was not what he felt was heartburn. GI bleed Patient presented to the emergency room with complaints of chest pain, burning in nature. Troponin initially negative ,today 0.06. Upon ER evaluation hemoglobin 6.7 hematocrit 23.0 platelet count 167 INR 2.5. Patient denies any obvious noted bleeding in stool, denies any nausea vomiting or abdominal pain. Patient on Coumadin for A. fib, last dose taken 07/09/2018. Stool Hemoccult positive in the emergency room. Will order bleeding scan at this time. History of small bowel bleeding with multiple enteroscopy's performed in the past. 07/13/2018 Patient denies any obvious bleeding. Denies nausea vomiting or abdominal pain at this time. 07/12/2018 GI bleed scan revealed the following--No episodes of active GI bleeding observed. INR 2.1, FFP ordered to be administered on 2017 at 0300. Plan -N.p.o. after midnight for enteroscopy in the a.m. -Continue to hold Coumadin -Monitor for bleeding -Transfuse as needed -Continue Pantoprazole -Hold all anticoagulants -Hold aspirin -Monitor labs -Supportive care -Further recommendations to follow based on patient's status and findings This patient has been seen by myself and Dr. Mtz and this note is written on her behalf - Attending Attestation Dr. Mtz (1) GI bleed Qualifiers: GI bleed type/associated pathology: unspecified gastrointestinal hemorrhage type Qualified Code(s): K92.2 - Gastrointestinal hemorrhage, unspecified
[2018-07-14 00:25] VITALS: O2SAT 97
[2018-07-14] MEDS: Pantoprazole Inj 40 MG Vial IV.PUSH SCH ×2 (01:36→14:02)
[2018-07-14] MEDS: Sod Chloride 0.9% Inj 1,000 ML IV.CONT SCH (05:21)
[2018-07-14 06:26] LABS: Hematocrit 32.2 % (39.0-51.0); Hemoglobin 10.3 gm/dL (13.0-17.0); Mean Corpuscular HGB Conc 31.9 % (32.0-36.0); Mean Corpuscular Volume 78.3 fL (80.0-100.0); Mean Platelet Volume 9.7 fL (7.0-11.0); Platelet Count 159 th/mm3 (150-450); Red Cell Distribution Width 22.2 % (11.6-17.2); White Blood Count 6.8 th/mm3 (4.0-11.0)
[2018-07-14 06:33] LABS: INR 1.6 Ratio; Prothrombin Time 15.8 sec (9.8-11.6)
[2018-07-14 08:11] VITALS: BP 130/64; RESP 18; TEMP 97.6
--- NOTE | 2018-07-14 08:25 | P.DCO ---
- Diagnosis (1) GI bleed Status: Acute (2) Chest pain Status: Acute (3) Hypertension Status: Chronic (4) Symptomatic anemia Status: Acute - Home Health Nursing Order: Medical education, Signs/symptoms of disease process, Medication education-adverse effect, Nursing assessment with vital signs - Case Management Consult Yes - Certification I have seen patient [place] on 07/14/18. My clinical findings support the need for the requested home health care services because: symptomatic anemia, elderly, impaired vision Limited ability to care for self, Need for psychosocial assistance I certify that my clinical findings support that this patient is homebound because: Need for psychosocial assistance, Unable to use public transportation (1) GI bleed Qualifiers: GI bleed type/associated pathology: unspecified gastrointestinal hemorrhage type Qualified Code(s): K92.2 - Gastrointestinal hemorrhage, unspecified (2) Chest pain Qualifiers: Chest pain type: other chest pain Qualified Code(s): R07.89 - Other chest pain; R07.8 - Other chest pain (3) Hypertension Qualifiers: Hypertension type: essential hypertension Qualified Code(s): I10 - Essential (primary) hypertension
[2018-07-14] MEDS ORDERED: amLODIPine 5 MG Tablet PO SCH (09:00)
--- NOTE | 2018-07-14 09:04 | P.PN ---
Subjective Interval history: Follow-up for chest pain, GI bleedpatient more awake, oriented x3. Denies any chest pain, no shortness of breath. No blood in the stool, no hematemesis, no abdominal pain. Hemoglobin continues to trend up, 10.3 today. Blood pressure improved today, uncontrolled yesterday. Patient states that he has history hypertension, he is not sure if he is taking any medications. Reviewed patient' s home medications, he had list available from home. He is not on anything at home. Patient was able to eat yesterday after enteroscopy, he tolerated well, no nausea, no vomiting, no diarrhea. No fever. Physical Exam Vital signs: Vital Signs 07/13/18 10:08 07/13/18 11:14 07/13/18 12:00 Temperature 97.5 F L 95.7 F L Pulse Rate 46 L 49 L Respiratory Rate 16 17 Blood Pressure 164/75 H 187/76 H Pulse Oximetry 95 95 99 07/13/18 13:52 07/13/18 16:00 07/13/18 16:44 Temperature 97.5 F L 97.5 F L Pulse Rate 94 H 50 L 62 Respiratory Rate 18 18 Blood Pressure 180/84 H 143/83 H Pulse Oximetry 93 L 98 07/13/18 17:45 07/13/18 18:35 07/13/18 20:00 Temperature 95.8 F L 97.3 F L Pulse Rate 51 L 76 Respiratory Rate 19 18 Blood Pressure 182/76 H 154/68 H 175/90 H Pulse Oximetry 95 100 07/14/18 00:00 07/14/18 00:30 07/14/18 04:00 Temperature 98.4 F 97.9 F Pulse Rate 78 73 Respiratory Rate 18 16 17 Blood Pressure 134/71 127/65 Pulse Oximetry 97 97 07/14/18 08:11 Temperature 97.6 F Pulse Rate 56 L Respiratory Rate 18 Blood Pressure 130/64 Pulse Oximetry 97 Intake & Output 07/13/18 07/14/18 07/14/18 18:59 06:59 18:59 Intake Total 1938 / 1938 285 / 285 Output Total 1400 / 1400 200 / 200 Balance 538 / 538 -200 / -200 285 / 285 Weight 94.3 kg Intake: IV 1000 / 1000 NS Inj 1,000 ML @ 50 mls/hr IV. 1000 / 1000 CONT .Q20H [facility] Rx#:[id number] Anesthesia Amount 600 / 600 Intake (Blood Product) Amt 338 / 338 285 / 285 Plasma Thawed 5 Day Cp2d Unit 338 / 338 [id number] Plasma Thawed 5 Day Cp2d Unit 0 / 0 285 / 285 [id number] Output: Urine 1400 / 1400 200 / 200 Other: Date of Last Bowel Movement 07/13/18 07/14/18 # Bowel Movements 1 Narrative: GENERAL: Well-nourished, well-developed patient in no apparent distress. SKIN: Warm and dry. HEAD: Atraumatic. Normocephalic. EYES: Right eye cloudy, maintains eye close. Left pupil 2 mm and brisk. Extraocular eye movements intact. ENT: No nasal bleeding or discharge. Mucous membranes pink and moist. NECK: Trachea midline. No JVD. CARDIOVASCULAR: Regular rate and rhythm. RESPIRATORY: No accessory muscle use. Clear to auscultation. Breath sounds equal bilaterally. GASTROINTESTINAL: Abdomen soft, non-tender, nondistended. Hepatic and splenic margins not palpable. MUSCULOSKELETAL: Extremities without clubbing, cyanosis, or edema. No obvious deformities. NEUROLOGICAL: Awake and alert. No obvious cranial nerve deficits. Motor grossly within normal limits. Five out of 5 muscle strength in the arms and legs. Normal speech. PSYCHIATRIC: Appropriate mood and affect; insight and judgment normal. Results - Labs CBC & Chem 7: 07/14/18 05:52 07/13/18 05:12 Laboratory Results - last 24 hr 07/12/18 07/13/18 07/13/18 00:15 09:12 10:15 WBC RBC Hgb Hct MCV MCH MCHC RDW Plt Count MPV PT INR POC Glucose 80 MTS Gel Crossmatch See Detail Blood Bank Comment 07/13/18 07/13/18 07/13/18 15:11 16:50 17:30 WBC RBC Hgb Hct MCV MCH MCHC RDW Plt Count MPV PT INR POC Glucose 72 75 75 MTS Gel Crossmatch Blood Bank Comment 07/13/18 07/14/18 07/14/18 20:10 05:52 05:52 WBC 6.8 RBC 4.10 L Hgb 10.3 L Hct 32.2 L MCV 78.3 L MCH 25.0 L MCHC 31.9 L RDW 22.2 H Plt Count 159 MPV 9.7 PT 15.8 H INR 1.6 POC Glucose 78 MTS Gel Crossmatch Blood Bank Comment Assessment and Plan - Assessment (1) GI bleed Code(s): K92.2 - Gastrointestinal hemorrhage, unspecified Status: Acute (2) Chest pain Code(s): R07.9 - Chest pain, unspecified Status: Acute (3) Hypertension Code(s): I10 - Essential (primary) hypertension Status: Chronic (4) Symptomatic anemia Code(s): D64.9 - Anemia, unspecified Status: Acute (5) Acute blood loss anemia Code(s): D62 - Acute posthemorrhagic anemia Status: Acute - Plan Assessment/plan: 88-year-old male with a past medical history significant for hypertension, hyperlipidemia, diabetes mellitus, congestive heart failure, coronary artery disease, previous GI bleed and atrial fibrillation anticoagulated on Coumadin presents to the emergency department for the evaluation of chest pain. The patient reported he started experiencing substernal chest pain that was a burning sensation. The pain was nonradiating. He denies any shortness of breath or palpitations. No abdominal pain. No nausea/vomiting/diarrhea. No lateralizing signs/symptoms. No fever/chills. Patient does have a history of a previous GI bleed that was thought to be coming from the small bowel. He denied any melena or hematemesis. Acute blood loss anemia Symptomatic anemia Hemoccult positive in the emergency department Hemoglobin 6.7, s/p transfusion 2 units packed red blood cells S/P small bowel enteroscopy with biopsy --> esophagitis found in the distal esophagus, gastritis found in the body of the antrum of the stomach, duodenal bulb normal in appearance. Also small AVMs -IV Protonix -Gastroenterology consulted, appreciate assistance -H&H posttransfusion, hemoglobin 10.3. -Had bleeding scan, negative -diet adv-tolerated well. -d/w GI [employer], ok to dc and start Coumadin Chest pain, secondary to anemia, no evidence of ACS -Continue to monitor, chest pain-free Atrial fibrillation Rate controlled -Okay to resume Coumadin, INR 1.6 today. Received 2 units FFP yesterday. Hypertension-blood pressure elevated up to 190s. Improved today 140s Patient is not on any medication at home Blood pressure improved. Continue with Vasotec as needed -Started on Norvasc 5 mg po daily Hyperlipidemia/coronary artery disease -Aspirin on hold -Continue statin Acute on chronic kidney disease Creatinine on admission 2.11, baseline 1.7 -Monitor renal function -Continue with cautious hydration Creatinine coming down, 1.85 BPH Continue with Flomax Type 2 diabetes Continue with Accu-Cheks before meals and at bedtime and insulin therapy as needed SCDs for DVT prophylaxis Labs reviewed, H&H stable. No active bleeding. Physical therapy evaluation today Consult case management for home health care and PT, patient lives alone. Discussed with GI POPPY, okay to resume Coumadin. Inform patient to hold aspirin until seen by GI in 2 weeks Heart healthy diet Follow-up with GI in 2 weeks Follow-up with PCP in 1 week Activity as tolerated Code Status: full code Discussed Condition With: RN, pt, CM Discharge Planning: Discharge today with home health care (1) GI bleed Qualifiers: GI bleed type/associated pathology: unspecified gastrointestinal hemorrhage type Qualified Code(s): K92.2 - Gastrointestinal hemorrhage, unspecified (2) Chest pain Qualifiers: Chest pain type: other chest pain Qualified Code(s): R07.89 - Other chest pain; R07.8 - Other chest pain (3) Hypertension Qualifiers: Hypertension type: essential hypertension Qualified Code(s): I10 - Essential (primary) hypertension
[2018-07-14] MEDS: Insulin NovoLOG Aspart Correctional Sugar Inj SQ SCH ×2 (09:56→16:02)
[2018-07-14 10:36] VITALS: PULSE 59
--- NOTE | 2018-07-14 13:22 | P.PNGI ---
Subjective Interval history: Patient laying supine in bed, awake alert. Awaiting discharge home after physical therapy. Denies any abdominal pain nausea or vomiting. States tolerated breakfast meal well. Denies any obvious bleeding. <Molly Kaba - Last Filed: 07/14/18 13:15> Physical Exam Vital signs: Vital Signs 07/13/18 13:52 07/13/18 16:00 07/13/18 16:44 Temperature 97.5 F L 97.5 F L Pulse Rate 94 H 50 L 62 Respiratory Rate 18 18 Blood Pressure 180/84 H 143/83 H Pulse Oximetry 93 L 98 07/13/18 17:45 07/13/18 18:35 07/13/18 20:00 Temperature 95.8 F L 97.3 F L Pulse Rate 51 L 76 Respiratory Rate 19 18 Blood Pressure 182/76 H 154/68 H 175/90 H Pulse Oximetry 95 100 07/14/18 00:00 07/14/18 00:30 07/14/18 04:00 Temperature 98.4 F 97.9 F Pulse Rate 78 73 Respiratory Rate 18 16 17 Blood Pressure 134/71 127/65 Pulse Oximetry 97 97 07/14/18 08:11 07/14/18 09:00 Temperature 97.6 F Pulse Rate 56 L 59 L Respiratory Rate 18 Blood Pressure 130/64 Pulse Oximetry 97 Intake & Output 07/13/18 07/14/18 07/14/18 18:59 06:59 18:59 Intake Total 1938 / 1938 285 / 285 Output Total 1400 / 1400 200 / 200 Balance 538 / 538 -200 / -200 285 / 285 Weight 94.3 kg Intake: IV 1000 / 1000 NS Inj 1,000 ML @ 50 mls/hr IV. 1000 / 1000 CONT .Q20H [facility] Rx#:[id number] Anesthesia Amount 600 / 600 Intake (Blood Product) Amt 338 / 338 285 / 285 Plasma Thawed 5 Day Cp2d Unit 338 / 338 [id number] Plasma Thawed 5 Day Cp2d Unit 0 / 0 285 / 285 [id number] Output: Urine 1400 / 1400 200 / 200 Other: Date of Last Bowel Movement 07/13/18 07/14/18 # Bowel Movements 1 - Constitutional no acute distress - Routine HEENT Exam Head: Present: normocephalic - Routine Respiratory Exam Present: CTA bilaterally. Absent: accessory muscle use - Routine Cardiovascular Exam Present: bradycardia, tachycardia - Routine Abdominal Exam Present: soft, normoactive bowel sounds. Absent: tenderness, guarding, firm - Routine Extremities Exam Present: full ROM, pulses intact - Routine Skin Exam Present: dry, warm - Routine Neurological Exam Present: alert - Routine Psychiatric Exam Present: normal affect, cooperative <Molly Kaba - Last Filed: 07/14/18 13:15> Vital signs: Vital Signs 07/13/18 20:00 07/14/18 00:00 07/14/18 00:30 Temperature 97.3 F L 98.4 F Pulse Rate 76 78 Respiratory Rate 18 16 Blood Pressure 175/90 H 134/71 Pulse Oximetry 100 97 07/14/18 04:00 07/14/18 08:00 07/14/18 08:11 Temperature 97.9 F 97.6 F Pulse Rate 73 56 L Respiratory Rate 18 Blood Pressure 127/65 130/64 Pulse Oximetry 97 97 07/14/18 09:00 Temperature Pulse Rate 59 L Respiratory Rate Blood Pressure Pulse Oximetry Intake & Output 07/14/18 07/14/18 07/15/18 06:59 18:59 06:59 Intake Total 285 / 285 Output Total 200 / 200 Balance -200 / -200 285 / 285 Weight 94.3 kg Intake: Intake (Blood Product) Amt 285 / 285 Plasma Thawed 5 Day Cp2d Unit 285 / 285 [id number] Output: Urine 200 / 200 Other: Date of Last Bowel Movement 07/14/18 07/14/18 # Bowel Movements 1 <Maddie Mtz - Last Filed: 07/14/18 19:14> Results - Labs CBC & Chem 7: 07/14/18 05:52 07/13/18 05:12 Laboratory Results - last 24 hr 07/13/18 07/13/18 07/13/18 09:12 15:11 16:50 WBC RBC Hgb Hct MCV MCH MCHC RDW Plt Count MPV PT INR POC Glucose 72 75 Blood Bank Comment 07/13/18 07/13/18 07/14/18 17:30 20:10 05:52 WBC 6.8 RBC 4.10 L Hgb 10.3 L Hct 32.2 L MCV 78.3 L MCH 25.0 L MCHC 31.9 L RDW 22.2 H Plt Count 159 MPV 9.7 PT INR POC Glucose 75 78 Blood Bank Comment 07/14/18 07/14/18 05:52 09:55 WBC RBC Hgb Hct MCV MCH MCHC RDW Plt Count MPV PT 15.8 H INR 1.6 POC Glucose 107 Blood Bank Comment <Molly Kaba - Last Filed: 07/14/18 13:15> - Labs CBC & Chem 7: 07/14/18 05:52 07/13/18 05:12 Laboratory Results - last 24 hr 07/13/18 07/14/18 07/14/18 20:10 05:52 05:52 WBC 6.8 RBC 4.10 L Hgb 10.3 L Hct 32.2 L MCV 78.3 L MCH 25.0 L MCHC 31.9 L RDW 22.2 H Plt Count 159 MPV 9.7 PT 15.8 H INR 1.6 POC Glucose 78 07/14/18 09:55 WBC RBC Hgb Hct MCV MCH MCHC RDW Plt Count MPV PT INR POC Glucose 107 <ClementMaddie guevara - Last Filed: 07/14/18 19:14> Assessment and Plan (1) GI bleed Status: Acute Code(s): K92.2 - Gastrointestinal hemorrhage, unspecified - Plan This patient is an 88-year-old male who has a medical history that is significant for hypertension, hyperlipidemia, diabetes mellitus, congestive heart failure, coronary artery disease, atrial fibrillation (on Coumadin), with history of GI bleed. Patient presented to the emergency room last evening at [facility] with complaint of substernal chest pain that he describes as a burning type pain. denies shortness of breath, weakness, or dizziness. Patient denies any abdominal pain, nausea, vomiting or diarrhea. Patient has history of previous GI bleeds-small bowel origin. Denies any obvious bleeding noted in stool. Of note, stool was heme positive in the emergency room. Our practice has been consulted to evaluate patient's GI bleed/ anemia. Patient states that he takes Coumadin 6 mg 5 days a week and 3 mg 2 days weekly. Last dose taken on 07/09/2018. Coumadin taken for diagnosis of A. fib. Patient also takes aspirin 81 p.o. daily. Patient denies abdominal pain, nausea or vomiting. Denies any known family history of gastrointestinal disorders. Denies any tobacco use or that of EtOH. Denies any use of NSAIDs. 12/31/2017 small bowel enteroscopy with biopsy done revealed the following--> esophagitis found in the distal esophagus, gastritis found in the body of the antrum of the stomach, duodenal bulb normal in appearance. Patient did present to the emergency room with complaint of burning chest wall pain, states he takes pantoprazole 40 mg p.o. daily. He states the pain he felt was not what he felt was heartburn. GI bleed Patient presented to the emergency room with complaints of chest pain, burning in nature. Troponin initially negative ,today 0.06. Upon ER evaluation hemoglobin 6.7 hematocrit 23.0 platelet count 167 INR 2.5. Patient denies any obvious noted bleeding in stool, denies any nausea vomiting or abdominal pain. Patient on Coumadin for A. fib, last dose taken 07/09/2018. Stool Hemoccult positive in the emergency room. Will order bleeding scan at this time. History of small bowel bleeding with multiple enteroscopy's performed in the past. 07/13/2018 Patient denies any obvious bleeding. Denies nausea vomiting or abdominal pain at this time. 07/12/2018 GI bleed scan revealed the following--No episodes of active GI bleeding observed. INR 2.1, FFP ordered to be administered on 2017 at 0300. 07/14/2018 Patient denies any obvious bleeding. Discussed findings of endoscopy. Patient agrees to follow-up with GI post discharge. Hemoglobin 10.3 hematocrit 32.2 platelet count 159. Plan -Cardiac/diabetic diet -Resume Coumadin -Follow-up with GI as outpatient-4 biopsies obtained during endoscopy and follow -up -Patient to monitor for any active bleeding -Avoid NSAIDs and aspirin This patient has been seen by myself and Dr. Mtz and this note is written on her behalf - Attending Attestation <Molly Kaba - Last Filed: 07/14/18 13:15> (1) GI bleed Status: Acute Code(s): K92.2 - Gastrointestinal hemorrhage, unspecified - Attending Attestation agree with above <Maddie Mtz - Last Filed: 07/14/18 19:14> <Molly Kaba - Last Filed: 07/14/18 13:15> (1) GI bleed Qualifiers: GI bleed type/associated pathology: unspecified gastrointestinal hemorrhage type Qualified Code(s): K92.2 - Gastrointestinal hemorrhage, unspecified <Maddie Mtz - Last Filed: 07/14/18 19:14> (1) GI bleed Qualifiers: GI bleed type/associated pathology: unspecified gastrointestinal hemorrhage type Qualified Code(s): K92.2 - Gastrointestinal hemorrhage, unspecified
--- NOTE | 2018-07-14 15:51 | P.DS ---
Date of admission: 07/12/18 00:09 Primary care physician: Pravin Kenyon III, MD Attending physician on discharge: Mandi Arenas Anticipated date of discharge: 07/14/18 Brief History from admission: 88-year-old male with a past medical history significant for hypertension, hyperlipidemia, diabetes mellitus, congestive heart failure, coronary artery disease, previous GI bleed and atrial fibrillation anticoagulated on Coumadin presents to the emergency department for the evaluation of chest pain. The patient reports that approximately 7 PM this evening he started experiencing substernal chest pain that was a burning sensation. The pain was nonradiating. He denies any shortness of breath or palpitations. No abdominal pain. No nausea/vomiting/diarrhea. No lateralizing signs/symptoms. No fever/chills. Patient does have a history of a previous GI bleed that was thought to be coming from the small bowel. He denies any melena or hematemesis. DS: Diagnosis - Discharge Diagnosis (1) GI bleed Status: Acute (2) Chest pain Status: Acute (3) Hypertension Status: Chronic (4) Symptomatic anemia Status: Acute (5) Acute blood loss anemia Status: Acute DS: Medications - Discharge Medications Prescriptions: amlodipine [Norvasc] 5 mg PO DAILY 30 Days #30 tab DS: Summary Hospital Course: 88-year-old male with a past medical history significant for hypertension, hyperlipidemia, diabetes mellitus, congestive heart failure, coronary artery disease, previous GI bleed and atrial fibrillation anticoagulated on Coumadin presents to the emergency department for the evaluation of chest pain. The patient reported he started experiencing substernal chest pain that was a burning sensation. The pain was nonradiating. He denies any shortness of breath or palpitations. No abdominal pain. No nausea/vomiting/diarrhea. No lateralizing signs/symptoms. No fever/chills. Patient does have a history of a previous GI bleed that was thought to be coming from the small bowel. He denied any melena or hematemesis. Found with hemoglobin of 6.7, Hemoccult positive in the emergency room. GI was consulted, put on IV Protonix, kept n.p.o. Bleeding scan was recommended, negative. Coumadin and aspirin was put on hold. GI evaluated and recommended enteroscopy. Patient had FFP before enteroscopy as INR was 2. S/P small bowel enteroscopy with biopsy --> esophagitis found in the distal esophagus, gastritis found in the body of the antrum of the stomach, duodenal bulb normal in appearance. Also small AVMs. Hemoglobin came up to 10.3. No active bleeding. Diet was advanced, tolerated well. Patient was also noted with elevated blood pressure, he was on control up to 190s. He was put initially on Vasotec as needed. Blood pressure did improve but was still not optimal. He was started on Norvasc 5 mg p.o. daily. Patient had a history of hypertension but was not on medications at home. Physical therapy was consulted for mobility. Patient was also noted with acute on chronic kidney injury, this improved after IV fluids. Creatinine came down to 1.7. Case management consulted for discharge planning. Patient was reevaluated by gastroenterology, he was clear for discharge and was okay to start on Coumadin. He was instructed to remain off aspirin until seen by GI. Case management arrange home health care. Patient was discharged home in stable condition. - Time Spent with Patient Total time spent providing and/or coordinating discharge services: 35 minutes. Greater than 30 minutes - Quality: VTE Deep Vein Thrombosis/Pulmonary Embolism Present on Admission: No Exam Vital signs: Vital Signs 07/13/18 16:00 07/13/18 16:44 07/13/18 17:45 Temperature 97.5 F L 95.8 F L Pulse Rate 50 L 62 51 L Respiratory Rate 18 19 Blood Pressure 143/83 H 182/76 H Pulse Oximetry 98 95 07/13/18 18:35 07/13/18 20:00 07/14/18 00:00 Temperature 97.3 F L 98.4 F Pulse Rate 76 78 Respiratory Rate 18 18 Blood Pressure 154/68 H 175/90 H 134/71 Pulse Oximetry 100 97 07/14/18 00:30 07/14/18 04:00 07/14/18 08:00 Temperature 97.9 F Pulse Rate 73 Respiratory Rate 16 17 18 Blood Pressure 127/65 Pulse Oximetry 97 07/14/18 08:11 07/14/18 09:00 Temperature 97.6 F Pulse Rate 56 L 59 L Respiratory Rate 18 Blood Pressure 130/64 Pulse Oximetry 97 Intake & Output 07/13/18 07/14/18 07/14/18 18:59 06:59 18:59 Intake Total 1938 / 1938 285 / 285 Output Total 1400 / 1400 200 / 200 Balance 538 / 538 -200 / -200 285 / 285 Weight 94.3 kg Intake: IV 1000 / 1000 NS Inj 1,000 ML @ 50 mls/hr IV. 1000 / 1000 CONT .Q20H [facility] Rx#:[id number] Anesthesia Amount 600 / 600 Intake (Blood Product) Amt 338 / 338 285 / 285 Plasma Thawed 5 Day Cp2d Unit 338 / 338 [id number] Plasma Thawed 5 Day Cp2d Unit 0 / 0 285 / 285 [id number] Output: Urine 1400 / 1400 200 / 200 Other: Date of Last Bowel Movement 07/13/18 07/14/18 07/14/18 # Bowel Movements 1 Results Procedures completed during hospitalization: 07/13---S/P small bowel enteroscopy with biopsy --> esophagitis found in the distal esophagus, gastritis found in the body of the antrum of the stomach, duodenal bulb normal in appearance. Also small AVMs Pending studies at discharge: Pending at discharge 07/13/18 07:44 Surgical [PTH] Routine Labs on day of discharge: Labs from last 24 hours 07/14/18 07/14/18 07/14/18 09:55 05:52 05:52 WBC 6.8 RBC 4.10 L Hgb 10.3 L Hct 32.2 L MCV 78.3 L MCH 25.0 L MCHC 31.9 L RDW 22.2 H Plt Count 159 MPV 9.7 PT 15.8 H INR 1.6 POC Glucose 107 07/13/18 07/13/18 07/13/18 20:10 17:30 16:50 WBC RBC Hgb Hct MCV MCH MCHC RDW Plt Count MPV PT INR POC Glucose 78 75 75 - Impressions ITS Impressions Chest X-Ray 07/11/18 23:00 CONCLUSION: Cardiomegaly. No acute pulmonary disease. GI Bleed Scan Nuclear Medicine 07/12/18 00:00 CONCLUSION: No episodes of active GI bleeding observed. Discharge Plan - Discharge Disposition Patient Disposition: W/Home Health Service - Discharge Condition Condition: Good - Discharge Order Discharge Orders: Discharge Order (Routine); Ordered 07/14/18 Ordered By: Elzbieta Green - Discharge Details Anticipated Discharge Date: 07/14/18 - Physicians Team Primary Care Provider: Pravin Kenyon III Attending Provider: Mandi Arenas Other Providers: [facility] ; Maddie Mtz MD
== END 2018-07-14 16:26 | disposition home health service (06) ==
LOC: NEPE 22:39 → NEDA 07-12 00:09 → N06 07-12 02:23
PROVIDERS: ADMIT Hospitalist; ATTEND Hospitalist
PROC: PANENDO (2018-07-13 15:40)